=== PATIENT | female | born 1940 | race Caucasian/White ===

== ENCOUNTER 2016-12-27 10:38 | Inpatient (IN) | payer MEDICARE, OTHER ==
[2016-12-27] MEDS ORDERED: Aspirin Low Dose CHEW TAB* 81 MG PO ONE (10:58)
[2016-12-27] MEDS ORDERED: NS 0.9% 1000 ML* 1,000 ML IV ONE (10:58)
--- NOTE | 2016-12-27 11:24 | RAD ---
INDICATION: Chest pain. COMPARISON: Comparison is made with a prior study from April 30, 2016. TECHNIQUE: A portable view of the chest was obtained. FINDINGS: The heart is mildly enlarged and unchanged from the prior exam. The lungs are hyperinflated and clear. No pleural effusion is seen. IMPRESSION: FINDINGS CONSISTENT WITH COPD, NO EVIDENCE FOR ACUTE FINDING.
[2016-12-27 11:39] LABS: Hematocrit 33 % (35-47); Hemoglobin 10.5 g/dl (12.0-16.0); Mean Corpuscular HGB Conc 31 g/dl (31-36); Mean Corpuscular Hemoglobin 23 pg (27-31); Mean Corpuscular Volume 75 fL (80-97); Mean Platelet Volume 7 um3 (7.4-10.4); Red Blood Count 4.46 10^6/ul (4.0-5.4); Red Cell Distribution Width 19 % (10.5-15); White Blood Count 9.3 10^3/ul (3.5-10.8)
[2016-12-27 11:40] LABS: Add Diff/Slide Review? Slide Review Added; Comments Flag Yes
[2016-12-27 11:55] LABS: Albumin 3.2 g/dL (3.2-5.2); BUN/Creatinine Ratio 16.7 (8-20); Calcium 8.7 mg/dL (8.6-10.3); EGFR African American 67.4 (>60); EGFR Non-African American 52.4 (>60); Globulin 2.9 g/dL (2-4); Potassium 3.7 mmol/L (3.5-5.0); Total Bilirubin 0.5 mg/dL (0.2-1.0); Total Protein 6.1 g/dL (6.4-8.9)
[2016-12-27 11:57] LABS: Troponin I 0.01 ng/mL (<0.04)
[2016-12-27] MEDS ORDERED: Ondansetron INJ* 2 MG/ML VIAL IV ONE (12:02)
[2016-12-27] MEDS ORDERED: fentaNYL* 50 MCG/ML 2 ML VIAL (100 MCG VIAL) IV SLOW PU ONE ×2 (12:02→13:17)
[2016-12-27 12:22] LABS: C Reactive Protein 1.41 mg/L (< 5.00)
[2016-12-27] MEDS ORDERED: Diltiazem IV* 5 MG/ML 5 ML VIAL (for loading dose/IV Push) (25 MG) IV SLOW PU ONE (13:11)
[2016-12-27] MEDS ORDERED: Diltiazem DRIP* 100 MG/100 ML ADDV.BAG IVPB ONE (13:11)
--- NOTE | 2016-12-27 14:35 | ED ---
Romeo Toure Benjamin, scribed for Jake Otero MD on 12/27/16 at 1154 . HPI Chest Pain - HPI Summary HPI Summary: 76yo female c/o sudden onset chest discomfort and rt sided abd. pain around 6am today. Pt Denies pain radiating pain to jaw or neck, or SOB. Pt is on a blood thinner. Hx of afib, DM, ID, cardiac stents x2, and colon CA s/p resection last yr. - History of Current Complaint Chief Complaint: EDChestPainROMI Time Seen by Provider: 12/27/16 11:31 Hx Obtained From: Patient Onset/Duration: Started Hours Ago, Still Present Timing: Constant Initial Severity: Moderate Current Severity: Moderate Chest Pain Location: Diffuse Chest Pain Radiates: No Aggravating Factor(s): Nothing Alleviating Factor(s): Nothing Associated Signs and Symptoms: Positive: Abdominal Pain - right sided abd pain. Negative: Shortness of Breath, Fever, Calf Pain/Swelling - Additional Pertinent History Primary Care Physician: ABDOULAYE - Allergy/Home Medications Allergies/Adverse Reactions: Allergies Allergy/AdvReac Type Severity Reaction Status Date / Time Cyclosporine [From Restasis] Allergy Eyes Verified 12/27/16 14:10 Itchy/Swollen/Red/Watery Morphine Allergy Hives Verified 12/27/16 14:10 Penicillins Allergy Hives Verified 12/27/16 14:10 Home Medications: Home Medications Acetaminophen [Tylenol 8 Hour Arthritis] 650 mg PO Q6HR PRN 12/27/16 [History Confirmed 12/27/16] Cholecalciferol [Vitamin D3 Ultra Strength] 5,000 unit PO DAILY 12/27/16 [ History Confirmed 12/27/16] Cyanocobalamin [Vitamin B-12] 5,000 mcg PO DAILY 12/27/16 [History Confirmed ] Docusate CAP* [Colace Cap*] 100 mg PO BID PRN 12/27/16 [History Confirmed ] Insulin NPH (Human) (Isophane) [Novolin N Relion] 65 unit SUBCUT QAM 12/27/16 [ History Confirmed 12/27/16] Lidocaine PATCH 5%* [Lidoderm 5% Patch*] 2 patch TRANSDERM DAILY 12/27/16 [ History Confirmed 12/27/16] Metoprolol Tartrate TAB* [Lopressor TAB*] 50 mg PO BID 12/27/16 [History Confirmed 12/27/16] Nitroglycerin TAB 0.4 MG* 0.4 mg SL Q5M PRN MDD 1.2 mg 12/27/16 [History Confirmed 12/27/16] [place]-3 Fatty Acids (Nf) [Fish Oil (NF)] 1,000 mg PO DAILY 12/27/16 [History Confirmed 12/27/16] PMH/Surg Hx/FS Hx/Imm Hx Endocrine/Hematology History: Reports: Hx Diabetes, Hx Anemia Cardiovascular History: Reports: Hx Angina, Hx Angioplasty, Hx Coronary Artery Disease, Hx Hypercholesterolemia, Hx Hypertension, Hx Myocardial Infarction, Other Cardiovascular Problems/Disorders - hx cardiac stent, atherosclerosis Denies: Hx Congestive Heart Failure, Hx Pacemaker/ICD, Hx Valvular Heart Disease Respiratory History: Reports: Hx Chronic Obstructive Pulmonary Disease (COPD) - per ED H+P, Hx Sleep Apnea - 2 liters O2 at night, Other Respiratory Problems/ Disorders Comment Only: Hx Asthma - occassional per pt GI History: Denies: Hx Cirrhosis, Hx Crohn's Disease, Hx Diverticulosis, Hx Gall Bladder Disease, Hx Gastroesophageal Reflux Disease, Hx Gastrointestinal Bleed, Hx Hiatal Hernia, Hx Irritable Bowel, Hx Jaundice, Hx Obstructive Bowel, Hx Ileostomy, Hx Pyloric Stenosis, Hx Ulcer, Other GI Disorders History: Reports: Hx Kidney Stones Musculoskeletal History: Reports: Hx Arthritis, Hx Rheumatoid Arthritis, Hx Orthopedic Injury - right femur 2013, Other Musculoskeletal History - herniated L4-L5 Sensory History: Reports: Hx Contacts or Glasses Denies: Hx Cataracts, Hx Eye Injury, Hx Eye Prosthesis, Hx Glaucoma, Hx Legally Blind, Hx Macular Degeneration, Hx Vision Problem, Hx Deafness, Hx Hearing Aid, Hx Hearing Problem, Other Sensory Impairments Opthamlomology History: Reports: Hx Contacts or Glasses Denies: Hx Cataracts, Hx Eye Injury, Hx Eye Prosthesis, Hx Glaucoma, Hx Legally Blind, Hx Macular Degeneration, Hx Vision Problem, Other Sensory Impairments Neurological History: Reports: Other Neuro Impairments/Disorders - legft hand neuropathy Denies: Hx Dementia, Hx Developmental Delay, Hx Headaches, Hx Migraine, Hx Nerve Disease, Hx Seizures, Hx Spinal Cord Injury, Hx Transient Ischemic Attacks (TIA) Psychiatric History: Denies: Hx Panic Disorder - Cancer History Cancer Type, Location and Year: COLON CA - Surgical History Surgery Procedure, Year, and Place: RIGHT LEG AFTER FRACTURE 10/26/14. Colon resection 2013 Hx Anesthesia Reactions: No Infectious Disease History: No Infectious Disease History: Denies: Hx Clostridium Difficile, Hx Hepatitis, Hx Human Immunodeficiency Virus (HIV), Hx of Known/Suspected MRSA, Hx Shingles, Hx Tuberculosis, Hx Known/ Suspected VRE, Hx Known/Suspected VRSA, History Other Infectious Disease, Traveled Outside the [place] in Last 30 Days - Family History Known Family History: Positive: Hypertension - Social History Alcohol Use: Rare Substance Use Type: Reports: None Smoking Status (MU): Never Smoked Tobacco Type: Cigarettes Review of Systems Constitutional: Negative Eyes: Negative ENT: Negative Positive: Chest Pain Respiratory: Negative Negative: Shortness Of Breath Positive: Abdominal Pain - right sided Genitourinary: Negative Musculoskeletal: Negative Skin: Negative Neurological: Negative Psychological: Normal All Other Systems Reviewed And Are Negative: Yes Physical Exam - Summary Physical Exam Summary: The patient is well-nourished in mild distress and in no acute pain. The skin is warm and dry and skin color reflects adequate perfusion. HEENT: The head is normocephalic and atraumatic. The pupils are equal and reactive. The conjunctivae are clear and without drainage. Nares are patent and without drainage. Mouth reveals dry mucous membranes and the throat is without erythema and exudate. The external ears are intact. The ear canals are patent and without drainage. The tympanic membranes are intact. Neck is supple with full range of motion and non-tender. There are no carotid bruits. There is no neck vein distension. Respiratory: Chest is non-tender. Lungs are clear to auscultation and breath sounds are symmetrical and equal. Cardiovascular: Hear is IRR. Tachycardic. There is no murmur or rub auscultated. There is no peripheral edema and pulses are symmetrical and equal. Abdomen: The abdomen is soft. Right sided tenderness, no guarding or rebound. There are normal bowel sounds heard in all four quadrants and there is no organomegaly palpated. Musculoskeletal: There is no back pain noted. Extremities are non-tender with full range of motion. There is good capillary refill. There is no peripheral edema or calf tenderness elicited. Good femoral pulses. Neurological: Patient is alert and oriented to person, place and time. The patient has symmetrical motor strength in all four extremities. Cranial nerves are grossly intact. Deep tendon reflexes are symmetrical and equal in all four extremities. Psychiatric: The patient has an appropriate affect and does not exhibit any anxiety or depression. Triage Information Reviewed: Yes Vital Signs On Initial Exam: Initial Vitals BP 160/84 12/27/16 10:44 Vital Signs Reviewed: Yes - [place] Coma Scale Coma Scale Total: 15 Diagnostics - Vital Signs Vital Signs Temp Pulse Resp BP Pulse Ox 12/27/16 11:30 99 19 172/119 98 12/27/16 11:15 152 12/27/16 11:00 98 14 165/97 97 12/27/16 10:50 120 12/27/16 10:46 98.7 F 102 22 160/84 96 12/27/16 10:44 160/84 - Laboratory Lab Results: Lab Results 12/27/16 Range/Units 11:25 WBC 9.3 (3.5-10.8) 10^3/ul RBC 4.46 (4.0-5.4) 10^6/ul Hgb 10.5 L (12.0-16.0) g/dl Hct 33 L (35-47) % MCV 75 L (80-97) fL MCH 23 L (27-31) pg MCHC 31 (31-36) g/dl RDW 19 H (10.5-15) % Plt Count 468 H (150-450) 10^3/ul MPV 7 L (7.4-10.4) um3 Neut % (Auto) 76.8 (38-83) % Lymph % (Auto) 13.6 L (25-47) % Crisp % (Auto) 6.9 (1-9) % Eos % (Auto) 1.3 (0-6) % Baso % (Auto) 1.4 (0-2) % Absolute Neuts (auto) 7.1 (1.5-7.7) 10^3/ul Absolute Lymphs (auto) 1.3 (1.0-4.8) 10^3/ul Absolute Monos (auto) 0.6 (0-0.8) 10^3/ul Absolute Eos (auto) 0.1 (0-0.6) 10^3/ul Absolute Basos (auto) 0.1 (0-0.2) 10^3/ul Absolute Nucleated RBC 0 10^3/ul Nucleated RBC % 0 Result Diagrams: 12/27/16 11:25 12/27/16 11:25 Lab Statement: Any lab studies that have been ordered have been reviewed, and results considered in the medical decision making process. - Radiology CXR Xray Interpretation: No Acute Changes - COPD Radiology Interpretation Completed By: Radiologist - EKG 1045. Cardiac Rate: NL EKG Rhythm: Atrial Fibrillation EKG Interpretation: LBBB. Rapid ventricular response. normal axis. 1308. Cardiac Rate: NL EKG Rhythm: Atrial Fibrillation EKG Interpretation: LBBB EKG Comparison: No Significant Change - same with her EKG taken on 12/27/16 at 10 :45am Re-Evaluation - Re-Evaluation First Eval Re-Evaluation Time: 13:11 Change: Worse Comment: pt reports left sided CP. will order repeat EKG and start her on Cardizem. Chest Pain Course/Dx - Course Course Of Treatment: Pt will be admitted. CT results pending. - Chest Pain Differential Diagnosis/HQI/PQRI: Acute ID, ACS, CHF, GI Disease, Other: - messenteric ischemia, colitis, sbo, gall bladder disease, history of colon cancer - Diagnoses Provider Diagnoses: Chest pain, Abdominal pain, Atrial fibrillation with rapid ventricular response - Provider Notifications Discussed Care Of Patient With: Dr. Bustamante (hospitalist) for admission evaluation. @13:20. Discharge - Discharge Plan Condition: Stable Disposition: ADMITTED TO [facility] Referrals: John Munguia MD [Primary Care Provider] - The documentation as recorded by the Romeo valdes Benjamin accurately reflects the service I personally performed and the decisions made by , Jake Otero MD.
[2016-12-27] MEDS ORDERED: Iodixanol* (CONTRAST) 320 MG/ML 100 ML SDV IV ONE (14:39)
[2016-12-27] MEDS ORDERED: Ondansetron INJ* 2 MG/ML VIAL IV PRN (15:10)
[2016-12-27 15:22] LABS: Urine Bacteria Absent (Absent); Urine Bilirubin Negative (Negative); Urine Glucose Negative (Negative); Urine Nitrite Negative (Negative)
[2016-12-27] MEDS ORDERED: Docusate CAP* 100 MG PO PRN (15:33)
[2016-12-27] MEDS ORDERED: Dextrose 50% Syringe 50 ML* 25 GM/50 ML SYRINGE IV PUSH PRN (15:35)
[2016-12-27] MEDS ORDERED: Metoprolol Tartrate TAB* 50 mg PO ONE (15:37)
--- NOTE | 2016-12-27 15:47 | RAD ---
Indication: Right-sided abdominal pain. CT of the abdomen and pelvis was performed after oral and IV contrast administration. Coronal and sagittal reconstructed images were obtained. Administered 132.0 ml of Contrast -- mgi/ml2 was given according to hospital protocol. The lung bases demonstrate no pleural fluid, nodules or masses. Cardiomegaly without evidence of pericardial effusion. The liver is normal in size. Small low density lesions is noted in the dome of the liver measuring 6 mm and in the hepatorenal fossa measuring 6 mm. These likely represent small cysts. No intrahepatic duct dilatation is noted. The gallbladder demonstrates no calcified gallstones. No pericholecystic fluid or wall thickening is noted. The spleen is normal size. Pancreas demonstrates no mass or pancreatic ductal dilatation. No adrenal lesions are noted. The kidneys demonstrate no hydronephrosis. No retroperitoneal adenopathy is noted. No dilated loops of bowel are noted. There is no retroperitoneal adenopathy. Aorta and inferior vena cava are unremarkable. CT of the pelvis demonstrates no evidence of diverticulitis or mucosal thickening of the right colon. No evidence of bowel obstruction is noted. No definite evidence of appendicitis is noted although the appendix is not visualized. The cecum appears to be in the right upper quadrant. Diverticulosis is noted. The uterus and ovaries are unremarkable. IMPRESSION: NO EVIDENCE OF BOWEL OBSTRUCTION IS NOTED. DIVERTICULOSIS WITHOUT EVIDENCE OF DIVERTICULITIS. LOW DENSITY LESION IN THE LIVER ARE NONSPECIFIC.
--- NOTE | 2016-12-27 17:23 | HP ---
ADMISSION HISTORY AND PHYSICAL: DATE OF ADMISSION: 12/27/16 PRIMARY CARE PROVIDER: Dr. Munguia. ADMITTING PROVIDER: BHUPENDRA Melendrez. SUPERVISING PHYSICIAN: Dr. Neha Bustamante.* (DICTATED BY BHUPENDRA MELENDREZ) CHIEF COMPLAINT: Chest pain versus shoulder pain and kind of right flank/ abdominal pain. HISTORY OF PRESENT ILLNESS: This is a 76-year-old female with an extensive medical history including chronic atrial fibrillation, anticoagulated with Coumadin, as well as coronary artery disease, status post multiple acute MIs, hypertension, hyperlipidemia, colorectal cancer, status post colectomy, and chronic kidney disease stage 3, who presented to the emergency department with primary complaints of chest pain. The patient states that she awoke with symptoms. They did not necessarily wake her up, but when she awoke to go to the bathroom this morning, she noted some left shoulder/left upper chest pain as well as some right-sided abdominal pain. She had some generalized feeling of malaise as well. As the day went on, she felt that her symptoms were getting worse and her pain climbed to a 10/10. EMS was contacted. The patient took a nitro that she had at home and she said that that helped somewhat. She also received morphine and aspirin from the EMS crew and she felt that that helped as well. She states that yesterday she had some kind of increased in activity, but not necessarily strenuous. She was vacuuming a small area in her home, flushed the floor, and went grocery shopping. She was asymptomatic when she went to bed last night. Since arriving in the emergency department, she feels that her pain has improved , but when she got up to ambulate to the bathroom, she had significant chest pain and feels like any time she tries to move around in her stretcher, that also increases her pain including shoulder range of motion. When the patient reached the emergency department, she was mildly tachycardic. She did reach a maximum heart rate of about 130 beats per minute and received IV diltiazem. Her rate has slowed into the low 100s or so on most recent check. The patient denies associated shortness of breath or palpitations. No nausea, vomiting, or diarrhea. She said that she did have a normal-appearing bowel movement earlier this morning. She did have a recent URI, but feels that her symptoms have largely resolved and denies any associated fevers. The patient states that she was told that she was subtherapeutic recently on her INR check and was told to double up on her Coumadin dose. She is noted to be supratherapeutic when she reaches the emergency department today, but no obvious signs of bleeding. PAST MEDICAL HISTORY: 1. Coronary artery disease, status post multiple MIs. 2. Hypertension. 3. Hyperlipidemia. 4. Insulin-dependent diabetes. 5. Atrial fibrillation, chronically anticoagulated on Coumadin. 6. Colorectal cancer, status post partial colectomy with a recently normal colonoscopy per patient report. 7. Chronic kidney disease, stage 3. PAST SURGICAL HISTORY: Hemicolectomy. HOME MEDICATIONS: 1. Acetaminophen 650 mg p.o. q.6 hours p.r.n. pain. 2. Aspirin 81 mg p.o. daily. 3. Atorvastatin 80 mg p.o. daily. 4. Vitamin D3 supplementation 5000 units p.o. daily. 5. Vitamin B12 5000 mcg p.o. daily. 6. Docusate 100 mg p.o. b.i.d. 7. Furosemide 20 mg p.o. daily. 8. Lantus 40 units subcu daily. 9. NPH 65 mg each morning as well. 10. Lidocaine 5% 2 patches transdermally daily. 11. Lisinopril 20 mg p.o. b.i.d. 12. Metoprolol tartrate 50 mg p.o. b.i.d. 13. Nitroglycerin 0.4 mg sublingual q.5 minutes p.r.n. chest pain. 14. Fish oil 1000 mg p.o. daily. 15. Omeprazole 20 mg p.o. b.i.d. 16. Coumadin 4.5 mg p.o. daily. 17. Oxycodone 5 mg p.o. q.6 hours. FAMILY HISTORY: The patient's mother and father had a history of diabetes. Her mother had colorectal cancer and her grandmother had coronary artery disease. SOCIAL HISTORY: The patient is . She lives at home and her daughters are near by. No smoking history. Rare alcohol consumption. No illicit drug use. 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 REVIEW OF SYSTEMS: As noted above in the HPI. Otherwise negative. PHYSICAL EXAMINATION GENERAL: This is a 76-year-old female who appears mildly fatigued surrounded by family, but is in no acute distress. INITIAL VITAL SIGNS: Temperature 98.7 degrees Fahrenheit, pulse 113 beats per minute, respiratory rate 22 per minute, oxygen saturation 98% on room air, and blood pressure 160/84 mmHg. HEENT: Head is normocephalic, atraumatic. Mucous membranes are pink and moist. RESPIRATORY: The patient has normal breath sounds. There is a faint wheeze appreciated at lung bases. Otherwise, no crackles or rhonchi noted. CHEST WALL EXAM: The patient has some pinpoint tenderness to palpation in the left upper chest and her pain seems to be exacerbated with range of motion of her left shoulder. CARDIOVASCULAR: The patient has an irregularly irregular rhythm. Slightly tachycardic. No significant murmurs appreciated. ABDOMEN: Abdomen is soft. She does have some right upper quadrant/right flank tenderness to palpation, but no true CVA tenderness. EXTREMITIES: No lower extremity edema. SKIN: Limited exam shows no concerning rashes or lesions. PSYCH: The patient is alert and appropriately oriented. LABORATORY DATA: Labs reviewed. CBC shows white blood cell count of 9300, hemoglobin 10.5 g/dL, and a platelet count of 468,000. INR is supratherapeutic at 4.5. PTT is also high at 47.5. Comprehensive metabolic panel shows normal sodium of 142 mmol/L, potassium 3.7 mmol/L, BUN of 17, creatinine of 1.02 with an estimated GFR of 52, which is near her baseline. Lactic acid is normal at 1.5. Transaminases and total bilirubin are within normal limits. Troponin negative at 0.01. CRP is normal at 1.4. Lipase is normal at 11. BNP is also normal at 86. IMAGING: EKG shows atrial fibrillation with a left bundle-branch block and mild tachycardia, reviewed. Chest x-ray shows findings consistent with COPD, but no acute findings. Reviewed most recent echocardiogram from September 2015, which is essentially within normal limits. Ejection fraction at that time was 55% to 60%. She had some mild diastolic dysfunction, [id number] mitral regurgitation, mild-to- moderate tricuspid regurgitation, no evidence of pulmonary hypertension. Reviewed cardiac catheterization from July 2015, which showed some diffuse disease, left main had 25% to 30% stenosis, LAD showed some mild stenosis with prior stents in the mid vessel. Circumflex showed 45% to 50% stenosis and the RCA showed moderate disease in a really small caliber vessel. ASSESSMENT AND PLAN: This is a 76-year-old female with an extensive history including coronary artery disease, insulin-dependent diabetes, atrial fibrillation, hypertension, hyperlipidemia, colorectal cancer status post partial colectomy, and chronic kidney disease stage 3, who presents with chest pain and abdominal pain. She is being admitted to the hospital for observation. 1. Chest pain - the patient's symptoms sound atypical, although she does have significant risk factors and rather diffuse disease appreciated on her last catheterization from July 2015. For these reasons, the patient will be admitted to the hospital for continuous telemetry monitoring and serial troponins and a repeat stress test tomorrow morning. We will plan to continue all of her home cardiac medications. 2. Atrial fibrillation with rapid ventricular response - the patient is mildly tachycardic in the emergency department. Unclear if she took her morning medications, but we will order her her typical metoprolol and anticipate that this should improve. The patient is normotensive with this and it does seem likely that her mild tachycardia with chronic atrial fibrillation would be inducing all of her pain. 3. Abdominal pain - the patient has some right upper quadrant abdominal pain. Again, it is unclear whether this is musculoskeletal or something intra- abdominal. CT of the abdomen and pelvis has been ordered by the emergency department physician and is pending at this time. No transaminitis or really other lab abnormalities that would suggest it to be acute intra-abdominal process and CRP is also noted to be essentially negative. 4. Insulin-dependent diabetes - the patient's home insulin regimen is odd with her taking Lantus and NPH. We will continue her typical Lantus at this time, check hemoglobin A1c, and then cover with Humalog at mealtime on a sliding scale. 5. Coronary artery disease, status post multiple myocardial infarctions - the patient is a low suspicion for acute coronary syndrome. We will continue cardiac medications at this time and monitor serial troponins with continuous telemetry. 6. Supratherapeutic INR - Coumadin will be held, no indication for reversal at this time. We will monitor INR daily. 7. Hypertension - continue home antihypertensives. 8. Hyperlipidemia - continue statin. 9. Chronic kidney disease, stage 3 - creatinine and an associated estimated GFR appear to be near baseline at this time. 10. History of colorectal cancer, status post colectomy. 11. Code status: The patient is listed as DNR. 12. DVT prophylaxis: The patient is actually supratherapeutic on her INR and additional medical prophylaxis is not indicated. 13. Healthcare proxy is listed as Roxie Saldana, which is her daughter. DISPOSITION: The patient is being admitted to the hospital under observation status for chest pain and abdominal pain. CT scan of the abdomen and pelvis is pending at this time. We will anticipate stress test in the morning and assuming no abnormality, the patient will be discharged tomorrow. BHUPENDRA MELENDREZ CC: Dr. Munguia * [id number]/CPS #: [id number] MTDD
[2016-12-27] MEDS: Insulin LISPRO* 1 UNITS UNIT SUBCUT SCH (17:41)
[2016-12-27] MEDS: Atorvastatin* 80 MG TAB PO SCH (17:41)
[2016-12-27] MEDS: Lisinopril TAB* 10 MG PO SCH (20:32)
[2016-12-27] MEDS: Omeprazole CAP* 20 MG PO SCH (20:32)
[2016-12-27] MEDS: Metoprolol Tartrate TAB* 50 mg PO SCH (20:32)
[2016-12-27] MEDS: oxyCODONE TAB* 5 MG TAB PO PRN (23:44)
[2016-12-28 06:22] LABS: HDL Cholesterol 39.4 mg/dL
[2016-12-28] MEDS: Insulin LISPRO* 1 UNITS UNIT SUBCUT SCH ×3 (08:58→17:35)
[2016-12-28] MEDS: Lisinopril TAB* 10 MG PO SCH ×2 (08:58→20:50)
[2016-12-28] MEDS: Furosemide TAB* 20 MG PO SCH (08:58)
[2016-12-28] MEDS: Aspirin EC Low Dose* 81 MG TAB.EC PO SCH (08:58)
[2016-12-28] MEDS: Omeprazole CAP* 20 MG PO SCH ×2 (08:58→20:50)
[2016-12-28] MEDS: Insulin GLARGINE(*) 1 UNITS UNIT SUBCUT SCH (09:01)
[2016-12-28] MEDS: Metoprolol Tartrate TAB* 50 mg PO SCH ×3 (09:11→20:50)
[2016-12-28] MEDS: oxyCODONE TAB* 5 MG TAB PO PRN ×2 (11:49→20:56)
[2016-12-28] MEDS ORDERED: Regadenoson* 0.4 MG/5 ML SYRINGE ONE (12:49)
--- NOTE | 2016-12-28 13:07 | RAD ---
Edited for charges. Indication: Chest pain, coronary artery disease. Myocardial perfusion scan was performed utilizing 1 day protocol. Rest myocardial perfusion was performed after intravenous injection of 10.7 mCi of technetium 99m tetrofosmin. Pharmacological stress was applied and 25.9 mCi of technetium 99m tetrofosmin was injected for the stress portion of the study. The patient appears to have a left bundle branch block. There is homogeneous distribution of the radiotracer throughout the left ventricle. There is a focal area of photopenia in the anteroseptal wall. This may be artifact from left bundle branch block. No other areas of fixed or reversible perfusion defect is identified. Ejection fraction at stress is 66%. Evaluation of wall motion demonstrates no evidence of focal wall motion abnormality. IMPRESSION: Small area of perfusion defect in the anteroseptal wall. This may be artifact from left bundle branch block. No definite focal wall motion abnormality is identified. ASSESSMENT: Low risk Based on imaging criteria from ACC/AHA 2002 Guideline Update for the Management of Patients With Chronic Stable Angina Table 23. Noninvasive Risk Stratification. MTDD
[2016-12-28] MEDS: Atorvastatin* 80 MG TAB PO SCH (17:36)
--- NOTE | 2016-12-28 17:44 | PN ---
Subjective Date of Service: 12/28/16 Interval History: HOSPITALIST PROGRESS NOTE Patient seen and examined at bedside. She states her left shoulder pain is resolved, but RUQ pain is still present, 3/ 10 intensity, no radiation. She states she was on her usual state of healthy until 2 days ago, when she had a very busy day: had blood test done, went to Pharmacy, grocery shopping, and finally ended up having dinner at [employer] (burger, fries and soda). When she arrived home her "tummy felt heavy" and when she woke up next day had chest and RUQ pain. Mild nausea, more frequent BMs, but no diarrhea. Family History: Unchanged from Admission Social History: Unchanged from Admission Past Medical History: Unchanged from Admission Objective Active Medications: Aspirin (Aspirin Ec Low Dose*) 81 mg PO DAILY [facility] Last Admin: 12/28/16 08:58 Dose: 81 mg Atorvastatin Calcium (Lipitor*) 80 mg PO QPM [facility] Last Admin: 12/28/16 17:36 Dose: 80 mg Dextrose (D50w Syringe 50 Ml*) 12.5 gm IV PUSH .FOR FS < 60 - SS PRN PRN Reason: FS < 60 Docusate Sodium (Colace Cap*) 100 mg PO BID PRN PRN Reason: CONSTIPATION Furosemide (Lasix Tab*) 20 mg PO DAILY [facility] Last Admin: 12/28/16 08:58 Dose: 20 mg Insulin Glargine (Lantus(*)) 40 units SUBCUT QAM [facility] Last Admin: 12/28/16 09:01 Dose: 40 units Insulin Human Lispro (Humalog*) 0 units SUBCUT AC [facility] PRN Reason: Protocol Last Admin: 12/28/16 17:35 Dose: 3 units Lisinopril (Prinivil Tab*) 20 mg PO BID [facility] Last Admin: 12/28/16 08:58 Dose: 20 mg Metoprolol Tartrate (Lopressor Tab*) 50 mg PO BID [facility] Last Admin: 12/28/16 11:50 Dose: 50 mg Omeprazole (Prilosec Cap*) 20 mg PO BID [facility] Last Admin: 12/28/16 08:58 Dose: 20 mg Ondansetron HCl (Zofran Inj*) 4 mg IV Q4H PRN PRN Reason: NAUSEA/VOMITING Oxycodone HCl (Roxycodone Tab*) 5 mg PO Q6HR PRN PRN Reason: PAIN Last Admin: 12/28/16 11:49 Dose: 5 mg Selected Entries 12/28/16 15:18 Temperature 98.0 F Pulse Rate 57 Respiratory 16 Rate Blood Pressure 132/45 (mmHg) O2 Sat by Pulse 99 Oximetry Oxygen Devices in Use Now: None Appearance: Elderly morbid obese lady lying in bed in NAD. Eyes: No Scleral Icterus Ears/Nose/Mouth/Throat: Mucous Membranes Moist Neck: Trachea Midline Respiratory: Symmetrical Chest Expansion and Respiratory Effort, Clear to Auscultation Cardiovascular: - - Normal S1 and S2, irregularly irregular Abdominal: - - Obese, RUQ tenderness on palpation, NG, NR, BS+ and increased. Extremities: No Edema Neurological: Alert and Oriented x 3, NL Muscle Strength and Tone Lines/Tubes/Other Access: Clean, Dry and Intact Peripheral IV Nutrition: Taking PO's Result Diagrams: 12/27/16 11:25 12/27/16 11:25 Assess/Plan/Problems-Billing Assessment: Mrs. No is a 76yo F with PMH of CAD, HTN, HLD, type 2 DM, Afib on warfarin, colorectal CA s/p hemicolectomy, CKD stage 3, who presented to ED with c/o RUQ pain/ chest pain. - Patient Problems (1) Chest pain Comment: - ACS ruled out. Suspect GI in nature. - Stress test showed small area of perfusion defect in the anteroseptal wall, possible artifact from LBBB. Low risk stress test. (2) RUQ pain Comment: - Suspect biliary in nature, considering it [facility]. - Check RUQ US. - Symptomatic treatment. (3) Afib Comment: - Rate is controlled. - Continue Metoprolol. - Warfarin on hold due to supratherapeutic INR. (4) Type 2 diabetes mellitus Comment: - Continue Lantus and Lispro SS. (5) CAD (coronary artery disease) Comment: - Stable. - Continue ASA, statin, metoprolol, lisinopril. (6) DVT prophylaxis Comment: - INR supratherapeutic - will resume Warfarin when INR<3.0. Status and Disposition: Inpatient.
[2016-12-29 06:34] LABS: Albumin 3.5 g/dL (3.2-5.2); BUN/Creatinine Ratio 12.6 (8-20); EGFR African American 66.6 (>60); EGFR Non-African American 51.8 (>60); Globulin 2.9 g/dL (2-4); Potassium 3.9 mmol/L (3.5-5.0); Total Bilirubin 1.4 mg/dL (0.2-1.0); Total Protein 6.4 g/dL (6.4-8.9)
[2016-12-29] MEDS: Aspirin EC Low Dose* 81 MG TAB.EC PO SCH (08:55)
[2016-12-29] MEDS: oxyCODONE TAB* 5 MG TAB PO PRN (08:55)
[2016-12-29] MEDS: Furosemide TAB* 20 MG PO SCH (08:56)
[2016-12-29] MEDS: Metoprolol Tartrate TAB* 50 mg PO SCH (08:56)
[2016-12-29] MEDS: Lisinopril TAB* 10 MG PO SCH (08:57)
[2016-12-29] MEDS: Omeprazole CAP* 20 MG PO SCH (08:57)
--- NOTE | 2016-12-29 09:48 | RAD ---
Indication: Right upper quadrant pain evaluate for cholelithiasis. Real-time sonography of the right upper quadrant was performed. The liver measures 17 cm in length. There is suggestion of a cystic lesion in the dome of the liver although evaluation is limited due to body habitus. No definite intrahepatic ductal dilatation is noted. The common duct measures up to 5.4 mm. A single gallstone is noted in the fundus of the gallbladder. Gallbladder wall measures 2.1 mm. Right kidney measures 10.2 x 5.1 x 4.3 cm with no hydronephrosis. Pancreas where visualized is unremarkable. IMPRESSION: Cholelithiasis without biliary ductal dilatation. Evaluation of the liver and other organs are limited due to body habitus.
[2016-12-29] MEDS: Insulin GLARGINE(*) 1 UNITS UNIT SUBCUT SCH (10:03)
[2016-12-29] MEDS: Insulin LISPRO* 1 UNITS UNIT SUBCUT SCH ×2 (10:03→12:11)
[2016-12-29] MEDS ORDERED: Insulin LISPRO* 1 UNITS UNIT SUBCUT ONE (12:06)
[2016-12-29 12:42] VITALS: BP 164/77
[2016-12-29] MEDS ORDERED: Warfarin TAB(*) 1 MG PO SCH (17:00)
--- NOTE | 2016-12-30 02:50 | DS ---
DISCHARGE SUMMARY: DATE OF ADMISSION: 12/27/16 DATE OF DISCHARGE: 12/29/16 PRIMARY CARE PROVIDER: Dr. Munguia. DISCHARGE DIAGNOSES: 1. Atypical chest pain, acute coronary syndrome ruled out, most likely GI in nature. 2. Biliary colic. 3. Cholelithiasis. SECONDARY DIAGNOSES: 1. Coronary artery disease. 2. Hypertension. 3. Hyperlipidemia. 4. Type 2 diabetes. 5. Atrial fibrillation, on warfarin. 6. History of colorectal cancer, status post hemicolectomy. 7. Chronic kidney disease, stage 3. 8. Morbid obesity. 9. Left bundle-branch block. MEDICATION LIST: 1. Acetaminophen 650 mg p.o. q.6 hours p.r.n. pain or fever. 2. Aspirin 81 mg p.o. daily. 3. Atorvastatin 80 mg p.o. daily. 4. Cholecalciferol 5000 units p.o. daily. 5. Cyanocobalamin 5000 mcg p.o. daily. 6. Colace 100 mg p.o. b.i.d. as needed for constipation. 7. Furosemide 20 mg p.o. daily. 8. Lantus 40 units subcutaneously daily. 9. NPH 65 units subcutaneously daily. 10. Lidocaine patch 2 patches topical daily. 11. Lisinopril 20 mg p.o. b.i.d. 12. Metoprolol tartrate 50 mg p.o. b.i.d. 13. Nitroglycerin 0.4 mg sublingual q.5 minutes p.r.n. as needed for chest pain , maximum 3 doses. 14. Fish oil 1000 mg p.o. daily. 15. Omeprazole 20 mg p.o. b.i.d. 16. Oxycodone 5 mg p.o. q.6 hours as needed for pain. Medication change: Warfarin 1.5 mg p.o. daily. HOSPITAL COURSE: Mrs. No is a 76-year-old lady with a past medical history as stated above that presents to the emergency room with complaints of left- sided chest and shoulder pain and right upper quadrant pain. For more details about her presentation, I refer you to her history and physical, but in summary , on the day of admission, the patient had a very busy day going to have blood test, grocery shopping, going to pharmacy, and she had a meal of burger, fries, and soda at [employer]. When she arrived at home, she states her "tummy felt heavy" and when she woke up the next day, she had chest and right upper quadrant pain, associated with mild nausea. While on telemetry, the patient had one episode of 3-beats of V-tach, asymptomatic, but no other arrhythmias. Serial troponins were negative and a pharmacological nuclear medicine stress test showed small area of perfusion defect in the anteroseptal wall that may represent artifact from left bundle- branch block. No definite focal wall motion abnormality was identified and the assessment was that this was a low-risk stress test. After further review of the patient's history, the impression was that her symptoms were likely GI in nature and we suspected a biliary source. Her initial bilirubin was 0.5, but in followup it had increased to 1.4. CT of the abdomen and pelvis showed no evidence of bowel obstruction, diverticulosis without evidence of diverticulitis, and incidental finding of low density lesion in the liver that likely represents a small cysts. The gallbladder demonstrated no calcified gallstones. There was no pericholecystic fluid or wall thickening noted. A right upper quadrant ultrasound showed cholelithiasis without biliary ductal dilation, but the exam was limited due to the patient's body habitus. Her lipase was 11. The patient was started on a low-fat diet, received symptomatic treatment and had improvement of her symptoms. The impression is that she likely experienced an episode of biliary colic associated with her [employer] meal. She does not have any signs of infection at this time. I do not think she has acute cholecystitis, so antibiotics will not be prescribed. She was advised that she needs to stick to a low-fat diet, otherwise she may have other episodes and end up requiring cholecystectomy. The patient states that her INR level was elevated and she was told to decrease her warfarin from 3 mg to 2 mg, but her INR was still elevated while in the hospital, so her dose was reduced further to 1.5 mg. She will have an INR and a CMP performed on December 31, and the results will be sent to Dr. Munguia. The patient is medically stable for discharge at this time. PHYSICAL EXAMINATION: Vital Signs: Temperature is 97.8, heart rate is 58, respiratory rate 16, oxygen saturation 94% on room air, blood pressure is 160/ 77. General: The patient is a pleasant, morbidly obese, elderly lady, sitting up in bed, in no acute distress. CVS: Normal S1, S2. Regular rate and rhythm. Chest: Breath sounds present bilaterally, with no added sounds. Abdomen: Soft, with minimal right upper quadrant tenderness. No guarding, no rebound. Bowel sounds are present. Extremities: No edema. Neuro: She is alert, awake, and oriented x3. Able to move all 4 extremities. DIET: Low-fat, consistent carb diet. ACTIVITY: As tolerated. DISPOSITION: To home. STATUS WHILE IN THE HOSPITAL: Inpatient. Please keep in mind, this is a summarized version of this patient's hospital stay. If you need more information, please feel free to call me at [phone] or please obtain the full medical records. TIME SPENT: Approximately 45 minutes were spent to complete this discharge. CC: Dr. Munguia * [id number]/CPS #: [id number] MTDD
== END 2016-12-29 16:11 | disposition home or self-care (01) | DRG 445 ==
LOC: ED 10:38 → MEDTELE 13:40 → OBSVTOIN 12-28 16:13
PROVIDERS: ADMIT Hospitalist; ATTEND Internal Medicine
PROC: 4A12XM4 Monitoring of Cardiac Stress, External Approach (ICD-10-PCS; principal; 2016-12-28)
DX: K80.70 Calculus of gallbladder and bile duct without cholecystitis without obstruction (principal); I47.2 Ventricular tachycardia; E11.40 Type 2 diabetes mellitus with diabetic neuropathy, unspecified; K76.89 Other specified diseases of liver; Z68.41 Body mass index [BMI] 40.0-44.9, adult; E66.01 Morbid (severe) obesity due to excess calories; I25.10 Atherosclerotic heart disease of native coronary artery without angina pectoris; E78.5 Hyperlipidemia, unspecified; Z85.038 Personal history of other malignant neoplasm of large intestine; N18.3 Chronic kidney disease, stage 3 (moderate); I12.9 Hypertensive chronic kidney disease with stage 1 through stage 4 chronic kidney disease, or unspecified chronic kidney disease; I25.2 Old myocardial infarction; Z95.5 Presence of coronary angioplasty implant and graft; Z88.5 Allergy status to narcotic agent; Z88.1 Allergy status to other antibiotic agents; Z88.0 Allergy status to penicillin; J44.9 Chronic obstructive pulmonary disease, unspecified; Z87.442 Personal history of urinary calculi; M06.9 Rheumatoid arthritis, unspecified; Z82.49 Family history of ischemic heart disease and other diseases of the circulatory system; I48.2 Chronic atrial fibrillation; Z83.3 Family history of diabetes mellitus; Z80.0 Family history of malignant neoplasm of digestive organs; R79.1 Abnormal coagulation profile; T45.515A Adverse effect of anticoagulants, initial encounter; Z66 Do not resuscitate; I44.7 Left bundle-branch block, unspecified; Z79.82 Long term (current) use of aspirin; Z79.4 Long term (current) use of insulin; Z79.01 Long term (current) use of anticoagulants
CPT/HCPCS: 36415; 71010; 74177; 76705; 78452; 80053; 80061; 81003; 81015; 83605; 83690; 83880; 84484; 85025; 85610; 85730; 86140; 87086; 93005; 96374; 99285; A9270-GY; A9502; G0378; J2405; J2785; J3010; Q9967

== ENCOUNTER 2017-05-04 02:27 | Emergency (ER) | payer MEDICARE, OTHER ==
[2017-05-04] MEDS ORDERED: oxyCODONE/Acetamin 5/325 MG* TAB PO ONE (03:45)
--- NOTE | 2017-05-04 06:15 | ED ---
Keith Toure Aidan, scribed for Pk Armstronguel on 05/04/17 at 0456 . Lower Extremity - HPI Summary HPI Summary: 77 y/o female presents to the ED with a complaint of acute, constant, severe (9/ 10) right foot pain that radiates up her leg. The pain began today when she stood up from her chair. The pain is aggravated by palpating the right foot/ leg. Typically the patient is mobile with a walker. Hx of broken right ankle. She takes oxycodone regularly for chronic pain. - History of Current Complaint Chief Complaint: EDExtremityLower Stated Complaint: RT LEG PAIN Time Seen by Provider: 05/04/17 03:30 Hx Obtained From: Patient Mechanism Of Injury: Unknown - Pt started feeling pain when she stood up from her chair, however, she is normally ambulatory with a walker Onset of Pain: Immediate - after standing up Onset/Duration: Still Present - pain began today Severity Initially: Severe Severity Currently: Severe Pain Intensity: 9 Pain Scale Used: 0-10 Numeric Timing: Constant Location: Is Discrete @ - right foot, radiates up right leg Character Of Pain: Sharp Associated Signs And Symptoms: Positive: Negative Aggravating Factor(s): Other - palpating the right foot/leg aggravates pain Alleviating Factor(s): Other - unknown Able to Bear Weight: Yes - unknown, however, Pt is ambulatory at baseline - Risk Factors Gout Risk Factors: Age Over 40, Diabetes, Hypertension, Obesity - Allergies/Home Medications Allergies/Adverse Reactions: Allergies Allergy/AdvReac Type Severity Reaction Status Date / Time Cyclosporine [From Restasis] Allergy Eyes Verified 12/27/16 14:10 Itchy/Swollen/Red/Watery Morphine Allergy Hives Verified 12/27/16 14:10 Penicillins Allergy Hives Verified 12/27/16 14:10 PMH/Surg Hx/FS Hx/Imm Hx Endocrine/Hematology History: Reports: Hx Diabetes, Hx Anemia Cardiovascular History: Reports: Hx Angina, Hx Angioplasty, Hx Coronary Artery Disease, Hx Hypercholesterolemia, Hx Hypertension, Hx Myocardial Infarction, Other Cardiovascular Problems/Disorders - hx cardiac stent, atherosclerosis Denies: Hx Congestive Heart Failure, Hx Pacemaker/ICD, Hx Valvular Heart Disease Respiratory History: Reports: Hx Chronic Obstructive Pulmonary Disease (COPD) - per ED H+P, Hx Sleep Apnea - 2 liters O2 at night Denies: Other Respiratory Problems/Disorders Comment Only: Hx Asthma - occassional per pt GI History: Reports: Hx Gastroesophageal Reflux Disease, Other GI Disorders - gastritis Denies: Hx Cirrhosis, Hx Crohn's Disease, Hx Diverticulosis, Hx Gall Bladder Disease, Hx Gastrointestinal Bleed, Hx Hiatal Hernia, Hx Irritable Bowel, Hx Jaundice, Hx Obstructive Bowel, Hx Ileostomy, Hx Pyloric Stenosis, Hx Ulcer History: Reports: Hx Kidney Stones Musculoskeletal History: Reports: Hx Arthritis, Hx Rheumatoid Arthritis, Hx Orthopedic Injury - right femur 2013, Other Musculoskeletal History - herniated L4-L5 Sensory History: Reports: Hx Contacts or Glasses Denies: Hx Cataracts, Hx Eye Injury, Hx Eye Prosthesis, Hx Glaucoma, Hx Legally Blind, Hx Macular Degeneration, Hx Vision Problem, Hx Deafness, Hx Hearing Aid, Hx Hearing Problem, Other Sensory Impairments Opthamlomology History: Reports: Hx Contacts or Glasses Denies: Hx Cataracts, Hx Eye Injury, Hx Eye Prosthesis, Hx Glaucoma, Hx Legally Blind, Hx Macular Degeneration, Hx Vision Problem, Other Sensory Impairments Neurological History: Reports: Other Neuro Impairments/Disorders - left hand neuropathy Denies: Hx Dementia, Hx Developmental Delay, Hx Headaches, Hx Migraine, Hx Nerve Disease, Hx Seizures, Hx Spinal Cord Injury, Hx Transient Ischemic Attacks (TIA) Psychiatric History: Reports: Hx Depression Denies: Hx Panic Disorder - Cancer History Cancer Type, Location and Year: COLON CA - Surgical History Surgery Procedure, Year, and Place: RIGHT LEG AFTER FRACTURE 09/26/14. Colon resection 2013 Hx Anesthesia Reactions: No - Immunization History Date of Tetanus Vaccine: within the last ten years Date of Influenza Vaccine: October 2016 Infectious Disease History: Denies: Hx Clostridium Difficile, Hx Hepatitis, Hx Human Immunodeficiency Virus (HIV), Hx of Known/Suspected MRSA, Hx Shingles, Hx Tuberculosis, Hx Known/ Suspected VRE, Hx Known/Suspected VRSA, History Other Infectious Disease, Traveled Outside the [place] in Last 30 Days - Family History Known Family History: Positive: Hypertension - Social History Occupation: Retired Lives: With Family Alcohol Use: Rare Substance Use Type: Reports: None Smoking Status (MU): Never Smoked Tobacco Type: Cigarettes Review of Systems Constitutional: Negative Eyes: Negative ENT: Negative Cardiovascular: Negative Respiratory: Negative Gastrointestinal: Negative Genitourinary: Negative Positive: Myalgia - right foot pain that radiates up leg. Negative: Arthralgia , Decreased ROM, Edema Skin: Negative Neurological: Negative Psychological: Normal All Other Systems Reviewed And Are Negative: Yes Physical Exam Triage Information Reviewed: Yes Vital Signs On Initial Exam: Initial Vitals Temp Pulse Resp BP Pulse Ox 99.6 F 68 20 170/60 99 05/04/17 02:29 05/04/17 02:29 05/04/17 02:29 05/04/17 02:29 05/04/17 02:29 Vital Signs Reviewed: Yes Appearance: Positive: Well-Appearing, No Pain Distress Skin: Positive: Warm, Skin Color Reflects Adequate Perfusion, Dry Head/Face: Positive: Normal Head/Face Inspection Eyes: Positive: EOMI, YURY ENT: Positive: Normal ENT inspection Neck: Positive: Supple, Nontender Respiratory/Lung Sounds: Positive: Clear to Auscultation, Breath Sounds Present Cardiovascular: Positive: Normal, RRR, Pulses are Symmetrical in both Upper and Lower Extremities Abdomen Description: Positive: Nontender, Soft Bowel Sounds: Positive: Present Musculoskeletal: Positive: Normal, Strength/ROM Intact, Other - tenderness over right ankle and leg, no neurovascular deficit Neurological: Positive: Normal, Sensory/Motor Intact, Alert, Oriented to Person Place, Time Psychiatric: Positive: Normal, Affect/Mood Appropriate AVPU Assessment: Alert Diagnostics - Vital Signs Vital Signs Temp Pulse Resp BP Pulse Ox 05/04/17 04:04 18 05/04/17 02:29 99.6 F 68 20 170/60 99 - Laboratory Lab Statement: Any lab studies that have been ordered have been reviewed, and results considered in the medical decision making process. - Radiology FOOT X-RAY Xray Interpretation: No Acute Changes - IMPRESSION: NEGATIVE Radiology Interpretation Completed By: ED Physician - DR. ARMSTRONG LOWER EXTREMITY X-RAY Xray Interpretation: No Acute Changes - NEGATIVE Radiology Interpretation Completed By: ED Physician - DR. ARMSTRONG - Ultrasound No standard instances Ultrasound Interpretation: No Acute Changes - VENOUS DOPPLER STUDY IMPRESSION: negative examination Ultrasound Interpretation Completed By: ED Physician Jese Armstrong Lower Extremity Course/Dx - Course Course Of Treatment: 77 y/o female presents with right foot pain that radiates up her leg. Imaging results were negative. - Diagnoses Provider Diagnoses: Right leg pain, Sprain and strain Discharge - Discharge Plan Condition: Stable Disposition: HOME Discharge Disposition Comment: Please follow up with your primary care provider within 3 days. Patient Education Materials: Leg Pain (ED), Hip Pain (ED) Referrals: John Mugnuia MD [Primary Care Provider] - The documentation as recorded by the Keith valdes Aidan accurately reflects the service I personally performed and the decisions made by , Todd Armstrong.
[2017-05-04 07:10] VITALS: BP 168/83
--- NOTE | 2017-05-04 08:19 | RAD ---
Indication: Right foot pain. 3 views of the right foot demonstrates diffuse osteopenia. There is no definite fracture or dislocation noted. There may be some degenerative changes between the tarsometatarsal joint. IMPRESSION: Diffuse osteopenia. No definite fracture is identified.
--- NOTE | 2017-05-04 08:21 | RAD ---
\T\ Right lower leg pain 2 views of the right lower leg demonstrates prior fracture of the tibia with internal fixation. No recent fracture is identified. IMPRESSION: INTERNAL FIXATION PROXIMAL TIBIA. NO RECENT FRACTURE IS IDENTIFIED.
--- NOTE | 2017-05-04 08:30 | RAD ---
Indication: Right leg edema. Duplex Doppler sonography of the deep venous system of the right lower extremity deep venous system was performed. Bilaterally the common femoral veins appear patent and compressible. Right proximal greater saphenous vein, proximal deep femoral vein, femoral vein, popliteal vein, posterior tibial veins and peroneal veins appear patent and compressible. 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 Correlation with history is suggested. IMPRESSION: NO EVIDENCE OF DEEP VENOUS THROMBOSIS IS IDENTIFIED.
== END 2017-05-04 07:09 | disposition home or self-care (01) ==
LOC: ED 02:27
DX: S86.911A Strain of unspecified muscle(s) and tendon(s) at lower leg level, right leg, initial encounter (principal); S93.601A Unspecified sprain of right foot, initial encounter; X58.XXXA Exposure to other specified factors, initial encounter; Y93.9 Activity, unspecified; Y92.9 Unspecified place or not applicable; M85.871 Other specified disorders of bone density and structure, right ankle and foot; E11.9 Type 2 diabetes mellitus without complications; I25.2 Old myocardial infarction; I10 Essential (primary) hypertension; I25.10 Atherosclerotic heart disease of native coronary artery without angina pectoris; Z95.5 Presence of coronary angioplasty implant and graft; J44.9 Chronic obstructive pulmonary disease, unspecified; K21.9 Gastro-esophageal reflux disease without esophagitis; Z87.442 Personal history of urinary calculi; Z85.038 Personal history of other malignant neoplasm of large intestine; Z88.5 Allergy status to narcotic agent; Z88.0 Allergy status to penicillin; Z88.8 Allergy status to other drugs, medicaments and biological substances
CPT/HCPCS: 99281; A9270-GY

== ENCOUNTER 2017-12-02 12:41 | Emergency (ER) | payer MEDICARE, OTHER ==
[2017-12-02 14:03] VITALS: BP 154/67
--- NOTE | 2017-12-02 14:40 | UC ---
Neck Pain HPI - HPI Summary HPI Summary: 77 yo female with 10/10 neck pain down right arm to fingers has occurred intermittently since 2004 no injury/ fall - History of Current Complaint Chief Complaint: UCUpperExtremity Stated Complaint: SHOULDER, NECK PAIN Time Seen by Provider: 12/02/17 14:24 Hx Obtained From: Patient Onset/Duration Of Injury/Symptoms: Days - 5 Mechanism Of Injury: No Known Trauma Timing: Constant Onset/Duration: Gradual Onset Severity: Severe Pain Intensity: 10 Pain Scale Used: 0-10 Numeric Character: Dull, Aching Aggravating Factors: Position, Movement Alleviating Factors: Position Associated Signs & Symptoms: Positive: Negative - Allergies/Home Medications Allergies/Adverse Reactions: Allergies Allergy/AdvReac Type Severity Reaction Status Date / Time Cyclosporine [From Restasis] Allergy Eyes Verified 12/02/17 14:02 Itchy/Swollen/Red/Watery Morphine Allergy Hives Verified 12/02/17 14:02 Penicillins Allergy Hives Verified 12/02/17 14:02 Home Medications: Home Medications Warfarin Sodium [Jantoven] 12/02/17 [History] Warfarin TAB(*) [Coumadin TAB(*)] 4 tab PO DAILY@1700 12/02/17 [History Confirmed 12/02/17] PMH/Surg Hx/FS Hx/Imm Hx Previously Healthy: Yes Endocrine History: Diabetes, Dyslipidemia Cardiovascular History: Cardiac Disease, Hypertension, Atrial Fibrillation Neurological History: CVA Cancer History: Colorectal Cancer - Surgical History Surgical History: Yes Surgery Procedure, Year, and Place: RIGHT LEG AFTER FRACTURE 09/26/14. Colon resection 2013 - Family History Known Family History: Positive: Hypertension - Social History Alcohol Use: None Substance Use Type: None Smoking Status (MU): Never Smoked Tobacco Type: Cigarettes - Immunization History Most Recent Influenza Vaccination: 2014 Most Recent Tetanus Shot: up to date Most Recent Pneumonia Vaccination: 2013 Review Of Systems Constitutional: Positive: Negative Skin: Positive: Negative Eyes: Positive: Negative ENT: Positive: Negative Respiratory: Positive: Negative Cardiovascular: Positive: Negative Gastrointestinal: Positive: Negative Genitourinary: Positive: Negative Musculoskeletal: Positive: Arthralgia, Myalgia Neurological: Positive: Negative Psychological: Positive: Negative All Other Systems Reviewed And Are Negative: Yes Physical Exam Triage Information Reviewed: Yes Appearance: Well-Appearing, No Pain Distress, Well-Nourished Vital Signs: Initial Vital Signs Temp 97.9 F 12/02/17 13:55 Pulse 74 12/02/17 13:55 Resp 18 12/02/17 13:55 BP 154/67 12/02/17 13:55 Pulse Ox 98 12/02/17 13:55 Vital Signs Reviewed: Yes Eyes: Positive: Conjunctiva Clear ENT: Negative: Hearing grossly normal - decreased, Nasal drainage, TMs normal, Tonsillar swelling, Tonsillar exudate, Trismus, Muffled voice, Hoarse voice Neck: Negative: Supple - limited ROM Respiratory: Positive: Lungs clear, Normal breath sounds, No respiratory distress Cardiovascular: Positive: RRR, No Murmur Musculoskeletal: Positive: ROM Limited @ - right shoulder - unable to abd >35 degrees due to pain Neurological: Positive: Alert Psychological Exam: Normal Skin Exam: Normal Diagnostics - Radiology No standard instances Xray Interpretation: No Acute Changes - Degenerative spondylosis and posterior element osteoarthritis with mild progression Neck Pain Course/Dx - Differential Dx/Diagnosis Provider Diagnoses: right cervical radiculopathy. DDD Discharge - Discharge Plan Condition: Stable Disposition: HOME Prescriptions: Cyclobenzaprine TAB* [Flexeril TAB*] 5 mg PO BID #8 tab Patient Education Materials: Cervical Radiculopathy (ED), Degenerative Disc Disease (ED) Referrals: Elver Lau MD [Medical Doctor] - As Soon As Possible Carlos Enrique Torres DO [Primary Care Provider] - As Soon As Possible Additional Instructions: soft collar when sitting or standing try muscle relaxant- it may may you drowsy call the pain clinic Images Head: 1 - tender Front/Back of Body, Lg (Knott): 1 - tender 2 - pain radiates here
--- NOTE | 2017-12-02 15:15 | RAD ---
Indication: Neck pain and RIGHT side radiculopathy. Comparison: May 01, 2016 Technique: AP, open-mouth odontoid, lateral, and oblique views cervical spine. Report: Minimal 1 -- 2 mm degenerative C5-C6 anterolisthesis. Negative for facet subluxation at any level. Negative for fracture. Multilevel degenerative spondylosis and moderate disc space narrowing at C5-C6 and C6-C7. Diffuse advanced facet joint osteoarthritis. Uncinate process spurring and facet joint osteoarthritis results in mild osseous foraminal stenosis at C3-C4 and C4-C5 on the LEFT. The bilateral foraminal are obscured low the C4-C5 level due to superimposed soft tissue. Unremarkable prevertebral soft tissue contours. IMPRESSION: Degenerative spondylosis and posterior element osteoarthritis with mild progression.
== END 2017-12-02 15:35 | disposition home or self-care (01) ==
LOC: UCEAST 12:41
DX: M54.12 Radiculopathy, cervical region (principal); M50.322 Other cervical disc degeneration at C5-C6 level; E11.9 Type 2 diabetes mellitus without complications; E78.5 Hyperlipidemia, unspecified; I10 Essential (primary) hypertension; I48.91 Unspecified atrial fibrillation; Z79.01 Long term (current) use of anticoagulants; Z86.73 Personal history of transient ischemic attack (TIA), and cerebral infarction without residual deficits; Z85.038 Personal history of other malignant neoplasm of large intestine; Z88.5 Allergy status to narcotic agent; Z88.0 Allergy status to penicillin
CPT/HCPCS: 72050; 99213; G0463

== ENCOUNTER 2018-04-25 17:29 | Emergency (ER) | payer MEDICARE, OTHER ==
--- NOTE | 2018-04-25 18:06 | ED ---
HPI Chest Pain - HPI Summary HPI Summary: 78 yo WF h/o DM HTN p/w left sided CP rediating parasternally intermittently x 2 weeks associated with weakness, is on ASA and nitro at home, took ASA but not nitro today - History of Current Complaint Chief Complaint: UCChestPain Time Seen by Provider: 04/25/18 17:40 Hx Obtained From: Patient Onset/Duration: Started Weeks Ago, Still Present Timing: Lasting Weeks Initial Severity: Moderate Current Severity: Moderate Pain Intensity: 8 Chest Pain Radiates: Yes Chest Pain Radiates To:: Arm, Other - parasternal Character: Fast, Fluttering, Pressure/Squeezing Aggravating Factor(s): Nothing Alleviating Factor(s): Nothing Associated Signs and Symptoms: Positive: Chest Pain - Additional Pertinent History Primary Care Physician: ABDOULAYE - Allergy/Home Medications Allergies/Adverse Reactions: Allergies Allergy/AdvReac Type Severity Reaction Status Date / Time cyclosporine [From Restasis] Allergy EYES Verified 04/25/18 17:48 ITCHY, SWOLLEN morphine Allergy Hives Verified 04/25/18 17:48 Penicillins Allergy Hives Verified 04/25/18 17:48 Home Medications: Home Medications Lotrimin Ultra* 04/25/18 [History] Warfarin Sodium [Jantoven] 4.5 tab PO BEDTIME 04/25/18 [History Confirmed ] PMH/Surg Hx/FS Hx/Imm Hx Previously Healthy: Yes Endocrine/Hematology History: Reports: Hx Diabetes, Hx Anemia Cardiovascular History: Reports: Hx Angina, Hx Angioplasty, Hx Coronary Artery Disease, Hx Hypercholesterolemia, Hx Hypertension, Hx Myocardial Infarction, Other Cardiovascular Problems/Disorders - hx cardiac stent, atherosclerosis Denies: Hx Congestive Heart Failure, Hx Pacemaker/ICD, Hx Valvular Heart Disease Respiratory History: Reports: Hx Chronic Obstructive Pulmonary Disease (COPD) - per ED H+P, Hx Sleep Apnea - 2 liters O2 at night Denies: Other Respiratory Problems/Disorders Comment Only: Hx Asthma - occassional per pt GI History: Reports: Hx Gastroesophageal Reflux Disease, Other GI Disorders - gastritis Denies: Hx Cirrhosis, Hx Crohn's Disease, Hx Diverticulosis, Hx Gall Bladder Disease, Hx Gastrointestinal Bleed, Hx Hiatal Hernia, Hx Irritable Bowel, Hx Jaundice, Hx Obstructive Bowel, Hx Ileostomy, Hx Pyloric Stenosis, Hx Ulcer History: Reports: Hx Kidney Stones Musculoskeletal History: Reports: Hx Arthritis, Hx Rheumatoid Arthritis, Hx Orthopedic Injury - right femur 2013, Other Musculoskeletal History - herniated L4-L5 Denies: Hx Scoliosis Sensory History: Reports: Hx Contacts or Glasses Denies: Hx Cataracts, Hx Eye Injury, Hx Eye Prosthesis, Hx Glaucoma, Hx Legally Blind, Hx Macular Degeneration, Hx Vision Problem, Hx Deafness, Hx Hearing Aid, Hx Hearing Problem, Other Sensory Impairments Opthamlomology History: Reports: Hx Contacts or Glasses Denies: Hx Cataracts, Hx Eye Injury, Hx Eye Prosthesis, Hx Glaucoma, Hx Legally Blind, Hx Macular Degeneration, Hx Vision Problem, Other Sensory Impairments Neurological History: Reports: Hx Headaches, Other Neuro Impairments/Disorders - left hand neuropathy Denies: Hx Dementia, Hx Developmental Delay, Hx Migraine, Hx Nerve Disease, Hx Seizures, Hx Spinal Cord Injury, Hx Transient Ischemic Attacks (TIA) Psychiatric History: Reports: Hx Depression Denies: Hx Panic Disorder - Cancer History Cancer Type, Location and Year: COLON CA - Surgical History Surgery Procedure, Year, and Place: RIGHT LEG AFTER FRACTURE 09/26/14. Colon resection 2013 Hx Anesthesia Reactions: No - Immunization History Date of Tetanus Vaccine: within the last ten years Date of Influenza Vaccine: October 2016 Infectious Disease History: No Infectious Disease History: Denies: Hx Clostridium Difficile, Hx Hepatitis, Hx Human Immunodeficiency Virus (HIV), Hx of Known/Suspected MRSA, Hx Shingles, Hx Tuberculosis, Hx Known/ Suspected VRE, Hx Known/Suspected VRSA, History Other Infectious Disease, Traveled Outside the [place] in Last 30 Days - Family History Known Family History: Positive: Hypertension - Social History Alcohol Use: None Substance Use Type: Reports: None Smoking Status (MU): Never Smoked Tobacco Type: Cigarettes Review of Systems Constitutional: Negative Eyes: Negative ENT: Negative Positive: Chest Pain Respiratory: Negative Gastrointestinal: Negative Genitourinary: Negative Skin: Negative Neurological: Negative Psychological: Normal All Other Systems Reviewed And Are Negative: Yes Physical Exam Triage Information Reviewed: Yes Vital Signs On Initial Exam: Initial Vitals Temp Pulse Resp BP Pulse Ox 37.2 C 111 20 181/82 96 04/25/18 17:43 04/25/18 17:43 04/25/18 17:43 04/25/18 17:43 04/25/18 17:43 Vital Signs Reviewed: Yes Appearance: Positive: No Pain Distress, Obese Skin: Positive: Warm Head/Face: Positive: Normal Head/Face Inspection Eyes: Positive: Normal ENT: Positive: Normal ENT inspection Neck: Positive: Supple Respiratory/Lung Sounds: Positive: Clear to Auscultation Cardiovascular: Positive: IRR, Tachycardia - afib rate at 111 Abdomen Description: Positive: Nontender Musculoskeletal: Positive: Normal Neurological: Positive: Normal, CN Intact II-III - no focal neuro deficits AVPU Assessment: Alert Diagnostics - Vital Signs Vital Signs Temp Pulse Resp BP Pulse Ox 04/25/18 17:43 37.2 C 111 20 181/82 96 - Laboratory Lab Statement: Any lab studies that have been ordered have been reviewed, and results considered in the medical decision making process. Chest Pain Course/Dx - Course Course Of Treatment: EKG with afib rate 111, LBBB, SIMILAR TO OLD EKG FROM with afib rate 114 and LBBB. TRANSFER TO [facility] FOR R/O ACS and further management for unstable management - Chest Pain Differential Diagnosis/HQI/PQRI: Acute NH, ACS, Angina - Diagnoses Provider Diagnoses: Chest pain, Angina at rest Discharge - Sign-Out/Discharge Documenting (check all that apply): Discharge/Admit/Transfer - Discharge Plan Condition: Stable Disposition: TRANS HIGHER LVL OF CARE FAC Discharge Disposition Comment: called [facility] and informed Dr Rogel of pt transfer Patient Education Materials: Chest Pain (ED) Referrals: Carlos Enrique Torres DO [Primary Care Provider] - - Billing Disposition and Condition Condition: STABLE Disposition: EMTALA
[2018-04-25 18:23] VITALS: BP 153/81
== END 2018-04-25 18:20 | disposition short-term general hospital (02) ==
LOC: UCEAST 17:29
DX: I20.9 Angina pectoris, unspecified (principal); R07.9 Chest pain, unspecified; J44.9 Chronic obstructive pulmonary disease, unspecified; I25.2 Old myocardial infarction; I10 Essential (primary) hypertension; Z88.1 Allergy status to other antibiotic agents; Z88.5 Allergy status to narcotic agent; Z88.0 Allergy status to penicillin; Z79.01 Long term (current) use of anticoagulants; Z95.5 Presence of coronary angioplasty implant and graft
CPT/HCPCS: 99213; G0463

== ENCOUNTER 2018-04-25 18:43 | Inpatient (IN) | payer MEDICARE, OTHER ==
[2018-04-25 19:28] LABS: ABS Basophils 0 10^3/ul (0-0.2); ABS Eosinophils 0.1 10^3/ul (0-0.6); ABS Lymphocytes 2.4 10^3/ul (1.0-4.8); ABS Neutrophils 6.7 10^3/ul (1.5-7.7); ABS Nucleated RBC 0 10^3/ul; Eosinophil % 1.3 % (0-6); Hematocrit 31 % (35-47); Hemoglobin 9.9 g/dl (12.0-16.0); Mean Corpuscular HGB Conc 31 g/dl (31-36); Mean Corpuscular Hemoglobin 22 pg (27-31); Mean Corpuscular Volume 70 fL (80-97); Mean Platelet Volume 7.6 um3 (7.4-10.4); Nucleated Red Blood Cells % 0; Platelet Count 421 10^3/ul (150-450); Red Blood Count 4.46 10^6/ul (4.0-5.4); Red Cell Distribution Width 19 % (10.5-15); White Blood Count 10.3 10^3/ul (3.5-10.8)
--- NOTE | 2018-04-25 19:34 | RAD ---
Indication: Shortness of breath and chest pain for 2 weeks. Coronary artery disease. COPD. Comparison: December 27, 2016 CT abdomen. December 27, 2016 chest radiograph. Technique: Upright AP 1922 hours Report: Elevated lung volumes and both diffuse mild prominence of the interstitial markings and patchy rarefaction of the mid to upper lung zone interstitial markings. No focal pulmonary lesion, compelling alveolar consolidation, pleural effusion, pneumothorax. Cardiomegaly. Unremarkable central pulmonary vasculature. IMPRESSION: Stigmata of obstructive lung disease. No acute pulmonary or cardiac process evident.
[2018-04-25 19:35] LABS: INR 3.34 (0.77-1.02)
[2018-04-25 19:44] LABS: EGFR Non-African American 42.8 (>60)
[2018-04-25] MEDS ORDERED: NS 0.9% 1000 ML* 1,000 ML IV ONE (20:06)
[2018-04-25] MEDS ORDERED: Diltiazem IV* 5 MG/ML 5 ML VIAL (for loading dose/IV Push) (25 MG) IV SLOW PU ONE ×2 (20:06→21:31)
[2018-04-25] MEDS ORDERED: Acetaminophen TAB* 325 MG PO PRN (21:13)
[2018-04-25] MEDS ORDERED: Melatonin 3 MG TAB PO PRN (21:14)
[2018-04-25] MEDS ORDERED: Ondansetron ODT TAB* 4 MG PO PRN (21:15)
--- NOTE | 2018-04-25 21:15 | HP ---
H&P (Free Text) History and Physical: PCP: Franklin Torres MD Cardiology: Eladia Baez MD Date/Time: 04/25/20182044 CC: chest pain HPI: Mrs No is a n 78YO female HX CAD/stent x3, HTN, HLD, insulin requiring DM2, AFIB, colorectal CA, & CKD who reports tonight at the behest of her daughter who found out today she has been having intermittent exertional chest discomfort she cannot adequately characterize, but notes it is different from her prior MIs. It is associated with SOB, sweating, and palpitations, but no nausea or light-headedness. Pain varies from none to moderate. It is worse with activity and better with rest. PMedHx CAD/stent x3 insulin requiring DM2 HTN HLD colorectal CA CKD stg 3b GERD Ambulatory Orders Aspirin EC TAB* [Ecotrin EC Low Dose 81 MG*] 81 mg PO DAILY 07/19/15 Atorvastatin* [Lipitor 80 MG*] 80 mg PO QPM 07/19/15 Omeprazole CAP* [Prilosec CAP* 20 MG] 20 mg PO BID 07/19/15 oxyCODONE TAB* [Roxycodone TAB 5 mg*] 5 mg PO Q8HR 07/19/15 Furosemide TAB* [Lasix TAB*] 40 mg PO DAILY 01/27/16 Insulin GLARGINE(*) [Lantus(*)] 30 units SUBCUT DAILY 01/27/16 Lisinopril TAB* [Prinivil TAB 10 MG*] 20 mg PO BID 02/02/16 Cholecalciferol (Vitamin D3) [Vitamin D3] 5,000 unit PO DAILY 12/27/16 Cyanocobalamin (Vitamin B-12) [Vitamin B-12] 5,000 mcg PO DAILY 12/27/16 Insulin NPH Human Isophane [Novolin N] 65 unit SUBCUT QAM 12/27/16 Metoprolol Tartrate TAB* [Lopressor TAB*] 50 mg PO BID 12/27/16 Nitroglycerin TAB 0.4 MG* 0.4 mg SL Q5M PRN MDD 1.2 mg 12/27/16 [place]-3 Fatty Acids (Nf) [Fish Oil (NF)] 1,000 mg PO DAILY 12/27/16 Cyclobenzaprine TAB* [Flexeril TAB*] 5 mg PO BID #8 tab 12/02/17 Lotrimin Ultra* 1 each TOPICAL DAILY 04/25/18 Warfarin Sodium [Jantoven] 4.5 tab PO BEDTIME 04/25/18 Allergies cyclosporine [From Restasis] Allergy (Verified 04/25/18 17:48) EYES ITCHY, SWOLLEN morphine Allergy (Verified 04/25/18 17:48) Hives Penicillins Allergy (Verified 04/25/18 17:48) Hives PSurgHx R hemicolectomy B tubal ligation SocHx: no tobacco, rare alcohol, denies recreational drugs; , 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 ; 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; 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 FamHx: positive for DM, colorectal CA, HTN, HLD, CAD ROS: as above, otherwise reviewed and all were negative vitals: Vital Signs Temp 37.2 C 04/25/18 18:59 Pulse 106 04/25/18 18:59 Resp 22 04/25/18 18:59 BP 172/93 04/25/18 18:59 Pulse Ox 97 04/25/18 18:59 Intake & Output 04/24/18 04/25/18 04/25/18 23:59 11:59 23:59 Weight 108.862 kg Constitutional: NAD, normally developed, morbidly obese elderly white female HEENM: atraumatic; sclera/conjunctiva: anicteric/clear; hearing: clinically intact; oropharynx: clear, mucosa moist Neck: soft tissue: non-tender; thyroid: normal Pulmonary: clear to auscultation bilaterally, good aeration, no accessory muscle use CV: TIR/IR, normal S1S2, no carotid bruit, no jugular venous distention, 2+ B DP /PT, trace BLE edema Abdominal: soft, non-distended, non-tender, no rebound/guarding/rigidity, normoactive bowel sounds, no hepatosplenomegaly or masses, no costovertebral angle tenderness Musculoskeletal: general: grossly intact, tender B shins Integumental: normal appearance and texture of exposed skin Psychiatric orientation: AA&O to PPS affect: calm mood: cooperative eye contact: good content: reliable, although minimizes responses: timely insight: fair to poor Testing: Lab Results 04/25/18 04/25/18 04/25/18 Range/Units 19:12 19:12 19:12 WBC 10.3 (3.5-10.8) 10^3/ul RBC 4.46 (4.0-5.4) 10^6/ul Hgb 9.9 L (12.0-16.0) g/dl Hct 31 L (35-47) % MCV 70 L (80-97) fL MCH 22 L (27-31) pg MCHC 31 (31-36) g/dl RDW 19 H (10.5-15) % Plt Count 421 (150-450) 10^3/ul MPV 7.6 (7.4-10.4) um3 Neut % (Auto) 65.5 (38-83) % Lymph % (Auto) 23.0 L (25-47) % Benson % (Auto) 9.9 H (0-7) % Eos % (Auto) 1.3 (0-6) % Baso % (Auto) 0.3 (0-2) % Absolute Neuts (auto) 6.7 (1.5-7.7) 10^3/ul Absolute Lymphs (auto) 2.4 (1.0-4.8) 10^3/ul Absolute Monos (auto) 1.0 H (0-0.8) 10^3/ul Absolute Eos (auto) 0.1 (0-0.6) 10^3/ul Absolute Basos (auto) 0 (0-0.2) 10^3/ul Absolute Nucleated RBC 0 10^3/ul Nucleated RBC % 0 INR (Anticoag Therapy) 3.34 H (0.77-1.02) APTT 42.6 H (26.0-36.3) seconds Sodium 140 (139-145) mmol/L Potassium 3.7 (3.5-5.0) mmol/L Chloride 105 (101-111) mmol/L Carbon Dioxide 26 (22-32) mmol/L Anion Gap 9 (2-11) mmol/L BUN 19 (6-24) mg/dL Creatinine 1.21 H (0.51-0.95) mg/dL Est GFR ( Amer) 55.1 (>60) Est GFR (Non-Af Amer) 42.8 (>60) BUN/Creatinine Ratio 15.7 (8-20) Glucose 184 H (70-100) mg/dL Lactic Acid (0.5-2.0) mmol/L Calcium 9.1 (8.6-10.3) mg/dL Magnesium 1.8 L (1.9-2.7) mg/dL Total Bilirubin 0.60 (0.2-1.0) mg/dL AST 36 (13-39) U/L ALT 61 H (7-52) U/L Alkaline Phosphatase 60 (34-104) U/L Total Creatine Kinase 40 (10-223) U/L CK-MB (CK-2) 1.3 (0.6-6.3) ng/mL Troponin I 0.01 (<0.04) ng/mL B-Natriuretic Peptide ( - 100) pg/mL Total Protein 6.5 (6.4-8.9) g/dL Albumin 3.4 (3.2-5.2) g/dL Globulin 3.1 (2-4) g/dL Albumin/Globulin Ratio 1.1 (1-3) TSH 1.23 (0.34-5.60) mcIU/mL 04/25/18 04/25/18 Range/Units 19:15 19:15 WBC (3.5-10.8) 10^3/ul RBC (4.0-5.4) 10^6/ul Hgb (12.0-16.0) g/dl Hct (35-47) % MCV (80-97) fL MCH (27-31) pg MCHC (31-36) g/dl RDW (10.5-15) % Plt Count (150-450) 10^3/ul MPV (7.4-10.4) um3 Neut % (Auto) (38-83) % Lymph % (Auto) (25-47) % Benson % (Auto) (0-7) % Eos % (Auto) (0-6) % Baso % (Auto) (0-2) % Absolute Neuts (auto) (1.5-7.7) 10^3/ul Absolute Lymphs (auto) (1.0-4.8) 10^3/ul Absolute Monos (auto) (0-0.8) 10^3/ul Absolute Eos (auto) (0-0.6) 10^3/ul Absolute Basos (auto) (0-0.2) 10^3/ul Absolute Nucleated RBC 10^3/ul Nucleated RBC % INR (Anticoag Therapy) (0.77-1.02) APTT (26.0-36.3) seconds Sodium (139-145) mmol/L Potassium (3.5-5.0) mmol/L Chloride (101-111) mmol/L Carbon Dioxide (22-32) mmol/L Anion Gap (2-11) mmol/L BUN (6-24) mg/dL Creatinine (0.51-0.95) mg/dL Est GFR ( Amer) (>60) Est GFR (Non-Af Amer) (>60) BUN/Creatinine Ratio (8-20) Glucose (70-100) mg/dL Lactic Acid 1.1 (0.5-2.0) mmol/L Calcium (8.6-10.3) mg/dL Magnesium (1.9-2.7) mg/dL Total Bilirubin (0.2-1.0) mg/dL AST (13-39) U/L ALT (7-52) U/L Alkaline Phosphatase (34-104) U/L Total Creatine Kinase (10-223) U/L CK-MB (CK-2) (0.6-6.3) ng/mL Troponin I (<0.04) ng/mL B-Natriuretic Peptide 186 H ( - 100) pg/mL Total Protein (6.4-8.9) g/dL Albumin (3.2-5.2) g/dL Globulin (2-4) g/dL Albumin/Globulin Ratio (1-3) TSH (0.34-5.60) mcIU/mL ECG, personally reviewed: AFIB LBBB rate 111; unchanged from comparison 2016 CXR, personally reviewed: IMPRESSION: Stigmata of obstructive lung disease. No acute pulmonary or cardiac process evident. ECHO (): Conclusions: Poor windows for imaging due to body habitus and lung tissue interference. There is normal left ventricular systolic function. There is a left ventricular septal wall motion abnormality observed, possibly due to the presence of a left bundle branch block. The estimated ejection fraction is 55-60%. Visually estimated LVEF is 55%. Abnormal left ventricular diastolic filling is observed, consistent with impaired relaxation. The left atrium is mild to moderately dilated. There is mild to moderate mitral regurgitation. There is mild to moderate tricuspid regurgitation. There is evidence of moderate pulmonary hypertension. There is mild dilatation of the aortic arch. Compared to report of study from 03/07/2014 the mitral regurgitation has increased from trace (although prior study poor quality imaging), the tricupid regurgitation has increased from trace and the pul HTN is increased from mild. Impression: 78F HX CAD/stent x3, HTN, HLD who presents with 3 weeks of intermittent chest pain DIAGNOSIS & PLAN Primary chest pain r/o ACS : telemetry : trend troponin : if above negative, recommend D/C in AM w/ cardiology F/U : supplemental oxygen : supportive care AFIB/RVR : rate control : warfarin anticoagulation warfarin toxicity, mild : restart warfarin once therapeutic progressive microcytic anemia : check anemia labs & stool occult blood : consider outpatient GI referral upon discharge hypoMagnesemia : replace Secondary insulin requiring DM2 : update A1c : insulin carb ratio diet : basal/bolus/correctional insulin HTN : review meds once reconciled HLD : review meds once reconciled colorectal CA CKD stg 3b GERD Admission Rational: observation for r/o ACS DVTp: warfarin Code Status: full HCP: children
[2018-04-25] MEDS ORDERED: Magnesium Sulfate 2 GM IV* 2 GM/50 ML BAG IVPB ONE (21:25)
--- NOTE | 2018-04-25 21:31 | ED ---
Marcelo Toure Rebecca, scribed for Sy Red MD on 04/25/18 at 1909 . HPI Chest Pain - HPI Summary HPI Summary: Pt is an 78 y/o F who presents to ED referred from [facility] c/o CP. Pain began on 04/01 (about 3 weeks ago) and has been intermittent since onset. States that she would be pain free for multiple days, then the pain would return. When present, pain is in the midsternal region and the L shoulder. Sx characterized as pressure and is currently not present, ranked 0/10 on triage. Has been taking NTG intermittently for the pain. - History of Current Complaint Chief Complaint: EDChestPainROMI Time Seen by Provider: 04/25/18 18:56 Hx Obtained From: Patient Onset/Duration: Started Weeks Ago - 3 weeks Timing: Intermittent Current Severity: None Pain Intensity: 0 Pain Scale Used: 0-10 Numeric Chest Pain Location: Mid Sternal Chest Pain Radiates: Yes Chest Pain Radiates To:: Shoulder - Left Character: Pressure/Squeezing Aggravating Factor(s): Nothing Alleviating Factor(s): Nothing Associated Signs and Symptoms: Positive: Negative - Additional Pertinent History Primary Care Physician: [id number] - Allergy/Home Medications Allergies/Adverse Reactions: Allergies Allergy/AdvReac Type Severity Reaction Status Date / Time cyclosporine [From Restasis] Allergy EYES Verified 04/25/18 17:48 ITCHY, SWOLLEN morphine Allergy Hives Verified 04/25/18 17:48 Penicillins Allergy Hives Verified 04/25/18 17:48 PMH/Surg Hx/FS Hx/Imm Hx Endocrine/Hematology History: Reports: Hx Diabetes, Hx Anemia Cardiovascular History: Reports: Hx Angina, Hx Angioplasty, Hx Coronary Artery Disease, Hx Hypercholesterolemia, Hx Hypertension, Hx Myocardial Infarction, Other Cardiovascular Problems/Disorders - hx cardiac stent, atherosclerosis Denies: Hx Congestive Heart Failure, Hx Pacemaker/ICD, Hx Valvular Heart Disease Respiratory History: Reports: Hx Chronic Obstructive Pulmonary Disease (COPD) - per ED H+P, Hx Sleep Apnea - 2 liters O2 at night Denies: Other Respiratory Problems/Disorders Comment Only: Hx Asthma - occassional per pt GI History: Reports: Hx Gastroesophageal Reflux Disease, Other GI Disorders - gastritis Denies: Hx Cirrhosis, Hx Crohn's Disease, Hx Diverticulosis, Hx Gall Bladder Disease, Hx Gastrointestinal Bleed, Hx Hiatal Hernia, Hx Irritable Bowel, Hx Jaundice, Hx Obstructive Bowel, Hx Ileostomy, Hx Pyloric Stenosis, Hx Ulcer History: Reports: Hx Kidney Stones Musculoskeletal History: Reports: Hx Arthritis, Hx Rheumatoid Arthritis, Hx Orthopedic Injury - right femur 2013, Other Musculoskeletal History - herniated L4-L5 Denies: Hx Scoliosis Sensory History: Reports: Hx Contacts or Glasses Denies: Hx Cataracts, Hx Eye Injury, Hx Eye Prosthesis, Hx Glaucoma, Hx Legally Blind, Hx Macular Degeneration, Hx Vision Problem, Hx Deafness, Hx Hearing Aid, Hx Hearing Problem, Other Sensory Impairments Opthamlomology History: Reports: Hx Contacts or Glasses Denies: Hx Cataracts, Hx Eye Injury, Hx Eye Prosthesis, Hx Glaucoma, Hx Legally Blind, Hx Macular Degeneration, Hx Vision Problem, Other Sensory Impairments Neurological History: Reports: Hx Headaches, Other Neuro Impairments/Disorders - left hand neuropathy Denies: Hx Dementia, Hx Developmental Delay, Hx Migraine, Hx Nerve Disease, Hx Seizures, Hx Spinal Cord Injury, Hx Transient Ischemic Attacks (TIA) Psychiatric History: Reports: Hx Depression Denies: Hx Panic Disorder - Cancer History Cancer Type, Location and Year: COLON CA - Surgical History Surgery Procedure, Year, and Place: RIGHT LEG AFTER FRACTURE 09/26/14. Colon resection 2013 Hx Anesthesia Reactions: No - Immunization History Date of Tetanus Vaccine: within the last ten years Date of Influenza Vaccine: October 2016 Infectious Disease History: No Infectious Disease History: Denies: Hx Clostridium Difficile, Hx Hepatitis, Hx Human Immunodeficiency Virus (HIV), Hx of Known/Suspected MRSA, Hx Shingles, Hx Tuberculosis, Hx Known/ Suspected VRE, Hx Known/Suspected VRSA, History Other Infectious Disease, Traveled Outside the [place] in Last 30 Days - Family History Known Family History: Positive: Hypertension - Social History Alcohol Use: None Substance Use Type: Reports: None Smoking Status (MU): Never Smoked Tobacco Type: Cigarettes Review of Systems Negative: Fever Positive: Chest Pain All Other Systems Reviewed And Are Negative: Yes Physical Exam - Summary Physical Exam Summary: VITAL SIGNS: Reviewed. GENERAL: ~Patient is a well-developed and nourished female who is lying comfortable in the stretcher. ~Patient is not in any acute respiratory distress. HEAD AND FACE: No signs of trauma. ~No ecchymosis, hematomas or skull depressions. No sinus tenderness. EYES: PERRLA, EOMI x 2, No injected conjunctiva, no nystagmus. EARS: Hearing grossly intact. Ear canals and tympanic membranes are within normal limits. MOUTH: Oropharynx within normal limits. NECK: Supple, trachea is midline, no adenopathy, no JVD, no carotid bruit, no c- spine tenderness, neck with full ROM. CHEST: Symmetric, no tenderness at palpation LUNGS: Clear to auscultation bilaterally. No wheezing or crackles. CVS: IRR, S1 and S2 present, no murmurs or gallops appreciated. ABDOMEN: Soft, non-tender. No signs of distention. No rebound no guarding, and no masses palpated. Bowel sounds are normal. EXTREMITIES: FROM in all major joints, no edema, no cyanosis or clubbing. NEURO: Alert and oriented x 3. No acute neurological deficits. Speech is normal and follows commands. SKIN: Dry and warm Triage Information Reviewed: Yes Vital Signs On Initial Exam: Initial Vitals Temp Pulse Resp BP Pulse Ox 99.0 F 106 22 172/93 97 04/25/18 18:59 04/25/18 18:59 04/25/18 18:59 04/25/18 18:59 04/25/18 18:59 Vital Signs Reviewed: Yes Diagnostics - Vital Signs Vital Signs Temp Pulse Resp BP Pulse Ox 04/25/18 18:59 99.0 F 106 22 172/93 97 - Laboratory Lab Results: Lab Results 04/25/18 04/25/18 04/25/18 Range/Units 19:12 19:12 19:12 WBC 10.3 (3.5-10.8) 10^3/ul RBC 4.46 (4.0-5.4) 10^6/ul Hgb 9.9 L (12.0-16.0) g/dl Hct 31 L (35-47) % MCV 70 L (80-97) fL MCH 22 L (27-31) pg MCHC 31 (31-36) g/dl RDW 19 H (10.5-15) % Plt Count 421 (150-450) 10^3/ul MPV 7.6 (7.4-10.4) um3 Neut % (Auto) 65.5 (38-83) % Lymph % (Auto) 23.0 L (25-47) % [place] % (Auto) 9.9 H (0-7) % Eos % (Auto) 1.3 (0-6) % Baso % (Auto) 0.3 (0-2) % Absolute Neuts (auto) 6.7 (1.5-7.7) 10^3/ul Absolute Lymphs (auto) 2.4 (1.0-4.8) 10^3/ul Absolute Monos (auto) 1.0 H (0-0.8) 10^3/ul Absolute Eos (auto) 0.1 (0-0.6) 10^3/ul Absolute Basos (auto) 0 (0-0.2) 10^3/ul Absolute Nucleated RBC 0 10^3/ul Nucleated RBC % 0 INR (Anticoag Therapy) 3.34 H (0.77-1.02) APTT 42.6 H (26.0-36.3) seconds Sodium 140 (139-145) mmol/L Potassium 3.7 (3.5-5.0) mmol/L Chloride 105 (101-111) mmol/L Carbon Dioxide 26 (22-32) mmol/L Anion Gap 9 (2-11) mmol/L BUN 19 (6-24) mg/dL Creatinine 1.21 H (0.51-0.95) mg/dL Est GFR ( Amer) 55.1 (>60) Est GFR (Non-Af Amer) 42.8 (>60) BUN/Creatinine Ratio 15.7 (8-20) Glucose 184 H (70-100) mg/dL Lactic Acid (0.5-2.0) mmol/L Calcium 9.1 (8.6-10.3) mg/dL Magnesium 1.8 L (1.9-2.7) mg/dL Total Bilirubin 0.60 (0.2-1.0) mg/dL AST 36 (13-39) U/L ALT 61 H (7-52) U/L Alkaline Phosphatase 60 (34-104) U/L Total Creatine Kinase 40 (10-223) U/L CK-MB (CK-2) 1.3 (0.6-6.3) ng/mL Troponin I 0.01 (<0.04) ng/mL B-Natriuretic Peptide ( - 100) pg/mL Total Protein 6.5 (6.4-8.9) g/dL Albumin 3.4 (3.2-5.2) g/dL Globulin 3.1 (2-4) g/dL Albumin/Globulin Ratio 1.1 (1-3) TSH 1.23 (0.34-5.60) mcIU/mL 04/25/18 04/25/18 Range/Units 19:15 19:15 WBC (3.5-10.8) 10^3/ul RBC (4.0-5.4) 10^6/ul Hgb (12.0-16.0) g/dl Hct (35-47) % MCV (80-97) fL MCH (27-31) pg MCHC (31-36) g/dl RDW (10.5-15) % Plt Count (150-450) 10^3/ul MPV (7.4-10.4) um3 Neut % (Auto) (38-83) % Lymph % (Auto) (25-47) % [place] % (Auto) (0-7) % Eos % (Auto) (0-6) % Baso % (Auto) (0-2) % Absolute Neuts (auto) (1.5-7.7) 10^3/ul Absolute Lymphs (auto) (1.0-4.8) 10^3/ul Absolute Monos (auto) (0-0.8) 10^3/ul Absolute Eos (auto) (0-0.6) 10^3/ul Absolute Basos (auto) (0-0.2) 10^3/ul Absolute Nucleated RBC 10^3/ul Nucleated RBC % INR (Anticoag Therapy) (0.77-1.02) APTT (26.0-36.3) seconds Sodium (139-145) mmol/L Potassium (3.5-5.0) mmol/L Chloride (101-111) mmol/L Carbon Dioxide (22-32) mmol/L Anion Gap (2-11) mmol/L BUN (6-24) mg/dL Creatinine (0.51-0.95) mg/dL Est GFR ( Amer) (>60) Est GFR (Non-Af Amer) (>60) BUN/Creatinine Ratio (8-20) Glucose (70-100) mg/dL Lactic Acid 1.1 (0.5-2.0) mmol/L Calcium (8.6-10.3) mg/dL Magnesium (1.9-2.7) mg/dL Total Bilirubin (0.2-1.0) mg/dL AST (13-39) U/L ALT (7-52) U/L Alkaline Phosphatase (34-104) U/L Total Creatine Kinase (10-223) U/L CK-MB (CK-2) (0.6-6.3) ng/mL Troponin I (<0.04) ng/mL B-Natriuretic Peptide 186 H ( - 100) pg/mL Total Protein (6.4-8.9) g/dL Albumin (3.2-5.2) g/dL Globulin (2-4) g/dL Albumin/Globulin Ratio (1-3) TSH (0.34-5.60) mcIU/mL Result Diagrams: 04/25/18 19:12 04/25/18 19:12 Lab Statement: Any lab studies that have been ordered have been reviewed, and results considered in the medical decision making process. - Radiology CXR Xray Interpretation: No Acute Changes - Stigmata of obstructive lung disease. No acute pulmonary or cardiac process evident. ED physician reviewed this radiology report. Radiology Interpretation Completed By: Radiologist - EKG 1858 Cardiac Rate: Tachycardia - 121 bpm EKG Rhythm: Atrial Fibrillation EKG Interpretation: No ST elevations, LBBB EKG Comparison: No Significant Change - Simliar to EKG on 12/27/2016 Chest Pain Course/Dx - Course Assessment/Plan: This patient is an 78-year-old female who presents to the emergency room with a chief complaint of having chest pain. The patient reports that the pain is in the left side of the chest with radiation to the left shoulder. The patients pain is on exertion. She was also found that the patient is elective intubation with RVR. Physical shows microcytic hypochromic anemia, INR is 3.34, creatinine is 121. Glucose is 184. Troponin is 0.01 and BNP is 196. In the ED course the patient declined aspirin since she is taking already Coumadin. The patient also was given IV fluids and cardizem for the atrial fibrillation with RVR. Because of her multiple comorbidities I discuss my physical exam, findings and test results with Dr. Reyez from the hospitalist services and he agrees to admit patient to his services. Patient is hemodynamically stable alert and oriented x 3. - Chest Pain Differential Diagnosis/HQI/PQRI: Acute VT, ACS, Angina, CHF, Chest Wall, GI Disease - Diagnoses Provider Diagnoses: Atrial fibrillation with RVR, Chest pain - Provider Notifications Discussed Care Of Patient With: Sumit Reyez Time Discussed With Above Provider: 20:09 Instructed by Provider To: Other - Accepts pt for admission. Discharge - Sign-Out/Discharge Documenting (check all that apply): Discharge/Admit/Transfer - Admit - Discharge Plan Condition: Stable Disposition: ADMITTED TO [facility] Referrals: Carlos Enrique Torres DO [Primary Care Provider] - - Billing Disposition and Condition Condition: STABLE Disposition: [facility] [place] The documentation as recorded by the Marcelo valdes Rebecca accurately reflects the service I personally performed and the decisions made by Teofilo alfaro Walter, MD.
[2018-04-25 22:17] LABS: Corrected Retic Count 1.2 % (0.5-1.5); Hematocrit for Retic CNT 31 % (35-47); Immature Retic Fraction 0.54
[2018-04-25] MEDS: oxyCODONE TAB* 5 MG TAB PO SCH (23:35)
[2018-04-25] MEDS: NS 0.9% 1000 ML* 1,000 ML IV SCH (23:37)
[2018-04-26] MEDS: Lisinopril TAB* 10 MG PO SCH ×3 (00:25→20:26)
[2018-04-26] MEDS: Metoprolol Tartrate TAB* 50 mg PO SCH ×3 (00:25→20:25)
[2018-04-26 05:35] LABS: INR 3.15 (0.77-1.02)
[2018-04-26] MEDS: oxyCODONE TAB* 5 MG TAB PO SCH ×3 (06:46→20:26)
[2018-04-26] MEDS: Insulin GLARGINE(*) 1 UNITS UNIT SUBCUT SCH (08:57)
[2018-04-26] MEDS: Insulin LISPRO* 1 UNITS UNIT SUBCUT SCH ×7 (08:58→20:58)
[2018-04-26] MEDS: Aspirin EC TAB* 81 MG TAB.EC PO SCH (08:59)
[2018-04-26] MEDS: Cyclobenzaprine TAB* 10 MG PO SCH ×2 (08:59→20:20)
[2018-04-26] MEDS: Omeprazole CAP* 20 MG PO SCH ×2 (08:59→20:20)
[2018-04-26] MEDS: Docusate CAP* 100 MG PO SCH ×2 (09:00→20:24)
--- NOTE | 2018-04-26 14:09 | PN ---
Subjective Date of Service: 04/26/18 Interval History: Ms. No denies any chest pain today but she reports that her chest pain which radiates into her left arm only occurs with exertion. She also reports new unexplained fatigue and shortness of breath. Objective Active Medications: Acetaminophen (Tylenol Tab*) 650 mg PO Q6H PRN Aspirin (Aspirin Ec Tab*) 81 mg PO DAILY [facility] Atorvastatin Calcium (Lipitor*) 80 mg PO QPM BI Cyclobenzaprine HCl (Flexeril Tab*) 5 mg PO BID BI Docusate Sodium (Colace Cap*) 200 mg PO BID BI Sodium Chloride (Ns 0.9% 1000 Ml*) 1,000 mls @ 50 mls/hr IV PER RATE BI Insulin Glargine (Lantus(*)) 26 units 0.24 units/kg (26 units) SUBCUT DAILY BI Insulin Human Lispro (Humalog*) 0 units SUBCUT AC BI Insulin Human Lispro (Humalog*) 0 units SUBCUT ACHS BI Lisinopril (Prinivil Tab*) 20 mg PO BID BI Melatonin (Melatonin (Nf)) 3 mg PO BEDTIME PRN; Protocol Metoprolol Tartrate (Lopressor Tab*) 50 mg PO BID BI Omeprazole (Prilosec Cap*) 20 mg PO BID BI Ondansetron HCl (Zofran Odt Tab*) 4 mg PO Q6H PRN Oxycodone HCl (Roxycodone Tab*) 5 mg PO Q8HR BI Tramadol HCl (Ultram*) 50 mg PO Q6H PRN Vital Signs: Temp Pulse Resp BP Pulse Ox 97.8 F 67 20 122/53 100 04/26/18 11:20 04/26/18 11:20 04/26/18 13:35 04/26/18 11:20 04/26/18 11:20 Oxygen Devices in Use Now: Nasal Cannula Appearance: Female lying in bed in NAD Eyes: No Scleral Icterus Ears/Nose/Mouth/Throat: Mucous Membranes Moist Neck: Trachea Midline Respiratory: Symmetrical Chest Expansion and Respiratory Effort, Clear to Auscultation Cardiovascular: NL Sounds; No Murmurs; No JVD, No Edema Abdominal: NL Sounds; No Tenderness; No Distention Lymphatic: No Cervical Adenopathy Extremities: No Edema Skin: No Rash or Ulcers Neurological: Alert and Oriented x 3, NL Muscle Strength and Tone Nutrition: Taking PO's Result Diagrams: 04/25/18 19:12 04/25/18 19:12 Additional Lab and Data: . Assess/Plan/Problems-Billing Assessment: Ms. No is an 78 yo female with a PMH of CAD with stent to the LAD, DM, afib who was admitted on 04/25/18 with exertional chest pain associated with new SOB and fatigue. - Patient Problems (1) Chest pain Comment: - Trops negative, EKG with afib. - Patient's story very concerning given history, plan for echo tomorrow and candi will hold for stress test inpatient. - Last stress test 12/2016 was negative for ischemia. (2) CAD (coronary artery disease) Comment: - Hx of stent to LAD - Continue ASA, statin, metoprolol, lisinopril. (3) Type 2 diabetes mellitus Comment: - BGs 190s. - Continue Lantus and Lispro SS. (4) Afib Comment: - Rate is controlled. - Continue Metoprolol. - Warfarin on hold due to supratherapeutic INR. (5) HLD (hyperlipidemia) Comment: - Continue atorvastatin. (6) HTN (hypertension) Comment: - SBP 120 - Continue metoprolol and lisinopril (7) DVT prophylaxis Comment: - INR supratherapeutic - will resume Warfarin when INR<3.0. (8) Full code status Comment: Status and Disposition: Switch to inpatient with need for further testing. Anticipate discharge to home when medically stable.
[2018-04-26] MEDS: Atorvastatin* 80 MG TAB PO SCH (18:09)
[2018-04-26] MEDS ORDERED: Insulin LISPRO* 1 UNITS UNIT SUBCUT ONE (20:56)
[2018-04-26] MEDS ORDERED: Aspirin 81 mg CHEW TAB* 81 MG TAB.CHEW PO ONE (21:13)
[2018-04-26] MEDS: NS 0.9% 1000 ML* 1,000 ML IV SCH (22:26)
[2018-04-27] MEDS: traMADol TAB* 50 MG PO PRN ×2 (03:00→23:27)
[2018-04-27] MEDS: oxyCODONE TAB* 5 MG TAB PO SCH ×3 (05:34→21:45)
[2018-04-27 07:08] LABS: INR 1.78 (0.77-1.02)
[2018-04-27] MEDS: Cyclobenzaprine TAB* 10 MG PO SCH ×2 (08:36→21:44)
[2018-04-27] MEDS: Aspirin EC TAB* 81 MG TAB.EC PO SCH (08:36)
[2018-04-27] MEDS: Lisinopril TAB* 10 MG PO SCH ×2 (08:36→21:44)
[2018-04-27] MEDS: Omeprazole CAP* 20 MG PO SCH ×2 (08:36→21:45)
[2018-04-27] MEDS: Metoprolol Tartrate TAB* 50 mg PO SCH ×2 (08:36→21:46)
[2018-04-27] MEDS: Insulin LISPRO* 1 UNITS UNIT SUBCUT SCH ×7 (08:37→21:46)
[2018-04-27] MEDS: Insulin GLARGINE(*) 1 UNITS UNIT SUBCUT SCH (08:37)
[2018-04-27] MEDS: Docusate CAP* 100 MG PO SCH ×2 (08:42→21:46)
--- NOTE | 2018-04-27 13:54 | PN ---
Subjective Date of Service: 04/27/18 Interval History: Ms. No reports that she feels "bad all over" but she has difficulty describing what is wrong. She does report that she feels very short of breath with even minimal activity, such as rolling over in bed. She denies chest pain and states that she only feels the discomfort in her left arm and chest with activity. She reports chronic pain in her legs at night which keeps her up at night. Objective Active Medications: Acetaminophen (Tylenol Tab*) 650 mg PO Q6H PRN Aspirin (Aspirin Ec Tab*) 81 mg PO DAILY BI Atorvastatin Calcium (Lipitor*) 80 mg PO QPM BI Cyclobenzaprine HCl (Flexeril Tab*) 5 mg PO BID BI Docusate Sodium (Colace Cap*) 200 mg PO BID BI Insulin Glargine (Lantus(*)) 26 units 0.24 units/kg (26 units) SUBCUT DAILY IB Insulin Human Lispro (Humalog*) 0 units SUBCUT AC BI Insulin Human Lispro (Humalog*) 0 units SUBCUT ACHS BI Lisinopril (Prinivil Tab*) 20 mg PO BID BI Melatonin (Melatonin (Nf)) 3 mg PO BEDTIME PRN; Protocol Metoprolol Tartrate (Lopressor Tab*) 50 mg PO BID BI Omeprazole (Prilosec Cap*) 20 mg PO BID BI Ondansetron HCl (Zofran Odt Tab*) 4 mg PO Q6H PRN Oxycodone HCl (Roxycodone Tab*) 5 mg PO Q8HR BI Tramadol HCl (Ultram*) 50 mg PO Q6H PRN Vital Signs: Temp Pulse Resp BP Pulse Ox 97.9 F 88 15 142/73 100 04/27/18 10:54 04/27/18 10:54 04/27/18 10:54 04/27/18 10:54 04/27/18 10:54 Oxygen Devices in Use Now: Nasal Cannula Result Diagrams: 04/25/18 19:12 04/25/18 19:12 Additional Lab and Data: . Microbiology and Other Data: . Assess/Plan/Problems-Billing Assessment: Ms. No is an 78 yo female with a PMH of CAD with stent to the LAD, DM, afib who was admitted on 04/25/18 with exertional chest pain associated with new SOB and fatigue. - Patient Problems (1) Chest pain Comment: - Trops negative, EKG with afib. - Patient's story very concerning given history, plan for echo tomorrow and then stress test when available. - Last stress test 12/2016 was negative for ischemia. (2) SOB (shortness of breath) Comment: - Chest xray negative. No evidence of fluid overload or pneumonia. No wheezing on examination. CRP 22. - Only requires 1L NC to maintain SpO2 > 90%. - ? if related to cardiac disease, echo and stress test pending. - Fully anticoagulated on warfarin, so PE very unlikely. (3) Anemia Comment: - Slightly down from baseline. - Stool occult blood negative. % iron 4, plan to start supplementation. (4) CAD (coronary artery disease) Comment: - Hx of stent to LAD - Continue ASA, statin, metoprolol, lisinopril. (5) Type 2 diabetes mellitus Comment: - BGs 190s. HgbA1c 8.9. - Continue Lantus and Lispro SS. (6) Afib Comment: - Rate is controlled. - Continue Metoprolol. - Resume warfarin. (7) HLD (hyperlipidemia) Comment: - Continue atorvastatin. (8) HTN (hypertension) Comment: - SBP 120 - Continue metoprolol and lisinopril (9) DVT prophylaxis Comment: - Resume warfarin. (10) Full code status Comment: Status and Disposition: Switch to inpatient with need for further testing. Anticipate discharge to home when medically stable.
--- NOTE | 2018-04-27 14:41 | ECHO ---
Patient: JAE PATEL [facility] Rec#: [id number] : 1940 Date: 04/27/2018 Age: 78y Height: 157.48 cm / 62.0 in Weight: 106.59 kg / 234.9 lbs Sex: F BSA: 2.05 Room#: 442 Admit Date#: 04/26/2018 Type: Inpatient Referring: Shivani Valadez NP Reading: José Miguel Chowdhury MD Factory Laborer: Ifrah Daniel,LORINCS,RDMS CC: Melissa SHEPARD,Carlos Enrique Transthoracic Echocardiogram Indication: CP, SOB BP: 160/77 HR: 78 Rhythm: A-Fib Findings History: CAD, PCI, HTN, HLD, DM, AFIB, colon cancer Technical Comments: The study quality is good. Left Ventricle: The left ventricular chamber size is normal. Moderate concentric left ventricular hypertrophy is observed. Unable to estimate left ventricular ejection fraction. secondary to a fib and borderline tachycardia but probably lower limit of normal. The assessment of diastolic function is non-diagnostic. Left Atrium: The left atrium is mild to moderately dilated. Right Ventricle: The right ventricular chamber size and systolic function are within normal limits. Right Atrium: The right atrium is mildly dilated. Aortic Valve: There is no evidence of aortic valve thickening. There is no evidence of aortic regurgitation. There is no evidence of aortic stenosis. Mitral Valve: There is mitral annular calcification. The mitral valve leaflets are mildly thickened. There is mild mitral regurgitation. There is no evidence of mitral stenosis. Tricuspid Valve: The tricuspid valve leaflets are normal. There is mild to moderate tricuspid regurgitation. There is evidence of mild pulmonary hypertension. Pulmonic Valve: The pulmonic valve structure is not well visualized. There is a trace pulmonic regurgitation. Pericardium: There is no significant pericardial effusion. Aorta: The aortic root appears normal. There is no dilatation of the aortic arch. Pulmonary Artery: The main pulmonary artery is not well visualized. Venous: The inferior vena cava appears normal in size. There is less than 50% respiratory change in the inferior vena cava dimension. Summary: There are changes noted when compared to the previous study done on 09/30/2015, MR is less now, PHTN is less now from moderate then. Conclusions The left ventricular chamber size is normal. Moderate concentric left ventricular hypertrophy is observed. Unable to estimate left ventricular ejection fraction. secondary to a fib and borderline tachycardia but probably lower limit of normal. The assessment of diastolic function is non-diagnostic. The left atrium is mild to moderately dilated. The right atrium is mildly dilated. There is mild mitral regurgitation. There is mild to moderate tricuspid regurgitation. There is evidence of mild pulmonary hypertension. Measurements Name Value Normal Range RVIDd (AP) 2D 2.4 cm (0.9 - 2.6) RVDdMajor (2D) 2.8 cm (2.2 - 4.4) RAd ISD 4CH 5.3 cm (3.4 - 4.9) RA (A4C)W 4.6 cm (2.9 - 4.6) IVSd (2D) 1.5 cm (0.6 - 1) LVPWd (2D) 1.4 cm (0.6 - 1) LVIDd (2D) 3.9 cm (3.6 - 5.4) LVIDs (2D) 3.4 cm - LV FS (2D) 15 % (25 - 45) Aortic Annulus 1.9 cm (1.4 - 2.6) Ao root diameter (2D) 2.7 cm (2.1 - 3.5) Ascending Ao 3.1 cm (2.1 - 3.4) Aortic arch 2.8 cm (1.8 - 3.4) LA dimension (AP) 2D 4.2 cm (2.3 - 3.8) LAd ISD 4CH 6.1 cm (2.9 - 5.3) LA ISD 4CH W 4.5 cm (2.5 - 4.5) Name Value Normal Range LA ESV SP 4CH (A/L) 97.92 ml - LA ESV SP 2CH (A/L) 78.89 ml - LA ESV BP (A/L) 89.02 ml - LA ESV BP (A/L) index 43 ml/m2 - LA ESV SP 4CH (MOD) 90 ml - LA ESV SP 2CH (MOD) 76.32 ml - Name Value Normal Range MV E-wave Vmax 1 m/sec - MV deceleration time 135 msec - LV septal e' Vmax 0.05 m/sec - LV E:e' septal ratio 20 ratio - Name Value Normal Range AV Vmax 1.2 m/sec - AV peak gradient 6 mmHg - LVOT Vmax 0.8 m/sec - LVOT peak gradient 2.6 mmHg - NAJMA Vmax 0.5 m/sec - Name Value Normal Range TR Vmax 3 m/sec - TR peak gradient 36 mmHg - RAP 8 mmHg - RVSP 44 mmHg - IVC diameter 1.8 cm - Name Value Normal Range PV Vmax 0.9 m/sec - PV peak gradient 3.2 mmHg -
[2018-04-27] MEDS: Warfarin TAB(*) 2.5 MG PO SCH (17:23)
[2018-04-27] MEDS: Atorvastatin* 80 MG TAB PO SCH (17:23)
[2018-04-27] MEDS: Warfarin TAB(*) 2 MG PO SCH (17:24)
[2018-04-28] MEDS: oxyCODONE TAB* 5 MG TAB PO SCH ×3 (04:52→21:29)
[2018-04-28 06:16] LABS: INR 1.23 (0.77-1.02)
[2018-04-28] MEDS: Insulin LISPRO* 1 UNITS UNIT SUBCUT SCH ×7 (07:30→21:29)
[2018-04-28] MEDS: Ferrous Sulfate TAB* 325 MG PO SCH (08:34)
[2018-04-28] MEDS: Cyclobenzaprine TAB* 10 MG PO SCH ×2 (08:34→21:28)
[2018-04-28] MEDS: Lisinopril TAB* 10 MG PO SCH ×2 (08:34→21:29)
[2018-04-28] MEDS: Docusate CAP* 100 MG PO SCH ×2 (08:34→21:29)
[2018-04-28] MEDS: Aspirin EC TAB* 81 MG TAB.EC PO SCH (08:34)
[2018-04-28] MEDS: Metoprolol Tartrate TAB* 50 mg PO SCH ×2 (08:34→21:29)
[2018-04-28] MEDS: Omeprazole CAP* 20 MG PO SCH ×2 (08:35→21:28)
[2018-04-28] MEDS: Insulin GLARGINE(*) 1 UNITS UNIT SUBCUT SCH (08:35)
[2018-04-28] MEDS: Warfarin TAB(*) 2.5 MG PO SCH (17:25)
[2018-04-28] MEDS: Atorvastatin* 80 MG TAB PO SCH (17:25)
[2018-04-28] MEDS: Warfarin TAB(*) 2 MG PO SCH (17:25)
--- NOTE | 2018-04-28 17:52 | PN ---
Subjective Date of Service: 04/28/18 Interval History: Ms. No reports that she is feeling better overall today though she continues to be short of breath with ambulation. She denies chest pain, nausea , or abdominal pain and is tolerating oral intake. Objective Active Medications: Acetaminophen (Tylenol Tab*) 650 mg PO Q6H PRN Aspirin (Aspirin Ec Tab*) 81 mg PO DAILY [facility] Atorvastatin Calcium (Lipitor*) 80 mg PO QPM [facility] Cyclobenzaprine HCl (Flexeril Tab*) 5 mg PO BID BI Docusate Sodium (Colace Cap*) 200 mg PO BID BI Ferrous Sulfate (Ferrous Sulfate Tab*) 325 mg PO DAILY BI Insulin Glargine (Lantus(*)) 26 units 0.24 units/kg (26 units) SUBCUT DAILY BI Insulin Human Lispro (Humalog*) 0 units SUBCUT AC BI Insulin Human Lispro (Humalog*) 0 units SUBCUT ACHS [facility] Lisinopril (Prinivil Tab*) 20 mg PO BID [facility] Melatonin (Melatonin (Nf)) 3 mg PO BEDTIME PRN; Protocol Metoprolol Tartrate (Lopressor Tab*) 50 mg PO BID BI Omeprazole (Prilosec Cap*) 20 mg PO BID BI Ondansetron HCl (Zofran Odt Tab*) 4 mg PO Q6H PRN Oxycodone HCl (Roxycodone Tab*) 5 mg PO Q8HR BI Tramadol HCl (Ultram*) 50 mg PO Q6H PRN Warfarin Sodium (Coumadin Tab(*)) 2.5 mg PO 1700 BI Warfarin Sodium (Coumadin Tab(*)) 2 mg PO 1700 [facility] Vital Signs: Temp Pulse Resp BP Pulse Ox 98.3 F 72 16 123/64 94 04/28/18 15:24 04/28/18 15:24 04/28/18 15:24 04/28/18 15:24 04/28/18 15:24 Oxygen Devices in Use Now: None Appearance: Female sitting up in bed eating dinner in NAD Eyes: No Scleral Icterus Ears/Nose/Mouth/Throat: Mucous Membranes Moist Neck: Trachea Midline Respiratory: Symmetrical Chest Expansion and Respiratory Effort, Clear to Auscultation Cardiovascular: NL Sounds; No Murmurs; No JVD, No Edema Abdominal: NL Sounds; No Tenderness; No Distention Lymphatic: No Cervical Adenopathy Extremities: No Edema Skin: No Rash or Ulcers Neurological: Alert and Oriented x 3, NL Muscle Strength and Tone Nutrition: Taking PO's Result Diagrams: 04/25/18 19:12 04/25/18 19:12 Additional Lab and Data: . Microbiology and Other Data: . Assess/Plan/Problems-Billing Assessment: Ms. No is an 78 yo female with a PMH of CAD with stent to the LAD, DM, afib who was admitted on 04/25/18 with exertional chest pain associated with new SOB and fatigue. - Patient Problems (1) Chest pain Comment: - Trops negative, EKG with afib. - Patient's story very concerning given history. - Echo unable to estimate EF due to afib. Plan for stress test tomorrow. - Last stress test 12/2016 was negative for ischemia. (2) SOB (shortness of breath) Comment: - Chest xray negative. No evidence of fluid overload or pneumonia. No wheezing on examination. CRP 22. - Only requires 1L NC to maintain SpO2 > 90%. - ? if related to cardiac disease, stress test pending. - Fully anticoagulated on warfarin, so PE very unlikely. (3) Anemia Comment: - Slightly down from baseline. - Stool occult blood negative. % iron 4, plan to start supplementation. (4) CAD (coronary artery disease) Comment: - Hx of stent to LAD - Continue ASA, statin, metoprolol, lisinopril. (5) Type 2 diabetes mellitus Comment: - BGs 190s. HgbA1c 8.9. - Continue Lantus and Lispro SS. (6) Afib Comment: - Converted to NSR today but does not seem to have improved her dyspnea. - Continue Metoprolol. - Resume warfarin. (7) HLD (hyperlipidemia) Comment: - Continue atorvastatin. (8) HTN (hypertension) Comment: - SBP 120 - Continue metoprolol and lisinopril (9) DVT prophylaxis Comment: - Resume warfarin. (10) Full code status Comment: Status and Disposition: Inpatient. Anticipate discharge to home when medically stable.
[2018-04-28] MEDS: Heparin VIAL(*) 5000 UNITS/ML VIAL (FIVE THOUSAND) SUBCUT SCH (21:28)
[2018-04-29] MEDS: traMADol TAB* 50 MG PO PRN (03:33)
[2018-04-29] MEDS: Heparin VIAL(*) 5000 UNITS/ML VIAL (FIVE THOUSAND) SUBCUT SCH ×2 (05:15→14:42)
[2018-04-29] MEDS: oxyCODONE TAB* 5 MG TAB PO SCH ×2 (05:15→14:42)
[2018-04-29] MEDS: Insulin LISPRO* 1 UNITS UNIT SUBCUT SCH ×6 (07:59→17:34)
[2018-04-29] MEDS: Aspirin EC TAB* 81 MG TAB.EC PO SCH (08:28)
[2018-04-29] MEDS: Omeprazole CAP* 20 MG PO SCH (08:28)
[2018-04-29] MEDS: Docusate CAP* 100 MG PO SCH (08:28)
[2018-04-29] MEDS: Metoprolol Tartrate TAB* 50 mg PO SCH (08:28)
[2018-04-29] MEDS: Lisinopril TAB* 10 MG PO SCH (08:28)
[2018-04-29] MEDS: Cyclobenzaprine TAB* 10 MG PO SCH (08:28)
[2018-04-29] MEDS: Ferrous Sulfate TAB* 325 MG PO SCH (08:28)
[2018-04-29] MEDS: Insulin GLARGINE(*) 1 UNITS UNIT SUBCUT SCH (08:30)
[2018-04-29 12:57] VITALS: BP 132/60
--- NOTE | 2018-04-29 13:22 | RAD ---
Edited for charges. INDICATION: Chest pain, shortness of breath, previous myocardial infarction and stenting. Multiple cardiac risk factors. COMPARISON: December 28, 2016 TECHNIQUE: 10.99 mCi of Tc-99m Myoview were administered IV. SPECT images of the heart were obtained. Later on the same day. Under the direction of Dr. Mayfield, the patient was given an IV injection of a pharmacologic stress agent. Subsequently, the patient was given an IV injection of 25.08 mCi Tc-99m Myoview. SPECT images of the heart were obtained and a gated wall motion study was performed. FINDINGS: Gated wall motion images were obtained at stress and demonstrate hypokinesia at the apical to mid anterior septal region. The calculated left ventricular ejection fraction is 57 % at stress. Estimated LEFT ventricular end diastolic volume is 91 mL. TID 1.18. Small fixed myocardial perfusion defect involving the apical anterior septal region without significant change compared with the prior exam. No stress-induced reversible perfusion defects evident to indicate ischemia. IMPRESSION: 1. Small chronic infarct at the apical anteroseptal region. Corresponding hypokinesia. 2. No stress-induced ischemia evident. 3. Normal range estimated LEFT ventricular ejection fraction. ASSESSMENT: Low risk based on nuclear portion. Based on imaging criteria from ACC/AHA 2002 Guideline Update for the Management of Patients With Chronic Stable Angina Table 23. Noninvasive Risk Stratification. MTDD
[2018-04-29] MEDS ORDERED: Regadenoson* 0.4 MG/5 ML SYRINGE ONE (13:58)
--- NOTE | 2018-04-29 15:53 | PN ---
Subjective Date of Service: 04/29/18 Interval History: Patient seen and examined at bedside. Denies fever, chills, shortness of breath (at baseline and not increased), chest discomfort, N/V/D. Pt states that she intermittently continues to have mild leg and arm pain. She would like to go home today. Tele: Sinus rhythm, rate 60-70's Family History: Unchanged from Admission Social History: Unchanged from Admission Past Medical History: Unchanged from Admission Objective Active Medications: Acetaminophen (Tylenol Tab*) 650 mg PO Q6H PRN Reason: FEVER/PAIN Aspirin (Aspirin Ec Tab*) 81 mg PO DAILY [facility] Atorvastatin Calcium (Lipitor*) 80 mg PO QPM BI Cyclobenzaprine HCl (Flexeril Tab*) 5 mg PO BID [facility] Docusate Sodium (Colace Cap*) 200 mg PO BID BI Ferrous Sulfate (Ferrous Sulfate Tab*) 325 mg PO DAILY [facility] Heparin Sodium (Porcine) (Heparin Vial(*)) 5,000 units SUBCUT Q8HR [facility] Insulin Glargine (Lantus(*)) 26 units 0.24 units/kg (26 units) SUBCUT DAILY [facility] Insulin Human Lispro (Humalog*) 0 units SUBCUT AC BI Insulin Human Lispro (Humalog*) 0 units SUBCUT ACHS [facility] Lisinopril (Prinivil Tab*) 20 mg PO BID [facility] Melatonin (Melatonin (Nf)) 3 mg PO BEDTIME PRN; Protocol Reason: Sleep Metoprolol Tartrate (Lopressor Tab*) 50 mg PO BID [facility] Omeprazole (Prilosec Cap*) 20 mg PO BID [facility] Ondansetron HCl (Zofran Odt Tab*) 4 mg PO Q6H PRN Reason: n/v Oxycodone HCl (Roxycodone Tab*) 5 mg PO Q8HR BI Tramadol HCl (Ultram*) 50 mg PO Q6H PRN Reason: PAIN Warfarin Sodium (Coumadin Tab(*)) 2.5 mg PO 1700 BI Warfarin Sodium (Coumadin Tab(*)) 2 mg PO 1700 [facility] Vital Signs - 8 hr 04/29/18 04/29/18 04/29/18 08:00 08:28 08:44 Temperature 99.6 F Pulse Rate 79 Respiratory 18 18 20 Rate Blood Pressure 148/68 (mmHg) O2 Sat by Pulse 91 Oximetry 04/29/18 04/29/18 04/29/18 11:23 11:42 14:42 Temperature 98.4 F Pulse Rate 66 Respiratory 20 16 16 Rate Blood Pressure 132/60 (mmHg) O2 Sat by Pulse 97 Oximetry Oxygen Devices in Use Now: None Appearance: NAD, laying in bed Ears/Nose/Mouth/Throat: Mucous Membranes Moist Respiratory: Symmetrical Chest Expansion and Respiratory Effort, Clear to Auscultation - , diminished Cardiovascular: NL Sounds; No Murmurs; No JVD, RRR Abdominal: NL Sounds; No Tenderness; No Distention Extremities: No Edema Neurological: Alert and Oriented x 3, NL Muscle Strength and Tone Nutrition: Taking PO's Result Diagrams: 04/25/18 19:12 04/25/18 19:12 Additional Lab and Data: . Microbiology and Other Data: . Assess/Plan/Problems-Billing Assessment: Ms. No is an 78 yo female with a PMH of CAD with stent to the LAD, DM, afib who was admitted on 04/25/18 with exertional chest pain associated with new SOB and fatigue. - Patient Problems (1) Chest pain Code(s): R07.9 - CHEST PAIN, UNSPECIFIED SNOMED Code(s): 04155571 Comment: - Trops negative, EKG with afib - Echo unable to estimate EF due to afib - Nuclear stress test - low risk, Last stress test 12/2016 was negative for ischemia. (2) SOB (shortness of breath) Code(s): R06.02 - SHORTNESS OF BREATH SNOMED Code(s): 919213739 Comment: - Chest xray negative. No evidence of fluid overload or pneumonia. No wheezing on examination. CRP 22 - Only requires 1L NC to maintain SpO2 > 90% - ? if related to cardiac disease (low risk stress test) vs deconditioning - Fully anticoagulated on warfarin, so PE very unlikely (3) Anemia Code(s): D64.9 - ANEMIA, UNSPECIFIED SNOMED Code(s): 475713811 Comment: - Slightly down from baseline. - Stool occult blood negative. % iron 4 - Continue iron supplementation (4) CAD (coronary artery disease) Code(s): I25.10 - ATHSCL HEART DISEASE OF [place] CORONARY ARTERY W/O ANG PCTRS SNOMED Code(s): 59582644 Comment: - Hx of stent to LAD - Continue ASA, statin, metoprolol, lisinopril. (5) Type 2 diabetes mellitus Current Visit: No Status: Acute Comment: - Glucose 140-170's - HgbA1c 8.9 - Continue Lantus and Lispro SS (6) Afib Code(s): I48.91 - UNSPECIFIED ATRIAL FIBRILLATION SNOMED Code(s): 25696696 Comment: - Converted to NSR 03/29 - Continue Metoprolol and warfarin (7) HLD (hyperlipidemia) Code(s): E78.5 - HYPERLIPIDEMIA, UNSPECIFIED SNOMED Code(s): 20375448 Comment: - Continue atorvastatin. (8) HTN (hypertension) Code(s): I10 - ESSENTIAL (PRIMARY) HYPERTENSION SNOMED Code(s): 01082185 Comment: - SBP 120-170's, mostly normontensive - Continue metoprolol and lisinopril (9) History of CVA (cerebrovascular accident) Code(s): Z86.73 - PRSNL HX OF TIA (TIA), AND CEREB INFRC W/O RESID DEFICITS SNOMED Code(s): 687062354 Comment: - Continue ASA and statin (10) CKD stage 3 due to type 2 diabetes mellitus Code(s): E11.22 - TYPE 2 DIABETES MELLITUS W DIABETIC CHRONIC KIDNEY DISEASE; N18.3 - CHRONIC KIDNEY DISEASE, STAGE 3 (MODERATE) SNOMED Code(s): 378612275642 Comment: - At baseline (11) DVT prophylaxis Code(s): XRJ7150 - SNOMED Code(s): 969749976 Comment: - Continue warfarin (12) Full code status Code(s): Z78.9 - OTHER SPECIFIED HEALTH STATUS SNOMED Code(s): 010618568 Status and Disposition: Inpatient. Anticipate discharge to home when medically stable.
[2018-04-29 16:09] LABS: INR 1.21 (0.77-1.02)
[2018-04-29] MEDS: Atorvastatin* 80 MG TAB PO SCH (17:34)
[2018-04-29] MEDS: Warfarin TAB(*) 2.5 MG PO SCH (17:34)
[2018-04-29] MEDS: Warfarin TAB(*) 2 MG PO SCH (17:34)
--- NOTE | 2018-05-01 17:55 | DS ---
CC: Dr. Carlos Enrique Torres; Dr. Darrel Baez * DISCHARGE SUMMARY: DATE OF ADMISSION: 04/25/18 DATE OF DISCHARGE: 04/29/18 ATTENDING PHYSICIAN: Dr. Jeremias Posada *(dictated by Melvin Wallace NP). PRIMARY CARE PROVIDER: Dr. Carlos Enrique Torres. PRIMARY EXTENSION CLERK: Dr. Darrel Baez. PRIMARY DIAGNOSES: 1. Chest pain, status post low-risk nuclear stress test. 2. Shortness of breath, unresolving. 3. Suspected deconditioning. 4. Anemia. 5. Atrial fibrillation with rapid ventricular response, resolved. SECONDARY DIAGNOSES: 1. History of coronary artery disease. 2. Diabetes mellitus. 3. Atrial fibrillation. 4. Hyperlipidemia. 5. Hypertension. 6. History of cerebrovascular accident. 7. Chronic kidney disease stage 3. STUDIES WHILE IN THE HOSPITAL: 1. Chest x-ray on 04/25/18. Radiologist's impression: Stigmata of obstructive lung disease. No acute pulmonary or cardiac process evident. 2. Transthoracic echocardiogram 04/27/18. Home Care Assistant's conclusion: The left ventricle chamber size is normal. Moderate concentric left ventricular hypertrophy is observed. Unable to estimate left ventricular ejection fraction secondary to AFib and borderline tachycardia but probably lower limit of normal. The assessment of diastolic function is nondiagnostic. The left atrium is [id number] dilated. The right atrium is mildly dilated. There is mild mitral regurgitation, [id number] tricuspid regurgitation. There is evidence of mild pulmonary hypertension. 3. Nuclear cardiac stress test on 04/29/18. Home Care Assistant's impression: Small chronic infarct at the apical anterior septal region. Corresponding hypokinesis. No stress-induced ischemia evident. A mild range estimated left ventricular ejection fraction. Assessment low risk based on nuclear portion. Home Care Assistant's observation: Chest pain none, resting ECG abnormality left bundle-branch block, ST changes none. Conclusion: Nondiagnostic Lexiscan study by EKG due to resting EKG abnormalities. Nuclear portion will be reported separately by Radiology. DISCHARGE MEDICATIONS: New home medications: 1. Acetaminophen 650 mg oral every 6 hours as needed for fever or pain. 2. Ferrous sulfate 325 mg oral daily. Continued home medications: 1. Atorvastatin 80 mg oral every evening. 2. Aspirin 81 mg oral daily. 3. Oxycodone 5 mg oral every 8 hours as needed for pain. 4. Omeprazole 20 mg oral twice daily. 5. Ferrous sulfate 40 mg oral daily. 6. Lantus insulin 30 units subcutaneous daily. 7. Lisinopril 20 mg oral twice daily. 8. Vitamin B12 5000 mcg oral daily. 9. Fish oil 1000 mg oral daily. 10. Insulin NPH 65 units subcutaneous every morning. 11. Vitamin D 5000 units oral daily. 12. Nitroglycerin 0.4 mg sublingual every 5 minutes as needed for chest pain. 13. Metoprolol tartrate 50 mg oral twice daily. 14. Flexeril 5 mg oral daily as needed for muscle spasms. 15. Warfarin 4.5 mg oral daily. 16. Lotrimin apply topical daily as needed for itching. HISTORY OF PRESENT ILLNESS/HOSPITAL COURSE: Ms. No is an 78-year-old female with past medical history significant for coronary artery disease status post coronary artery stents x3, hypertension, hyperlipidemia, diabetes mellitus type 2, atrial fibrillation, colorectal cancer, and chronic kidney disease who was having intermittent exertional chest discomfort. The patient's daughter encouraged her mother to come to the emergency room for further evaluation. The patient felt that the intermittent exertional discomfort she was having was different from her prior NH. She had associated shortness of breath, sweating, palpitations. She denied any nausea or lightheadedness. She found that activity usually worsened her pain and was better with rest. While in the emergency room, she had a chest x-ray showing no acute findings. She had an EKG showing an atrial fibrillation with a left bundle-branch block and a rate of 111. The hospitalists were asked to evaluate the patient for admission. While in the hospital, the patient received IV diltiazem and converted to normal sinus rhythm. She had her troponins trended, they were flat at 0.01. She continued to have some shortness of breath during her stay. It was felt that this was secondary to possible deconditioning. She underwent a nuclear exercise stress test showing a little risk in a chronic apical area of ischemia. The patient did feel that the overall each day her shortness of breath was improving. She had a hemoglobin A1c checked, it was 8.9. The patient was fully anticoagulated, so it was felt that she unlikely had a PE. In fact, she came in supratherapeutic. The patient was also noted to be anemic , slightly down from her baseline. She had a stool occult blood that was negative. Her percent iron saturation was 4. She was started on ferrous sulfate. This could have also been contributing to her shortness of breath. The patient was feeling well and requesting to go home. She did complain of continuing to have intermittent leg and arm pain. Ms. No is stable for discharge to home. Vital signs are as follows; temperature 98.4, heart rate 66, respiratory rate 20, O2 sat 91% on room air, blood pressure 148/68. DISCHARGE PLAN: Ms. No will be discharged home. Activity as tolerated. She has been encouraged to slowly increase her activity going for short small walks frequently throughout the day to help increase her activity tolerance and to not do any exertional walking, just to slowly increase her walking. She should be on a heart healthy consistent carbohydrate diet. In regards to her chest pain, I suspect this could have been secondary to her atrial fibrillation with RVR. She was no longer having chest pain on her day of discharge. She had a little risk stress test. She has been instructed to follow up with her primary training development director, Dr. Baez. She has been asked to call and set up a followup appointment. In regards to her shortness of breath, I suspect this is secondary to deconditioning and possibly her anemia. She has been started on iron for her anemia. In regards to her AFib, she has been continued on metoprolol. Additionally, she has been continued on her warfarin. She was initially supratherapeutic on admission and then was trended down to be subtherapeutic. She will need to have her INR continued to be followed outpatient to ensure that her warfarin is with the correct dosing. Again for her anemia, she already had a negative stool occult and was started on iron and should be continued. For history of coronary artery disease, she will be continued on her aspirin, statin, metoprolol, lisinopril. Again, she has been asked to follow up with her training development director. In regards to her diabetes, she has been continued on her home meds. For her hyperlipidemia and hypertension, she has been continued on her other usual meds. She has a followup appointment with her primary care provider, Dr. Carlos Enrique Torres on 05/05/18 at 4:30 p.m. She has been asked to return to the emergency room for any increased shortness of breath or chest discomfort. This is a summarized report of a complex medical history and hospital stay. For further details, please see the entire medical record. TIME SPENT: Time for this discharge was approximately 50 minutes, greater than half of that was spent with the patient discussing discharge plans and instructions. CONDITION ON DISCHARGE: Stable. MELVIN NORIEGA, PILAR [id number]/CPS #: [id number]
== END 2018-04-29 18:15 | disposition home health service (06) | DRG 313 ==
LOC: ED 18:43 → MEDTELE 21:09 → OBSVTOIN 04-26 14:11
PROVIDERS: ADMIT Hospitalist; ATTEND Student in an Organized Health Care Education/Training Program
DX: R07.9 Chest pain, unspecified (principal); Z68.41 Body mass index [BMI] 40.0-44.9, adult; R06.02 Shortness of breath; D64.9 Anemia, unspecified; I25.10 Atherosclerotic heart disease of native coronary artery without angina pectoris; E83.42 Hypomagnesemia; I48.91 Unspecified atrial fibrillation; E78.5 Hyperlipidemia, unspecified; I13.10 Hypertensive heart and chronic kidney disease without heart failure, with stage 1 through stage 4 chronic kidney disease, or unspecified chronic kidney disease; I27.20 Pulmonary hypertension, unspecified; D50.9 Iron deficiency anemia, unspecified; I36.1 Nonrheumatic tricuspid (valve) insufficiency; E11.22 Type 2 diabetes mellitus with diabetic chronic kidney disease; E66.01 Morbid (severe) obesity due to excess calories; N18.3 Chronic kidney disease, stage 3 (moderate); Z95.5 Presence of coronary angioplasty implant and graft; Z85.038 Personal history of other malignant neoplasm of large intestine; Z79.01 Long term (current) use of anticoagulants; Z79.82 Long term (current) use of aspirin; Z79.4 Long term (current) use of insulin; Z79.891 Long term (current) use of opiate analgesic; Z79.899 Other long term (current) drug therapy; Z88.5 Allergy status to narcotic agent; Z88.0 Allergy status to penicillin; Z88.8 Allergy status to other drugs, medicaments and biological substances; Z83.3 Family history of diabetes mellitus; Z82.49 Family history of ischemic heart disease and other diseases of the circulatory system; Z80.0 Family history of malignant neoplasm of digestive organs
CPT/HCPCS: 36415; 71045; 78452; 80053; 82270; 82550; 82553; 82607; 82728; 82746; 83036; 83540; 83550; 83605; 83615; 83735; 83880; 84443; 84484; 85025; 85045; 85610; 85652; 85730; 86140; 93005; 93017; 93306; 99213; 99285; A9270-GY; A9502; G0463; J1644; J2785; J3475

== ENCOUNTER 2018-12-18 04:33 | Inpatient (IN) | payer MEDICARE, OTHER ==
[2018-12-18] MEDS ORDERED: NS 0.9% 1000 ML** 1,000 ML IV ONE (05:10)
--- NOTE | 2018-12-18 05:10 | ED ---
GI/ HPI - HPI Summary HPI Summary: An 78 y/o female presents to [facility] with a chief complaint of constant rectal bleeding since 01:00. She describes the She reports that she has had this problem before "a long time ago". She denies any LOC but claims that she feels "woozy". Per granddaughter, the patient takes Warfarin. She rates her pain as 8/ 10 in severity. She describes her bleeding as "gurgling". - History of Current Complaint Chief Complaint: EDGIBleed Time Seen by Provider: 12/18/18 05:02 Stated Complaint: RECTAL BLEEDING Hx Obtained From: Patient, Family/Manager [employer] - granddaughter Onset/Duration: Started Hours Ago, Still Present Timing: Constant, Lasting Hours Severity: Severe Current Severity: Severe Pain Intensity: 8 - out of 10 - Additional Pertinent History Primary Care Physician: DEMI - Allergy/Home Medications Allergies/Adverse Reactions: Allergies Allergy/AdvReac Type Severity Reaction Status Date / Time cyclosporine [From Restasis] Allergy EYES Verified 04/25/18 17:48 ITCHY, SWOLLEN morphine Allergy Hives Verified 04/25/18 17:48 Penicillins Allergy Hives Verified 04/25/18 17:48 Home Medications: Home Medications Alendronate Sodium [Fosamax-] 70 mg PO WEEKLY 12/18/18 [History Confirmed ] Aspirin/Caffeine [Ken Back & Body Pain Ex] 1 tab PO Q6HR PRN 12/18/18 [ History Confirmed 12/18/18] Gabapentin CAP(*) [Neurontin 100 mg CAP(*)] 100 mg PO TID 12/18/18 [History Confirmed 12/18/18] Insulin Glargine,Hum.rec.anlog [Basaglar Kwikpen U-100] 40 units SUBCUT DAILY [History Confirmed 12/18/18] Iron Polysaccharide Complex [Ferrex 150] 150 mg PO DAILY 12/18/18 [History Confirmed 12/18/18] Iron Polysaccharide Complex [Ferrex 150] 150 mg PO DAILY 12/18/18 [History Confirmed 12/18/18] Multivitamin [Multivitamins] 1 cap PO DAILY 12/18/18 [History Confirmed 12/18/18 ] oxyCODONE TAB* [Roxycodone TAB 5 mg*] 5 - 10 mg PO Q8HR PRN 12/18/18 [History Confirmed 12/18/18] PMH/Surg Hx/FS Hx/Imm Hx Endocrine/Hematology History: Reports: Hx Diabetes, Hx Anemia - microcytic Cardiovascular History: Reports: Hx Angina, Hx Angioplasty, Hx Coronary Artery Disease, Hx Hypercholesterolemia, Hx Hypertension, Hx Myocardial Infarction, Other Cardiovascular Problems/Disorders - hx cardiac stent, atherosclerosis Denies: Hx Congestive Heart Failure, Hx Pacemaker/ICD, Hx Valvular Heart Disease Respiratory History: Reports: Hx Chronic Obstructive Pulmonary Disease (COPD) - per ED H+P, Hx Sleep Apnea - 2 liters O2 at night, Other Respiratory Problems/ Disorders - 2 L at night Comment Only: Hx Asthma - occassional per pt GI History: Reports: Hx Gastroesophageal Reflux Disease, Other GI Disorders - gastritis Denies: Hx Cirrhosis, Hx Crohn's Disease, Hx Diverticulosis, Hx Gall Bladder Disease, Hx Gastrointestinal Bleed, Hx Hiatal Hernia, Hx Irritable Bowel, Hx Jaundice, Hx Obstructive Bowel, Hx Ileostomy, Hx Pyloric Stenosis, Hx Ulcer History: Reports: Hx Chronic Renal Failure - stage 3, Hx Kidney Stones Musculoskeletal History: Reports: Hx Arthritis, Hx Rheumatoid Arthritis, Hx Orthopedic Injury - right femur 2013, Other Musculoskeletal History - herniated L4-L5 Denies: Hx Scoliosis Sensory History: Reports: Hx Cataracts - removed, Hx Contacts or Glasses Denies: Hx Eye Injury, Hx Eye Prosthesis, Hx Glaucoma, Hx Legally Blind, Hx Macular Degeneration, Hx Vision Problem, Hx Deafness, Hx Hearing Aid, Hx Hearing Problem, Other Sensory Impairments Opthamlomology History: Reports: Hx Cataracts - removed, Hx Contacts or Glasses Denies: Hx Eye Injury, Hx Eye Prosthesis, Hx Glaucoma, Hx Legally Blind, Hx Macular Degeneration, Hx Vision Problem, Other Sensory Impairments Neurological History: Reports: Hx Headaches, Other Neuro Impairments/Disorders - left hand neuropathy Denies: Hx Dementia, Hx Developmental Delay, Hx Migraine, Hx Nerve Disease, Hx Seizures, Hx Spinal Cord Injury, Hx Transient Ischemic Attacks (TIA) Psychiatric History: Reports: Hx Depression Denies: Hx Panic Disorder - Cancer History Cancer Type, Location and Year: COLON CA - Surgical History Surgery Procedure, Year, and Place: RIGHT LEG AFTER FRACTURE 09/26/14. Colon resection 2013 Hx Anesthesia Reactions: No - Immunization History Date of Tetanus Vaccine: within the last ten years Date of Influenza Vaccine: October 2016 Infectious Disease History: No Infectious Disease History: Denies: Hx Clostridium Difficile, Hx Hepatitis, Hx Human Immunodeficiency Virus (HIV), Hx of Known/Suspected MRSA, Hx Shingles, Hx Tuberculosis, Hx Known/ Suspected VRE, Hx Known/Suspected VRSA, History Other Infectious Disease, Traveled Outside the [place] in Last 30 Days - Family History Known Family History: Positive: Hypertension - Social History Alcohol Use: None Substance Use Type: Reports: None Smoking Status (MU): Never Smoked Tobacco Type: Cigarettes Have You Smoked in the Last Year: No Review of Systems Negative: Fever Positive: Other - Positive: rectal bleeding Neurological: Other - Positive: "woozy" Negative: Syncope All Other Systems Reviewed And Are Negative: Yes Physical Exam - Summary Physical Exam Summary: VITAL SIGNS: Reviewed. GENERAL: Patient is a morbidly obese FEMALE who is lying comfortable in the stretcher. Patient is not in any acute respiratory distress. HEAD AND FACE: No signs of trauma. No ecchymosis, hematomas or skull depressions. No sinus tenderness. EYES: PERRLA, EOMI x 2, No injected conjunctiva, no nystagmus. EARS: Hearing grossly intact. Ear canals and tympanic membranes are within normal limits. MOUTH: Oropharynx within normal limits. NECK: Supple, trachea is midline, no adenopathy, no JVD, no carotid bruit, no c- spine tenderness, neck with full ROM. CHEST: Symmetric, no tenderness at palpation LUNGS: Clear to auscultation bilaterally. No wheezing or crackles. CVS: Regular rate and rhythm, S1 and S2 present, no murmurs or gallops appreciated. ABDOMEN: Soft, non-tender. Distended. No rebound no guarding, and no masses palpated. Bowel sounds are normal. EXTREMITIES: FROM in all major joints, no edema, no cyanosis or clubbing. NEURO: Alert and oriented x 3. No acute neurological deficits. Speech is normal and follows commands. SKIN: Dry and warm Rectal: Maroon blood Triage Information Reviewed: Yes Vital Signs On Initial Exam: Initial Vitals Temp Pulse Resp BP Pulse Ox 97.5 F 69 20 165/86 95 12/18/18 04:51 12/18/18 04:51 12/18/18 04:51 12/18/18 04:51 12/18/18 04:51 Vital Signs Reviewed: Yes Diagnostics - Vital Signs Vital Signs Temp Pulse Resp BP Pulse Ox 12/18/18 04:51 97.5 F 69 20 165/86 95 - Laboratory Result Diagrams: 12/18/18 16:20 12/18/18 05:24 Lab Statement: Any lab studies that have been ordered have been reviewed, and results considered in the medical decision making process. - EKG 06:08 Cardiac Rate: Other Rate - Atrial fibrillation at 65 bpm EKG Rhythm: Atrial Fibrillation Summary of EKG Findings: Atrial fibrillation at 65 bpm with LBBB GIGU Course/Dx - Course Course Of Treatment: An 78 y/o female presents to [facility] with a chief complaint of constant rectal bleeding since 01:00. The physical exam revealed that the patient is morbidly obese with a distended abdomen and maroon rectal bleeding. Lab results obtained. Creatinine 1.27 at 05:24. EKG revealed Atrial fibrillation at 65 bpm with LBBB. Case discussed with Dr. Bustamante, Hospitalist, who accepted the patient for admission. The patient is agreeable with this plan. - Diagnoses Provider Diagnoses: Lower GI bleed - Physician Notifications Discussed Care Of Patient With: Neha Bustamante Time Discussed With Above Provider: 06:10 Instructed by Provider To: Admit As Inpatient Discharge - Sign-Out/Discharge Documenting (check all that apply): Patient Departure - Admit - Discharge Plan Condition: Fair Disposition: ADMITTED TO [facility] - Billing Disposition and Condition Condition: FAIR Disposition: Admitted to [facility] - Attestation Statements Document Initiated by Chavez: Yes Documenting Scribe: Darrel Locke Provider For Whom Chavez is Documenting (Include Credential): Halie Randle MD Scribe Attestation: Darrel Toure scribed for Halie Randle MD on 12/19/18 at 0531. Scribe Documentation Reviewed: Yes Provider Attestation: The documentation as recorded by the Darrel valdes accurately reflects the service I personally performed and the decisions made by me, Halie Randle MD Status of Scribe Document: Viewed
[2018-12-18 05:31] LABS: ABS Basophils 0.1 10^3/ul (0-0.2); ABS Eosinophils 0.1 10^3/ul (0-0.6); ABS Lymphocytes 1.8 10^3/ul (1.0-4.8); ABS Monocytes 0.7 10^3/ul (0-0.8); ABS Neutrophils 5.9 10^3/ul (1.5-7.7); ABS Nucleated RBC 0 10^3/ul; Eosinophil % 1.6 %; Hematocrit 35 % (35-47); Hemoglobin 11.3 g/dl (12.0-16.0); Lymphocyte % 21.1 %; Mean Corpuscular HGB Conc 32 g/dl (31-36); Mean Corpuscular Hemoglobin 27 pg (27-31); Mean Corpuscular Volume 83 fL (80-97); Mean Platelet Volume 7.4 fL (7.4-10.4); Nucleated Red Blood Cells % 0; Platelet Count 365 10^3/ul (150-450); Red Blood Count 4.21 10^6/ul (4.00-5.40); Red Cell Distribution Width 18 % (10.5-15); White Blood Count 8.7 10^3/ul (3.5-10.8)
[2018-12-18 05:44] LABS: Activated Partial Thrombo Time 43.4 seconds (26.0-36.3); INR 2.38 (0.77-1.02)
[2018-12-18 05:52] LABS: Albumin 3.3 g/dL (3.2-5.2); BUN/Creatinine Ratio 19.7 (8-20); Calcium 9.7 mg/dL (8.6-10.3); EGFR Non-African American 40.5 (>60); Globulin 3.3 g/dL (2-4); Potassium 4.2 mmol/L (3.5-5.0); Total Bilirubin 0.4 mg/dL (0.2-1.0); Total Protein 6.6 g/dL (6.4-8.9)
[2018-12-18] MEDS ORDERED: Acetaminophen TAB* 325 MG PO PRN (06:32)
[2018-12-18] MEDS ORDERED: Ondansetron INJ* 2 MG/ML VIAL IV PRN (06:32)
[2018-12-18] MEDS ORDERED: oxyCODONE TAB* 5 MG TAB PO PRN (06:38)
[2018-12-18] MEDS ORDERED: Dextrose 50% Syringe 50 ML* 25 GM/50 ML SYRINGE IV PUSH PRN (06:42)
[2018-12-18] MEDS ORDERED: NS 0.9% 1000 ML** 1,000 ML IV SCH (06:45)
[2018-12-18] MEDS ORDERED: Insulin GLARGINE(*) 1 UNITS UNIT SUBCUT SCH (07:00)
[2018-12-18] MEDS ORDERED: Labetalol IV* 5 MG/ML 20 ML VIAL IV PUSH ONE (07:14)
[2018-12-18] MEDS ORDERED: Multivitamins/Minerals TAB PO SCH (09:00)
[2018-12-18] MEDS ORDERED: Lisinopril TAB* 10 MG PO SCH (09:00)
--- NOTE | 2018-12-18 10:13 | HP ---
CC: Dr. Torres * HISTORY AND PHYSICAL: DATE OF ADMISSION: 12/18/18. PRIMARY CARE PROVIDER: Dr. Torres. CHIEF COMPLAINT: Rectal bleeding. HISTORY OF PRESENT ILLNESS: Ms. No is an 78-year-old female, who is on Coumadin for a history of atrial fibrillation and takes 2 Ken Back and Body aspirin daily, who presents to the emergency room with complaints of rectal bleeding. She states that she had what she thought was a fairly normal bowel movement at approximately 2100 on 12/17/18. She then was sitting on the edge of her bed reading and at approximately 1:30 a.m. she felt as if she needs to pass gas, but then realized that it was more likely a bowel movement. She went to the bathroom, and all that came out was blood. The patient states that she continued to have rectal bleeding and at approximately 3 a.m., she decided she should present to the emergency room for evaluation. The patient had another bloody bowel movement in the ER and has been oozing blood out while lying in the stretcher. She does complain of crampy abdominal discomfort. She feels this in her lower abdomen. She denies any fevers or chills. She states that she did have an EGD before and she does not know when her last colonoscopy was. PAST MEDICAL HISTORY: 1. Coronary artery disease. 2. Hypertension. 3. Hyperlipidemia. 4. Type 2 diabetes. 5. Past CVA. 6. Atrial fibrillation. 7. History of colon cancer. 8. Stage 3 chronic kidney disease. PAST SURGICAL HISTORY: 1. Right leg surgery for fracture repair. 2. Right hemicolectomy. 3. Tubal ligation. MEDICATIONS: 1. Fosamax 70 mg p.o. weekly. 2. Aspirin 81 mg p.o. daily. 3. Ken Back and Body Pain 500, 1 to 2 tablets p.o. daily. 4. Lipitor 80 mg p.o. q.h.s. 5. Lasix 40 mg p.o. daily. 6. Gabapentin 100 mg p.o. t.i.d. 7. Basaglar insulin 40 units subcutaneous daily. 8. Insulin NPH 50 units subcutaneous q.a.m. 9. Iron polysaccharide complex 150 mg p.o. daily. 10. Lisinopril 20 mg p.o. daily. 11. Metoprolol tartrate 50 mg p.o. b.i.d. 12. Multivitamin 1 cap p.o. daily. 13. Nitroglycerin 0.4 mg SL q.5 minutes p.r.n. chest pain. 14. [place]-3 fatty acids 1000 mg p.o. daily. 15. Omeprazole 40 mg p.o. b.i.d. 16. Oxycodone 5 to 10 mg p.o. q.8 hours p.r.n. pain. 17. Coumadin 4.5 mg p.o. q.h.s. ALLERGIES: PENICILLIN, MORPHINE, RESTASIS, and BACLOFEN. FAMILY HISTORY: Mom at the age of 77 of stomach cancer. Dad is , he had diabetes. She does not know any other medical history on him. SOCIAL HISTORY: The patient does not smoke, she does not drink alcohol. 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 She is . She has 6 children. Her daughter Sabina is her healthcare proxy. REVIEW OF SYSTEMS: A complete 11-system review of systems is obtained. Pertinent positives and negatives are as per HPI and in addition, the patient does admit to chronic lower extremity edema. She states that she has had some mild dysuria. Otherwise, the review of systems is negative. PHYSICAL EXAMINATION GENERAL: The patient is a well-developed elderly obese female, seen sitting up in the stretcher, in no acute distress. VITAL SIGNS: Blood pressure 195/83, pulse 108, respirations 24, temp 97.5, O2 sat 97% on room air. HEENT: Pupils are equal and round. Extraocular muscles are intact. Oropharynx is clear. Oral mucosa is moist. NECK: There is no submandibular, cervical or supraclavicular adenopathy. Thyroid is not enlarged. No thyroid nodules are noted. PULMONARY: Breath sounds are diminished throughout, but clear. CARDIAC: Normal S1, S2. Heart rate is mildly tachycardic. There are no murmurs. She has trace to 1+ bilateral lower extremity pitting edema. ABDOMEN: Bowel sounds are present. Abdomen is obese, soft. Diffusely tender, but worse in the bilateral lower quadrants and pelvis. MUSCULOSKELETAL: There is no cyanosis or clubbing of the digits. There is full active range of motion of all 4 extremities. NEURO: Cranial nerves II through XII are grossly intact. Sensation is intact to light touch throughout. Strength is 5/5 and symmetric in both the upper and lower extremities bilaterally. PSYCH: The patient is alert. She is oriented x3. Affect appears appropriate. SKIN: Warm and dry. There are no rashes. DIAGNOSTIC STUDIES/LAB DATA: WBC 8.7, hemoglobin 11.3, hematocrit 35, platelets 365,000. INR 2.38. Sodium 140, potassium 4.2, chloride 105, CO2 of 28, BUN 25, creatinine 1.27, glucose 306, calcium 9.7. Bilirubin 0.4, AST 19, ALT 16, alk phos 48, albumin 3.3. EKG reveals normal sinus rhythm with a left bundle-branch block. ASSESSMENT AND PLAN: Ms. No is an 78-year-old female with a history of atrial fibrillation on Coumadin, coronary artery disease, hypertension, type 2 diabetes, and stage 3 chronic kidney disease as well as past history of colon cancer, status post resection, who presents to the emergency room with complaints of rectal bleeding. 1. Gastrointestinal bleed. The patient at this point continues to pass bright red to maroon-colored blood. She is hemodynamically stable. Her hemoglobin is slightly low at 11.3, which is in fact her baseline as of October 2018. Serial hemoglobins and hematocrits will be ordered. Gastroenterology consult has been requested. I spoke with Dr. Mendosa, who recommended starting the patient on b.i.d. IV PPI. It is questionable if this could be an upper gastrointestinal bleed related to the patient's significant aspirin use versus possible lower bleed related to ischemic colitis or diverticulosis. We will await further recommendations from Gastroenterology. 2. Atrial fibrillation. The patient's heart rate is fairly well controlled at this time. I have continued her metoprolol tartrate with hold parameters. Her Coumadin obviously will be held. She is receiving FFP to reverse her Coumadin. 3. Coronary artery disease. There is no complaint of chest pain. Her aspirin is being held. She will continue on her Lipitor and metoprolol. 4. Type 2 diabetes. At this point, I am cutting the patient's insulin glargine in half to 20 units subcutaneous daily, as she is n.p.o. at this point for possible gastrointestinal procedure. I have also added a lispro sliding scale. Her insulin dosing may need to be increased if her sugars are markedly elevated with reduced dose of glargine. 5. Stage 3 chronic kidney disease. At this point, the patient's creatinine is at baseline. We will continue to monitor this. 6. DVT prophylaxis. According to the Adult Thrombosis Prophylaxis Risk Factor Assessment Guide, the patient has a total risk factor score of 7 making her the highest risk. SCDs alone for now will be utilized as DVT prophylaxis as chemical prophylaxis is contraindicated due to the gastrointestinal bleed. 7. Code status is DNR. TIME SPENT: Sixty-five minutes were spent admitting this patient. [id number]/[facility] #: [id number] VIRAJ
[2018-12-18] MEDS: Insulin LISPRO* 1 UNITS UNIT SUBCUT SCH ×3 (10:44→18:48)
[2018-12-18] MEDS: Pantoprazole IV* 40 MG IV SCH ×2 (10:45→20:55)
[2018-12-18] MEDS: Gabapentin CAP(*) 100 MG PO SCH ×3 (10:50→20:55)
[2018-12-18] MEDS: Metoprolol Tartrate TAB* 50 mg PO SCH ×2 (10:50→20:57)
[2018-12-18 11:18] LABS: Hematocrit 26 % (35-47); Hemoglobin 8.3 g/dl (12.0-16.0)
[2018-12-18 11:22] LABS: INR 1.74 (0.77-1.02)
--- NOTE | 2018-12-18 14:52 | CONSULT ---
Consult Consult: PCCM Consult CC: rectal bleeding HPI: 78F with htn, hld, dm, cad, afib on coumadin, ckd, h/o colon ca s/p resection presents with rectal bleeding. The patient states that the bleeding is bright red blood. It started at 130am. She had several subsequent episodes after that. Her initial hemoglobin was 11 but dropped to 8. She was transferred to the ICU for closer monitoring. The patient reports some abdominal discomfort. She denies any hematemesis. She cannot remember when she had her last endoscopy. ROS - as per HPI PMHx -htn, hld, dm, cad, afib on coumadin, ckd, h/o colon ca PSHx - hemicolectomy, right left fracture repair, tubal ligation All - cyclosporine, morphine, penicillin SocHx - no drugs, etoh, or tobacco FamHx -dm, stomach cancer PE Vital Signs: Temp Pulse Resp BP Pulse Ox 98.0 F 94 23 160/62 97 12/18/18 14:29 12/18/18 14:29 12/18/18 14:32 12/18/18 14:29 12/18/18 14:29 Gen - nad heent - ncat, eomi, perrl neck - no jvd, no thyromegaly cv - s1/s2, no murmur lungs - cta, no wheeze abd - soft, nt ext - no cce neuro - non-focal Labs Laboratory Results - last 24 hr 12/18/18 12/18/18 12/18/18 05:24 05:24 05:24 WBC 8.7 RBC 4.21 Hgb 11.3 L Hct 35 MCV 83 MCH 27 MCHC 32 RDW 18 H Plt Count 365 MPV 7.4 Neut % (Auto) 67.4 Lymph % (Auto) 21.1 [place] % (Auto) 8.6 Eos % (Auto) 1.6 Baso % (Auto) 1.3 Absolute Neuts (auto) 5.9 Absolute Lymphs (auto) 1.8 Absolute Monos (auto) 0.7 Absolute Eos (auto) 0.1 Absolute Basos (auto) 0.1 Absolute Nucleated RBC 0 Nucleated RBC % 0 INR (Anticoag Therapy) 2.38 H APTT 43.4 H Sodium 140 Potassium 4.2 Chloride 105 Carbon Dioxide 28 Anion Gap 7 BUN 25 H Creatinine 1.27 H Est GFR ( Amer) 49.0 Est GFR (Non-Af Amer) 40.5 BUN/Creatinine Ratio 19.7 Glucose 306 H POC Glucose (mg/dL) Calcium 9.7 Total Bilirubin 0.40 AST 19 ALT 16 Alkaline Phosphatase 48 Total Protein 6.6 Albumin 3.3 Globulin 3.3 Albumin/Globulin Ratio 1.0 Blood Type Antibody Screen 12/18/18 12/18/18 12/18/18 05:24 10:01 11:00 WBC RBC Hgb Hct MCV MCH MCHC RDW Plt Count MPV Neut % (Auto) Lymph % (Auto) [place] % (Auto) Eos % (Auto) Baso % (Auto) Absolute Neuts (auto) Absolute Lymphs (auto) Absolute Monos (auto) Absolute Eos (auto) Absolute Basos (auto) Absolute Nucleated RBC Nucleated RBC % INR (Anticoag Therapy) 1.74 H APTT Sodium Potassium Chloride Carbon Dioxide Anion Gap BUN Creatinine Est GFR ( Amer) Est GFR (Non-Af Amer) BUN/Creatinine Ratio Glucose POC Glucose (mg/dL) 323 H Calcium Total Bilirubin AST ALT Alkaline Phosphatase Total Protein Albumin Globulin Albumin/Globulin Ratio Blood Type O Positive Antibody Screen Negative 12/18/18 11:00 WBC RBC Hgb 8.3 L Hct 26 L MCV MCH MCHC RDW Plt Count MPV Neut % (Auto) Lymph % (Auto) [place] % (Auto) Eos % (Auto) Baso % (Auto) Absolute Neuts (auto) Absolute Lymphs (auto) Absolute Monos (auto) Absolute Eos (auto) Absolute Basos (auto) Absolute Nucleated RBC Nucleated RBC % INR (Anticoag Therapy) APTT Sodium Potassium Chloride Carbon Dioxide Anion Gap BUN Creatinine Est GFR ( Amer) Est GFR (Non-Af Amer) BUN/Creatinine Ratio Glucose POC Glucose (mg/dL) Calcium Total Bilirubin AST ALT Alkaline Phosphatase Total Protein Albumin Globulin Albumin/Globulin Ratio Blood Type Antibody Screen Imaging CXR pending Impression 78F with htn, hld, dm, cad, afib on coumadin, ckd, h/o colon ca s/p resection presents with rectal bleeding Plan Neuro - pain control CV - htn, hld, cad, afib - restart home anti-hypertensives if bp tolerates - hold asa - c/w statin pulm - oxygenating well on room air id - no evidence of infection gi - rectal bleeding - npo - ppi iv bid - serial cbc - gi to evaluate for endoscopy renal - monitor i/o - monitor lytes heme - anemia - 2/2 gib - s/p 2u ffp - keep hgb > 7 - monitor inr endo - dm - check fs, niss, lantus lines - piv ppx - scds/ppi dnr/dni Critical Care Time: 60 mins
[2018-12-18] MEDS ORDERED: fentaNYL* 50 MCG/ML 2 ML VIAL (100 MCG VIAL) ONE (15:13)
[2018-12-18] MEDS ORDERED: Midazolam* 1 MG/ML 10 ML VIAL (10 MG) ONE (15:13)
[2018-12-18 16:27] LABS: Hematocrit 21 % (35-47); Hemoglobin 6.9 g/dl (12.0-16.0); Mean Corpuscular HGB Conc 32 g/dl (31-36); Mean Corpuscular Hemoglobin 27 pg (27-31); Mean Corpuscular Volume 82 fL (80-97); Mean Platelet Volume 7.1 fL (7.4-10.4); Platelet Count 297 10^3/ul (150-450); Red Cell Distribution Width 18 % (10.5-15); White Blood Count 6.7 10^3/ul (3.5-10.8)
--- NOTE | 2018-12-18 18:32 | DS ---
Discharge Summary Patient Name: Arline No Admission Date: 12/18/18 Discharge Date: 12/18/18 Attending Physician: Ervin Mayfield Dictated by: Ervin Mayfield Primary Care Physician: Melissa Consulting Physician(s): Jazz (GI) Condition on Discharge: Guarded Final Diagnosis: Lower gi bleed, symptomatic anemia Procedures: EGD, Colonoscopy HPI: Ms. No is an 78-year-old female, who is on Coumadin for a history of atrial fibrillation and takes 2 Ken Back and Body aspirin daily, who presents to the emergency room with complaints of rectal bleeding. She states that she had what she thought was a fairly normal bowel movement at approximately 2100 on 12/17/18. She then was sitting on the edge of her bed reading and at approximately 1:30 a.m. she felt as if she needs to pass gas, but then realized that it was more likely a bowel movement. She went to the bathroom, and all that came out was blood. The patient states that she continued to have rectal bleeding and at approximately 3 a.m., she decided she should present to the emergency room for evaluation. The patient had another bloody bowel movement in the ER and has been oozing blood out while lying in the stretcher. She does complain of crampy abdominal discomfort. She feels this in her lower abdomen. She denies any fevers or chills. She states that she did have an EGD before and she does not know when her last colonoscopy was. Hospital Course: The patient was admitted to the floor. She had several more bloody bowel movements. Her hemoglobin dropped from 11 to 6.8. She was given 2 units of FFP to reverse her INR. She was transferred to the ICU and transfused 2units of prbcs. GI performed an EGD and colonoscopy at the bedside. EGD was negative. Colonoscopy showed some diverticular disease and old blood in the colon with clots. At the anastamosis of her prior hemicolectomy there was a visible vessel that was not bleeding. This vessel was clipped. Given the fact that there is no interventional radiology at [facility] the decision was made to transfer the patient to a higher level of care. Discharge Medications: Acetaminophen (Tylenol Tab*) 650 mg PO Q4H PRN PRN Reason: PAIN Atorvastatin Calcium (Lipitor*) 80 mg PO QPM BI Dextrose (D50w Syringe 50 Ml*) 12.5 gm IV PUSH .FOR FS < 60 - SS PRN PRN Reason: FS < 60 Gabapentin (Neurontin Cap(*)) 100 mg PO TID [facility] Last Admin: 12/18/18 14:35 Dose: 100 mg Sodium Chloride (Ns 0.9% 1000 Ml*) 1,000 mls @ 100 mls/hr IV PER RATE [facility] Last Admin: 12/18/18 11:52 Dose: 100 mls/hr Insulin Glargine (Lantus(*)) 20 units SUBCUT Q24H [facility] Last Admin: 12/18/18 10:43 Dose: 20 units Insulin Human Lispro (Humalog*) 0 units SUBCUT Q6HR [facility]; Protocol Last Admin: 12/18/18 10:51 Dose: Not Given Metoprolol Tartrate (Lopressor Tab*) 50 mg PO BID [facility] Last Admin: 12/18/18 10:50 Dose: Not Given Multivitamins/Minerals (Theragran/Minerals Tab*) 1 tab PO DAILY [facility] Last Admin: 12/18/18 10:50 Dose: Not Given Ondansetron HCl (Zofran Inj*) 4 mg IV Q6H PRN PRN Reason: NAUSEA Oxycodone HCl (Roxycodone Tab*) 5 mg PO Q8HR PRN PRN Reason: PAIN Last Admin: 12/18/18 10:42 Dose: 5 mg Pantoprazole Sodium (Protonix Iv*) 40 mg IV Q12H [facility] Last Admin: 12/18/18 10:45 Dose: 40 mg Discharge Instructions: NPO. Bedrest.
--- NOTE | 2018-12-18 18:49 | HP ---
H&P (Free Text) History and Physical: GI Brief note see consult and procedure note for full details. history of adeno CA s/p R matthew in 2014. EGD: Normal, no fresh or old blood. 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 Oozing but not brisk. Endoclip placed, no further bleeding. Tattooed with spot adjacent to it. Colon then irrigated to rectum, no fresh blood, extensive clots and old blood. I then returned to mani-terminal ileum, still no active bleeding. Extensive díaz diverticulosis coli. Rec: continue H/H q6, transfuse prn per fisher pound net or trap service. If rebleeds would recommend IR embolization. Likely source Dielofoy (tattooed) vs diverticulum. Lawrence Lewis DO 12/18/2018 [id number]
[2018-12-18] MEDS ORDERED: Iodixanol* (CONTRAST) 320 MG/ML 100 ML SDV IV ONE (18:55)
--- NOTE | 2018-12-18 20:18 | CONS ---
CC: Carlos Enrique Torres DO * CONSULTATION REPORT: DATE OF CONSULT: 12/18/18 REASON FOR CONSULT: Acute blood loss anemia. PRIMARY CARE PHYSICIAN: Carlos Enrique Torres DO HISTORY OF PRESENT ILLNESS: This is a very pleasant 78-year-old female with history of adenocarcinoma of the colon, status post resection in 2013 who presented to [facility] with bright red blood per rectum since 1 o' clock this morning. She denies any abdominal pain outside of an occasional gurgling. She states that her stools have been black for some time, but she was started on iron supplements for anemia by Dr. Avalos. In the past, she has refused colonoscopy according to our records, but was willing to have an upper endoscopy with Dr. Dillon in September 2018 which did not reveal any etiology of her anemia. Currently, she states she still has bright red blood per rectum. She denies any lightheadedness, dizziness. Denies any diarrhea or constipation. She does admit to NSAID usage including aspirin. She does take omeprazole 40 mg daily. Denies any weight loss, weight gain. Last colonoscopy was in [address] Robby Saldivar which did not reveal any reoccurrence of adenocarcinoma and a small diminutive polyp on the left side of the colon. She denies any dysphagia, odynophagia. Remainder of the 14-point review of systems is grossly negative. PAST MEDICAL HISTORY: 1. Coronary artery disease. 2. Hypertension. 3. Hyperlipidemia. 4. Diabetes. 5. CVA. 6. Atrial fibrillation. 7. Aforementioned colon cancer. 8. CKD. PAST SURGICAL HISTORY: 1. Right leg surgery. 2. Right hemicolectomy. 3. Tubal ligation. HOME MEDICATIONS: Include: 1. Fosamax. 2. Aspirin. 3. Additional Ken aspirin as needed for pain. 4. Lipitor. 5. Lasix. 6. Gabapentin. 7. Insulin. 8. Iron. 9. Lisinopril. 10. Metoprolol. 11. Multivitamin. 12. Nitroglycerin. 13. Mahomet-3. 14. Omeprazole 40 mg p.o. b.i.d. 15. Oxycodone. 16. Coumadin. ALLERGIES: Include PENICILLIN, MORPHINE, RESTASIS, and BACLOFEN. FAMILY HISTORY: Maternal stomach cancer at age 77. There is other distant family member that has had colon cancer. SOCIAL HISTORY: Does not smoke, does not drink alcohol. 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 REVIEW OF SYSTEMS: Remainder of the 14-point review of systems is negative except for as described in the HPI. PHYSICAL EXAM: Vital Signs: Blood pressure is 153/108, pulse is 94, respiratory rate is 18. She is 98% on room air. In general, alert and oriented x3. HEENT: Atraumatic, normocephalic. Pupils equal, round, reactive to light. Conjunctivae slightly pale. Sclerae anicteric. Cardiovascular: Irregular rate and rhythm. Respiratory: Trace rales at the base bilaterally. Abdomen: Soft. Mild tenderness to the lower quadrants bilaterally. No guarding or rebound. Bowel sounds positive. Extremities: 1+ edema bilaterally. Skin: With diffuse scattered ecchymoses. DIAGNOSTIC STUDIES/LAB DATA: Hemoglobin on admission 11.3, baseline appears to be recently around 12.5 to 11.9. Current hemoglobin is 8.3. INR on admission was 2.38, currently 1.74 with another bag of FFP hanging. BUN 25, creatinine 1.27. ASSESSMENT AND PLAN: 1. Acute blood loss anemia. The patient has evidence of ongoing bright red blood. We will plan on upper endoscopy and flexible sigmoidoscopy today to evaluate etiology. The patient is currently hemodynamically stable. She has not had anything to eat today. We will plan on conscious sedation at bedside in the ICU. Discussed the risks, benefits, and alternatives of the procedure and the patient agrees to proceed. Agree with IV Protonix at least b.i.d. Continue holding warfarin at this time. Should have H and H's every 6 hours. Keep 2 units of PRBCs on hold. Keep the head of the bed elevated. 2. History of adenocarcinoma of the colon in 2014, status post right hemicolectomy, colonoscopy in 2016 for followup was negative for reoccurrence. 3. Atrial fibrillation and history of cerebrovascular accident. Coumadin currently being held secondary to gastrointestinal bleeding. [id number]/[facility] #: [id number] VIRAJ
[2018-12-18] MEDS: Atorvastatin* 80 MG TAB PO SCH ×2 (20:55→21:39)
--- NOTE | 2018-12-18 22:05 | PN ---
Hospitalist Progress Note Date of Service: 12/18/[address] result d/w Dr. Mcdaniel at [facility] who accepts the patient in transfer.
[2018-12-18 22:32] VITALS: BP 132/52
--- NOTE | 2018-12-19 03:58 | PRO ---
CC: Dr. Carlos Enrique Torres; Dr. Lewis; Dr. Kris Dillon * EGD AND COLONOSCOPY REPORT: DATE OF PROCEDURE: 12/18/18 - ROOM #ICU-08 PRIMARY CARE PROVIDER: Dr. Carlos Enrique Torres. INDICATIONS FOR PROCEDURE: Acute blood loss anemia, hematochezia. PROCEDURE PERFORMED: 1. Esophagogastroduodenoscopy with biopsies. 2. Complete colonoscopy to the terminal ileum with Endoclip placement. MEDICATIONS GIVEN: 1. 37.5 mcg IV fentanyl. 2. 6 mg IV midazolam. ESTIMATED BLOOD LOSS: 200 mL from active bleeding source. DESCRIPTION OF PROCEDURE: After the EGD and colonoscopy procedure including the risks, benefits, and alternatives with the risks not limited to perforation , surgery, missed lesions, and/or were explained to the patient, written informed consent was obtained. IV medication was given and a bite-block was placed between the teeth. The adult Olympus gastroscope was then inserted into the oropharynx, into the tubular esophagus. The GE junction was at 39 cm and normal in appearance. The scope was advanced to the stomach, which was grossly normal in appearance. There was no fresh or old blood. On retroflexion, the views were grossly normal. The scope was then advanced into a widely patent pylorus into the duodenal bulb, C-loop, and distal duodenum; these were all normal in appearance, there was no fresh or old blood. The scope was then removed from the patient. She tolerated the procedure well. She was given additional IV sedation medication. A rectal exam was then performed. Rectal exam was unremarkable. Initially, the adult gastroscope was inserted into the rectum and advanced very carefully to probably mid transverse. Due to looping, I was unable to go any further. There was old blood scattered throughout. I then switched to the adult Olympus colonoscope and I was able to advance very carefully to the entirety of the colon into the neoterminal ileum. There was stool at the neoterminal ileum within the pouch area; however, maroon-colored stool began to be evident near the anastomotic site. At the anastomosis, a visible vessel was seen and oozing. The visible vessel was clipped with good effect. No further oozing was appreciated. A spot tattoo was placed immediately adjacent to what appeared to be the anastomotic site. I then thoroughly washed the remainder of the colon. There were extensive clots throughout the colon. With persistence, I was able to clear the majority of the rest of the colon. I then returned to the rectum and advanced all the way through to the neoterminal ileum again and I did not see any fresh bleeding at this time. She has extensive díaz diverticulosis coli. The exam was unsuitable for any polyp detection. The preparation was fair given just tap water enemas. However, with extensive irrigation, I was able to get good mucosal look throughout. I returned to the rectum. The views were grossly normal. The scope was then removed from the patient. She tolerated the procedure well. She stayed in the ICU in stable condition. IMPRESSION: 1. Complete esophagogastroduodenoscopy. 2. Normal EGD. 3. Complete colonoscopy to neoterminal ileum. 4. Visible vessel with active oozing at the anastomotic site, an Endoclip was placed over with good effect. No further bleeding evident. This area was tattooed with spotty ink adjacent to it. 5. Extensive díaz diverticulosis coli. 6. Extensive old clot, but no active bleeding at the conclusion of the procedure. RECOMMENDATIONS: Possible source of this oozing visible vessel at the anastomotic site; however, cannot rule out that this was a diverticular bleed. At the conclusion of the procedure, I see no active bleeding. Her INR is improved; however, she did drop significantly throughout the day in terms of her hemoglobin. Given the remoteness to our current location, the next step would be IR embolization if she does have evidence of ongoing bleeding. Given the possibility and inability to perform this procedure here, would recommend that she be observed at least in a tertiary care institution that has IR embolization. I discussed this with the tie carrier and he is in agreement with that plan. At this point, it is likely a resolved bleed but given the acuity and her drop in hemoglobin, I think observation at a tertiary care with IR embolization is prudent. [id number]/[facility] #: [id number] VIRAJ
[2018-12-19] MEDS ORDERED: Lisinopril TAB* 10 MG PO SCH (09:00)
== END 2018-12-18 23:33 | disposition short-term general hospital (02) | DRG 330 ==
LOC: ED 04:33 → MED 06:32 → ICU 13:45
PROVIDERS: ADMIT Hospitalist; ATTEND Internal Medicine
PROC: 0DJ08ZZ Inspection of Upper Intestinal Tract, Via Natural or Artificial Opening Endoscopic (ICD-10-PCS; principal; 2018-12-18)
PROC: 0DQB8ZZ Repair Ileum, Via Natural or Artificial Opening Endoscopic (ICD-10-PCS; 2018-12-18)
PROC: 30233L1 Transfusion of Nonautologous Fresh Plasma into Peripheral Vein, Percutaneous Approach (ICD-10-PCS; 2018-12-18)
PROC: 30233N1 Transfusion of Nonautologous Red Blood Cells into Peripheral Vein, Percutaneous Approach (ICD-10-PCS; 2018-12-18)
DX: K57.31 Diverticulosis of large intestine without perforation or abscess with bleeding (principal); Z68.42 Body mass index [BMI] 45.0-49.9, adult; D62 Acute posthemorrhagic anemia; E78.00 Pure hypercholesterolemia, unspecified; I25.10 Atherosclerotic heart disease of native coronary artery without angina pectoris; F32.9 Major depressive disorder, single episode, unspecified; J44.9 Chronic obstructive pulmonary disease, unspecified; K21.9 Gastro-esophageal reflux disease without esophagitis; N18.3 Chronic kidney disease, stage 3 (moderate); E66.01 Morbid (severe) obesity due to excess calories; I12.9 Hypertensive chronic kidney disease with stage 1 through stage 4 chronic kidney disease, or unspecified chronic kidney disease; E11.22 Type 2 diabetes mellitus with diabetic chronic kidney disease; E11.40 Type 2 diabetes mellitus with diabetic neuropathy, unspecified; I44.7 Left bundle-branch block, unspecified; M19.90 Unspecified osteoarthritis, unspecified site; I48.91 Unspecified atrial fibrillation; Z66 Do not resuscitate; M06.9 Rheumatoid arthritis, unspecified; Z98.42 Cataract extraction status, left eye; Z98.41 Cataract extraction status, right eye; Z88.1 Allergy status to other antibiotic agents; Z88.5 Allergy status to narcotic agent; Z88.0 Allergy status to penicillin; I25.2 Old myocardial infarction; Z95.5 Presence of coronary angioplasty implant and graft; Z87.442 Personal history of urinary calculi; Z90.49 Acquired absence of other specified parts of digestive tract; Z85.038 Personal history of other malignant neoplasm of large intestine; Z82.49 Family history of ischemic heart disease and other diseases of the circulatory system; Z98.51 Tubal ligation status; Z86.73 Personal history of transient ischemic attack (TIA), and cerebral infarction without residual deficits
CPT/HCPCS: 36415; 71045; 74177; 80053; 85014; 85018; 85025; 85027; 85610; 85730; 86850; 86900; 86901; 86922; 86927; 87641; 93005; 99156; 99157; 99285; A9270-GY; J2250; J3010; P9017; P9040; Q9967

== ENCOUNTER 2020-02-25 04:49 | Observation (INO) | payer MEDICARE ==
[2020-02-25] MEDS ORDERED: NS 0.9% 1000 ML** 1,000 ML IV ONE (05:01)
--- NOTE | 2020-02-25 05:04 | ED ---
HPI Chest Pain - HPI Summary HPI Summary: Patient is an 80 year-old female arriving via ambulance to [facility] with a chief complaint of mid-sternal chest pressure onset around 0330. She reports that the pain woke up her as it radiated between the shoulder blades. She took two NTG at home prior to EMS arrival without relief of pain. Patient was given 324 Aspirin en route. EMS also reports hypotension 76/36 mmHg en route. Two 12-lead EKGs shows ST elevations as taken by EMS. In the ED, patient still experiencing 9/10 chest pain. Patient last admitted to [facility] in 12/2018 for GI bleed. Past medical history significant for diabetes, microcytic anemia, angina, angioplasty , atrial fibrillation, CAD, hypercholesterolemia, hypertension, NV, cardiac stent, COPD, sleep apnea, GERD, chronic renal failure, rheumatoid arthritis, colon cancer. Nonsmoker, no EtOH, no substance use. Medications reviewed. Allergies noted. STEMI called at 0444, 6 minutes ETA. - History of Current Complaint Chief Complaint: EDChestPainROMI Hx Obtained From: Patient Onset/Duration: Started Hours Ago, Still Present Time of Onset: 03:30 Timing: Constant Initial Severity: Moderate Current Severity: Severe Pain Intensity: 9 Pain Scale Used: 0-10 Numeric Chest Pain Location: Mid Sternal Chest Pain Radiates: Yes Chest Pain Radiates To:: Back - interscapular Character: Pressure/Squeezing Aggravating Factor(s): Nothing Alleviating Factor(s): Nothing Associated Signs and Symptoms: Positive: Chest Pain, Shortness of Breath - Additional Pertinent History Primary Care Physician: [id number] - Allergy/Home Medications Allergies/Adverse Reactions: Allergies Allergy/AdvReac Type Severity Reaction Status Date / Time cyclosporine [From Restasis] Allergy EYES Verified 04/25/18 17:48 ITCHY, SWOLLEN morphine Allergy Hives Verified 04/25/18 17:48 Penicillins Allergy Hives Verified 04/25/18 17:48 Home Medications: Home Medications Atorvastatin* [Lipitor 80 MG*] 80 mg PO DAILY 07/19/15 [History Confirmed ] Omeprazole CAP (NF) [Prilosec CAP* 20 MG] 40 mg PO DAILY 07/19/15 [History Confirmed 02/25/20] Furosemide TAB* [Lasix TAB*] 40 mg PO DAILY 01/27/16 [History Confirmed 02/25/20 ] Lisinopril TAB* [Prinivil TAB 10 MG*] 20 mg PO BID 02/02/16 [History Confirmed 02/25/20] Metoprolol Tartrate TAB* [Lopressor TAB*] 50 mg PO BID 12/27/16 [History Confirmed 02/25/20] Nitroglycerin TAB 0.4 MG* 0.4 mg SL Q5M PRN MDD 1.2 mg 12/27/16 [History Confirmed 02/25/20] Warfarin Sodium [Jantoven] 4.5 mg PO BEDTIME 04/25/18 [History Confirmed ] Alendronate Sodium [Fosamax-] 70 mg PO PADRON 12/18/18 [History Confirmed 02/25/20] Gabapentin CAP(*) [Neurontin 100 mg CAP(*)] 300 mg PO TID 12/18/18 [History Confirmed 02/25/20] Insulin Glargine,Hum.rec.anlog [Basaglar Kwikpen 100 inuts/ml 3 ml x 5 Pens] 40 units SUBCUT QAM MDD 60u 12/18/18 [History Confirmed 02/25/20] Multivitamin [Multivitamins] 1 cap PO DAILY 12/18/18 [History Confirmed 02/25/20 ] oxyCODONE TAB* [Roxycodone TAB 5 mg*] 5 - 10 mg PO Q8H PRN MDD 6 tabs 12/18/18 [ History Confirmed 02/25/20] Allopurinol TAB* [Zyloprim 100 MG TAB*] 200 mg PO DAILY 02/25/20 [History Confirmed 02/25/20] Cyanocobalamin TAB* [Vitamin B12 TAB*] 500 mcg PO DAILY 02/25/20 [History Confirmed 02/25/20] Escitalopram * [Lexapro 5 mg (NF)] 5 mg PO DAILY 02/25/20 [History Confirmed ] Insulin Aspart Prot/Insuln Asp [Novolog Mix 70-30 10 ml Vial] 15 units SUBCUT .WITH BREAKFAST MDD 65 units 02/25/20 [History Confirmed 02/25/20] Spironolactone TAB* [Aldactone TAB*] 25 mg PO DAILY 02/25/20 [History Confirmed 02/25/20] PMH/Surg Hx/FS Hx/Imm Hx Endocrine/Hematology History: Reports: Hx Diabetes, Hx Anemia - microcytic Cardiovascular History: Reports: Hx Angina, Hx Angioplasty, Hx Atrial Fibrillation, Hx Coronary Artery Disease, Hx Hypercholesterolemia, Hx Hypertension, Hx Myocardial Infarction, Other Cardiovascular Problems/Disorders - hx cardiac stent, atherosclerosis Denies: Hx Congestive Heart Failure, Hx Pacemaker/ICD, Hx Valvular Heart Disease Respiratory History: Reports: Hx Chronic Obstructive Pulmonary Disease (COPD) - per ED H+P, Hx Sleep Apnea - 2 liters O2 at night, Other Respiratory Problems/ Disorders - 2 L at night Comment Only: Hx Asthma - occassional per pt GI History: Reports: Hx Gastroesophageal Reflux Disease, Hx Gastrointestinal Bleed, Other GI Disorders - gastritis Denies: Hx Cirrhosis, Hx Crohn's Disease, Hx Diverticulosis, Hx Gall Bladder Disease, Hx Hiatal Hernia, Hx Irritable Bowel, Hx Jaundice, Hx Obstructive Bowel , Hx Ileostomy, Hx Pyloric Stenosis, Hx Ulcer History: Reports: Hx Chronic Renal Failure - stage 3, Hx Kidney Stones Musculoskeletal History: Reports: Hx Arthritis, Hx Rheumatoid Arthritis, Hx Orthopedic Injury - right femur 2013, Other Musculoskeletal History - herniated L4-L5 Denies: Hx Scoliosis Sensory History: Reports: Hx Cataracts - removed, Hx Contacts or Glasses Denies: Hx Eye Injury, Hx Eye Prosthesis, Hx Glaucoma, Hx Legally Blind, Hx Macular Degeneration, Hx Vision Problem, Hx Deafness, Hx Hearing Aid, Hx Hearing Problem, Other Sensory Impairments Opthamlomology History: Reports: Hx Cataracts - removed, Hx Contacts or Glasses Denies: Hx Eye Injury, Hx Eye Prosthesis, Hx Glaucoma, Hx Legally Blind, Hx Macular Degeneration, Hx Vision Problem, Other Sensory Impairments Neurological History: Reports: Hx Headaches, Other Neuro Impairments/Disorders - left hand neuropathy Denies: Hx Dementia, Hx Developmental Delay, Hx Migraine, Hx Nerve Disease, Hx Seizures, Hx Spinal Cord Injury, Hx Transient Ischemic Attacks (TIA) Psychiatric History: Reports: Hx Depression Denies: Hx Panic Disorder - Cancer History Cancer Type, Location and Year: COLON CA - Surgical History Surgical History: Yes Surgery Procedure, Year, and Place: RIGHT LEG AFTER FRACTURE 09/26/14. Colon resection 2013 Hx Anesthesia Reactions: No - Immunization History Date of Tetanus Vaccine: within the last ten years Date of Influenza Vaccine: October 2016 Infectious Disease History: No Infectious Disease History: Denies: Hx Clostridium Difficile, Hx Hepatitis, Hx Human Immunodeficiency Virus (HIV), Hx of Known/Suspected MRSA, Hx Shingles, Hx Tuberculosis, Hx Known/ Suspected VRE, Hx Known/Suspected VRSA, History Other Infectious Disease, Traveled Outside the [place] in Last 30 Days - Family History Known Family History: Positive: Hypertension - Social History Alcohol Use: None Hx Substance Use: No Substance Use Type: Reports: None Hx Tobacco Use: No Smoking Status (MU): Never Smoked Tobacco Have You Smoked in the Last Year: No - Additional Comments History Additional Comments: atrial fibrillation, diabetes, microcytic anemia, angina, angioplasty, CAD, hypercholesterolemia, hypertension, NV, cardiac stent, COPD, sleep apnea, GERD, chronic renal failure, rheumatoid arthritis, colon cancer Review of Systems - ROS Summary Review of Systems Summary: Home Medications Medication Instructions Recorded Confirmed Type Aspirin EC TAB* [Ecotrin EC Low 81 mg PO DAILY 07/19/15 12/18/18 History Dose 81 MG*] Atorvastatin* [Lipitor 80 MG*] 80 mg PO QPM 07/19/15 12/18/18 History Omeprazole CAP (NF) [Prilosec CAP* 40 mg PO BID 07/19/15 12/18/18 History 20 MG] Furosemide TAB* [Lasix TAB*] 40 mg PO DAILY 01/27/16 12/18/18 History Lisinopril TAB* [Prinivil TAB 10 20 mg PO BID 02/02/16 12/18/18 History MG*] Insulin NPH Human Isophane 50 unit SUBCUT QAM 12/27/16 12/18/18 History [Novolin N 100 units/ml 10 ml VIAL] Metoprolol Tartrate TAB* 50 mg PO BID 12/27/16 12/18/18 History [Lopressor TAB*] Nitroglycerin TAB 0.4 MG* 0.4 mg SL Q5M PRN MDD 1.2 mg 12/27/16 12/18/18 History Beaumont-3 Fatty Acids (Nf) [Fish Oil 1,000 mg PO DAILY 12/27/16 12/18/18 History (NF)] Warfarin Sodium [Jantoven] 4.5 tab PO BEDTIME 04/25/18 12/18/18 History Alendronate Sodium [Fosamax-] 70 mg PO WEEKLY 12/18/18 12/18/18 History Aspirin/Caffeine [Ken Back & 1 tab PO Q6HR PRN 12/18/18 12/18/18 History Body Pain Ex] Gabapentin CAP(*) [Neurontin 100 100 mg PO TID 12/18/18 12/18/18 History mg CAP(*)] Insulin Glargine,Hum.rec.anlog 40 units SUBCUT DAILY 12/18/18 12/18/18 History [Basaglar Kwikpen 100 inuts/ml 3 ml x 5 Pens] Iron Polysaccharide Complex 150 mg PO DAILY 12/18/18 12/18/18 History [Ferrex 150] Iron Polysaccharide Complex 150 mg PO DAILY 12/18/18 12/18/18 History [Ferrex 150] Multivitamin [Multivitamins] 1 cap PO DAILY 12/18/18 12/18/18 History oxyCODONE TAB* [Roxycodone TAB 5 5 - 10 mg PO Q8HR PRN 12/18/18 12/18/18 History mg*] Positive: Chest Pain - midsternal pressure across chest Positive: Shortness Of Breath Positive: Myalgia - between shoulder blades All Other Systems Reviewed And Are Negative: Yes Physical Exam - Summary Physical Exam Summary: General: Well-developed, Well-nourished female. Appears in mild discomfort. HEENT: Normocephalic, Atraumatic. Eyes: Conjuctiva normal, PERRL. Oropharynx: Clear, mucous membranes moist, (-) exudates. Neck: Soft, FROM, (-) lymphadenopathy, (-) thyromegaly, (-) JVD. Cardiovascular: Irregularly irregular, (-) murmur. Lungs: Clear to auscultation bilaterally (-) wheezes, (-) rales, (-) rhonchi. Abdomen: Soft, non-tender, non-distended, (-) organomegaly, normal bowel sounds. Back: (-) CVA tenderness Extremities: No edema. Skin: Pale, Warm, dry, (-) rash. Neuro: Alert and oriented x3, moves all extremities equally. No ataxia. No gait disturbance. No sensory deficit. Normal strength, normal sensation. Psychiatric: Mood normal, affect normal. Triage Information Reviewed: Yes Vital Signs On Initial Exam: Initial Vitals Temp Pulse Resp BP Pulse Ox 97.1 F 87 24 182/119 95 02/25/20 04:55 02/25/20 04:55 02/25/20 04:55 02/25/20 04:55 02/25/20 04:55 Vital Signs Reviewed: Yes Procedures - Sedation Patient Received Moderate/Deep Sedation with Procedure: No Diagnostics - Vital Signs Vital Signs Temp Pulse Resp BP Pulse Ox 02/25/20 04:55 97.1 F 87 24 182/119 95 - Laboratory Result Diagrams: 02/25/20 05:35 02/26/20 16:43 Lab Statement: Any lab studies that have been ordered have been reviewed, and results considered in the medical decision making process. - Radiology CXR Radiology Interpretation Completed By: ED Physician Summary of Radiographic Findings: Poor inspiration. Increased interstitial markings. This imaging scan was reviewed and interpreted by Dr. Walsh. - EKG 0454 Cardiac Rate: Other Rate - 87 BPM EKG Rhythm: Atrial Fibrillation Summary of EKG Findings: EKG at 0454 reveals atrial fibrillation with rate of 87 BPM, LBBB, ST elevations in V1, V2, V3. This EKG was reviewed and interpreted by Dr. Walsh. Re-Evaluation - Re-Evaluation First Eval Re-Evaluation Time: 06:49 Comment: BP 136/94 mmHg Chest Pain Course/Dx - Course Course Of Treatment: 80 year-old female presents from home with chest pain since 03:30. Chest pain awoke her from sleep. Describes as serves pressure 10/ 10. Two nitro at home no relief. Patient is a poor historian but notes a cardiac history with NV many years ago. She states the chest pain goes through her back between her shoulder blades. Patient is on Coumadin for atrial fibrillation. On route, EKG transmitted showed ST elevations in V2, V3, and V4. Blood pressure was reported as dropping dangerously low with no IV access. STEMI alert was called. Upon arrival, patient is pale and diaphoretic, appears in severe pain, blood pressure is elevated. EKGs upon arrival demonstrate LBBB with no obvious acute ischemia. Patient seen by cardiology. Will hold off on cardiac catheterization at this time awaiting labs. Patient was given Brilinta and Heparin per STEMI protocol. Received Aspirin on route. STEMI canceled. Patients initial troponin is 0. Chest pain starting to improve at this time. Referred to hospitalist admission with cardiology consult. - Diagnoses Provider Diagnoses: Chest pain During the Visit The Following Alert/Code Occurred: STEMI - called at 0444, 6 minutes ETA - Provider Notifications Discussed Care Of Patient With: Darrel Baez - interventionalist Time Discussed With Above Provider: 05:08 Instructed by Provider To: Other - I discussed the patients case with Dr. Baez, and he will come into the ED to evaluate the patient. He recommends Heparin, Brilinta, Protonix, and Verapamil. Dr. Baez states that he does not see any Sgarbossas criteria for NV. Patient has discomfort in chest worst with swallowing and palpation. He recommends hospitalist admission. I discussed the patient's case with Dr. Valdez, who accepts the patient for admission, passed onto shift change providers. - Critical Care Time Critical Care Time: 75-104 min - 88 minutes Discharge ED - Sign-Out/Discharge Documenting (check all that apply): Patient Departure - Patient accepted for admission by Dr. Valdez. - Discharge Plan Condition: Stable Disposition: ADMITTED TO [facility] - Billing Disposition and Condition Condition: STABLE Disposition: Admitted to [facility] - Attestation Statements Document Initiated by Lillyibe: Yes Documenting Scribe: Yumiko Flood Provider For Whom Chavez is Documenting (Include Credential): Reema Walsh MD Scribe Attestation: Yumiko Toure, scribed for Reema Walsh MD on 02/26/20 at 2017. Scribe Documentation Reviewed: Yes Provider Attestation: The documentation as recorded by the Yumiko valdes accurately reflects the service I personally performed and the decisions made by me, Reema Walsh MD Status of Scribe Document: Viewed
[2020-02-25] MEDS ORDERED: Ticagrelor* 90 MG TAB PO ONE (05:08)
[2020-02-25] MEDS ORDERED: Heparin for STEMI(*) 5,000 UNITS/ML 1 ML VIAL IV ONE (05:08)
[2020-02-25] MEDS ORDERED: Pantoprazole IV* 40 MG IV ONE (05:12)
--- OUTSIDE RECORDS SUMMARY | 2020-02-25 05:18 | XMS REPORT | Continuity of Care Document ---
:1940 External Reference #:[id number] Author Name Carlos Enrique Torres D.O. (transmitted by agent of provider Ingris Beckett) Address [address] [place] [address] Care Team Providers Name Role Phone Darrel Baez MD - Cardiovascular Care Team Information Seed Technician [phone] Disease Alfredo Wilhelm MD - Gastroenterology Care Team Information Seed Technician [phone] HCP/LW on file Care Team Information Seed Technician Unavailable Meli Powers MD - Surgery Care Team Information Seed Technician [phone] Corbin Spencer MD - Surgery Care Team Information Seed Technician Gregorio Merida MD - Surgery Care Team Information Seed Technician [phone] Don Morton MD - Orthopaedic Care Team Information Seed Technician Surgery of the Spine Problems Active Problems Provider Date Coronary arteriosclerosis John Munguia M.D. Onset: 08/10/2011 Chronic atrial fibrillation John Munguia M.D. Onset: 10/06/2015 Type 2 diabetes mellitus with multiple John Munguia M.D. Onset: 2004 complications Malignant tumor of colon John Munguia M.D. Onset: 03/01/2014 Gastroesophageal reflux disease John Munguia M.D. Onset: 12/21/2004 Gastritis John Munguia M.D. Onset: 12/21/2004 Pure hypercholesterolemia John Munguia M.D. Onset: 04/17/2005 Benign essential hypertension John Munguia M.D. Onset: 04/26/2005 Diaphragmatic hernia John Munguia M.D. Onset: 04/26/2005 Degenerative joint disease involving John Munguia M.D. Onset: 2006 multiple joints Gastroparesis syndrome John Munguia M.D. Onset: 10/02/2007 Heartburn John Munguia M.D. Onset: 01/25/2011 Osteochondropathy John Munguia M.D. Onset: 01/07/2012 Atrophic vaginitis John Munguia M.D. Onset: 10/06/2012 Wrist joint pain Carlos Enrique Torres D.O. Onset: 08/31/2013 Type II diabetes mellitus uncontrolled John Munguia M.D. Onset: 2014 Essential hypertension John Munguia M.D. Onset: 10/06/2015 Long-term current use of anticoagulant John Munguia M.D. Onset: 2014 Gallstone John Munguia M.D. Onset: 01/01/2017 Low back pain Carlos Enrique Torres D.O. Onset: 09/17/2017 Lumbar radiculopathy Carlos Enrique Torres D.O. Onset: 09/17/2017 Abscess of vulva Carlos Enrique Torres D.O. Onset: 09/14/2019 Social History Type Date Description Comments Sex Unknown Tobacco Use Start: Unknown Denies Cigarette Use Tobacco Use Start: Unknown Tobacco Of Any Kind Denies Use Smoking Status Reviewed: 01/28/20 Tobacco Of Any Kind Denies Use ETOH Use Denies alcohol use Tobacco Use Start: Unknown Non Smoker / No Tobacco Allergies, Adverse Reactions, Alerts Active Allergies Reaction Severity Comments Date PCN 11/23/2004 Morphine itching and skin rash wo facial 11/05/2013 involvement Restasis swelling 03/04/2014 Baclofen sleepiness 08/15/2015 Medications Active Medications SIG Qnty Indications Ordering Date Provider Spironolactone 1 tablet by mouth 90tabs Rian Rodriguez MD 01/01/2020 25mg daily Tablets Escitalopram Oxalate 1 by mouth every 90tabs Carlos Enrique Torres, 11/19/2019 day D.O. 5mg Tablets Allopurinol 2 by mouth every 90tabs Carlos Enrique Torres 11/19/2019 100mg day D.O. Tablets Gabapentin take 1 capsule by 270caps M48.062 Carlos Enrique Torres, 06/06/2019 300mg mouth 3 times per D.O. Capsules day for neuropathic pain Pentips Pen Needle Use Up To 2 Per 100units Carlos Enrique Torres, 03/31/2019 5mm Day as Directed D.O. Vitamin B 12 one po daily Carlos Enrique Torres, 03/04/2019 D.O. Sure Comfort Use 1 To 5 Times 200units Carlos Enrique Torres, 01/09/2019 1ml Daily D.O. Multivitamin Gummies daily Unknown 10/29/2018 Adult Chewtabs Omeprazole 1 by mouth every 90caps R12 Carlos Enrique Torres, 10/09/2018 40mg day D.O. Capsules DR Rosario.9 Novolog Mix 70/30 [facility] Breakfast. Max Of 65 Braxton Monaco (70-30)100Unit/ML Units Daily as Suspension Directed Alendronate Sodium Take With A Full 12tabs M81.0 Melissa, 01/30/2018 70mg Glass Of Water (6 To Braxton Monaco Tablets 8 Ounces; 180 To 240 ML) And Avoid Lying Down For AT Least 30 Minutes. Take Once Weekly On Saturday. BD Pen or appropriate [facility] 01/[facility]2018 Needle/Mini/Ultrafine/31 needles for Basaglar Braxton Monaco G X 3/16" pen. use up to 2/day, 31G X 5 mm Misc as directed, for insulin administration Basaglar Kwikpen inject 34units in the 45ml E11.65 Melissa, 12/26/2017 100Unit/ML morning Braxton Monaco Solution Pen-Inject Chair To Lift From Use as directed. M54.16 Melissa, 09/17/2017 Sitting Braxton Monaco M54.5 Insulin Syringe/0.5ML/30G use with novolog 200units Carlos Enrique Torres, 09/17 X 1/2" 70/30 as directed D.O. 30G X 1/2" 0.5 ML Misc daily Onetouch Ultra Blue Use To Test 1 To 4 200units Trini Torreson, 2015 Strips Times Daily as D.O. Directed Furosemide take one tablet by 90tabs Carlos Enrique Torres, 03/20/2016 40mg Tablets mouth every day D.O. Freestyle Lite Test or appropriate 200units E11.65 Melissa Carlos Enrique, 2015 Strips testing strips for D.O. patients device, test 1-4 times daily as directed Oxycodone HCL take 1-2 tablets 180tabs M25.551 Carlos Enrique Torres, 10/04/2015 5mg Tablets by mouth every 8 D.O. hours as needed for pain (maximum daily dose = 6) Lisinopril Take One Tablet By 180tabs Carlos Enrique Torres, 08/11/2015 20mg Tablets Mouth Twice A Day D.O. Jantoven Take 4 And 1/2 360tabs Z79.01 Carlos Enrique Torres, 12/29/2014 1mg Tablets Tablets By Mouth D.O. AT Bedtime Or as Directed I48.2 Atorvastatin Calcium Take One Tablet By 90tabs E78.0 Carlos Enrique Torres, 08/18 80mg Mouth Every Day D.O. Tablets I25.10 BD Uf II Short .5cc use as directed 100units E11.65 Carlos Enrique Torres, 2013 31G D.O. Metoprolol Tartrate take one-half tablet 90tabs I10 Carlos Enrique Torres, 2012 by mouth twice a day D.O. 100mg Tablets for blood pressure Nitrostat 1 every 5min as 100tabs I25.10 John A. 08/07/2011 0.4mg needed heart pain up Lincoln Munguia Tablets Sub to 3 max then call 911 if unreleaved History Medications Colcrys take 2 immediately 60tabs M10.072 Carlos Enrique Torres, 11/19/2019 - 0.6mg then 1 1 hour later. D.O. 12/22/2019 Tablets then next day take 1 twice a day. Stop atorvastatin while taking colcrys. Colcrys take 2 immediately 60tabs M10.072 Carlos Enrique Torres, 10/15/2019 - 0.6mg then 1 1 hour later. D.O. 11/18/2019 Tablets then next day take 1 twice a day. Stop atorvastatin while taking colcrys. Sulfamethoxazole 1 by mouth twice a 20tabs N77.1 Melissa Carlos Enrique, 2018 - /Trimethoprim DS day for labial D.O. 09/24/2019 infection. 800-160mg Tablets N76.4 Medications Administered in Office Medication SIG Qnty Indications Ordering Provider Date injection, kenalog, 10 mg Carlos Enrique Torres DRenettaORenetta 12/30/2018 Injection injection, kenalog, 10 mg John Munguia M.D. 05/04/2016 Injection Injection Of Morphine John Munguia M.D. 08/13/2015 Injection SC/Im Injections John Munguia M.D. 08/13/2015 Injection injection, kenalog, 10 mg John Munguia M.D. 10/26/2014 Injection TB Intradermal Test John Munguia M.D. 12/08/2012 Injection injection, kenalog, 10 mg John Munguia M.D. 03/01/2011 Injection H1N1 Swine Flu Vaccine John Munguia M.D. 12/13/2009 Injection injection, kenalog, 10 mg Mehrdad Moore M.D. 05/30/2007 Injection B12 Injection John Munguia M.D. 01/23/2005 Injection B12 Injection Nurse's Schedule 01/23/2005 Injection B12 Injection John Munguia M.D. 12/21/2004 Injection B12 Injection John Munguia M.D. 12/11/2004 Injection B12 Injection Nurse's Schedule 12/11/2004 Injection B12 Injection John Munguia M.D. 12/04/2004 Injection B12 Injection Nurse's Schedule 12/04/2004 Injection Immunizations CPT Code Status Date Vaccine Lot # [id number] Given 09/14/2019 Influenza Vaccine, Inactivated, Subunit, [id number] Adjuvanted, For [facility] [address] Given 10/30/2018 Influenza Vaccine, Inactivated, Subunit, [id number] Adjuvanted, For [facility] [address] Given 09/17/2017 Influenza Vaccine Split Virus Preservative Free [id number] Im Use (hi-dose) 61057 Given 07/27/2016 Influenza Virus Vaccine, Quadrivalent, Split, [id number] Preservative Free 77971 Given 07/28/2015 Influenza Virus Vaccine, Quadrivalent, Split, [id number] Preservative Free 47668 Given 04/08/2015 Adacel or Boostrix, TDaP [id number] 37850 Given 04/08/2015 Prevnar 13 [id number] 95798 Given 10/15/2013 Zostavax 50639 Given 09/04/2013 Flu, Split Virus 3Yrs 13775 Given 08/09/2012 Flu, Split Virus 3Yrs 31251 Given 08/10/2011 Flu, Split Virus 3Yrs [id number] 24732 Given 08/24/2010 Flu, Split Virus 3Yrs [id number] 00163 Given 12/13/2009 Flu, Split Virus 3Yrs [id number] 05743 Given 09/18/2008 Flu, Split Virus 3Yrs [id number] 18906 Given 10/02/2007 Pneumococcal Immunization [id number] 83527 Given 10/02/2007 Td Immunization [id number] 51523 Given 10/02/2007 Flu, Split Virus 3Yrs [id number] 75241 Given 09/20/2006 Flu, Split Virus 3Yrs 50618 Given 09/25/2005 Flu, Split Virus 3Yrs 98524 Given 12/18/2004 Flu, Split Virus 3Yrs Vital Signs Date Vital Result Comment 01/28/2020 3:26pm BP Systolic 132 mmHg BP Diastolic 82 mmHg 01/22/2020 3:59pm BP Systolic 136 mmHg BP Diastolic 80 mmHg Height 61 inches 5'1" Weight 243.00 lb BMI (Body Mass Index) 45.9 kg/m2 Results Test Acquired Date Facility Test Result H/L Range Note Urinalysis With 01/26/2020 [facility]. Urine Color Light-Yello Yellow 1 [facility] w [phone] Urine Clarity Clear Clear Urine Glucose - Dipstick >1000 mg/dL Negative Urine Bilirubin - Dipstick NEGATIVE Negative Urine Ketone NEGATIVE mg/dL Negative Urine Specific [place] 1.011 Normal 1.010-1.030 Urine Blood TRACE Negative Urine PH 7.0 Normal 6.5-7.5 Urine Protein - Dipstick 70 mg/dL Abnormal Negative Urine Urobilinogen - Dipstick < 2.0 mg/dL < 2.0 Urine Nitrite - Dipstick NEGATIVE Negative Urine Leuk Esterase NEGATIVE Negative Urine RBC 11-20 rbc/hpf 0-2 Urine WBC 0-2 wbc/hpf 0-5 Urine Epithelial Cells MANY /lpf None Seen Urine Bacteria FEW None Seen Urine Mucus SMALL None Seen Source: URINE, CLEAN CAT <SEE NOTE> 2 Protime W/ Inr(Add V58.61) 01/24/2020 [facility] #Prothrombin Time <pending > #International Normalized 3.0 Protime W/ 01/17/2020 [facility] #International 3.5 Inr(Add V58.61) Normalized Protime W/ 01/10/2020 [facility] #International 2.8 Inr(Add V58.61) Normalized Basic Metabolic 01/08/2020 [facility] Sodium 142 Normal 135-14 Panel [phone] mmol/L 5 Potassium 4.4 mmol/L Normal 3.5-5.0 Chloride 105 mmol/L Normal 101-111 Co2 Carbon Dioxide 27 mmol/L Normal 22-32 Anion Gap 10 mmol/L Normal 2-11 Calcium 10.0 mg/dL Normal 8.6-10.3 Glucose 124 mg/dL High 70-100 Blood Urea Nitrogen 21 mg/dL Normal 6-24 Creatinine 1.26 mg/dL High 0.51-0.95 BUN/Creatinine Ratio 16.7 Normal 8-20 Egfr Non- 40.8 >60 Egfr 49.3 >60 3 Protime W/ 01/03/2020 [facility] #International 3.6 Inr(Add V58.61) Normalized Protime W/ 12/27/2019 [facility] #International 4.5 Inr(Add V58.61) Normalized Laboratory test 12/25/2019 [facility] Uric Acid 9.2 mg/dL High 2.3- 6. finding [phone] Erythrocyte Sed Rate 11 mm/Hr Normal 0-29 C Reactive Protein < 1.00 mg/L Normal <8.01 CBC Auto Diff 12/25/2019 [facility] White Blood 6.1 10^3/uL Normal 3.5-10.8 [phone] Count Red Blood Count 4.92 10^6/uL High 3.70-4.87 Hemoglobin 15.2 g/dL Normal 12.0-16.0 Hematocrit 45 % Normal 35-47 Mean Corpuscular Volume 91 fL Normal 80-97 Mean Corpuscular Hemoglobin 31 pg Normal 27-31 Mean Corpuscular HGB Conc 34 g/dL Normal 31-36 Red Cell Distribution Width 15 % Normal 10-15 Platelet Count 265 10^3/uL Normal 150-450 Mean Platelet Volume 8.6 fL Normal 7.4-10.4 Abs Neutrophils 4.1 10^3/uL Normal 1.5-7.7 Abs Lymphocytes 1.3 10^3/uL Normal 1.0-4.8 Abs Monocytes 0.4 10^3/uL Normal 0-0.8 Abs Eosinophils 0.1 10^3/uL Normal 0-0.6 Abs Basophils 0.1 10^3/uL Normal 0-0.2 Abs Nucleated RBC 0.0 10^3/uL Granulocyte % 67.9 % Lymphocyte % 22.2 % Monocyte % 7.0 % Eosinophil % 1.7 % Basophil % 1.2 % Nucleated Red Blood Cells % 0.0 Comp Metabolic Panel 12/25/2019 [facility] Sodium 141 mmol/L Normal 135-145 [phone] Potassium 3.8 mmol/L Normal 3.5-5.0 Chloride 102 mmol/L Normal 101-111 Co2 Carbon Dioxide 29 mmol/L Normal 22-32 Anion Gap 10 mmol/L Normal 2-11 Glucose 134 mg/dL High 70-100 Blood Urea Nitrogen 19 mg/dL Normal 6-24 Creatinine 1.20 mg/dL High 0.51-0.95 BUN/Creatinine Ratio 15.8 Normal 8-20 Calcium 9.8 mg/dL Normal 8.6-10.3 Total Protein 6.3 g/dL Low 6.4-8.9 Albumin 3.9 g/dL Normal 3.2-5.2 Globulin 2.4 g/dL Normal 2-4 Albumin/Globulin Ratio 1.6 Normal 1-3 Total Bilirubin 1.30 mg/dL High 0.2-1.0 Alkaline Phosphatase 63 U/L Normal 34-104 Alt 29 U/L Normal 7-52 Ast 36 U/L Normal 13-39 Egfr Non- 43.1 >60 Egfr 52.2 >60 4 Laboratory test 12/22/2019 In House Hemoglobin A1c 6.5 finding Protime W/ Inr(Add 12/20/2019 [facility] #International 2.8 V58.61) Normalized Protime W/ Inr(Add 12/06/2019 [facility] #International 1.8 V58.61) Normalized Protime W/ Inr(Add 11/30/2019 [facility] #International 2.0 V58.61) Normalized Protime W/ Inr(Add 11/22/2019 [facility] #International 1.9 V58.61) Normalized Laboratory test 11/20/2019 [facility] Uric Acid 10.8 mg/dL High 2.3- 6.6 finding [phone] Erythrocyte Sed Rate 14 mm/Hr Normal 0-29 C Reactive Protein 6.11 mg/L Normal <8.01 CBC Auto Diff 11/20/2019 [facility] White Blood 6.1 10^3/uL Normal 3.5-10.8 [phone] Count Red Blood Count 4.70 10^6/uL Normal 3.70-4.87 Hemoglobin 14.4 g/dL Normal 12.0-16.0 Hematocrit 43 % Normal 35-47 Mean Corpuscular Volume 91 fL Normal 80-97 Mean Corpuscular Hemoglobin 31 pg Normal 27-31 Mean Corpuscular HGB Conc 34 g/dL Normal 31-36 Red Cell Distribution Width 16 % High 10-15 Platelet Count 300 10^3/uL Normal 150-450 Mean Platelet Volume 8.5 fL Normal 7.4-10.4 Abs Neutrophils 3.8 10^3/uL Normal 1.5-7.7 Abs Lymphocytes 1.5 10^3/uL Normal 1.0-4.8 Abs Monocytes 0.5 10^3/uL Normal 0-0.8 Abs Eosinophils 0.2 10^3/uL Normal 0-0.6 Abs Basophils 0.1 10^3/uL Normal 0-0.2 Abs Nucleated RBC 0.0 10^3/uL Granulocyte % 61.4 % Lymphocyte % 24.9 % Monocyte % 8.9 % Eosinophil % 3.8 % Basophil % 1.0 % Nucleated Red Blood Cells % 0.0 Comp Metabolic Panel 11/20/2019 [facility] Sodium 142 mmol/L Normal 135-145 [phone] Potassium 4.0 mmol/L Normal 3.5-5.0 Chloride 104 mmol/L Normal 101-111 Co2 Carbon Dioxide 31 mmol/L Normal 22-32 Anion Gap 7 mmol/L Normal 2-11 Glucose 103 mg/dL High 70-100 Blood Urea Nitrogen 21 mg/dL Normal 6-24 Creatinine 1.13 mg/dL High 0.51-0.95 BUN/Creatinine Ratio 18.6 Normal 8-20 Calcium 9.7 mg/dL Normal 8.6-10.3 Total Protein 6.3 g/dL Low 6.4-8.9 Albumin 3.7 g/dL Normal 3.2-5.2 Globulin 2.6 g/dL Normal 2-4 Albumin/Globulin Ratio 1.4 Normal 1-3 Total Bilirubin 1.20 mg/dL High 0.2-1.0 Alkaline Phosphatase 86 U/L Normal 34-104 Alt 41 U/L Normal 7-52 Ast 36 U/L Normal 13-39 Egfr Non- 46.2 >60 Egfr 55.9 >60 5 Protime W/ Inr(Add 11/15/2019 [facility] #International Normalized 1.8 V58.61) Protime W/ Inr(Add 11/08/2019 In House #International Normalized 2.8 V58.61) Protime W/ Inr(Add 11/01/2019 [facility] #Prothrombin Time <pending> V58.61) #International Normalized 2.0 Protime W/ Inr(Add 10/25/2019 [facility] #International Normalized 1.7 V58.61) Protime W/ Inr(Add 10/16/2019 [facility] #International Normalized 2.1 V58.61) Protime W/ Inr(Add 10/11/2019 [facility] #International Normalized 2.6 V58.61) Protime W/ Inr(Add 09/27/2019 [facility] #International Normalized 3.0 V58.61) Protime W/ Inr(Add 09/21/2019 [facility] #International Normalized 3.4 V58.61) Laboratory test 09/14/2019 In House Hemoglobin A1c 9.0 finding Protime W/ Inr(Add 09/13/2019 [facility] #International Normalized 3.2 V58.61) Protime W/ Inr(Add 09/06/2019 [facility] #International Normalized 1.9 V58.61) Protime W/ Inr(Add 08/31/2019 [facility] #International Normalized 1.9 V58.61) [phone] Inr 2.23 High 0.82-1.09 6 Protime W/ Inr(Add V58.61) 08/23/2019 [facility] #International Normalized 2.3 Protime W/ Inr(Add V58.61) 08/17/2019 [facility] #International Normalized 2.2 Protime W/ Inr(Add V58.61) 08/10/2019 [facility] #International Normalized 2.1 Protime W/ Inr(Add V58.61) 08/04/2019 [facility] #International Normalized 2.5 1 CANNOT STAND 2 URINE, CLEAN CATCH 3 Because ethnic data is not always readily available, this report includes an eGFR for both -Americans and non- Americans. The National Kidney Disease Education Program (NKDEP) does not endorse the use of the MDRD equation for patients that are not between the ages of 18 and 70, are , have extremes of body size, muscle mass, or nutritional status, or are non- or non-. According to the National Kidney Foundation, irrespective of diagnosis, the stage of the disease is based on the level of kidney function: Stage Description GFR(mL/min/1.73 m(2)) 1 Kidney damage with normal or decreased GFR 90 2 Kidney damage with mild decrease in GFR 60-89 3 Moderate decrease in GFR 30-59 4 Severe decrease in GFR 15-29 5 Kidney failure <15 (or dialysis) 4 Because ethnic data is not always readily available, this report includes an eGFR for both -Americans and non- Americans. The National Kidney Disease Education Program (NKDEP) does not endorse the use of the MDRD equation for patients that are not between the ages of 18 and 70, are , have extremes of body size, muscle mass, or nutritional status, or are non- or non-. According to the National Kidney Foundation, irrespective of diagnosis, the stage of the disease is based on the level of kidney function: Stage Description GFR(mL/min/1.73 m(2)) 1 Kidney damage with normal or decreased GFR 90 2 Kidney damage with mild decrease in GFR 60-89 3 Moderate decrease in GFR 30-59 4 Severe decrease in GFR 15-29 5 Kidney failure <15 (or dialysis) 5 Because ethnic data is not always readily available, this report includes an eGFR for both -Americans and non- Americans. The National Kidney Disease Education Program (NKDEP) does not endorse the use of the MDRD equation for patients that are not between the ages of 18 and 70, are , have extremes of body size, muscle mass, or nutritional status, or are non- or non-. According to the National Kidney Foundation, irrespective of diagnosis, the stage of the disease is based on the level of kidney function: Stage Description GFR(mL/min/1.73 m(2)) 1 Kidney damage with normal or decreased GFR 90 2 Kidney damage with mild decrease in GFR 60-89 3 Moderate decrease in GFR 30-59 4 Severe decrease in GFR 15-29 5 Kidney failure <15 (or dialysis) 6 Standard intensity warfarin therapeutic range: 2.0-3.0 High intensity warfarin therapeutic range: 2.5-3.5 Procedures Date Code Description Status 01/25/2020 94224 Anticoagulant MGMT For Patient Taking Warfarin, Inc Completed Review & Intr 01/19/2020 55899 Anticoagulant MGMT For Patient Taking Warfarin, Inc Completed Review & Intr 01/12/2020 48274 Anticoagulant MGMT For Patient Taking Warfarin, Inc Completed Review & Intr 01/04/2020 10459 Anticoagulant MGMT For Patient Taking Warfarin, Inc Completed Review & Intr 01/01/2020 88329 Anticoagulant MGMT For Patient Taking Warfarin, Inc Completed Review & Intr 12/21/2019 73753 Anticoagulant MGMT For Patient Taking Warfarin, Inc Completed Review & Intr 12/10/2019 [id number] Diabetic Retinal Eye Exam Completed 12/08/2019 51708 Anticoagulant MGMT For Patient Taking Warfarin, Inc Completed Review & Intr 11/30/2019 73510 Anticoagulant MGMT For Patient Taking Warfarin, Inc Completed Review & Intr 11/23/2019 27607 Anticoagulant MGMT For Patient Taking Warfarin, Inc Completed Review & Intr 11/16/2019 66136 Anticoagulant MGMT For Patient Taking Warfarin, Inc Completed Review & Intr 11/02/2019 78862 Anticoagulant MGMT For Patient Taking Warfarin, Inc Completed Review & Intr 10/27/2019 35087 Anticoagulant MGMT For Patient Taking Warfarin, Inc Completed Review & Intr 10/27/2019 87748 Anticoagulant MGMT For Patient Taking Warfarin, Inc Completed Review & Intr 09/29/2019 21097 Anticoagulant MGMT For Patient Taking Warfarin, Inc Completed Review & Intr 09/21/2019 14858 Anticoagulant MGMT For Patient Taking Warfarin, Inc Completed Review & Intr 09/14/2019 54198 Anticoagulant MGMT For Patient Taking Warfarin, Inc Completed Review & Intr 09/07/2019 08361 Anticoagulant MGMT For Patient Taking Warfarin, Inc Completed Review & Intr 08/31/2019 70095 Anticoagulant MGMT For Patient Taking Warfarin, Inc Completed Review & Intr 08/30/2019 18141 Anticoagulant MGMT For Patient Taking Warfarin, Inc Completed Review & Intr 08/17/2019 06267 Anticoagulant MGMT For Patient Taking Warfarin, Inc Completed Review & Intr 08/10/2019 10232 Anticoagulant MGMT For Patient Taking Warfarin, Inc Completed Review & Intr 08/04/2019 21988 Anticoagulant MGMT For Patient Taking Warfarin, Inc Completed Review & Intr 03/16/2019 [id number] Diabetic Foot Exam Completed Medical Devices Description No Information Available Encounters Type Date Location Provider Dx Diagnosis Office Visit 01/28/2020 Main Office Carlos Enrique Torres, M25.562 Pain in left knee 3:00p D.O. R29.6 Repeated falls Z91.81 History of falling E11.65 Type 2 diabetes mellitus with hyperglycemia Z79.01 roasterman (current) use of anticoagulants I10 Essential (primary) hypertension M48.062 Spinal stenosis, lumbar region with neurogenic claudication Office Visit 01/22/2020 4:00p Main Office Carlos Enrique Torres, E11.65 Type 2 diabetes D.O. mellitus with hyperglycemia Z79.01 skilled nursing (current) use of anticoagulants I48.20 Chronic atrial fibrillation, unspecified M10.9 Gout, unspecified I10 Essential (primary) hypertension M48.062 Spinal stenosis, lumbar region with neurogenic claudication Z68.42 Body mass index (BMI) 45.0-49.9, adult Office Visit 12/22/2019 4:00p Main Office Carlos Enrique Torres, E11.65 Type 2 diabetes D.O. mellitus with hyperglycemia M10.9 Gout, unspecified Z79.01 roasterman (current) use of anticoagulants I10 Essential (primary) hypertension M48.062 Spinal stenosis, lumbar region with neurogenic claudication Z79.4 roasterman (current) use of insulin R19.7 Diarrhea, unspecified Z68.42 Body mass index (BMI) 45.0-49.9, adult Office Visit 11/19/2019 3:30p Main Office Carlos Enrique Torres, M10.9 Gout, unspecified D.O. Z79.01 roasterman (current) use of anticoagulants I48.20 Chronic atrial fibrillation, unspecified M10.072 Idiopathic gout, left ankle and foot E11.65 Type 2 diabetes mellitus with hyperglycemia I10 Essential (primary) hypertension M48.062 Spinal stenosis, lumbar region with neurogenic claudication G89.4 Chronic pain syndrome Z68.42 Body mass index (BMI) 45.0-49.9, adult Office Visit 10/15/2019 3:30p Main Office Carlos Enrique Torres M10.072 Idiopathic gout, D.O. left ankle and foot I48.20 Chronic atrial fibrillation, unspecified Z79.01 skilled nursing (current) use of anticoagulants E11.65 Type 2 diabetes mellitus with hyperglycemia I10 Essential (primary) hypertension M48.062 Spinal stenosis, lumbar region with neurogenic claudication Office Visit 09/14/2019 11:00a Main Office Carlos Enrique Torres, E11.65 Type 2 diabetes D.O. mellitus with hyperglycemia N76.4 Abscess of vulva Z79.01 roasterman (current) use of anticoagulants Z23 Encounter for immunization Assessments Date Code Description Provider 01/28/2020 M25.562 Pain in left knee Carlos Enrique Torres D.ORenetta 01/28/2020 R29.6 Repeated falls Carlos Enrique Torres D.ORenetta 01/28/2020 Z91.81 History of falling Carlos Enrique Torres D.O. 01/28/2020 E11.65 Type 2 diabetes mellitus with hyperglycemia Cralos Enrique Torres D.ORenetta 01/28/2020 Z79.01 roasterman (current) use of anticoagulants Carlos Enrique Torres D.O. 01/28/2020 I10 Essential (primary) hypertension Carlos Enrique Torres D.O. 01/28/2020 M48.062 Spinal stenosis, lumbar region with Carlos Enrique Torres D.O. neurogenic claudication 01/25/2020 Z79.01 roasterman (current) use of anticoagulants Sopchak, Carlos Enrique, D.O. 01/25/2020 I48.20 Chronic atrial fibrillation, unspecified Sopchak, Carlos Enrique, D.O. 01/22/2020 E11.65 Type 2 diabetes mellitus with hyperglycemia Sopchak, Carlos Enrique , D.O. 01/22/2020 Z79.01 skilled nursing (current) use of anticoagulants Sopchak, Carlos Enrique, D.O. 01/22/2020 I48.20 Chronic atrial fibrillation, unspecified Sopchak, Carlos Enrique, D.O. 01/22/2020 M10.9 Gout, unspecified Sopchak, Carlos Enrique, D.O. 01/22/2020 I10 Essential (primary) hypertension Sopchak Carlos Enrique, D.O. 01/22/2020 M48.062 Spinal stenosis, lumbar region with Sopchak, Carlos Enrique, D.O. neurogenic claudication 01/22/2020 Z68.42 Body mass index (BMI) 45.0-49.9, adult Sopchak, Carlos Enrique, D.O. 01/19/2020 Z79.01 skilled nursing (current) use of anticoagulants Sopchak, Carlos Enrique, D.O. 01/19/2020 I48.20 Chronic atrial fibrillation, unspecified Sopchak, Carlos Enrique, D.O. 01/12/2020 Z79.01 roasterman (current) use of anticoagulants Sopchak, Carlos Enrique, D.O. 01/12/2020 I48.20 Chronic atrial fibrillation, unspecified Sopchak, Carlos Enrique, D.O. 01/04/2020 Z79.01 roasterman (current) use of anticoagulants Sopchak, Carlos Enrique, D.O. 01/04/2020 I48.20 Chronic atrial fibrillation, unspecified Sopchak, Carlos Enrique, D.O. 01/01/2020 Z79.01 roasterman (current) use of anticoagulants Sopchak, Carlos Enrique, D.O. 01/01/2020 I48.20 Chronic atrial fibrillation, unspecified Sopchak, Carlos Enrique, D.O. 12/22/2019 E11.65 Type 2 diabetes mellitus with hyperglycemia Sopchak, Carlos Enrique , D.O. 12/22/2019 M10.9 Gout, unspecified Sopchak, Carlos Enrique, D.O. 12/22/2019 Z79.01 skilled nursing (current) use of anticoagulants SopchakTrinion, D.O. 12/22/2019 I10 Essential (primary) hypertension SopTrini sotoon, D.O. 12/22/2019 M48.062 Spinal stenosis, lumbar region with SophansakTrinion, D.O. neurogenic claudication 12/22/2019 Z79.4 skilled nursing (current) use of insulin DanielakTrinion, D.O. 12/22/2019 R19.7 Diarrhea, unspecified Sopchak, Carlos Enrique, D.O. 12/22/2019 Z68.42 Body mass index (BMI) 45.0-49.9, adult SopchakTrinion, D.O. 12/21/2019 Z79.01 roasterman (current) use of anticoagulants DiannachakTrinion, D.O. 12/21/2019 I48.20 Chronic atrial fibrillation, unspecified Sopchak, Carlos Enrique, D.O. 12/21/2019 I10 Essential (primary) hypertension DanielakTrinion, D.O. 12/08/2019 Z79.01 skilled nursing (current) use of anticoagulants Sopchak, Carlos Enrique, D.O. 12/08/2019 I48.20 Chronic atrial fibrillation, unspecified Sopchak, Carlos Enrique, D.O. 11/30/2019 Z79.01 skilled nursing (current) use of anticoagulants Sopchak, Carlos Enrique, D.O. 11/30/2019 I48.20 Chronic atrial fibrillation, unspecified Sopchak, Carlos Enrique, D.O. 11/23/2019 Z79.01 skilled nursing (current) use of anticoagulants Sopchak, Carlos Enrique, D.O. 11/23/2019 I48.20 Chronic atrial fibrillation, unspecified Sopchak, Carlos Enrique, D.O. 11/19/2019 M10.9 Gout, unspecified Sopchak, Carlos Enrique, D.O. 11/19/2019 Z79.01 skilled nursing (current) use of anticoagulants Sopchak, Carlos Enrique, D.O. 11/19/2019 I48.20 Chronic atrial fibrillation, unspecified Sopchak, Carlos Enrique, D.O. 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 11/19/2019 E11.65 Type 2 diabetes mellitus with hyperglycemia Carlos Enrique Torres D.O. 11/19/2019 I10 Essential (primary) hypertension Carlos Enrique Torres D.O. 11/19/2019 M48.062 Spinal stenosis, lumbar region with Carlos Enrique Torres D.O. neurogenic claudication 11/19/2019 G89.4 Chronic pain syndrome Carlos Enrique Torres D.O. 11/19/2019 Z68.42 Body mass index (BMI) 45.0-49.9, adult Carlos Enrique Torres D.O. 11/16/2019 Z79.01 roasterman (current) use of anticoagulants Carlos Enrique Torres D.O. 11/16/2019 I48.20 Chronic atrial fibrillation, unspecified SophansakCarlos Enrique D.O. 11/08/2019 Z79.01 skilled nursing (current) use of anticoagulants Carlos Enrique Torres D.O. 11/08/2019 I48.20 Chronic atrial fibrillation, unspecified SopchakTrinion, D.O. 11/02/2019 Z79.01 skilled nursing (current) use of anticoagulants Carlos Enrique Torres D.O. 11/02/2019 I48.20 Chronic atrial fibrillation, unspecified SopchakTrinion, D.O. 10/27/2019 I48.20 Chronic atrial fibrillation, unspecified SopchakTrinion, D.O. 10/27/2019 Z79.01 skilled nursing (current) use of anticoagulants Carlos Enrique Torres D.O. 10/27/2019 I48.20 Chronic atrial fibrillation, unspecified Sopchak, Carlos Enrique, D.O. 10/27/2019 Z79.01 roasterman (current) use of anticoagulants DanielakTrinion D.O. 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 10/15/2019 I48.20 Chronic atrial fibrillation, unspecified SopchakTrinion, D.O. 10/15/2019 Z79.01 roasterman (current) use of anticoagulants Carlos Enrique Torres D.O. 10/15/2019 E11.65 Type 2 diabetes mellitus with hyperglycemia Carlos Enrique Torres D.O. 10/15/2019 I10 Essential (primary) hypertension Carlos Enrique Torres D.O. 10/15/2019 M48.062 Spinal stenosis, lumbar region with SopCarlos Enrique soto D.O. neurogenic claudication 09/29/2019 I48.20 Chronic atrial fibrillation, unspecified SopTrini sotoon D.O. 09/29/2019 Z79.01 skilled nursing (current) use of anticoagulants Carlos Enrique Torres D.O. 09/21/2019 I48.20 Chronic atrial fibrillation, unspecified SopchakTrinion D.O. 09/21/2019 Z79.01 skilled nursing (current) use of anticoagulants Carlos Enrique Torres D.O. 09/14/2019 I48.20 Chronic atrial fibrillation, unspecified SophansakCarlos Enrique D.O. 09/14/2019 E11.65 Type 2 diabetes mellitus with hyperglycemia Carlos Enrique Torres D.O. 09/14/2019 N76.4 Abscess of vulva Carlos Enrique Torres D.O. 09/14/2019 Z79.01 skilled nursing (current) use of anticoagulants Carlos Enrique Torres D.O. 09/14/2019 Z79.01 skilled nursing (current) use of anticoagulants Carlos Enrique Torres D.O. 09/14/2019 Z23 Encounter for immunization Carlos Enrique Torres D.O. 09/07/2019 I48.20 Chronic atrial fibrillation, unspecified Carlos Enrique Torres D.O. 09/07/2019 Z79.01 skilled nursing (current) use of anticoagulants Carlos Enrique Torres D.O. 08/31/2019 I48.2 Chronic atrial fibrillation Carlos Enrique Torres D.O. 08/31/2019 Z79.01 skilled nursing (current) use of anticoagulants Carlos Enrique Torres D.O. 08/30/2019 I48.2 Chronic atrial fibrillation Carlos Enrique Torres D.O. 08/30/2019 Z79.01 skilled nursing (current) use of anticoagulants Carlos Enrique Torres D.O. 08/17/2019 Z79.01 roasterman (current) use of anticoagulants Carlos Enrique Torres D.O. 08/17/2019 I48.2 Chronic atrial fibrillation Carlos Enrique Torres D.O. 08/10/2019 Z79.01 roasterman (current) use of anticoagulants Carlos Enrique Torres D.O. 08/10/2019 I48.2 Chronic atrial fibrillation Carlos Enrique Torres D.O. 08/04/2019 I48.2 Chronic atrial fibrillation Carlos Enrique Torres D.O. Plan of Treatment Future Appointment(s):03/24/2020 3:45 pm - Carlos Enrique Torres D.O. [facility]/28/2020 - Carlos Enrique Torres D.O.M25.562 Pain in left kneeR29.6 Repeated fallsFollow up:as sjizjyiaaF56.81 History of mbhlaztS16.65 Type 2 diabetes mellitus with fgedcbygzdfzsZ40.01 roasterman (current) use of ujsixrzecjvqfiP35 Essential (primary) bozngyilqvqhZ57.062 Spinal stenosis, lumbar region with neurogenic claudication Functional Status Description No Information Available Mental Status Description No Information Available Referrals Description No Information Available
--- OUTSIDE RECORDS SUMMARY | 2020-02-25 05:18 | XMS REPORT | Continuity of Care Document ---
:1940 External Reference #:[id number] Author Name Carlos Enrique Torres D.O. (transmitted by agent of provider Ingris Beckett) Address [address] [place] [address] Care Team Providers Name Role Phone Darrel Baez MD - Cardiovascular Care Team Information Periodicals Library Assistant Disease Alfredo Wilhelm MD - Gastroenterology Care Team Information Periodicals Library Assistant [phone] HCP/LW on file Care Team Information Periodicals Library Assistant Unavailable Meli Powers MD - Surgery Care Team Information Periodicals Library Assistant Corbin Spencer MD - Surgery Care Team Information Periodicals Library Assistant [phone] Gregorio Merida MD - Surgery Care Team Information Periodicals Library Assistant [phone] Don Morton MD - Orthopaedic Care Team Information Periodicals Library Assistant [facility] Care Team Information Periodicals Library Assistant [phone] Problems Active Problems Provider Date Coronary arteriosclerosis [...] Tablets Allopurinol 2 by mouth every 90tabs Danieladell Carlos Enrique, 11/19/2019 100mg day D.O. Tablets Gabapentin take 1 capsule by 270caps M48.062 DanieladellCarlos Enrique, 06/06/2019 300mg mouth 3 times per D.O. Capsules day for neuropathic pain Pentips Pen Needle Use Up To 2 Per 100units Carlos Enrique Torres, 03/31/2019 5mm Day as Directed D.O. Vitamin B 12 one po daily DiannaTrini sotoon, 03/04/2019 D.O. Sure Comfort Use 1 To 5 Times 200units DiannaCarlos Enrique soto, 01/09/2019 1ml Daily D.O. Multivitamin Gummies daily Unknown 10/29/2018 Adult [facility] Omeprazole 1 by mouth every 90caps R12 Trini Torreson, 10/09/2018 [address] day D.O. Capsules DR Rosario.9 Novolog Mix 70/30 Inject 15 Units With 60units Melissa, 05/05/2018 Breakfast. Max Of 65 Carlos Enrique D.O. (70-30)100Unit/ML Units Daily as Suspension Directed Alendronate Sodium Take With A Full 12tabs M81.0 [facility], 01/30/2018 70mg Glass Of Water (6 To Carlos Enrique D.O. Tablets 8 Ounces; 180 To 240 ML) And Avoid Lying Down For AT Least 30 Minutes. Take Once Weekly On Saturday. BD Pen or appropriate 60units [facility], 01/14/2018 Needle/Mini/Ultrafine/31 needles for Basaglar Sha Monaco.O. G X 3/16" pen. use up to 2/day, 31G X 5 mm Misc as directed, for insulin administration Basaglar Kwikpen inject 34units in the 45ml E11.65 [facility], 12/26/2017 100Unit/ML morning Sha Monaco.O. Solution Pen-Inject Chair To Lift From Use as directed. M54.16 [facility] 09[facility]2017 Sitting Sha Monaco.O. Insulin use with novolog 200units [facility], 09/17/2017 Syringe/0.5ML/30G X 1/2" 70/30 as directed Braxton Monaco 30G daily X 1/2" 0.5 ML Misc Onetouch Ultra Blue Use To Test 1 To 4 200units [facility], 03/21/2016 Strips Times Daily as Braxton Monaco Directed Furosemide take one tablet by 90tabs [facility], 03/20/2016 40mg Tablets mouth every day Braxton Monaco Freestyle Lite Test or appropriate 200units E11.65 [facility], 03/15/2016 Strips testing strips for Braxton Monaco patients device, test 1-4 times daily as directed Oxycodone HCL take 1-2 tablets by 180tabs M25.55 [facility], 10/04/2015 5mg Tablets mouth every 8 hours 1 Carlos Enrique D.O. as needed for pain (maximum daily dose = 6) Lisinopril Take One Tablet By 180tabs [facility], 08/11/2015 20mg Tablets Mouth Twice A Day Shellie Monaco. Jantoven Take 4 And 1/2 360tabs Z79.01 [facility], 12/29/2014 1mg Tablets Tablets By Mouth AT Sha Monaco.Cristina Bedtime Or as Directed I48.2 Atorvastatin Calcium [...] 1 every 5min as 100tabs I25.10 John Herr 08/07/2011 0.4mg needed heart pain up [place] Tablets Sub to 3 max then call 911 if unreleaved History Medications Colcrys take 2 immediately 60tabs M10.072 Carlos Enrique Torres, 11/19/2019 - 0.6mg then 1 1 hour later. D.O. 12/22/2019 Tablets then next day take 1 twice a day. Stop atorvastatin while taking colcrys. Colcrys take 2 immediately 60tabs M10.072 DanieladellCarlos Enrique, 10/15/2019 - 0.6mg then 1 1 hour later. D.O. 11/18/2019 Tablets then next day take 1 twice a day. Stop atorvastatin while taking colcrys. Sulfamethoxazole 1 by mouth twice a 20tabs N77.1 Carlos Enrique Torres, 2018 - /Trimethoprim DS day for labial D.O. 09/24/2019 infection. 800-160mg Tablets N76.4 Medications Administered in Office Medication SIG Qnty Indications Ordering Provider Date injection, kenalog, 10 mg Carlos Enrique Torres, D.ORenetta 12/30/2018 Injection injection, kenalog, 10 mg John [...] CPT Code Status Date Vaccine Lot # 11683 Given 09/14/2019 Influenza Vaccine, Inactivated, Subunit, [id number] Adjuvanted, For [facility] [address] Given 10/30/2018 Influenza Vaccine, Inactivated, Subunit, [id number] Adjuvanted, For Intrmusc 26368 Given 09/17/2017 Influenza Vaccine Split Virus Preservative Free [id number] Im Use (hi-dose) 17531 Given 07/27/2016 Influenza Virus Vaccine, Quadrivalent, Split, [id number] Preservative Free 34399 Given 07/28/2015 Influenza Virus Vaccine, Quadrivalent, Split, [id number] Preservative Free 81263 Given 04/08/2015 Adacel or Boostrix, TDaP [id number] 29601 Given 04/08/2015 Prevnar 13 [id number] 61442 Given 10/15/2013 Zostavax 53413 Given 09/04/2013 Flu, Split Virus 3Yrs 28574 Given 08/09/2012 Flu, Split Virus 3Yrs 20711 Given 08/10/2011 Flu, Split Virus 3Yrs [id number] 94016 Given 08/24/2010 Flu, Split Virus 3Yrs [id number] 92736 Given 12/13/2009 Flu, Split Virus 3Yrs [id number] 52094 Given 09/18/2008 Flu, Split Virus 3Yrs [id number] 40983 Given 10/02/2007 Pneumococcal Immunization [id number] 85005 Given 10/02/2007 Td Immunization [id number] 41574 Given 10/02/2007 Flu, Split Virus 3Yrs [id number] 82996 Given 09/20/2006 Flu, Split Virus 3Yrs 50814 Given 09/25/2005 Flu, Split Virus 3Yrs 41594 Given 12/18/2004 Flu, Split Virus 3Yrs Vital Signs Date Vital Result Comment 01/28/2020 3:26pm BP Systolic 132 mmHg BP Diastolic 82 mmHg 01/22/2020 3:59pm BP Systolic 136 mmHg BP Diastolic 80 mmHg Height 61 inches 5'1" Weight 243.00 lb BMI (Body Mass Index) 45.9 kg/m2 Results Test Acquired Date Facility Test Result H/L Range Note Protime W/ 02/02/2020 [facility]International 3.1 Inr(Add V58.61) Normalized Urinalysis With 01/26/2020 [facility] Urine Color [place] Yellow 1 Microscopic LABORATORY ow [phone] Urine Clarity Clear Clear Urine Glucose - Dipstick >1000 mg/dL Negative Urine Bilirubin - Dipstick NEGATIVE Negative Urine Ketone NEGATIVE mg/dL Negative Urine Specific [place] 1.011 Normal 1.010-1.030 Urine Blood TRACE Negative [...] 2.8 Inr(Add V58.61) Normalized Basic Metabolic 01/08/2020 [facility] Sodium 142 Normal 135-14 Panel [phone] mmol/L 5 Potassium 4.4 mmol/L Normal 3.5-5.0 [...] 4.5 Inr(Add V58.61) Normalized Laboratory test 12/25/2019 [facility] Uric Acid 9.2 mg/dL High 2.3- 6. finding [phone] Erythrocyte Sed Rate 11 mm/Hr Normal 0-29 C Reactive Protein < 1.00 mg/L Normal <8.01 CBC Auto Diff 12/25/2019 [facility] White Blood 6.1 10^3/uL Normal 3.5-10.8 [phone] Count Red Blood Count 4.92 10^6/uL High [...] Cells % 0.0 Comp Metabolic Panel 12/25/2019 [facility] Sodium 141 mmol/L Normal 135-145 [phone] Potassium 3.8 mmol/L Normal 3.5-5.0 Chloride 102 [...] #International 1.9 V58.61) Normalized Laboratory test 11/20/2019 [facility] Uric Acid 10.8 mg/dL High 2.3- 6.6 finding [phone] Erythrocyte Sed Rate 14 mm/Hr Normal 0-29 C Reactive Protein 6.11 mg/L Normal <8.01 CBC Auto Diff 11/20/2019 [facility] White Blood 6.1 10^3/uL Normal 3.5-10.8 [phone] Count Red Blood Count 4.70 10^6/uL Normal [...] Cells % 0.0 Comp Metabolic Panel 11/20/2019 [facility] Sodium 142 mmol/L Normal 135-145 [phone] Potassium 4.0 mmol/L Normal 3.5-5.0 Chloride 104 [...] Normalized 1.9 V58.61) Protime W/ Inr(Add 08/31/2019 [facility] #International Normalized 1.9 V58.61) [phone] Inr 2.23 High 0.82-1.09 6 Protime W/ Inr(Add V58.61) 08/23/2019 [facility] #International Normalized 2.3 Protime W/ Inr(Add V58.61) 08/17/2019 [facility] #International Normalized 2.2 Protime W/ Inr(Add V58.61) 08/10/2019 [facility] #International Normalized 2.1 1 CANNOT STAND 2 URINE, CLEAN CATCH [...] range: 2.5-3.5 Procedures Date Code Description Status 02/02/2020 02334 Anticoagulant MGMT For Patient Taking Warfarin, Inc Completed Review & Intr 01/25/2020 89432 Anticoagulant MGMT For Patient Taking Warfarin, Inc Completed Review & Intr 01/19/2020 74034 Anticoagulant MGMT For Patient Taking Warfarin, Inc Completed Review & Intr 01/12/2020 23674 Anticoagulant MGMT For Patient Taking Warfarin, Inc Completed Review & Intr 01/04/2020 86344 Anticoagulant MGMT For Patient Taking Warfarin, Inc Completed Review & Intr 01/01/2020 23147 Anticoagulant MGMT For Patient Taking Warfarin, Inc Completed Review & Intr 12/21/2019 03668 Anticoagulant MGMT For Patient Taking Warfarin, Inc Completed Review & Intr 12/10/2019 [id number] Diabetic Retinal Eye Exam Completed 12/08/2019 18466 Anticoagulant MGMT For Patient Taking Warfarin, Inc Completed Review & Intr 11/30/2019 39890 Anticoagulant MGMT For Patient Taking Warfarin, Inc Completed Review & Intr 11/23/2019 59497 Anticoagulant MGMT For Patient Taking Warfarin, Inc Completed Review & Intr 11/16/2019 88728 Anticoagulant MGMT For Patient Taking Warfarin, Inc Completed Review & Intr 11/02/2019 82648 Anticoagulant MGMT For Patient Taking Warfarin, Inc Completed Review & Intr 10/27/2019 89549 Anticoagulant MGMT For Patient Taking Warfarin, Inc Completed Review & Intr 10/27/2019 99443 Anticoagulant MGMT For Patient Taking Warfarin, Inc Completed Review & Intr 09/29/2019 45924 Anticoagulant MGMT For Patient Taking Warfarin, Inc Completed Review & Intr 09/21/2019 83930 Anticoagulant MGMT For Patient Taking Warfarin, Inc Completed Review & Intr 09/14/2019 23262 Anticoagulant MGMT For Patient Taking Warfarin, Inc Completed Review & Intr 09/07/2019 12955 Anticoagulant MGMT For Patient Taking Warfarin, Inc Completed Review & Intr 08/31/2019 82770 Anticoagulant MGMT For Patient Taking Warfarin, Inc Completed Review & Intr 08/30/2019 34119 Anticoagulant MGMT For Patient Taking Warfarin, Inc Completed Review & Intr 08/17/2019 19270 Anticoagulant MGMT For Patient Taking Warfarin, Inc Completed Review & Intr 08/10/2019 74986 Anticoagulant MGMT For Patient Taking Warfarin, Inc Completed Review & Intr 03/16/2019 [id number] Diabetic Foot Exam Completed Medical Devices Description No Information Available Encounters Type Date Location Provider Dx Diagnosis Office Visit 01/28/2020 Main Office Carlos Enrique Torres, M25.562 Pain in left knee 3:00p D.O. R29.6 Repeated falls Z91.81 History of falling E11.65 Type 2 diabetes mellitus with hyperglycemia Z79.01 termination clerk (current) use of anticoagulants I10 Essential (primary) hypertension M48.062 Spinal stenosis, lumbar region with neurogenic claudication Office Visit 01/22/2020 4:00p Main Office Carlos Enrique Torres, E11.65 Type 2 diabetes D.O. mellitus with hyperglycemia Z79.01 termination clerk (current) use of anticoagulants I48.20 Chronic atrial fibrillation, unspecified M10.9 Gout, unspecified I10 Essential (primary) hypertension M48.062 Spinal stenosis, lumbar region with neurogenic claudication Z68.42 Body mass index (BMI) 45.0-49.9, adult Office Visit 12/22/2019 4:00p Main Office Carlos Enrique Torres, E11.65 Type 2 diabetes D.O. mellitus with hyperglycemia M10.9 Gout, unspecified Z79.01 termination clerk (current) use of anticoagulants I10 Essential (primary) hypertension M48.062 Spinal stenosis, lumbar region with neurogenic claudication Z79.4 termination clerk (current) use of insulin R19.7 Diarrhea, unspecified Z68.42 Body mass index (BMI) 45.0-49.9, adult Office Visit 11/19/2019 3:30p Main Office Carlos Enrique Torres, M10.9 Gout, unspecified D.O. 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 left ankle and foot I48.20 Chronic atrial fibrillation, unspecified Z79.01 termination clerk (current) use of anticoagulants E11.65 Type 2 diabetes mellitus with hyperglycemia I10 Essential (primary) hypertension M48.062 Spinal stenosis, lumbar region with neurogenic claudication Office Visit 09/14/2019 11:00a Main Office Carlos Enrique Torres, E11.65 Type 2 diabetes D.O. mellitus with hyperglycemia N76.4 Abscess of vulva Z79.01 [facility] (current) use of anticoagulants Z23 Encounter for immunization Assessments Date Code Description Provider 02/02/2020 Z79.01 [facility] (current) use of anticoagulants Carlos Enrique Torres D.O. 02/02/2020 I48.20 Chronic atrial fibrillation, unspecified Carlos Enrique Torres D.O. 01/28/2020 M25.562 Pain in left knee Carlos Enrique Torres D.ORenetta 01/28/2020 R29.6 Repeated falls Carlos Enrique Torres D.ORenetta 01/28/2020 Z91.81 History of falling Carlos Enrique Torres D.ORenetta 01/28/2020 E11.65 Type 2 diabetes mellitus with hyperglycemia Carlos Enrique Torres D.ORenetta 01/28/2020 Z79.01 termination clerk (current) use of anticoagulants Carlos Enrique Torres D.O. 01/28/2020 I10 Essential (primary) hypertension Sopchak, Carlos Enrique, D.O. 01/28/2020 M48.062 Spinal stenosis, lumbar region with Sopchak, Carlos Enrique, D.O. neurogenic claudication 01/25/2020 Z79.01 termination clerk (current) use of anticoagulants Sopchak, Carlos Enrique, D.O. 01/25/2020 I48.20 Chronic atrial fibrillation, unspecified Sopchak, Carlos Enrique, D.O. 01/22/2020 E11.65 Type 2 diabetes mellitus with hyperglycemia Sopchak, Carlos Enrique , D.O. 01/22/2020 Z79.01 [facility] (current) use of anticoagulants Sopchak, Carlos Enrique, D.O. 01/22/2020 I48.20 Chronic atrial fibrillation, unspecified Sopchak, Carlos Enrique, D.O. 01/22/2020 M10.9 Gout, unspecified Sopchak, Carlos Enrique, D.O. 01/22/2020 I10 Essential (primary) hypertension Sopchak, Carlos Enrique, D.O. 01/22/2020 M48.062 Spinal stenosis, lumbar region with Sopchak, Carlos Enrique, D.O. neurogenic claudication 01/22/2020 Z68.42 Body mass index (BMI) 45.0-49.9, adult Sopchak, Carlos Enrique, D.O. 01/19/2020 Z79.01 [facility] (current) use of anticoagulants Sopchak, Carlos Enrique, D.O. 01/19/2020 I48.20 Chronic atrial fibrillation, unspecified Sopchak, Carlos Enrique, D.O. 01/12/2020 Z79.01 [facility] (current) use of anticoagulants Sopchak, Carlos Enrique, D.O. 01/12/2020 I48.20 Chronic atrial fibrillation, unspecified Sopchak, Carlos Enrique, D.O. 01/04/2020 Z79.01 [facility] (current) use of anticoagulants Sopchak, Carlos Enrique, D.O. 01/04/2020 I48.20 Chronic atrial fibrillation, unspecified Sopchak, Carlos Enrique, D.O. 01/01/2020 Z79.01 termination clerk (current) use of anticoagulants Sopchak, Carlos Enrique, D.O. 01/01/2020 I48.20 Chronic atrial fibrillation, unspecified Sopchak, Carlos Enrique, D.O. 12/22/2019 E11.65 Type 2 diabetes mellitus with hyperglycemia Sopchak Carlos Enrique , D.O. 12/22/2019 M10.9 Gout, unspecified Sopchak, Carlos Enrique, D.O. 12/22/2019 Z79.01 termination clerk (current) use of anticoagulants Sopchak, Carlos Enrique, D.O. 12/22/2019 I10 Essential (primary) hypertension Sopchak, Carlos Enrique, D.O. 12/22/2019 M48.062 Spinal stenosis, lumbar region with Sopchak, Carlos Enrique, D.O. neurogenic claudication 12/22/2019 Z79.4 termination clerk (current) use of insulin DanielakTrinion, D.O. 12/22/2019 R19.7 Diarrhea, unspecified Sopchak, Carlos Enrique, D.O. 12/22/2019 Z68.42 Body mass index (BMI) 45.0-49.9, adult [place] Carlos Enrique, D.O. 12/21/2019 Z79.01 [facility] (current) use of anticoagulants Sopchak, Carlos Enrique, D.O. 12/21/2019 I48.20 Chronic atrial fibrillation, unspecified Sopchak, Carlos Enrique, D.O. 12/21/2019 I10 Essential (primary) hypertension Sophansak, Carlos Enrique, D.O. 12/08/2019 Z79.01 termination clerk (current) use of anticoagulants Sopchak, Carlos Enrique, D.O. 12/08/2019 I48.20 Chronic atrial fibrillation, unspecified Sopchak, Carlos Enrique, D.O. 11/30/2019 Z79.01 termination clerk (current) use of anticoagulants Sopchak, Carlos Enrique, D.O. 11/30/2019 I48.20 Chronic atrial fibrillation, unspecified Sopchak, Carlos Enrique, D.O. 11/23/2019 Z79.01 termination clerk (current) use of anticoagulants Sopchak, Carlos Enrique, D.O. 11/23/2019 I48.20 Chronic atrial fibrillation, unspecified Sopchak, Carlos Enrique, D.O. 11/19/2019 M10.9 Gout, unspecified Sopchak, Carlos Enrique, D.O. 11/19/2019 Z79.01 termination clerk (current) use of anticoagulants SopchakTrinion, D.O. 11/19/2019 I48.20 Chronic atrial fibrillation, unspecified SophansakTrinion, D.O. 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 11/19/2019 E11.65 Type 2 diabetes mellitus with hyperglycemia Carlos Enrique Torres , D.O. 11/19/2019 I10 Essential (primary) hypertension DanielakTrinion, D.O. 11/19/2019 M48.062 Spinal stenosis, lumbar region with SophansakCarlos Enrique D.O. neurogenic claudication 11/19/2019 G89.4 Chronic pain syndrome Carlos Enrique Torres, D.O. 11/19/2019 Z68.42 Body mass index (BMI) 45.0-49.9, adult Carlos Enrique Torres, D.O. 11/16/2019 Z79.01 [facility] (current) use of anticoagulants DanielakTrinion, D.O. 11/16/2019 I48.20 Chronic atrial fibrillation, unspecified Sopchak, Carlos Enrique, D.O. 11/08/2019 Z79.01 [facility] (current) use of anticoagulants DanielakTrinion, D.O. 11/08/2019 I48.20 Chronic atrial fibrillation, unspecified Sopchak, Carlos Enrique, D.O. 11/02/2019 Z79.01 termination clerk (current) use of anticoagulants DanielakTrinion, D.O. 11/02/2019 I48.20 Chronic atrial fibrillation, unspecified Sopchak, Carlos Enrique, D.O. 10/27/2019 I48.20 Chronic atrial fibrillation, unspecified Sopchak, Carlos Enrique, D.O. 10/27/2019 Z79.01 termination clerk (current) use of anticoagulants DiannachakTrinion, D.O. 10/27/2019 I48.20 Chronic atrial fibrillation, unspecified Sopchak, Carlos Enrique, D.O. 10/27/2019 Z79.01 [facility] (current) use of anticoagulants DiannachakTrinion, D.O. 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 10/15/2019 I48.20 Chronic atrial fibrillation, unspecified SophansakTrinion, D.O. 10/15/2019 Z79.01 [facility] (current) use of anticoagulants Carlos Enrique Torres D.O. 10/15/2019 E11.65 Type 2 diabetes mellitus with hyperglycemia Carlos Enrique Torres D.O. 10/15/2019 I10 Essential (primary) hypertension Carlos Enrique Torres D.O. 10/15/2019 M48.062 Spinal stenosis, lumbar region with Carlos Enrique Torres D.O. neurogenic claudication 09/29/2019 I48.20 Chronic atrial fibrillation, unspecified SopCarlos Enrique soto D.O. 09/29/2019 Z79.01 [facility] (current) use of anticoagulants Carlos Enrique Torres D.O. 09/21/2019 I48.20 Chronic atrial fibrillation, unspecified Carlos Enrique Torres D.O. 09/21/2019 Z79.01 [facility] (current) use of anticoagulants DanielakCarlos Enrique D.O. 09/14/2019 I48.20 Chronic atrial fibrillation, unspecified SophansakTrinion D.O. 09/14/2019 E11.65 Type 2 diabetes mellitus with hyperglycemia Carlos Enrique Torres D.O. 09/14/2019 N76.4 Abscess of vulva Carlos Enrique Torres D.O. 09/14/2019 Z79.01 termination clerk (current) use of anticoagulants Carlos Enrique Torres D.O. 09/14/2019 Z79.01 [facility] (current) use of anticoagulants DanielakTrinion D.O. 09/14/2019 Z23 Encounter for immunization Carlos Enrique Torres D.O. 09/07/2019 I48.20 Chronic atrial fibrillation, unspecified SophansakCarlos Enrique D.O. 09/07/2019 Z79.01 termination clerk (current) use of anticoagulants Carlos Enrique Torres D.O. 08/31/2019 I48.2 Chronic atrial fibrillation Carlos Enrique Torres D.O. 08/31/2019 Z79.01 [facility] (current) use of anticoagulants Carlos Enrique Torres D.O. 08/30/2019 I48.2 Chronic atrial fibrillation Carlos Enrique Torres D.O. 08/30/2019 Z79.01 [facility] (current) use of anticoagulants Carlos Enrique Torres D.O. 08/17/2019 Z79.01 [facility] (current) use of anticoagulants Carlos Enrique Torres D.O. 08/17/2019 I48.2 Chronic atrial fibrillation Carlos Enrique Torres D.O. 08/10/2019 Z79.01 termination clerk (current) use of anticoagulants Carlos Enrique Torres D.O. 08/10/2019 I48.2 Chronic atrial fibrillation Carlos Enrique Torres D.O. Plan of Treatment Future Appointment(s):03/24/2020 3:45 pm - Carlos Enrique Torres D.O. at [facility]01/28/2020 - Carlos Enrique Torres D.O.M25.562 Pain in left kneeR29.6 Repeated fallsFollow up:as efpwyxgviO46.81 History of nqpwtaaQ48.65 Type 2 diabetes mellitus with bekcgdeujoeexX91.01 [facility] (current) use of dfersuodgfwebuJ29 Essential (primary) vpgunwmtaxelP50.062 Spinal stenosis, lumbar region with neurogenic claudication Functional Status Description No Information Available Mental Status Description No Information Available Referrals Description No Information Available
--- OUTSIDE RECORDS SUMMARY | 2020-02-25 05:18 | XMS REPORT | Continuity of Care Document ---
:1940 External Reference #:[id number] Author Name Carlos Enrique Torres D.O. Address [address] [place] [address] Care Team Providers Name Role Phone Darrel Baez MD - Cardiovascular Care Team Information Valve Setter Disease Alfredo Wilhelm MD - Gastroenterology Care Team Information Valve Setter [phone] HCP/LW on file Care Team Information Valve Setter Unavailable Meli Powers MD - Surgery Care Team Information Valve Setter [phone] Corbin Spencer MD - Surgery Care Team Information Valve Setter [phone] Gregorio Merida MD - Surgery Care Team Information Valve Setter [phone] Don Morton MD - Orthopaedic Care Team Information Valve Setter Surgery of the Spine Problems Active Problems [...] Any Kind Denies Use Smoking Status Reviewed: 12/22/19 Tobacco Of Any Kind Denies Use ETOH [...] 2 by mouth every 90tabs Carlos Enrique Torres, 11/19/2019 100mg day D.O. Tablets Gabapentin take 1 capsule by 270caps M48.062 DiannaTrini sotoon, 06/06/2019 300mg mouth 3 times per D.O. Capsules day for neuropathic pain Pentips Pen Needle Use Up To 2 Per 100units DiannaCarlos Enrique soto, 03/31/2019 5mm Day as Directed D.O. Vitamin [...] Mix 70/30 Inject 15 [facility]2018 Breakfast. Max Of 65 Braxton Monaco (70-30)100Unit/ML Units Daily as Suspension Directed Alendronate Sodium Take With A Full 12tabs M81.0 Melissa, 01/30/2018 70mg Glass Of Water (6 To Ramses MonacoORenetta Tablets 8 Ounces; 180 To 240 ML) And Avoid Lying Down For AT Least 30 Minutes. Take Once Weekly On Saturday. BD Pen or appropriate 60units [facility], 01/14/2018 Needle/Mini/Ultrafine/31 needles for Basaglar Braxton Monaco G X 3/16" pen. use up to 2/day, 31G X 5 mm Misc as directed, for insulin administration Basaglhenrry Garcia inject 34units in the 45ml E11.65 Melissa, 12/26/2017 100Unit/ML morning Braxton Monaco Solution Pen-Inject Chair To Lift From Use as directed. M54.16 Melissa, 09/17/2017 Sitting Braxton Monaco M54.5 Insulin Syringe/0.5ML/30G use with novolog 200units Carlos Enrique Torres, 09/17 X 1/2" 70/30 as directed D.O. 30G X 1/2" 0.5 ML Misc daily Onetouch Ultra Blue Use To Test 1 To 4 200units Carlos Enrique Torres, 2015 Strips Times Daily as D.O. Directed Furosemide take one tablet by 90tabs Melissa Carlos Enrique, 03/20/2016 40mg Tablets mouth every day D.O. Freestyle Lite Test or appropriate 200units E11.65 Carlos Enrique Torres, 2015 Strips testing strips for D.O. patients device, test 1-4 times daily as directed Oxycodone HCL take 1-2 tablets 180tabs M25.551 Melissa Carlos Enrique, 10/04/2015 5mg Tablets by mouth every 8 D.O. hours as needed for pain (maximum daily dose = 6) Lisinopril Take One Tablet By 180tabs Melissa Carlos Enrique, 08/11/2015 20mg Tablets Mouth Twice A Day D.O. Jantoven Take 4 And 1/2 360tabs Z79.01 Melissa Carlos Enrique, 12/29/2014 1mg Tablets Tablets By Mouth D.O. AT Bedtime Or as Directed I48.2 Atorvastatin Calcium Take One Tablet By 90tabs E78.0 Trini Torreson, 08/18 80mg Mouth Every Day D.O. Tablets I25.10 BD Uf II Short .5cc use as directed 100units E11.65 Trini Torreson, 2013 31G D.O. Metoprolol Tartrate take one-half tablet 90tabs I10 Carlos Enrique Torres, 2012 by mouth twice a day D.O. 100mg Tablets for blood pressure Nitrostat 1 every 5min as 100tabs I25.10 John ARenetta 08/07/2011 0.4mg needed heart pain up [place] [...] injection, kenalog, 10 mg Carlos Enrique Torres D.O. 12/30/2018 Injection injection, kenalog, 10 mg John [...] CPT Code Status Date Vaccine Lot # 17477 Given 09/14/2019 Influenza Vaccine, Inactivated, Subunit, [id number] Adjuvanted, For Intrmus 52997 Given 10/30/2018 Influenza Vaccine, Inactivated, Subunit, [id number] Adjuvanted, For Intrmus 16118 Given 09/17/2017 Influenza Vaccine Split Virus Preservative Free [id number] Im Use (hi-dose) 52713 Given 07/27/2016 Influenza Virus Vaccine, Quadrivalent, Split, [id number] Preservative Free 94613 Given 07/28/2015 Influenza Virus Vaccine, Quadrivalent, Split, [id number] Preservative Free 81641 Given 04/08/2015 Adacel or Boostrix, TDaP [id number] 43179 Given 04/08/2015 Prevnar 13 [id number] 54426 Given 10/15/2013 Zostavax 15617 Given 09/04/2013 Flu, Split Virus 3Yrs 45620 Given 08/09/2012 Flu, Split Virus 3Yrs 00121 Given 08/10/2011 Flu, Split Virus 3Yrs [id number] 20438 Given 08/24/2010 Flu, Split Virus 3Yrs [id number] 94964 Given 12/13/2009 Flu, Split Virus 3Yrs [id number] 36951 Given 09/18/2008 Flu, Split Virus 3Yrs [id number] 02751 Given 10/02/2007 Pneumococcal Immunization [id number] 76072 Given 10/02/2007 Td Immunization [id number] 29367 Given 10/02/2007 Flu, Split Virus 3Yrs [id number] 36640 Given 09/20/2006 Flu, Split Virus 3Yrs 84598 Given 09/25/2005 Flu, Split Virus 3Yrs 97889 Given 12/18/2004 Flu, Split Virus 3Yrs Vital Signs Date Vital Result Comment 01/22/2020 3:59pm BP Systolic 136 mmHg BP Diastolic 80 mmHg Height 61 inches 5'1" Weight 243.00 lb BMI (Body Mass Index) 45.9 kg/m2 12/22/2019 4:14pm BP Systolic 132 mmHg BP Diastolic 84 mmHg Weight 241.50 lb Results Test Acquired Date Facility Test Result H/L Range Note Protime W/ 01/17/2020 [facility] 3[facility]5 Inr(Add Normalized V58.61) Protime W/ 01/10/2020 [facility] 2[facility]8 Inr(Add Normalized V58.61) Basic 01/08/2020 [facility] Sodium 142 mmol/L Normal 135-145 Metabolic [phone] Panel Potassium 4.4 mmol/L Normal 3.5-5.0 Chloride 105 mmol/L Normal 101-111 Co2 Carbon Dioxide 27 mmol/L Normal 22-32 Anion Gap 10 mmol/L Normal 2-11 Calcium 10.0 mg/dL Normal 8.6-10.3 Glucose 124 mg/dL High 70-100 Blood Urea Nitrogen 21 mg/dL Normal 6-24 Creatinine 1.26 mg/dL High 0.51-0.95 BUN/Creatinine Ratio 16.7 Normal 8-20 Egfr Non- 40.8 >60 Egfr 49.3 >60 1 Protime W/ 01/03/2020 [facility] 3.6 Inr(Add V58.61) Normalized Protime W/ 12/27/2019 [facility] 4.5 Inr(Add V58.61) Normalized Laboratory test 12/25/2019 [facility] Uric Acid 9.2 mg/dL High 2.3- 6. finding [phone] Erythrocyte Sed Rate 11 mm/Hr Normal 0-29 C Reactive Protein < 1.00 mg/L Normal <8.01 CBC Auto Diff 12/25/2019 [facility] White Blood 6.1 10^3/uL Normal 3.5-10.8 [phone] Count Red Blood Count 4.92 10^6/uL High [...] Cells % 0.0 Comp Metabolic Panel 12/25/2019 [facility] Sodium 141 mmol/L Normal 135-145 [phone] Potassium 3.8 mmol/L Normal 3.5-5.0 Chloride 102 [...] Egfr Non- 43.1 >60 Egfr 52.2 >60 2 Laboratory test 12/22/2019 In House Hemoglobin A1c 6.5 finding Protime W/ 12/20/2019 [facility] 2.8 Inr(Add V58.61) Normalized Protime W12/06/2019 [facility] 1.8 Inr(Add V58.61) Normalized Protime W/ 11/30/2019 [facility] 2.0 Inr(Add V58.61) Normalized Protime W/ 11/22/2019 [facility] 1.9 Inr(Add V58.61) Normalized Comp Metabolic 11/20/2019 [facility] Sodium 142 mmol/L Normal 135- 145 Panel [phone] Potassium 4.0 mmol/L Normal 3.5-5.0 Chloride 104 [...] Egfr Non- 46.2 >60 Egfr 55.9 >60 3 CBC Auto Diff 11/20/2019 [facility] White Blood 6.1 10^3/uL Normal 3.5-10.8 [phone] Count Red Blood Count 4.70 10^6/uL Normal [...] % Nucleated Red Blood Cells % 0.0 Laboratory test finding 11/20/2019 [facility] Uric Acid 10.8 mg/dL High 2.3-6.6 [phone] Erythrocyte Sed Rate 14 mm/Hr Normal 0-29 C Reactive Protein 6.11 mg/L Normal <8.01 Protime W/ Inr(Add 11/15/2019 [facility] [...] Normalized 1.9 V58.61) Protime W/ Inr(Add 08/31/2019 [facility] Normalized 1.9 V58.61) [phone] Inr 2.23 High 0.82-1.09 4 Protime W/ Inr(Add V58.61) 08/23/2019 [facility] Normalized 2.3 Protime W/ Inr(Add V58.61) 08/17/2019 [facility] Normalized 2.2 Protime W/ Inr(Add V58.61) 08/10/2019 [facility] Normalized 2.1 Protime W/ Inr(Add V58.61) 08/04/2019 [facility] Normalized 2.5 Protime W/ Inr(Add V58.61) 07/26/2019 [facility] Normalized 2.1 1 Because ethnic data is not always readily [...] 15-29 5 Kidney failure <15 (or dialysis) 2 Because ethnic data is not always readily [...] 15-29 5 Kidney failure <15 (or dialysis) 3 Because ethnic data is not always [...] 5 Kidney failure <15 (or dialysis) 4 Standard intensity warfarin therapeutic range: 2.0-3.0 High intensity warfarin therapeutic range: 2.5-3.5 Procedures Date Code Description Status 01/19/2020 42180 Anticoagulant MGMT For Patient Taking Warfarin, Inc Completed Review & Intr 01/12/2020 03894 Anticoagulant MGMT For Patient Taking Warfarin, Inc Completed Review & Intr 01/04/2020 99714 Anticoagulant MGMT For Patient Taking Warfarin, Inc Completed Review & Intr 01/01/2020 73109 Anticoagulant MGMT For Patient Taking Warfarin, Inc Completed Review & Intr 12/21/2019 98868 Anticoagulant MGMT For Patient Taking Warfarin, Inc Completed Review & Intr 12/10/2019 [id number] Diabetic Retinal Eye Exam Completed 12/08/2019 16919 Anticoagulant MGMT For Patient Taking Warfarin, Inc Completed Review & Intr 11/30/2019 79137 Anticoagulant MGMT For Patient Taking Warfarin, Inc Completed Review & Intr 11/23/2019 65279 Anticoagulant MGMT For Patient Taking Warfarin, Inc Completed Review & Intr 11/16/2019 92137 Anticoagulant MGMT For Patient Taking Warfarin, Inc Completed Review & Intr 11/02/2019 03270 Anticoagulant MGMT For Patient Taking Warfarin, Inc Completed Review & Intr 10/27/2019 30624 Anticoagulant MGMT For Patient Taking Warfarin, Inc Completed Review & Intr 10/27/2019 24641 Anticoagulant MGMT For Patient Taking Warfarin, Inc Completed Review & Intr 09/29/2019 43737 Anticoagulant MGMT For Patient Taking Warfarin, Inc Completed Review & Intr 09/21/2019 07819 Anticoagulant MGMT For Patient Taking Warfarin, Inc Completed Review & Intr 09/14/2019 56217 Anticoagulant MGMT For Patient Taking Warfarin, Inc Completed Review & Intr 09/07/2019 12238 Anticoagulant MGMT For Patient Taking Warfarin, Inc Completed Review & Intr 08/31/2019 61888 Anticoagulant MGMT For Patient Taking Warfarin, Inc Completed Review & Intr 08/30/2019 11750 Anticoagulant MGMT For Patient Taking Warfarin, Inc Completed Review & Intr 08/17/2019 79172 Anticoagulant MGMT For Patient Taking Warfarin, Inc Completed Review & Intr 08/10/2019 56274 Anticoagulant MGMT For Patient Taking Warfarin, Inc Completed Review & Intr 08/04/2019 25103 Anticoagulant MGMT For Patient Taking Warfarin, Inc Completed Review & Intr 07/27/2019 92917 Anticoagulant MGMT For Patient Taking Warfarin, Inc Completed Review & Intr 07/26/2019 75038 Anticoagulant MGMT For Patient Taking Warfarin, Inc Completed Review & Intr 03/16/2019 [id number] Diabetic Foot Exam Completed Medical Devices Description No Information Available Encounters Type Date Location Provider Dx Diagnosis Office Visit 01/22/2020 Main Office Carlos Enrique Torres, E11.65 Type 2 diabetes 4:00p D.O. 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 mellitus with hyperglycemia N76.4 Abscess of vulva Z79.01 shelter (current) use of anticoagulants Z23 Encounter for immunization Assessments Date Code Description Provider 01/22/2020 E11.65 Type 2 diabetes mellitus with hyperglycemia Sopchak, Carlos Enrique , D.O. 01/22/2020 Z79.01 shelter (current) use of anticoagulants Sopchak, Carlos Enrique, D.O. 01/22/2020 I48.20 Chronic atrial fibrillation, unspecified Sopchak, Carlos Enrique, D.O. 01/22/2020 M10.9 Gout, unspecified Sopchak, Carlos Enrique, D.O. 01/22/2020 I10 Essential (primary) hypertension Sopchak, Carlos Enrique, D.O. 01/22/2020 M48.062 Spinal stenosis, lumbar region with Sopchak, Carlos Enrique, D.O. neurogenic claudication 01/22/2020 Z68.42 Body mass index (BMI) 45.0-49.9, adult Sopchak, Carlos Enrique, D.O. 01/19/2020 Z79.01 shelter (current) use of anticoagulants Sopchak, Carlos Enrique, D.O. 01/19/2020 I48.20 Chronic atrial fibrillation, unspecified Sopchak, Carlos Enrique, D.O. 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 01/12/2020 I48.20 Chronic atrial fibrillation, unspecified Sopchak, Carlos Enrique, D.O. 01/04/2020 Z79.01 shelter (current) use of anticoagulants Sopchak, Carlos Enrique, D.O. 01/04/2020 I48.20 Chronic atrial fibrillation, unspecified Sopchak, Carlos Enrique, D.O. 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 01/01/2020 I48.20 Chronic atrial fibrillation, unspecified Sopchak, Carlos Enrique, D.O. 12/22/2019 E11.65 Type 2 diabetes mellitus with hyperglycemia Sopchak, Carlos Enrique , D.O. 12/22/2019 M10.9 Gout, unspecified Sopchak, Carlos Enrique, D.O. 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 12/22/2019 I10 Essential (primary) hypertension Carlos Enrique Torres D.O. 12/22/2019 M48.062 Spinal stenosis, lumbar region with Carlos Enrique Torres D.O. neurogenic claudication 12/22/2019 Z79.4 shelter (current) use of insulin Carlos Enrique Torres D.O. 12/22/2019 R19.7 Diarrhea, unspecified DanielakTrinion, D.O. 12/22/2019 Z68.42 Body mass index (BMI) 45.0-49.9, adult Carlos Enrique Torres D.O. 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 12/21/2019 I48.20 Chronic atrial fibrillation, unspecified SopTrini sotoon, D.O. 12/21/2019 I10 Essential (primary) hypertension Carlos Enrique Torres D.O. 12/08/2019 Z79.01 shelter (current) use of anticoagulants Carlos Enrique Torres D.O. 12/08/2019 I48.20 Chronic atrial fibrillation, unspecified Sopchak, Carlos Enrique, D.O. 11/30/2019 Z79.01 shelter (current) use of anticoagulants Carlos Enrique Torres D.O. 11/30/2019 I48.20 Chronic atrial fibrillation, unspecified SopchakTrinion, D.O. 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 11/23/2019 I48.20 Chronic atrial fibrillation, unspecified Sopchak, Carlos Enrique, D.O. 11/19/2019 M10.9 Gout, unspecified Sopchak Carlos Enrique, D.O. 11/19/2019 Z79.01 shelter (current) use of anticoagulants Trini Torreson D.O. 11/19/2019 I48.20 Chronic atrial fibrillation, unspecified Sopchak, Carlos Enrique, D.O. 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 11/19/2019 E11.65 Type 2 diabetes mellitus with hyperglycemia Carlos Enrique Torres D.O. 11/19/2019 I10 Essential (primary) hypertension Carlos Enrique Torres D.O. 11/19/2019 M48.062 Spinal stenosis, lumbar region with Carlos Enrique Torres D.O. neurogenic claudication 11/19/2019 G89.4 Chronic pain syndrome Carlos Enrique Torres D.O. 11/19/2019 Z68.42 Body mass index (BMI) 45.0-49.9, adult Carlos Enrique Torres D.O. 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 11/16/2019 I48.20 Chronic atrial fibrillation, unspecified DanielakTrinion D.O. 11/08/2019 Z79.01 shelter (current) use of anticoagulants Trini Torreson D.O. 11/08/2019 I48.20 Chronic atrial fibrillation, unspecified SophansakTrinion, D.O. 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 11/02/2019 I48.20 Chronic atrial fibrillation, unspecified SopchakTrinion, D.O. 10/27/2019 I48.20 Chronic atrial fibrillation, unspecified SopchakTrinion, D.O. 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 10/27/2019 I48.20 Chronic atrial fibrillation, unspecified SopchakTrinion, D.O. 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 10/15/2019 I48.20 Chronic atrial fibrillation, unspecified SopchakTrinion, D.O. 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 10/15/2019 E11.65 Type 2 diabetes mellitus with hyperglycemia Carlos Enrique Torres D.O. 10/15/2019 I10 Essential (primary) hypertension Carlos Enrique Torres D.O. 10/15/2019 M48.062 Spinal stenosis, lumbar region with Carlos Enrique Torres D.O. neurogenic claudication 09/29/2019 I48.20 Chronic atrial fibrillation, unspecified Carlos Enrique Torres D.O. 09/29/2019 Z79.01 shelter (current) use of anticoagulants Carlos Enrique Torres D.O. 09/21/2019 I48.20 Chronic atrial fibrillation, unspecified SophansakTrinion D.O. 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 09/14/2019 I48.20 Chronic atrial fibrillation, unspecified Carlos Enrique Torres D.O. 09/14/2019 E11.65 Type 2 diabetes mellitus with hyperglycemia Carlos Enrique Torres D.O. 09/14/2019 N76.4 Abscess of vulva Carlos Enrique Torres D.O. 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 09/14/2019 Z79.01 shelter (current) use of anticoagulants Carlos Enrique Torres D.O. 09/14/2019 Z23 Encounter for immunization Carlos Enrique Torres D.O. 09/07/2019 I48.20 Chronic atrial fibrillation, unspecified Carlos Enrique Torres D.O. 09/07/2019 Z79.01 shelter (current) use of anticoagulants Carlos Enrique Torres D.O. 08/31/2019 I48.2 Chronic atrial fibrillation Carlos Enrique Torres D.O. 08/31/2019 Z79.01 shelter (current) use of anticoagulants Carlos Enrique Torres D.O. 08/30/2019 I48.2 Chronic atrial fibrillation Carlos Enrique Torres D.O. 08/30/2019 Z79.01 shelter (current) use of anticoagulants Carlos Enrique Torres D.O. 08/17/2019 Z79.01 shelter (current) use of anticoagulants Carlos Enrique Torres D.O. 08/17/2019 I48.2 Chronic atrial fibrillation Carlos Enrique Torres D.O. 08/10/2019 Z79.01 shelter (current) use of anticoagulants Carlos Enrique Torres D.O. 08/10/2019 I48.2 Chronic atrial fibrillation Carlos Enrique Torres D.O. 08/04/2019 I48.2 Chronic atrial fibrillation Carlos Enrique Torres D.O. 07/27/2019 I48.2 Chronic atrial fibrillation Carlos Enrique Torres D.O. 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 07/26/2019 I48.2 Chronic atrial fibrillation Carlos Enrique Torres D.O. Plan of Treatment Future Appointment(s):03/24/2020 3:45 pm - Carlos Enrique Torres D.O. at Main [facility]01/22/2020 - Carlos Enrique Torres D.O.E11.65 Type 2 diabetes mellitus with hyperglycemiaFollow up:2 months recheck depression/insulin/goutZ79.01 shelter (current) use of xidioroyezmhveV21.20 Chronic atrial fibrillation, dblxdewmkwbT66.9 Gout, jeuxpwwsyjuI52 Essential (primary) rpykboupjaxbA07.062 Spinal stenosis, lumbar region with neurogenic ozappaimtxnvO90.42 Body mass index (BMI) 45.0-49.9, adult Functional Status Description No Information Available Mental Status Description No Information Available Referrals Description No Information Available
--- OUTSIDE RECORDS SUMMARY | 2020-02-25 05:18 | XMS REPORT ---
:1940 Author Organization [facility] Care Team Providers Name Role Phone Unavailable Unavailable Unavailable Problems Condition Condition Condition Status Onset Resolution Last Treating Comments Name Details Category Date Date Treatment Clinician Date Spinal Spinal Diagnosis Active Vicky stenosis, stenosis, 3-10 Wendela lumbar lumbar [id number] region with region with neurogenic neurogenic claudicatio claudicatio n n Allergies, Adverse Reactions, Alerts Allergy Allergy Status Severity Reaction(s) Onset Inactive Treating Comments Name Type Date Date Clinician flexeril Unknown Active Unknown Reaction 2018-05 Juliette Unknown -04 (Vidal) [place] [id number] morphine Unknown Active Unknown Reaction 2018-05 Juliette Unknown -04 (Vidal) [place] [id number] PCN Unknown Active Unknown Reaction 2018-05 Juliette Unknown -04 (Vidal) [place] [id number] Medications Ordered Filled Start Stop Current Ordering Indication Dosage Frequency Signature Comments Components Medication Medication Date Date Medication? Clinician (SIG) Name Name No Known No Known No None None None Medications Medications For This For This Patient Patient Procedures This patient has no known procedures. Results This patient has no known results.
--- OUTSIDE RECORDS SUMMARY | 2020-02-25 05:18 | XMS REPORT | Continuity of Care Document ---
:1940 External Reference #:[id number] Author Name Carlos Enrique Torres D.O. (transmitted by agent of provider Ingris Beckett) Address [address] [place] [address] Care Team Providers Name Role Phone Darrel Baez MD - Cardiovascular Care Team Information Sourcing Coordinator [phone] Disease Alfredo Wilhelm MD - Gastroenterology Care Team Information Sourcing Coordinator [phone] HCP/LW on file Care Team Information Sourcing Coordinator Unavailable Meli Powers MD - Surgery Care Team Information Sourcing Coordinator Corbin Spencer MD - Surgery Care Team Information Sourcing Coordinator [phone] Gregorio Merida MD - Surgery Care Team Information Sourcing Coordinator [phone] Don Morton MD - Orthopaedic Care Team Information Sourcing Coordinator [phone] [facility] Care Team Information Sourcing Coordinator Problems Active Problems Provider Date Coronary arteriosclerosis [...] Sodium Take With A Full 12tabs [facility].0 [facility] 70mg Glass Of Water (6 To Carlos Enrique D.O. Tablets 8 Ounces; 180 To 240 ML) And Avoid Lying Down For AT Least 30 Minutes. Take Once Weekly On Saturday. BD Pen or appropriate 60units [facility], 01/14/2018 Needle/Mini/Ultrafine/31 needles for Basaglar Sha Monaco.O. G X 3/16" pen. use up to 2/day, 31G X 5 mm Misc as directed, for insulin administration Basaglar Kwikpen inject 34units in the 45ml E11.65 [facility], 12/26/2017 100Unit/ML morning Sha Monaco.O. Solution Pen-Inject Chair To Lift From Use as directed. M54.16 [facility], 09/17/2017 Sitting Sha Monaco.O. Insulin use with novolog [facility]units [facility], 09/17/2017 Syringe/0.5ML/30G X 1/2" 70/30 as directed Braxton Monaco 30G daily X 1/2" 0.5 ML Misc Onetouch Ultra Blue Use To Test 1 To 4 200units [facility], 03/21/2016 Strips Times Daily as Braxton Monaco Directed Furosemide take one tablet by 90tabs [facility], 03/20/2016 40mg Tablets mouth every day Braxton Monaco Freestyle Lite Test or appropriate 200units E11.65 [facility], 03/15/2016 Strips testing strips for Braxton Monaco patients device, test 1-4 times daily as directed Oxycodone HCL take 1-2 tablets by 180tabs M25.55 [facility], 10/04/2015 5mg Tablets mouth every 8 hours 1 Carlos Enrique D.O. as needed for pain (maximum daily dose = 6) Lisinopril Take One Tablet By 180tabs [facility], 08/11/2015 20mg Tablets Mouth Twice A Day Shellie Monaco. Jantoven Take 4 And 1/2 360tabs Z79.01 [facility], 12/29/2014 1mg Tablets Tablets By Mouth AT [...] CPT Code Status Date Vaccine Lot # [id number] Given 09/14/2019 Influenza Vaccine, Inactivated, Subunit, [id number] Adjuvanted, For [facility] [address]24 Given 10/30/2018 Influenza Vaccine, Inactivated, Subunit, [id number] Adjuvanted, For [facility] 81659 Given 09/17/2017 Influenza Vaccine Split Virus Preservative Free [id number] Im Use (hi-dose) 16169 Given 07/27/2016 Influenza Virus Vaccine, Quadrivalent, Split, [id number] Preservative Free 33255 Given 07/28/2015 Influenza Virus Vaccine, Quadrivalent, Split, [id number] Preservative Free 84348 Given 04/08/2015 Adacel or Boostrix, TDaP [id number] 80648 Given 04/08/2015 Prevnar 13 [id number] 82796 Given 10/15/2013 Zostavax 16768 Given 09/04/2013 Flu, Split Virus 3Yrs 03934 Given 08/09/2012 Flu, Split Virus 3Yrs 69701 Given 08/10/2011 Flu, Split Virus 3Yrs [id number] 79354 Given 08/24/2010 Flu, Split Virus 3Yrs [id number] 35895 Given 12/13/2009 Flu, Split Virus 3Yrs [id number] 91500 Given 09/18/2008 Flu, Split Virus 3Yrs [id number] 50278 Given 10/02/2007 Pneumococcal Immunization [id number] 09083 Given 10/02/2007 Td Immunization [id number] 56564 Given 10/02/2007 Flu, Split Virus 3Yrs [id number] 00869 Given 09/20/2006 Flu, Split Virus 3Yrs 93904 Given 09/25/2005 Flu, Split Virus 3Yrs 10932 Given 12/18/2004 Flu, Split Virus 3Yrs Vital Signs Date Vital Result Comment 01/28/2020 3:26pm BP Systolic 132 mmHg BP Diastolic 82 mmHg 01/22/2020 3:59pm BP Systolic 136 mmHg BP Diastolic 80 mmHg Height 61 inches 5'1" Weight 243.00 lb BMI (Body Mass Index) 45.9 kg/m2 Results Test Acquired Date Facility Test Result H/L Range Note Protime W/ 02/07/2020 [facility] 3.9 Inr(Add V58.61) Normalized Protime W/ 02/02/2020 [facility] 3.1 Inr(Add V58.61) Normalized Urinalysis With 01/26/2020 [facility] Urine Color [place] Yellow 1 [facility] ow [phone] Urine Clarity Clear Clear Urine Glucose - Dipstick >1000 mg/dL Negative Urine Bilirubin - Dipstick NEGATIVE Negative Urine Ketone NEGATIVE mg/dL Negative Urine Specific [place] 1.011 Normal 1.010-1.030 Urine Blood TRACE Negative [...] 2.8 Inr(Add V58.61) Normalized Basic Metabolic 01/08/2020 [facility] Sodium 142 Normal 135-14 Panel [phone] mmol/L 5 Potassium 4.4 mmol/L Normal 3.5-5.0 [...] [facility] 4.5 Inr(Add V58.61) Normalized Comp Metabolic 12/25/2019 [facility] Sodium 141 Normal 135-14 Panel [phone] mmol/L 5 Potassium 3.8 mmol/L Normal 3.5-5.0 Chloride 102 [...] Non- 43.1 >60 Egfr 52.2 >60 4 CBC Auto Diff 12/25/2019 [facility] White Blood 6.1 10^3/uL Normal 3.5-10.8 [phone] Count Red Blood Count 4.92 10^6/uL High [...] Blood Cells % 0.0 Laboratory test finding 12/25/2019 [facility] Uric Acid 9.2 mg/dL High 2.3-6.6 [phone] Erythrocyte Sed Rate 11 mm/Hr Normal 0-29 C Reactive Protein < 1.00 mg/L Normal <8.01 Laboratory test 12/22/2019 In House Hemoglobin A1c 6.5 finding Protime W/ Inr(Add 12/20/2019 [facility] 2.8 V58.61) Normalized Protime W/ Inr(Add 12/06/2019 [facility] 1.8 V58.61) Normalized Protime W/ Inr(Add 11/30/2019 [facility] 2.0 V58.61) Normalized Protime W/ Inr(Add 11/22/2019 [facility] 1.9 V58.61) Normalized Laboratory test 11/20/2019 [facility] Uric Acid 10.8 mg/dL High 2.3- 6.6 finding [phone] Erythrocyte Sed Rate 14 mm/Hr Normal 0-29 C Reactive Protein 6.11 mg/L Normal <8.01 CBC Auto Diff 11/20/2019 [facility] White Blood 6.1 10^3/uL Normal 3.5-10.8 [phone] Count Red Blood Count 4.70 10^6/uL Normal [...] Cells % 0.0 Comp Metabolic Panel 11/20/2019 [facility] Sodium 142 mmol/L Normal 135-145 [phone] Potassium 4.0 mmol/L Normal 3.5-5.0 Chloride 104 [...] Normalized 1.9 V58.61) Protime W/ Inr(Add 08/31/2019 [facility] Normalized 1.9 V58.61) [phone] Inr 2.23 High 0.82-1.09 6 Protime W/ Inr(Add V58.61) 08/23/2019 [facility] Normalized 2.3 Protime W/ Inr(Add V58.61) 08/17/2019 [facility] Normalized 2.2 1 CANNOT STAND 2 URINE, CLEAN CATCH [...] range: 2.5-3.5 Procedures Date Code Description Status 02/08/2020 66925 Anticoagulant MGMT For Patient Taking Warfarin, Inc Completed Review & Intr 02/02/2020 08412 Anticoagulant MGMT For Patient Taking Warfarin, Inc Completed Review & Intr 01/25/2020 78889 Anticoagulant MGMT For Patient Taking Warfarin, Inc Completed Review & Intr 01/19/2020 72410 Anticoagulant MGMT For Patient Taking Warfarin, Inc Completed Review & Intr 01/12/2020 04620 Anticoagulant MGMT For Patient Taking Warfarin, Inc Completed Review & Intr 01/04/2020 23472 Anticoagulant MGMT For Patient Taking Warfarin, Inc Completed Review & Intr 01/01/2020 72975 Anticoagulant MGMT For Patient Taking Warfarin, Inc Completed Review & Intr 12/21/2019 87325 Anticoagulant MGMT For Patient Taking Warfarin, Inc Completed Review & Intr 12/10/2019 [id number] Diabetic Retinal Eye Exam Completed 12/08/2019 55734 Anticoagulant MGMT For Patient Taking Warfarin, Inc Completed Review & Intr 11/30/2019 35265 Anticoagulant MGMT For Patient Taking Warfarin, Inc Completed Review & Intr 11/23/2019 65401 Anticoagulant MGMT For Patient Taking Warfarin, Inc Completed Review & Intr 11/16/2019 86563 Anticoagulant MGMT For Patient Taking Warfarin, Inc Completed Review & Intr 11/02/2019 08063 Anticoagulant MGMT For Patient Taking Warfarin, Inc Completed Review & Intr 10/27/2019 70235 Anticoagulant MGMT For Patient Taking Warfarin, Inc Completed Review & Intr 10/27/2019 36551 Anticoagulant MGMT For Patient Taking Warfarin, Inc Completed Review & Intr 09/29/2019 63464 Anticoagulant MGMT For Patient Taking Warfarin, Inc Completed Review & Intr 09/21/2019 78789 Anticoagulant MGMT For Patient Taking Warfarin, Inc Completed Review & Intr 09/14/2019 25326 Anticoagulant MGMT For Patient Taking Warfarin, Inc Completed Review & Intr 09/07/2019 79469 Anticoagulant MGMT For Patient Taking Warfarin, Inc Completed Review & Intr 08/31/2019 74939 Anticoagulant MGMT For Patient Taking Warfarin, Inc Completed Review & Intr 08/30/2019 84089 Anticoagulant MGMT For Patient Taking Warfarin, Inc Completed Review & Intr 08/17/2019 18615 Anticoagulant MGMT For Patient Taking Warfarin, Inc Completed Review & Intr 03/16/2019 [id number] Diabetic Foot Exam Completed Medical Devices Description No Information Available Encounters Type Date Location Provider Dx Diagnosis Office Visit 01/28/2020 Main Office Carlos Enrique Torres, M25.562 Pain in left knee 3:00p D.O. 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 mellitus with hyperglycemia Z79.01 terminologist (current) use of anticoagulants I48.20 Chronic atrial fibrillation, unspecified M10.9 Gout, unspecified I10 Essential (primary) hypertension M48.062 Spinal stenosis, lumbar region with neurogenic claudication Z68.42 Body mass index (BMI) 45.0-49.9, adult Office Visit 12/22/2019 4:00p Main Office Carlos Enrique Torres, E11.65 Type 2 diabetes D.O. mellitus with hyperglycemia M10.9 Gout, unspecified Z79.01 terminologist (current) use of anticoagulants I10 Essential (primary) hypertension M48.062 Spinal stenosis, lumbar region with neurogenic claudication Z79.4 terminologist (current) use of insulin R19.7 Diarrhea, unspecified Z68.42 Body mass index (BMI) 45.0-49.9, adult Office Visit 11/19/2019 3:30p Main Office Carlos Enrique Torres, M10.9 Gout, unspecified D.O. 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 mellitus with hyperglycemia N76.4 Abscess of vulva Z79.01 care home (current) use of anticoagulants Z23 Encounter for immunization Assessments Date Code Description Provider 02/08/2020 Z79.01 care home (current) use of anticoagulants Carlos Enrique Torres D.O. 02/08/2020 I48.20 Chronic atrial fibrillation, unspecified Carlos Enrique Torres D.ORenetta 02/02/2020 Z79.01 care home (current) use of anticoagulants Carlos Enrique Torres D.O. 02/02/2020 I48.20 Chronic atrial fibrillation, unspecified Carlos Enrique Torres D.ORenetta 01/28/2020 M25.562 Pain in left knee Carlos Enrique Torres D.O. 01/28/2020 R29.6 Repeated falls Carlos Enrique Torres D.O. 01/28/2020 Z91.81 History of falling Carlos Enrique Torres D.ORenetta 01/28/2020 E11.65 Type 2 diabetes mellitus with hyperglycemia Sopchak, Carlos Enrique , D.O. 01/28/2020 Z79.01 terminologist (current) use of anticoagulants Sopchak, Carlos Enrique, D.O. 01/28/2020 I10 Essential (primary) hypertension Sopchak, Carlos Enrique, D.O. 01/28/2020 M48.062 Spinal stenosis, lumbar region with Sopchak, Carlos Enrique, D.O. neurogenic claudication 01/25/2020 Z79.01 care home (current) use of anticoagulants Sopchak, Carlos Enrique, D.O. 01/25/2020 I48.20 Chronic atrial fibrillation, unspecified Sopchak, Carlos Enrique, D.O. 01/22/2020 E11.65 Type 2 diabetes mellitus with hyperglycemia Sopchak, Carlos Enrique , D.O. 01/22/2020 Z79.01 care home (current) use of anticoagulants Sopchak, Carlos Enrique, D.O. 01/22/2020 I48.20 Chronic atrial fibrillation, unspecified Sopchak, Carlos Enrique, D.O. 01/22/2020 M10.9 Gout, unspecified Sopchak, Carlos Enrique, D.O. 01/22/2020 I10 Essential (primary) hypertension Sopchak, Carlos Enrique, D.O. 01/22/2020 M48.062 Spinal stenosis, lumbar region with Sopchak, Carlos Enrique, D.O. neurogenic claudication 01/22/2020 Z68.42 Body mass index (BMI) 45.0-49.9, adult Sopchak, Carlos Enrique, D.O. 01/19/2020 Z79.01 care home (current) use of anticoagulants Sopchak, Carlos Enrique, D.O. 01/19/2020 I48.20 Chronic atrial fibrillation, unspecified Sopchak, Carlos Enrique, D.O. 01/12/2020 Z79.01 care home (current) use of anticoagulants Sopchak, Carlos Enrique, D.O. 01/12/2020 I48.20 Chronic atrial fibrillation, unspecified Sopchak, Carlos Enrique, D.O. 01/04/2020 Z79.01 terminologist (current) use of anticoagulants Sopchak, Carlos Enrique, D.O. 01/04/2020 I48.20 Chronic atrial fibrillation, unspecified Sopchak Carlos Enrique, D.O. 01/01/2020 Z79.01 terminologist (current) use of anticoagulants Sopchak, Carlos Enrique, D.O. 01/01/2020 I48.20 Chronic atrial fibrillation, unspecified Sopchak, Carlos Enrique, D.O. 12/22/2019 E11.65 Type 2 diabetes mellitus with hyperglycemia Sopchak Carlos Enrique , D.O. 12/22/2019 M10.9 Gout, unspecified Sopchak, Carlos Enrique, D.O. 12/22/2019 Z79.01 care home (current) use of anticoagulants Sopchak, Carlos Enrique, D.O. 12/22/2019 I10 Essential (primary) hypertension DanielakTrinion, D.O. 12/22/2019 M48.062 Spinal stenosis, lumbar region with SopchakTrinion, D.O. neurogenic claudication 12/22/2019 Z79.4 care home (current) use of insulin Carlos Enrique Torres, D.O. 12/22/2019 R19.7 Diarrhea, unspecified Sopchak, Carlos Enrique, D.O. 12/22/2019 Z68.42 Body mass index (BMI) 45.0-49.9, adult DanielakTrinion, D.O. 12/21/2019 Z79.01 care home (current) use of anticoagulants Diannachak, Carlos Enrique, D.O. 12/21/2019 I48.20 Chronic atrial fibrillation, unspecified Sopchak, Carlos Enrique, D.O. 12/21/2019 I10 Essential (primary) hypertension DanielakTrinion, D.O. 12/08/2019 Z79.01 terminologist (current) use of anticoagulants Sopchak, Carlos Enrique, D.O. 12/08/2019 I48.20 Chronic atrial fibrillation, unspecified Sopchak, Carlos Enrique, D.O. 11/30/2019 Z79.01 terminologist (current) use of anticoagulants Sopchak, Carlos Enrique, D.O. 11/30/2019 I48.20 Chronic atrial fibrillation, unspecified Sopchak, Carlos Enrique, D.O. 11/23/2019 Z79.01 care home (current) use of anticoagulants Sopchak, Carlos Enrique, D.O. 11/23/2019 I48.20 Chronic atrial fibrillation, unspecified SopchakTrinion D.O. 11/19/2019 M10.9 Gout, unspecified SophansakTrinion, D.O. 11/19/2019 Z79.01 terminologist (current) use of anticoagulants Carlos Enrique Torres D.O. 11/19/2019 I48.20 Chronic atrial fibrillation, unspecified SophansakTrinion, D.O. 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 11/19/2019 E11.65 Type 2 diabetes mellitus with hyperglycemia Carlos Enrique Torres D.O. 11/19/2019 I10 Essential (primary) hypertension Carlos Enrique Torres D.O. 11/19/2019 M48.062 Spinal stenosis, lumbar region with Carlos Enrique Torres D.O. neurogenic claudication 11/19/2019 G89.4 Chronic pain syndrome Carlos Enrique Torres D.O. 11/19/2019 Z68.42 Body mass index (BMI) 45.0-49.9, adult Trini Torreson, D.O. 11/16/2019 Z79.01 care home (current) use of anticoagulants Carlos Enrique Torres D.O. 11/16/2019 I48.20 Chronic atrial fibrillation, unspecified SopchakTrinion D.O. 11/08/2019 Z79.01 terminologist (current) use of anticoagulants Carlos Enrique Torres D.O. 11/08/2019 I48.20 Chronic atrial fibrillation, unspecified Sopchak, Carlos Enrique, D.O. 11/02/2019 Z79.01 terminologist (current) use of anticoagulants DanielakTrinion D.O. 11/02/2019 I48.20 Chronic atrial fibrillation, unspecified SopchakTrinion, D.O. 10/27/2019 I48.20 Chronic atrial fibrillation, unspecified SopchakTrinion, D.O. 10/27/2019 Z79.01 care home (current) use of anticoagulants DanielakTrinion D.O. 10/27/2019 I48.20 Chronic atrial fibrillation, unspecified SopchakCarlos Enrique D.O. 10/27/2019 Z79.01 terminologist (current) use of anticoagulants Carlos Enrique Torres D.O. 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 10/15/2019 I48.20 Chronic atrial fibrillation, unspecified SophansakCarlos Enrique D.O. 10/15/2019 Z79.01 terminologist (current) use of anticoagulants Carlos Enrique Torres D.O. 10/15/2019 E11.65 Type 2 diabetes mellitus with hyperglycemia Carlos Enrique Torres D.O. 10/15/2019 I10 Essential (primary) hypertension Carlos Enrique Torres D.O. 10/15/2019 M48.062 Spinal stenosis, lumbar region with Carlos Enrique Torres D.O. neurogenic claudication 09/29/2019 I48.20 Chronic atrial fibrillation, unspecified Carlos Enrique Torres D.O. 09/29/2019 Z79.01 care home (current) use of anticoagulants Carlos Enrique Torres D.O. 09/21/2019 I48.20 Chronic atrial fibrillation, unspecified Trini Torreson D.O. 09/21/2019 Z79.01 terminologist (current) use of anticoagulants Carlos Enrique Torres D.O. 09/14/2019 I48.20 Chronic atrial fibrillation, unspecified SophansakCarlos Enrique D.O. 09/14/2019 E11.65 Type 2 diabetes mellitus with hyperglycemia Carlos Enrique Torres D.O. 09/14/2019 N76.4 Abscess of vulva Carlos Enrique Torres D.O. 09/14/2019 Z79.01 care home (current) use of anticoagulants Carlos Enrique Torres D.O. 09/14/2019 Z79.01 care home (current) use of anticoagulants Carlos Enrique Torres D.O. 09/14/2019 Z23 Encounter for immunization Carlos Enrique Torres D.O. 09/07/2019 I48.20 Chronic atrial fibrillation, unspecified Carlos Enrique Torres D.O. 09/07/2019 Z79.01 care home (current) use of anticoagulants Carlos Enrique Torres D.O. 08/31/2019 I48.2 Chronic atrial fibrillation Carlos Enrique Torres D.O. 08/31/2019 Z79.01 terminologist (current) use of anticoagulants Carlos Enrique Torres D.O. 08/30/2019 I48.2 Chronic atrial fibrillation Carlos Enrique Torres D.O. 08/30/2019 Z79.01 terminologist (current) use of anticoagulants Carlos Enrique Torres D.O. 08/17/2019 Z79.01 care home (current) use of anticoagulants Carlos Enrique Torres D.O. 08/17/2019 I48.2 Chronic atrial fibrillation Carlos Enrique Torres D.O. Plan of Treatment Future Appointment(s):03/24/2020 3:45 pm - Carlos Enrique Torres D.O. at Main [facility]/28/2020 - Carlos Enrique Torres D.O.M25.562 Pain in left kneeR29.6 Repeated fallsFollow up:as rqcrnwgifK62.81 History of pudrqvuM70.65 Type 2 diabetes mellitus with zxvhpcfunbbeqO65.01 care home (current) use of mtxsedmjdddpnoU03 Essential (primary) ajlhbciachldD77.062 Spinal stenosis, lumbar region with neurogenic claudication Functional Status Description No Information Available Mental Status Description No Information Available Referrals Description No Information Available
--- OUTSIDE RECORDS SUMMARY | 2020-02-25 05:18 | XMS REPORT ---
:1940 Author Organization [facility] Care Team Providers Name Role Phone Unavailable Unavailable Unavailable Problems Condition Condition Condition Status Onset Resolution Last Treating Comments Name Details Category Date Date Treatment Clinician Date Spinal Spinal Diagnosis Active Vicky stenosis, stenosis, 3-10 Wendela lumbar lumbar [id number] region with region with neurogenic neurogenic claudicatio claudicatio n n Allergies, Adverse Reactions, Alerts Allergy Allergy Status Severity Reaction(s) Onset Inactive Treating Comments Name Type Date Date Clinician flexeril Unknown Active Unknown Reaction 2018-05 Juliette Unknown -04 (Vidal) [place] [id number] morphine Unknown Active Unknown Reaction 2018-05 Juliette Unknown -04 (Vidal) [place] [id number] PCN Unknown Active Unknown Reaction 2018-05 Juliette Unknown -04 (Vidal) [place] [id number] Medications Ordered Filled Start Stop Current Ordering Indication Dosage Frequency Signature Comments Components Medication Medication Date Date Medication? Clinician (SIG) Name Name No Known No Known No None None None Medications Medications For This For This Patient Patient Procedures This patient has no known procedures. Results This patient has no known results.
--- OUTSIDE RECORDS SUMMARY | 2020-02-25 05:18 | XMS REPORT ---
:1940 Author Organization [facility] Care Team Providers Name Role Phone Unavailable Unavailable Unavailable Problems Condition Condition Condition Status Onset Resolution Last Treating Comments Name Details Category Date Date Treatment Clinician Date Spinal Spinal Diagnosis Active Vicky stenosis, stenosis, 3-10 Wendela lumbar lumbar [id number] region with region with neurogenic neurogenic claudicatio claudicatio n n Allergies, Adverse Reactions, Alerts Allergy Allergy Status Severity Reaction(s) Onset Inactive Treating Comments Name Type Date Date Clinician flexeril Unknown Active Unknown Reaction 2018-05 Juliette Unknown -04 (Vidal) [place] [id number] morphine Unknown Active Unknown Reaction 2018-05 Juliette Unknown -04 (Vidal) [place] [id number] PCN Unknown Active Unknown Reaction 2018-05 Juliette Unknown -04 (Vidal) [place] [id number] Medications Ordered Filled Start Stop Current Ordering Indication Dosage Frequency Signature Comments Components Medication Medication Date Date Medication? Clinician (SIG) Name Name No Known No Known No None None None Medications Medications For This For This Patient Patient Procedures This patient has no known procedures. Results This patient has no known results.
--- OUTSIDE RECORDS SUMMARY | 2020-02-25 05:18 | XMS REPORT | Continuity of Care Document ---
:1940 External Reference #:[id number] Author Name Carlos Enrique Torres D.O. Address [address] [place] [id number] Care Team Providers Name Role Phone Darrel Baez MD - Cardiovascular Care Team Information Die Engraver [phone] Disease Alfredo Wilhelm MD - Gastroenterology Care Team Information Die Engraver [phone] HCP/LW on file Care Team Information Die Engraver Unavailable Meli Powers MD - Surgery Care Team Information Die Engraver [phone] Corbin Spencer MD - Surgery Care Team Information Die Engraver Gregorio Merida MD - Surgery Care Team Information Die Engraver [phone] Don Morton MD - Orthopaedic Care Team Information Die Engraver Surgery of the Spine Problems Active Problems [...] Medications SIG Qnty Indications Ordering Date Provider Escitalopram Oxalate 1 by mouth every 30tabs Carlos Enrique Torres, 11/19/2019 day D.O. 5mg [...] 60units Melissa, 05/05/2018 Breakfast. Max Of 65 Braxton Monaco (70-30)100Unit/ML Units Daily as Suspension Directed Alendronate Sodium Take With A Full 12tabs M81.0 Melissa, 01/30/2018 70mg Glass Of Water (6 To Ramses MonacoORenetta Tablets 8 Ounces; 180 To 240 ML) And Avoid Lying Down For AT Least 30 Minutes. Take Once Weekly On Saturday. BD [facility] or appropriate [facility] Needle/Mini/Ultrafine/31 needles for Basaglar Braxton Monaco G X 3/16" pen. use up to 2/day, 31G X 5 mm Misc as directed, for insulin administration Basaglhenrry Garcia inject 34units in the 45ml E11.65 [facility], 12/26/2017 100Unit/ML morning Braxton Monaco Solution Pen-Inject Insulin use with novolog 200units [facility] 09/17/2017 Syringe/0.5ML/30G X 1/2" 70/30 as directed Braxton Monaco 30G daily X 1/2" 0.5 ML Misc Chair To Lift From Use as directed. M54.16 [facility], 09/17/2017 Sitting Braxton Monaco M54.5 Onetouch Ultra Blue Use To Test 1 To 4 200units Carlos Enrique Torres, 2015 Times Daily as D.O. Strips Directed Furosemide take one tablet by 90tabs Melissa Carlos Enrique, 03/20/2016 40mg mouth every day D.O. Tablets Freestyle Lite Test or appropriate 200units E11.65 Diannacharles Carlos Enrique, 2015 testing strips for D.O. Strips patients device, test 1-4 times daily as directed Oxycodone HCL take 1-2 tablets by 180tabs M25.551 Melissa Carlos Enrique, 2014 5mg mouth every 8 hours D.O. Tablets as needed for pain (maximum daily dose = 6) Lisinopril Take One Tablet By 180tabs Trini Torreson, 08/11/2015 20mg Mouth Twice A Day D.O. Tablets Jantoven Take 4 And 1/2 360tabs Z79.01 Melissa Carlos Enrique, 12/29/2014 1mg Tablets Tablets By Mouth AT D.O. Bedtime Or as Directed I48.2 Atorvastatin Calcium [...] labial D.O. 09/24/2019 infection. 800-160mg Tablets N76.4 Mephyton 1 tab once then 5tabs Carlos Enrique Torres, 07/20/2019 - 5mg Tablets as directed. D.O. 07/20/2019 Phytonadione 1 daily or as 3tabs Z79.01 Carlos Enrique Torres, 07/20/2019 - 5mg directed D.O. 07/27/2019 Tablets Fluconazole 2 tabs day one, 8tabs N76.0 Mehrdad Moore, 07/07/2019 - 100mg then 1 tab days M.D. 11/18/2019 Tablets 2-6 Medications Administered in Office Medication SIG Qnty [...] CPT Code Status Date Vaccine Lot # 43619 Given 09/14/2019 Influenza Vaccine, Inactivated, Subunit, [id number] Adjuvanted, For Intrmusc 09305 Given 10/30/2018 Influenza Vaccine, Inactivated, Subunit, [id number] Adjuvanted, For Intrmusc 64588 Given 09/17/2017 Influenza Vaccine Split Virus Preservative Free [id number] Im Use (hi-dose) 79586 Given 07/27/2016 Influenza Virus Vaccine, Quadrivalent, Split, [id number] Preservative Free 06725 Given 07/28/2015 Influenza Virus Vaccine, Quadrivalent, Split, [id number] Preservative Free 03089 Given 04/08/2015 Adacel or Boostrix, TDaP [id number] 32505 Given 04/08/2015 Prevnar 13 [id number] 73098 Given 10/15/2013 Zostavax 55907 Given 09/04/2013 Flu, Split Virus 3Yrs 57103 Given 08/09/2012 Flu, Split Virus 3Yrs 23341 Given 08/10/2011 Flu, Split Virus 3Yrs [id number] 76492 Given 08/24/2010 Flu, Split Virus 3Yrs [id number] 13349 Given 12/13/2009 Flu, Split Virus 3Yrs [id number] 39420 Given 09/18/2008 Flu, Split Virus 3Yrs [id number] 00581 Given 10/02/2007 Pneumococcal Immunization [id number] 90277 Given 10/02/2007 Td Immunization [id number] 93882 Given 10/02/2007 Flu, Split Virus 3Yrs [id number] 89453 Given 09/20/2006 Flu, Split Virus 3Yrs 55094 Given 09/25/2005 Flu, Split Virus 3Yrs 73541 Given 12/18/2004 Flu, Split Virus 3Yrs Vital Signs Date Vital Result Comment 12/22/2019 4:14pm BP Systolic 132 mmHg BP Diastolic 84 mmHg Weight 241.50 lb 11/19/2019 3:27pm BP Systolic 134 mmHg BP Diastolic 80 mmHg Height 60.50 inches 5'0.50" Weight 249.00 lb BMI (Body Mass Index) 47.8 kg/m2 Results Test Acquired Date Facility Test Result H/L Range Note Laboratory test 12/25/2019 [facility] Uric Acid 9.2 mg/dL High 2.3- 6.6 finding [phone] Erythrocyte Sed Rate 11 mm/Hr Normal 0-29 C Reactive Protein < 1.00 mg/L Normal <8.01 CBC Auto Diff 12/25/2019 [facility] White Blood 6.1 10^3/uL Normal 3.5-10.8 [phone] Count Red Blood Count 4.92 10^6/uL High [...] Cells % 0.0 Comp Metabolic Panel 12/25/2019 [facility] Sodium 141 mmol/L Normal 135-145 [phone] Potassium 3.8 mmol/L Normal 3.5-5.0 Chloride 102 [...] Egfr Non- 43.1 >60 Egfr 52.2 >60 1 Laboratory test 12/22/2019 In House Hemoglobin A1c 6.5 finding Protime W/ 12/20/2019 [facility]International 2.8 Inr(Add V58.61) Normalized Protime W/ 12/06/2019 [facility] #International 1.8 Inr(Add V58.61) Normalized Protime W/ 11/30/2019 [facility] #International 2.0 Inr(Add V58.61) Normalized Protime W/ 11/22/2019 [facility] #International 1.9 Inr(Add V58.61) Normalized CBC Auto Diff 11/20/2019 [facility] White Blood Count 6.1 Normal 3.5- 10. [phone] 10^3/uL 8 Red Blood Count 4.70 10^6/uL Normal 3.70-4.87 [...] Cells % 0.0 Comp Metabolic Panel 11/20/2019 [facility] Sodium 142 mmol/L Normal 135-145 [phone] Potassium 4.0 mmol/L Normal 3.5-5.0 Chloride 104 [...] Egfr Non- 46.2 >60 Egfr 55.9 >60 2 Laboratory test finding 11/20/2019 [facility] Uric Acid 10.8 mg/dL High 2.3-6.6 [phone] Erythrocyte Sed Rate 14 mm/Hr Normal 0-29 [...] Normalized 1.9 V58.61) Protime W/ Inr(Add 08/31/2019 [facility] #International Normalized 1.9 V58.61) [phone] Inr 2.23 High 0.82-1.09 3 Protime W/ Inr(Add 08/23/2019 [facility] #International Normalized 2.3 V58.61) Protime W/ Inr(Add 08/17/2019 [facility] #International Normalized 2.2 V58.61) Protime W/ Inr(Add 08/10/2019 [facility] #International Normalized 2.1 V58.61) Protime W/ Inr(Add 08/04/2019 [facility] #International Normalized 2.5 V58.61) Protime W/ Inr(Add 07/26/2019 [facility] #International Normalized 2.1 V58.61) Protime W/ Inr(Add 07/22/2019 [facility] #Prothrombin Time <pending> V58.61) #International Normalized 3.0 Inr/Protime 07/21/2019 [facility] Inr 7.11 Critical high 0.82-1.09 4 [phone] Protime W/ 07/20/2019 [facility] #Prothrom <pending> Inr(Add V58.61) bin Time #International Normalized >10 Inr/Protime 07/20/2019 [facility] Inr >10.00 Critical high 0.82-1.09 5 [phone] Ua Inhouse 07/07/2019 In House Ua Glucose - 6 Ua Bilirubin - Ua Ketones - Ua Specific [place] 1.010 Ua Blood - Ua PH 6.0 Ua Protein 2+ Ua Urobilinogen - Ua Nitrite - Ua Leukocytes - Laboratory test 07/07/2019 [facility] Culture Genital & SEE RESULT 7 finding [phone] Sensitivity BELOW Protime W/ Inr(Add 07/05/2019 In House #International 1.7 V58.61) Normalized 1 Because ethnic data is not always [...] 5 Kidney failure <15 (or dialysis) 3 Standard intensity warfarin therapeutic range: 2.0-3.0 High intensity warfarin therapeutic range: 2.5-3.5 4 Verbal to WALTER Serrano LPN by [id number] at 1450 on 07/21/19. Results read back accurately. Standard intensity warfarin therapeutic range: 2.0-3.0 High intensity warfarin therapeutic range: 2.5-3.5 5 Verbal to Ivy at Dr Torres's office by [id number] at 1341 on 07/20/19. Results read back accurately. Standard intensity warfarin therapeutic range: 2.0-3.0 High intensity warfarin therapeutic range: 2.5-3.5 6 void, hazy, yellow 7 SEE RESULT BELOW Name: ARLINE PATEL : [address]: Desi HUIZAR Acct: [id number] Unit: [id number] AGE: 79 Location: [facility] Re07/07/19 SEX: F Status: REG REF SPEC: [id number] GRISELDA: 07/07/19-[address]: Desi HUIZAR REQ: [id number] RECD: 07/07/19952 STATUS: COMP _ SOURCE: VAGINAL SPDESC: ORDERED: Genital Culture, Fungal - Other COMMENTS: [id number] GENITAL CULTURE ADDED 07/07/19 PER [facility]/OFFICE TO [id number] Procedure Result Reported Site Genital Culture Final 07/09/19- 1244 ML Organism 1 STREP GROUP B Quantity 1+ Organism 2 NORMAL TRISH Quantity 3+ Routine genital cultures do not include selective agar for Neisseria gonorrhoeae. Molecular testing offers better test sensitivity and therefore is the preferred test methodology for identifying this organism. Susceptibility testing of penicillins and other B-lactamS approved by FDA for treatment of Streptococcus pyogenes (Group A Strep) and Streptococcus agalactiae (Group B Strep) is not necessary for clinical purposes and need not be done routinely, since as with vancomycin, resistant strains have not been recognized. (CLSI U314-W88;p.66) Positive isolates will be saved for one week. Please call the Microbiology Laboratory if further susceptibility testing is needed. Fungal Cult - Other Sources Final 08/04/19- 1335 ML Fungal Culture No Growth of Mycotic Organisms 4 weeks * ML - Main Lab . END OF REPORT DEPARTMENT OF PATHOLOGY, [address] [place] [address] Iglesia Tidwell M.D. Director [facility] # [id number] Procedures Date Code Description Status 12/21/2019 30303 Anticoagulant MGMT For Patient Taking Warfarin, Inc Completed Review & Intr 12/10/2019 036825170 Diabetic Retinal Eye Exam Completed 12/08/2019 14450 Anticoagulant MGMT For Patient Taking Warfarin, Inc Completed Review & Intr 11/30/2019 24085 Anticoagulant MGMT For Patient Taking Warfarin, Inc Completed Review & Intr 11/23/2019 35183 Anticoagulant MGMT For Patient Taking Warfarin, Inc Completed Review & Intr 11/16/2019 38807 Anticoagulant MGMT For Patient Taking Warfarin, Inc Completed Review & Intr 11/02/2019 69882 Anticoagulant MGMT For Patient Taking Warfarin, Inc Completed Review & Intr 10/27/2019 48137 Anticoagulant MGMT For Patient Taking Warfarin, Inc Completed Review & Intr 10/27/2019 76995 Anticoagulant MGMT For Patient Taking Warfarin, Inc Completed Review & Intr 09/29/2019 34284 Anticoagulant MGMT For Patient Taking Warfarin, Inc Completed Review & Intr 09/21/2019 91878 Anticoagulant MGMT For Patient Taking Warfarin, Inc Completed Review & Intr 09/14/2019 94621 Anticoagulant MGMT For Patient Taking Warfarin, Inc Completed Review & Intr 09/07/2019 51754 Anticoagulant MGMT For Patient Taking Warfarin, Inc Completed Review & Intr 08/31/2019 64778 Anticoagulant MGMT For Patient Taking Warfarin, Inc Completed Review & Intr 08/30/2019 69129 Anticoagulant MGMT For Patient Taking Warfarin, Inc Completed Review & Intr 08/17/2019 14545 Anticoagulant MGMT For Patient Taking Warfarin, Inc Completed Review & Intr 08/10/2019 42225 Anticoagulant MGMT For Patient Taking Warfarin, Inc Completed Review & Intr 08/04/2019 66377 Anticoagulant MGMT For Patient Taking Warfarin, Inc Completed Review & Intr 07/27/2019 51303 Anticoagulant MGMT For Patient Taking Warfarin, Inc Completed Review & Intr 07/26/2019 89567 Anticoagulant MGMT For Patient Taking Warfarin, Inc Completed Review & Intr 07/22/2019 44818 Anticoagulant MGMT For Patient Taking Warfarin, Inc Completed Review & Intr 07/20/2019 88467 Anticoagulant MGMT For Patient Taking Warfarin, Inc Completed Review & Intr 07/06/2019 12500 Anticoagulant MGMT For Patient Taking Warfarin, Inc Completed Review & Intr 03/16/2019 [id number] Diabetic Foot Exam Completed Medical Devices Description No Information Available Encounters Type Date Location Provider Dx Diagnosis Office Visit 12/22/2019 Main Office Carlos Enrique Torres, E11.65 Type 2 diabetes 4:00p D.O. 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 mellitus with hyperglycemia N76.4 Abscess of vulva Z79.01 moth exterminator (current) use of anticoagulants Z23 Encounter for immunization Office Visit 07/07/2019 8:40a Main Office Risa Escalona N76.0 Acute vaginitis I10 Essential (primary) hypertension I48.2 Chronic atrial fibrillation E11.65 Type 2 diabetes mellitus with hyperglycemia M79.604 Pain in right leg R80.9 Proteinuria, unspecified Assessments Date Code Description Provider 12/22/2019 E11.65 Type 2 diabetes mellitus with hyperglycemia Carlos Enrique Torres D.O. 12/22/2019 M10.9 Gout, unspecified Carlos Enrique Torres D.O. 12/22/2019 Z79.01 penitentiary (current) use of anticoagulants Carlos Enrique Torres D.O. 12/22/2019 I10 Essential (primary) hypertension Carlos Enrique Torres D.O. 12/22/2019 M48.062 Spinal stenosis, lumbar region with Carlos Enrique Torres D.O. neurogenic claudication 12/22/2019 Z79.4 moth exterminator (current) use of insulin Carlos Enrique Torres D.O. 12/22/2019 R19.7 Diarrhea, unspecified Sopchak, Carlos Enrique, D.O. 12/22/2019 Z68.42 Body mass index (BMI) 45.0-49.9, adult SophansakTrinion, D.O. 12/21/2019 Z79.01 moth exterminator (current) use of anticoagulants Sopchak, Carlos Enrique, D.O. 12/21/2019 I48.20 Chronic atrial fibrillation, unspecified Sopchak, Carlos Enrique, D.O. 12/21/2019 I10 Essential (primary) hypertension Sophansak Carlos Enrique, D.O. 12/08/2019 Z79.01 penitentiary (current) use of anticoagulants DiannachakTrinion, D.O. 12/08/2019 I48.20 Chronic atrial fibrillation, unspecified Sopchak, Carlos Enrique, D.O. 11/30/2019 Z79.01 penitentiary (current) use of anticoagulants DanielakTrinion, D.O. 11/30/2019 I48.20 Chronic atrial fibrillation, unspecified Sopchak, Carlos Enrique, D.O. 11/23/2019 Z79.01 penitentiary (current) use of anticoagulants DiannachakTrinion, D.O. 11/23/2019 I48.20 Chronic atrial fibrillation, unspecified Sopchak, Carlos Enrique, D.O. 11/19/2019 M10.9 Gout, unspecified Sopchak, Carlos Enrique, D.O. 11/19/2019 Z79.01 penitentiary (current) use of anticoagulants Diannachak, Carlos Enrique, D.O. 11/19/2019 I48.20 Chronic atrial fibrillation, unspecified Sopchak, Carlos Enrique, D.O. 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 11/19/2019 E11.65 Type 2 diabetes mellitus with hyperglycemia Trini Torreson , D.O. 11/19/2019 I10 Essential (primary) hypertension DanielakTrinion, D.O. 11/19/2019 M48.062 Spinal stenosis, lumbar region with SophansakTrinion, D.O. neurogenic claudication 11/19/2019 G89.4 Chronic pain syndrome Carlos Enrique Torres D.O. 11/19/2019 Z68.42 Body mass index (BMI) 45.0-49.9, adult Carlos Enrique Torres D.O. 11/16/2019 Z79.01 moth exterminator (current) use of anticoagulants Carlos Enrique Torres D.O. 11/16/2019 I48.20 Chronic atrial fibrillation, unspecified Carlos Enrique Torres D.O. 11/08/2019 Z79.01 penitentiary (current) use of anticoagulants Carlos Enrique Torres D.O. 11/08/2019 I48.20 Chronic atrial fibrillation, unspecified SopchakTrinion D.O. 11/02/2019 Z79.01 moth exterminator (current) use of anticoagulants Carlos Enrique Torres D.O. 11/02/2019 I48.20 Chronic atrial fibrillation, unspecified DanielakCarlos Enrique D.O. 10/27/2019 I48.20 Chronic atrial fibrillation, unspecified Carlos Enrique Torres D.O. 10/27/2019 Z79.01 moth exterminator (current) use of anticoagulants Carlos Enrique Torres D.O. 10/27/2019 I48.20 Chronic atrial fibrillation, unspecified SophansakTrinion D.O. 10/27/2019 Z79.01 moth exterminator (current) use of anticoagulants Carlos Enrique Torres D.O. 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 10/15/2019 I48.20 Chronic atrial fibrillation, unspecified Carlos Enrique Torres D.O. 10/15/2019 Z79.01 penitentiary (current) use of anticoagulants Carlos Enrique Torres D.O. 10/15/2019 E11.65 Type 2 diabetes mellitus with hyperglycemia Carlos Enrique Torres D.O. 10/15/2019 I10 Essential (primary) hypertension Carlos Enrique Torres D.O. 10/15/2019 M48.062 Spinal stenosis, lumbar region with Carlos Enrique Torres D.O. neurogenic claudication 09/29/2019 I48.20 Chronic atrial fibrillation, unspecified Carlos Enrique Torres D.O. 09/29/2019 Z79.01 moth exterminator (current) use of anticoagulants SopchakTrinion D.O. 09/21/2019 I48.20 Chronic atrial fibrillation, unspecified SophansakTrinion D.O. 09/21/2019 Z79.01 penitentiary (current) use of anticoagulants Trini Torreson D.O. 09/14/2019 I48.20 Chronic atrial fibrillation, unspecified SopTrini sotoon D.O. 09/14/2019 E11.65 Type 2 diabetes mellitus with hyperglycemia Carlos Enrique Torres D.O. 09/14/2019 N76.4 Abscess of vulva Carlos Enrique Torres D.O. 09/14/2019 Z79.01 moth exterminator (current) use of anticoagulants Carlos Enrique Torres D.O. 09/14/2019 Z79.01 penitentiary (current) use of anticoagulants Carlos Enrique Torres D.O. 09/14/2019 Z23 Encounter for immunization Carlos Enrique Torres D.O. 09/07/2019 I48.20 Chronic atrial fibrillation, unspecified SophansakTrinion D.O. 09/07/2019 Z79.01 penitentiary (current) use of anticoagulants Carlos Enrique Torres D.O. 08/31/2019 I48.2 Chronic atrial fibrillation Trini Torreson D.O. 08/31/2019 Z79.01 penitentiary (current) use of anticoagulants Carlos Enrique Torres D.O. 08/30/2019 I48.2 Chronic atrial fibrillation SophansakTrinion D.O. 08/30/2019 Z79.01 moth exterminator (current) use of anticoagulants DanielakTrinion D.O. 08/17/2019 Z79.01 moth exterminator (current) use of anticoagulants DanielakTrinion D.O. 08/17/2019 I48.2 Chronic atrial fibrillation SophansakTrinion D.O. 08/10/2019 Z79.01 moth exterminator (current) use of anticoagulants Trini Torreson D.O. 08/10/2019 I48.2 Chronic atrial fibrillation SophansakTrinion D.O. 08/04/2019 I48.2 Chronic atrial fibrillation Sopchak, Carlos Enrique, D.O. 07/27/2019 I48.2 Chronic atrial fibrillation Carlos Enrique Torres D.O. 07/27/2019 Z79.01 penitentiary (current) use of anticoagulants Carlos Enrique Torres D.O. 07/26/2019 I48.2 Chronic atrial fibrillation Carlos Enrique Torres D.ORenetta 07/22/2019 Z79.01 penitentiary (current) use of anticoagulants Carlos Enrique Torres D.O. 07/22/2019 I48.2 Chronic atrial fibrillation Carlos Enrique Torres D.O. 07/20/2019 Z79.01 moth exterminator (current) use of anticoagulants Carlos Enrique Torres D.O. 07/20/2019 I48.2 Chronic atrial fibrillation Carlos Enrique Torres D.ORenetta 07/07/2019 N76.0 Acute vaginitis Desilandon Guerrale, P.A. 07/07/2019 I10 Essential (primary) hypertension Desi Guerrale, P.A. 07/07/2019 I48.2 Chronic atrial fibrillation Desi Athens, P.A. 07/07/2019 E11.65 Type 2 diabetes mellitus with hyperglycemia Desi Guerrale , P.A. 07/07/2019 M79.604 Pain in right leg Desi Guerrale, P.A. 07/07/2019 R80.9 Proteinuria, unspecified Desi Athens, P.A. 07/06/2019 I48.2 Chronic atrial fibrillation Carlos Enrique Torres D.ORenetta 07/06/2019 Z79.01 penitentiary (current) use of anticoagulants Carlos Enrique Torres D.O. 07/05/2019 I48.2 Chronic atrial fibrillation Carlos Enrique Torres D.ORenetta 07/05/2019 Z79.01 penitentiary (current) use of anticoagulants Carlos Enrique Torres D.O. Plan of Treatment Future Appointment(s):01/22/2020 4:00 pm - Carlos Enrique Torres D.O. at Main [id number]/22/2019 - Carlos Enrique Torres D.O.E11.65 Type 2 diabetes mellitus with hyperglycemiaFollow up:1 month recheck depression/insulin/goutM10.9 Gout, fopzekqkgyhN35.01 moth exterminator (current) use of wqgkirkhhjkjmdM29 Essential ( primary) ezkbhziprmmsR61.062 Spinal stenosis, lumbar region with neurogenic fyetkanwyudgZ96.4 penitentiary (current) use of nsqplfuC65.7 Diarrhea, guzcuhzhwauR89.42 Body mass index (BMI) 45.0-49.9, adult Goals 12/22/2019 - Carlos Enrique Torres D.O.E11.65 Type 2 diabetes mellitus with hyperglycemiaToday's A1c: 6.5 Hemoglobin A1C (average glucose) < 7.0 - this is checked every 3 months. Avoid/limit carbohydrates: foods like Potatoes , wheat (bread,pasta,cookies,crackers,pretzles,dough), Rice, corn, and sugar limit sweetened beverages. Check eyes yearly with a dialated exam with an mesmerist Check for diabetic kidney disease yearly with urine microalbumin test Check your feet by looking at all sides daily; once a year at least have them checked by a doctor. Functional Status Description No Information Available Mental Status Description No Information Available Referrals Description No Information Available
--- OUTSIDE RECORDS SUMMARY | 2020-02-25 05:18 | XMS REPORT | Continuity of Care Document ---
:1940 External Reference #:[id number] Author Name Carlos Enrique Torres D.O. (transmitted by agent of provider Ingris Beckett) Address [address] [place] [address] Care Team Providers Name Role Phone Darrel Baez MD - Cardiovascular Care Team Information Casting Associate Disease Alfredo Wilhelm MD - Gastroenterology Care Team Information Casting Associate [phone] HCP/LW on file Care Team Information Casting Associate Unavailable Meli Powers MD - Surgery Care Team Information Casting Associate Corbin Spencer MD - Surgery Care Team Information Casting Associate [phone] Gregorio Merida MD - Surgery Care Team Information Casting Associate [phone] Don Morton MD - Orthopaedic Care Team Information Casting Associate [facility] Information Casting Associate Problems Active Problems Provider Date Coronary arteriosclerosis [...] Tablets Allopurinol 2 by mouth every 90tabs DanielaCarlos Enrique sharpe, 11/19/2019 100mg day D.O. Tablets Gabapentin take 1 capsule by 270caps M48.062 DiannaCarlos Enrique soto, 06/06/2019 300mg mouth 3 times per D.O. [...] Gummies daily Unknown 10/29/2018 Adult Chewtabs Omeprazole Take One Capsule 90caps R12 Silcoff, 10/09/2018 40mg By Mouth Every Day Lincoln Cronin Capsules K21.9 Novolog Mix 70/30 Inject 15 Units With 60units Melissa, 05/05/2018 Breakfast. Max Of 65 Sha Monaco.Cristina (70-30)100Unit/ML Units Daily as Suspension Directed Alendronate Sodium Take With A Full 12tabs M81.0 Melissa, 01/30/2018 70mg Glass Of Water (6 To Carlos Enrique D.O. Tablets 8 Ounces; 180 To 240 ML) And Avoid Lying Down For AT Least 30 Minutes. Take Once Weekly On Saturday. BD Pen or appropriate [facility], 01/14/2018 Needle/Mini/Ultrafine/31 needles for Basaglar Shellie Monaco. G X 3/16" pen. use up to 2/day, 31G X 5 mm Misc as directed, for insulin administration Basaglar Kwikpen Inject 40 Units In 45units E11.65 Melissa, 12/26/2017 100Unit/ML The Morning . Braxton Monaco Solution Pen-Inject Increase By 2 Units If Morning Fasting Is Over 110 For 3 Days Max. 60 Units A Day Chair To Lift From Use as directed. M54.16 Melissa, 09/17/2017 Sitting Sha Monaco.O. Insulin use with novolog 200units Melissa, 09/17/2017 Syringe/0.5ML/30G X 1/2" 70/30 as directed Braxton Monaco 30G daily X 1/2" 0.5 ML Misc Onetouch Ultra Blue Use To Test 1 To 4 200units [facility], 03/21/2016 Strips Times Daily as Braxton Monaco Directed [facility]uro[facility]ide [facility] one tablet [facility] 40mg Tablets mouth every day Braxton Monaco Freestyle Lite Test or appropriate 200units E11.65 [facility], 03/15/2016 Strips testing strips for Braxton Monaco patients device, test 1-4 times daily as directed Oxycodone HCL take 1-2 tablets by 180tabs M25.55 [facility] 10/04[facility]2015 5mg Tablets mouth every 8 hours 1 Carlos Enrique D.O. as needed for pain (maximum daily dose = 6) Lisinopril Take One Tablet By [facility]tabs [facility] 08/11/2015 20mg Tablets Mouth Twice A Day Braxton Monaco Jantoven Take 4 And 1/2 360tabs Z79.01 [facility], 12/29/2014 1mg Tablets Tablets By Mouth AT Braxton Monaco Bedtime Or as Directed I48.2 Atorvastatin Calcium [...] injection, kenalog, 10 mg Carlos Enrique Torres D.ORenetta 12/30/2018 Injection injection, kenalog, 10 mg John Munguia M.D. 05/04/2016 Injection Injection Of Morphine John Munguia M.D. 08/13/2015 Injection SC/Im Injections John Munguia M.D. 08/13/2015 Injection injection, kenalog, 10 mg John Munguia M.D. 10/26/2014 Injection TB Intradermal Test John Munguia M.D. 12/08/2012 Injection injection, kenalog, 10 mg John Munguia M.D. 03/01/2011 Injection H1N1 Swine Flu Vaccine John Munguia M.D. 12/13/2009 Injection injection, celioalog, 10 mg Mehrdad Moore M.D. 05/30/2007 Injection B12 Injection John Munguia M.D. 01/23/2005 Injection B12 Injection Nurse's Schedule 01/23/2005 Injection B12 Injection John Munguia M.D. 12/21/2004 Injection B12 Injection John Munguia M.D. 12/11/2004 Injection B12 Injection Nurse's Schedule 12/11/2004 Injection B12 Injection John Munguia M.D. 12/04/2004 Injection B12 Injection Nurse's Schedule 12/04/2004 Injection Immunizations CPT Code Status Date Vaccine Lot # [id number] Given 09/14/2019 Influenza Vaccine, Inactivated, Subunit, [id number] Adjuvanted, For Intrmusc 21463 Given 10/30/2018 Influenza Vaccine, Inactivated, Subunit, [id number] Adjuvanted, For Intrmusc 26672 Given 09/17/2017 Influenza Vaccine Split Virus Preservative Free [id number] Im Use (hi-dose) 62262 Given 07/27/2016 Influenza Virus Vaccine, Quadrivalent, Split, [id number] Preservative Free 03420 Given 07/28/2015 Influenza Virus Vaccine, Quadrivalent, Split, [id number] Preservative Free 73554 Given 04/08/2015 Adacel or Boostrix, TDaP [id number] 40732 Given 04/08/2015 Prevnar 13 [id number] 02127 Given 10/15/2013 Zostavax 66708 Given 09/04/2013 Flu, Split Virus 3Yrs 08985 Given 08/09/2012 Flu, Split Virus 3Yrs 41727 Given 08/10/2011 Flu, Split Virus 3Yrs [id number] 99445 Given 08/24/2010 Flu, Split Virus 3Yrs [id number] 24606 Given 12/13/2009 Flu, Split Virus 3Yrs [id number] 82536 Given 09/18/2008 Flu, Split Virus 3Yrs [id number] 79462 Given 10/02/2007 Pneumococcal Immunization [id number] 25991 Given 10/02/2007 Td Immunization [id number] 97419 Given 10/02/2007 Flu, Split Virus 3Yrs [id number] 24283 Given 09/20/2006 Flu, Split Virus 3Yrs 61851 Given 09/25/2005 Flu, Split Virus 3Yrs 07829 Given 12/18/2004 Flu, Split Virus 3Yrs Vital Signs Date Vital Result Comment 01/28/2020 3:26pm BP Systolic 132 mmHg BP Diastolic 82 mmHg 01/22/2020 3:59pm BP Systolic 136 mmHg BP Diastolic 80 mmHg Height 61 inches 5'1" Weight 243.00 lb BMI (Body Mass Index) 45.9 kg/m2 Results Test Acquired Date Facility Test Result H/L Range Note Protime W/ 02/15/2020 [facility] 2.0 Inr(Add V58.61) Normalized Protime W/ 02/07/2020 [facility] 3.9 Inr(Add V58.61) Normalized Protime W/ 02/02/2020 [facility] 3.1 Inr(Add V58.61) Normalized Urinalysis With 01/26/2020 [facility]. Urine Color Light-Charles Yellow 1 [facility] ow [phone] Urine Clarity Clear Clear Urine Glucose - Dipstick >1000 mg/dL Negative Urine Bilirubin - Dipstick NEGATIVE Negative Urine Ketone NEGATIVE mg/dL Negative Urine Specific [facility] 1.011 Normal 1.010-1.030 Urine Blood TRACE Negative [...] 2.8 Inr(Add V58.61) Normalized Basic Metabolic 01/08/2020 [facility] Sodium 142 Normal 135-14 Panel [phone] mmol/L 5 Potassium 4.4 mmol/L Normal 3.5-5.0 [...] 4.5 Inr(Add V58.61) Normalized Comp Metabolic 12/25/2019 [facility] Sodium 141 Normal 135-14 Panel [phone] mmol/L 5 Potassium 3.8 mmol/L Normal 3.5-5.0 [...] 52.2 >60 4 CBC Auto Diff 12/25/2019 [facility] White Blood 6.1 10^3/uL Normal 3.5-10.8 [phone] Count Red Blood Count 4.92 10^6/uL High [...] Cells % 0.0 Laboratory test finding 12/25/2019 [facility] Uric Acid 9.2 mg/dL High 2.3-6.6 [phone] Erythrocyte Sed Rate 11 mm/Hr Normal 0-29 [...] #International 1.9 V58.61) Normalized Laboratory test 11/20/2019 [facility] Uric Acid 10.8 mg/dL High 2.3- 6.6 finding [phone] Erythrocyte Sed Rate 14 mm/Hr Normal 0-29 C Reactive Protein 6.11 mg/L Normal <8.01 CBC Auto Diff 11/20/2019 [facility] White Blood 6.1 10^3/uL Normal 3.5-10.8 [phone] Count Red Blood Count 4.70 10^6/uL Normal [...] Cells % 0.0 Comp Metabolic Panel 11/20/2019 [facility] Sodium 142 mmol/L Normal 135-145 [phone] Potassium 4.0 mmol/L Normal 3.5-5.0 Chloride 104 [...] Normalized 1.9 V58.61) Protime W/ Inr(Add 08/31/2019 [facility] #International Normalized 1.9 V58.61) [phone] Inr 2.23 High 0.82-1.09 6 Protime W/ Inr(Add V58.61) 08/23/2019 [facility] Normalized 2.3 1 CANNOT STAND 2 URINE, CLEAN CATCH [...] range: 2.5-3.5 Procedures Date Code Description Status 02/15/2020 47863 Anticoagulant MGMT For Patient Taking Warfarin, Inc Completed Review & Intr 02/08/2020 43278 Anticoagulant MGMT For Patient Taking Warfarin, Inc Completed Review & Intr 02/02/2020 67559 Anticoagulant MGMT For Patient Taking Warfarin, Inc Completed Review & Intr 01/25/2020 75562 Anticoagulant MGMT For Patient Taking Warfarin, Inc Completed Review & Intr 01/19/2020 00483 Anticoagulant MGMT For Patient Taking Warfarin, Inc Completed Review & Intr 01/12/2020 46805 Anticoagulant MGMT For Patient Taking Warfarin, Inc Completed Review & Intr 01/04/2020 54808 Anticoagulant MGMT For Patient Taking Warfarin, Inc Completed Review & Intr 01/01/2020 42716 Anticoagulant MGMT For Patient Taking Warfarin, Inc Completed Review & Intr 12/21/2019 46090 Anticoagulant MGMT For Patient Taking Warfarin, Inc Completed Review & Intr 12/10/2019 [id number] Diabetic Retinal Eye Exam Completed 12/08/2019 65746 Anticoagulant MGMT For Patient Taking Warfarin, Inc Completed Review & Intr 11/30/2019 31800 Anticoagulant MGMT For Patient Taking Warfarin, Inc Completed Review & Intr 11/23/2019 04366 Anticoagulant MGMT For Patient Taking Warfarin, Inc Completed Review & Intr 11/16/2019 54336 Anticoagulant MGMT For Patient Taking Warfarin, Inc Completed Review & Intr 11/02/2019 27823 Anticoagulant MGMT For Patient Taking Warfarin, Inc Completed Review & Intr 10/27/2019 42276 Anticoagulant MGMT For Patient Taking Warfarin, Inc Completed Review & Intr 10/27/2019 80838 Anticoagulant MGMT For Patient Taking Warfarin, Inc Completed Review & Intr 09/29/2019 51192 Anticoagulant MGMT For Patient Taking Warfarin, Inc Completed Review & Intr 09/21/2019 31319 Anticoagulant MGMT For Patient Taking Warfarin, Inc Completed Review & Intr 09/14/2019 52584 Anticoagulant MGMT For Patient Taking Warfarin, Inc Completed Review & Intr 09/07/2019 75049 Anticoagulant MGMT For Patient Taking Warfarin, Inc Completed Review & Intr 08/31/2019 24838 Anticoagulant MGMT For Patient Taking Warfarin, Inc Completed Review & Intr 08/30/2019 35024 Anticoagulant MGMT For Patient Taking Warfarin, Inc Completed Review & Intr 03/16/2019 [id number] Diabetic Foot Exam Completed Medical Devices Description No Information Available Encounters Type Date Location Provider Dx Diagnosis Office Visit 01/28/2020 Main Office Carlos Enrique Torres, M25.562 Pain in left knee 3:00p D.O. R29.6 Repeated falls Z91.81 History of falling E11.65 Type 2 diabetes mellitus with hyperglycemia Z79.01 meterman (current) use of anticoagulants I10 Essential (primary) hypertension M48.062 Spinal stenosis, lumbar region with neurogenic claudication Office Visit 01/22/2020 4:00p Main Office Carlos Enrique Torres, E11.65 Type 2 diabetes D.O. mellitus with hyperglycemia Z79.01 meterman (current) use of anticoagulants I48.20 Chronic atrial fibrillation, unspecified M10.9 Gout, unspecified I10 Essential (primary) hypertension M48.062 Spinal stenosis, lumbar region with neurogenic claudication Z68.42 Body mass index (BMI) 45.0-49.9, adult Office Visit 12/22/2019 4:00p Main Office Carlos Enrique Torres, E11.65 Type 2 diabetes D.O. mellitus with hyperglycemia M10.9 Gout, unspecified Z79.01 meterman (current) use of anticoagulants I10 Essential (primary) hypertension M48.062 Spinal stenosis, lumbar region with neurogenic claudication Z79.4 alf (current) use of insulin R19.7 Diarrhea, unspecified Z68.42 Body mass index (BMI) 45.0-49.9, adult Office Visit 11/19/2019 3:30p Main Office Carlos Enrique Torres, M10.9 Gout, unspecified D.O. Z79.01 alf (current) use of anticoagulants I48.20 Chronic atrial [...] foot I48.20 Chronic atrial fibrillation, unspecified Z79.01 meterman (current) use of anticoagulants E11.65 Type 2 diabetes mellitus with hyperglycemia I10 Essential (primary) hypertension M48.062 Spinal stenosis, lumbar region with neurogenic claudication Office Visit 09/14/2019 11:00a Main Office Carlos Enrique Torres, E11.65 Type 2 diabetes D.O. mellitus with hyperglycemia N76.4 Abscess of vulva Z79.01 alf (current) use of anticoagulants Z23 Encounter for immunization Assessments Date Code Description Provider 02/15/2020 Z79.01 alf (current) use of anticoagulants Carlos Enrique Torres D.O. 02/15/2020 I48.20 Chronic atrial fibrillation, unspecified SophansakTrinion D.O. 02/08/2020 Z79.01 meterman (current) use of anticoagulants Carlos Enrique Torres D.O. 02/08/2020 I48.20 Chronic atrial fibrillation, unspecified SophansakCarlos Enrique D.O. 02/02/2020 Z79.01 alf (current) use of anticoagulants Carlos Enrique Torres D.O. 02/02/2020 I48.20 Chronic atrial fibrillation, unspecified Sophansak, Carlos Enrique, D.O. 01/28/2020 M25.562 Pain in left knee SopTrini sotoon, D.O. 01/28/2020 R29.6 Repeated falls SopTrini sotoon, D.O. 01/28/2020 Z91.81 History of falling Trini Torreson, D.O. 01/28/2020 E11.65 Type 2 diabetes mellitus with hyperglycemia Trini Torreson , D.O. 01/28/2020 Z79.01 meterman (current) use of anticoagulants Diannachak, Carlos Enrique, D.O. 01/28/2020 I10 Essential (primary) hypertension Sophansak Carlos Enrique, D.O. 01/28/2020 M48.062 Spinal stenosis, lumbar region with SopchakTrinion, D.O. neurogenic claudication 01/25/2020 Z79.01 alf (current) use of anticoagulants DiannachakTrinion, D.O. 01/25/2020 I48.20 Chronic atrial fibrillation, unspecified Sopchak Carlos Enrique, D.O. 01/22/2020 E11.65 Type 2 diabetes mellitus with hyperglycemia Trini Torreson , D.O. 01/22/2020 Z79.01 alf (current) use of anticoagulants DiannachakTrinion, D.O. 01/22/2020 I48.20 Chronic atrial fibrillation, unspecified Sopchak, Carlos Enrique, D.O. 01/22/2020 M10.9 Gout, unspecified Sopchak, Carlos Enrique, D.O. 01/22/2020 I10 Essential (primary) hypertension DanielakTrinion, D.O. 01/22/2020 M48.062 Spinal stenosis, lumbar region with Sopchak, Carlos Enrique, D.O. neurogenic claudication 01/22/2020 Z68.42 Body mass index (BMI) 45.0-49.9, adult Trini Torreson, D.O. 01/19/2020 Z79.01 alf (current) use of anticoagulants Diannachak Carlos Enrique, D.O. 01/19/2020 I48.20 Chronic atrial fibrillation, unspecified Sopchak, Carlos Enrique, D.O. 01/12/2020 Z79.01 meterman (current) use of anticoagulants DanielakTrinion, D.O. 01/12/2020 I48.20 Chronic atrial fibrillation, unspecified [place] Carlos Enrique, D.O. 01/04/2020 Z79.01 meterman (current) use of anticoagulants DiannachakTrinion, D.O. 01/04/2020 I48.20 Chronic atrial fibrillation, unspecified Sopchak, Carlos Enrique, D.O. 01/01/2020 Z79.01 meterman (current) use of anticoagulants DiannachakTrinion D.O. 01/01/2020 I48.20 Chronic atrial fibrillation, unspecified Sopchak, Carlos Enrique, D.O. 12/22/2019 E11.65 Type 2 diabetes mellitus with hyperglycemia Trini Torreson , D.O. 12/22/2019 M10.9 Gout, unspecified SopchakTrinion, D.O. 12/22/2019 Z79.01 meterman (current) use of anticoagulants DanielakTrinion D.O. 12/22/2019 I10 Essential (primary) hypertension Trini Torreson D.O. 12/22/2019 M48.062 Spinal stenosis, lumbar region with SopCarlos Enrique soto, D.O. neurogenic claudication 12/22/2019 Z79.4 alf (current) use of insulin Carlos Enrique Torres D.O. 12/22/2019 R19.7 Diarrhea, unspecified DanielakTrinion, D.O. 12/22/2019 Z68.42 Body mass index (BMI) 45.0-49.9, adult Carlos Enrique Torres D.O. 12/21/2019 Z79.01 alf (current) use of anticoagulants DanielakTrinion, D.O. 12/21/2019 I48.20 Chronic atrial fibrillation, unspecified Sopchak, Carlos Enrique, D.O. 12/21/2019 I10 Essential (primary) hypertension Trini Torreson D.O. 12/08/2019 Z79.01 meterman (current) use of anticoagulants DiannachakTrinion D.O. 12/08/2019 I48.20 Chronic atrial fibrillation, unspecified SopchakTrinion, D.O. 11/30/2019 Z79.01 meterman (current) use of anticoagulants DiannachakTrinion D.O. 11/30/2019 I48.20 Chronic atrial fibrillation, unspecified SopchakTrinion, D.O. 11/23/2019 Z79.01 meterman (current) use of anticoagulants DiannachakTrinion, D.O. 11/23/2019 I48.20 Chronic atrial fibrillation, unspecified SopchakTrinion, D.O. 11/19/2019 M10.9 Gout, unspecified [place] Carlos Enrique, D.O. 11/19/2019 Z79.01 meterman (current) use of anticoagulants DiannachakTrinion, D.O. 11/19/2019 I48.20 Chronic atrial fibrillation, unspecified SopchakTrinion, D.O. 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 11/19/2019 E11.65 Type 2 diabetes mellitus with hyperglycemia Carlos Enrique Torres , D.O. 11/19/2019 I10 Essential (primary) hypertension DanielakTrinion, D.O. 11/19/2019 M48.062 Spinal stenosis, lumbar region with SophansakCarlos Enrique, D.O. neurogenic claudication 11/19/2019 G89.4 Chronic pain syndrome Carlos Enrique Torres, D.O. 11/19/2019 Z68.42 Body mass index (BMI) 45.0-49.9, adult Trini Torreson, D.O. 11/16/2019 Z79.01 meterman (current) use of anticoagulants DanielakTrinion D.O. 11/16/2019 I48.20 Chronic atrial fibrillation, unspecified Sopchak, Carlos Enrique, D.O. 11/08/2019 Z79.01 meterman (current) use of anticoagulants DiannachakTrinion, D.O. 11/08/2019 I48.20 Chronic atrial fibrillation, unspecified Sopchak, Carlos Enrique, D.O. 11/02/2019 Z79.01 alf (current) use of anticoagulants DiannachakTrinion, D.O. 11/02/2019 I48.20 Chronic atrial fibrillation, unspecified Sopchak, Carlos Enrique, D.O. 10/27/2019 I48.20 Chronic atrial fibrillation, unspecified SophansakCarlos Enrique D.O. 10/27/2019 Z79.01 alf (current) use of anticoagulants Carlos Enrique Torres D.O. 10/27/2019 I48.20 Chronic atrial fibrillation, unspecified SopCarlos Enrique soto D.O. 10/27/2019 Z79.01 alf (current) use of anticoagulants Carlos Enrique Torres D.O. 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 10/15/2019 I48.20 Chronic atrial fibrillation, unspecified Carlos Enrique Torres D.O. 10/15/2019 Z79.01 meterman (current) use of anticoagulants Carlos Enrique Torres D.O. 10/15/2019 E11.65 Type 2 diabetes mellitus with hyperglycemia Carlos Enrique Torres D.O. 10/15/2019 I10 Essential (primary) hypertension Carlos Enrique Torres D.O. 10/15/2019 M48.062 Spinal stenosis, lumbar region with Carlos Enrique Torres D.O. neurogenic claudication 09/29/2019 I48.20 Chronic atrial fibrillation, unspecified Carlos Enrique Torres D.O. 09/29/2019 Z79.01 meterman (current) use of anticoagulants Carlos Enrique Torres D.O. 09/21/2019 I48.20 Chronic atrial fibrillation, unspecified Carlos Enrique Torres D.O. 09/21/2019 Z79.01 alf (current) use of anticoagulants Carlos Enrique Torres D.O. 09/14/2019 I48.20 Chronic atrial fibrillation, unspecified Carlos Enrique Torres D.O. 09/14/2019 E11.65 Type 2 diabetes mellitus with hyperglycemia Carlos Enrique Torres D.O. 09/14/2019 N76.4 Abscess of vulva Carlos Enrique Torres D.O. 09/14/2019 Z79.01 alf (current) use of anticoagulants Carlos Enrique Torres D.O. 09/14/2019 Z79.01 meterman (current) use of anticoagulants Carlos Enrique Torres D.O. 09/14/2019 Z23 Encounter for immunization Carlos Enrique Torres D.O. 09/07/2019 I48.20 Chronic atrial fibrillation, unspecified Carlos Enrique Torres D.O. 09/07/2019 Z79.01 alf (current) use of anticoagulants Carlos Enrique Torres D.O. 08/31/2019 I48.2 Chronic atrial fibrillation Carlos Enrique Torres D.O. 08/31/2019 Z79.01 alf (current) use of anticoagulants Carlos Enrique Torres D.O. 08/30/2019 I48.2 Chronic atrial fibrillation Carlos Enrique Torres D.O. 08/30/2019 Z79.01 alf (current) use of anticoagulants Carlos Enrique Torres D.O. Plan of Treatment Future Appointment(s):03/24/2020 3:45 pm - Carlos Enrique Torres D.O. at [facility]/28/2020 - Carlos Enrique Torres D.O.M25.562 Pain in left kneeR29.6 Repeated fallsFollow up:as ipvrdvffmD22.81 History of ruecxhcM25.65 Type 2 diabetes mellitus with mpqrpdedazkdtW64.01 meterman (current) use of ikzlohtarkihghQ12 Essential (primary) cjhukirhdvdlW96.062 Spinal stenosis, lumbar region with neurogenic claudication Functional Status Description No Information Available Mental Status Description No Information Available Referrals Description No Information Available
[2020-02-25] MEDS ORDERED: VERAPAMIL 2.5 MG/ML 2 ML VIAL ** 5 mg/2 ml ONE (05:20)
[2020-02-25] MEDS ORDERED: Heparin(*) 1000 UNIT/ML 10 ML VIAL CATH LAB IV ONE (05:20)
[2020-02-25] MEDS ORDERED: nitroGLYCERIN DRIP* 0 MCG/0 ML BTL ONE (05:21)
[2020-02-25] MEDS ORDERED: Heparin 2 UNITS/ML IVPREMIX* 0 ML IV ONE (05:21)
[2020-02-25] MEDS ORDERED: Iodixanol 320 (CONTRAST) 100 ML SDV ONE (05:21)
[2020-02-25] MEDS ORDERED: Lidocaine 1% INJ* 10 MG/ML 30 ML SDV ONE (05:21)
[2020-02-25 05:44] LABS: ABS Basophils 0.1 10^3/ul (0-0.2); ABS Eosinophils 0.1 10^3/ul (0-0.6); ABS Monocytes 0.7 10^3/ul (0-0.8); ABS Neutrophils 8.9 10^3/ul (1.5-7.7); Hematocrit 39 % (35-47); Hemoglobin 13.3 g/dL (12.0-16.0); Mean Corpuscular HGB Conc 34 g/dL (31-36); Mean Corpuscular Hemoglobin 31 pg (27-31); Mean Corpuscular Volume 91 fL (80-97); Mean Platelet Volume 7.9 fL (7.4-10.4); Nucleated Red Blood Cells % 0.1; Platelet Count 270 10^3/uL (150-450); Red Blood Count 4.28 10^6 /uL (3.70-4.87); Red Cell Distribution Width 16 % (10-15); White Blood Count 10.8 10^3/uL (3.5-10.8)
[2020-02-25 06:01] LABS: Albumin 3.6 g/dL (3.2-5.2); Albumin/Globulin Ratio 1.2 (1-3); Calcium 9.4 mg/dL (8.6-10.3); EGFR African American 39.6 (>60); EGFR Non-African American 32.7 (>60); Globulin 3.1 g/dL (2-4); Potassium 3.8 mmol/L (3.5-5.0); Total Bilirubin 0.4 mg/dL (0.2-1.0); Total Protein 6.7 g/dL (6.4-8.9)
[2020-02-25 06:06] LABS: CKMB ng/mL 7.9 ng/mL (0.6-6.3)
[2020-02-25 07:32] LABS: Activated Partial Thrombo Time >240.0 seconds (26.0-38.0)
[2020-02-25] MEDS ORDERED: Metoprolol Tartrate TAB* 50 mg PO ONE (07:48)
[2020-02-25] MEDS ORDERED: Perflutren Lipid Microsphere* 3 ML VIAL ONE (08:07)
[2020-02-25 08:10] LABS: C Reactive Protein 76.99 mg/L (<8.01)
[2020-02-25] MEDS ORDERED: Acetaminophen TAB* 325 MG PO PRN (08:56)
[2020-02-25] MEDS ORDERED: Furosemide TAB* 20 MG PO SCH (09:00)
[2020-02-25] MEDS ORDERED: Dextrose 50% Syringe 50 ML* 25 GM/50 ML SYRINGE IV PUSH PRN (09:57)
[2020-02-25] MEDS ORDERED: Insulin GLARGINE(*) 1 UNITS UNIT SUBCUT SCH (10:00)
[2020-02-25] MEDS: Lisinopril TAB* 10 MG PO SCH ×2 (11:21→20:40)
[2020-02-25] MEDS: Pantoprazole TAB * 40 MG TAB PO SCH (11:21)
[2020-02-25] MEDS: Cyanocobalamin TAB* 500 MCG PO SCH (11:21)
[2020-02-25] MEDS: Atorvastatin* 80 MG TAB PO SCH (11:21)
[2020-02-25] MEDS: Gabapentin CAP(*) 100 MG PO SCH ×3 (11:22→20:41)
[2020-02-25] MEDS: Allopurinol TAB* 100 MG PO SCH (11:22)
[2020-02-25] MEDS: Insulin LISPRO* 1 UNITS UNIT SUBCUT SCH ×3 (11:22→20:47)
[2020-02-25] MEDS: Escitalopram * 5 MG TAB PO SCH (11:30)
--- NOTE | 2020-02-25 11:40 | HP ---
CC: Dr. Baez; Dr. Rodriguez; Dr. Torres * HISTORY AND PHYSICAL: DATE OF ADMISSION: 02/25/20 PRIMARY CARE PROVIDER: Dr. Torres. SPECIAL EVENTS ASSISTANT: Dr. Rodriguez. CHIEF COMPLAINT: Shortness of breath and chest pain. HISTORY OF PRESENT ILLNESS: Arline No is an 80-year-old female with a history of dementia and heart disease, who called 911 in the middle of the night complaining of chest pain and shortness of breath. Please note that the patient has significant problems with her memory, which is based on as per discussion with her daughter Marie. The patient is unable to give me any specifics of her chest pain. She stated that the chest pain still is present. She indicates the left upper chest. She is unsure if she continues to have problems with shortness of breath, and she cannot give me any specifics about what occurred in the middle of the night. From discussion with her daughter Marie whom I called, the patient lives independently. The family checks on her daily. She walks with a roller walker. She is able to take care of her feeding and dressing up. The patient is going to be placed on overnight observation with the diagnosis of chest pain and likely CHF. Of note, Dr. Baez evaluated the patient for this. The patient initially was noted to have left bundle-branch block and chest pain, to rule out ST elevation NM. Dr. Baez's evaluation in the ED yielded that this is not ST elevation NM and the patient was referred back to the ED provider at that point. PAST MEDICAL HISTORY: 1. Coronary artery disease, status post stenting in 2010 into LAD. Repeat cath in 2014 showed no significant occlusive coronary artery disease with moderate stenosis of left PDA. There was no intervention at that point and her stent into LAD was open. 2. The patient had a recent cardiac stress test on 01/01/20, which showed negative for cardiac ischemia and unchanged from 2018. The patient's EF was noted to be 55%. 3. History of hypertension. 4. Hyperlipidemia. 5. Diabetes type 2. 6. CVA, small, noted with transient left-sided hand numbness in 2013 with normal MRI. 7. Chronic atrial fibrillation. 8. Colon cancer, status post hemicolectomy. 9. Chronic kidney disease stage 3 due to diabetes. 10. History of right leg surgery with ankle repair. 11. Status post tubal ligation in the past. 12. Chronic left bundle-branch block. MEDICATIONS: At home include: 1. Insulin glargine 40 units daily. 2. Nitroglycerin on a p.r.n. basis. 3. Metoprolol tartrate 50 mg b.i.d. 4. Coumadin 4.5 mg at bedtime. 5. Lipitor 80 mg b.i.d. 6. Oxycodone 5 to 10 mg on a p.r.n. basis. 7. Lisinopril 20 mg b.i.d. 8. Furosemide 40 mg daily. 9. NovoLog insulin 15 units with breakfast. 10. Fosamax 70 mg every Saturday. 11. Omeprazole 40 mg daily. 12. Multivitamin 1 tablet daily. 13. Vitamin B12 500 mcg daily. 14. Gabapentin 300 mg 3 times a day. 15. Allopurinol 200 mg daily. 16. Aldactone 25 mg daily, which was just recently started in December by Dr. Rodriguez. 17. Lexapro 5 mg daily. ALLERGIES: CYCLOSPORINE, MORPHINE, and PENICILLIN. The patient has been taking oxycodone at home without any problems. FAMILY HISTORY: Father with unknown heart disease. Mother at the age of 77 due to stomach cancer. The patient states she has 5 daughters. She is not aware of their medical problems. SOCIAL HISTORY: The patient denies any tobacco, alcohol, or drug use. 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 She is a . She mentions her daughters Sabina and Marie as her surrogates. She is a full code. REVIEW OF SYSTEMS: Please see history of present illness. In addition to the above mentioned, from the review that was obtained from patient's daughter Marie, the patient has significant memory problems but she is able to take care of her own activities of daily living. Her bills are being paid by her daughter Sabina. She ambulates with a rolling walker. She has chest pain almost on a monthly basis and her last stress test in December 2019 showed no cardiac ischemia. The patient stated that her ankles hurt "all the time," and they are always swollen. She complains of shortness of breath but she cannot specify it further and she is unable to tell me how long it has been going on. She denies any recent fevers or cough. All the remaining 12 systems was reviewed with the patient but please note that this patient is a very poor historian and was otherwise negative. PHYSICAL EXAMINATION GENERAL: The patient is very pleasant 80-year-old female who is obese with a BMI of 41, the patient is not in acute distress. The patient is alert and oriented to self. She is able to tell me that the year is 2019. She knows that she is in the hospital. She is a very poor historian with poor recall. VITAL SIGNS: Blood pressure of 110/77, heart rate of 76 and irregular, respiratory rate 22, oxygen saturation 91% on room air, temperature of 97.1. HEENT: Head: Atraumatic, normocephalic. Eyes: Pupils are equal, reactive to light and accommodation. Oropharynx clear. Mucosa moist. NECK: Supple. No JVD. No bruits bilaterally. RESPIRATORY: Crackers at bilateral lower to mid lung [place]. CARDIOVASCULAR: Irregularly irregular rhythm. No murmur. ABDOMEN: Obese, protuberant, soft, nontender. Bowel sounds present in all 4 quadrants. EXTREMITIES: The patient has +1 pitting pedal edema bilaterally. Pulses are + 2 bilaterally. There is no clubbing or cyanosis. NEUROLOGIC: Speech is clear. Cranial nerves II through XII grossly intact. Motor strength is 5/5 bilaterally. SKIN: On evaluation of the skin, no ecchymotic areas or rashes noted. DIAGNOSTIC STUDIES/LAB DATA: Please note that the patient's INR is 7.8, PTT above 240 was likely drawn from the patient's line after she received a dose of intravenous heparin at 4000 units for possibility of STEMI. The re-drawn INR and PTT is pending at the time of dictation. The remaining lab work shows white blood cell count 10.8, hemoglobin 13.3, hematocrit 39, and platelets 270. Sodium 139, potassium 3.8, chloride 109, carbon dioxide 22, BUN 35, creatinine 1.52 which is slightly higher than the patient's baseline. The patient's glucose was 269, lactic acid of 0.4, total CPK of 234, troponin of 0 and subsequent troponin was 0.01. C-reactive protein of 76. Brain natriuretic peptide was 174. LDL 62. Portable chest x-ray, impression: "Low lung volumes, pulmonary vascular congestion which may be artifactually accentuated by the phase of respiration." The patient's EKG shows known left bundle-branch block and atrial fibrillation with a heart rate of 99 beats per minute. The patient has a known left bundle and atrial fibrillation from previous EKGs, which is her baseline. ASSESSMENT AND PLAN: 1. Chest pain and shortness of breath that occurred suddenly at night. As per Dr. Rodriguez's note from December 2019, the patient has a history of monthly chest pain with a recent negative cardiac stress test documented in December 2019. The patient's troponin so far had been negative and her EKG showed her baseline left bundle-branch block. The patient is going to be placed on overnight observation. I suspect her chest pain is maybe cardiac related but I think it is related more due to congestive heart failure than cardiac ischemia. We will treat her acute diastolic congestive heart failure with Lasix intravenously. I will hold her p.o. Lasix and Aldactone. Obtain transthoracic echocardiogram. 2. For her diabetes, the patient is going to be placed on diabetic diet and insulin sliding scale. I will place her on a smaller dose at home of insulin Lantus at 30 units daily. 3. For her atrial fibrillation, this is chronic. We will check her INR. For the time being, we will hold her Coumadin. Once again her INR that was rechecked earlier this morning was likely artifactually elevated, but we are going to confirm it. 4. The patient's code status is full. Her surrogate is her daughters. 5. For DVT prophylaxis, the patient is going to be continued on her Coumadin, once we get her INR back. TIME SPENT: Overall approximately 62 minutes was spent on admission of this patient, more than half that time was spent [id number] with the patient during the interview and physical exam. [id number]/[facility] #: [id number] [facility] HOSPITALSha
--- NOTE | 2020-02-25 12:56 | ECHO ---
*[facility]* [place] [address] Fax #: [phone] Transthoracic Echocardiogram Patient: Arline No : 1940 Study Date: 02/25/2020 Age: 80 Gender: F HR: 94 bpm Height: 65 in /165.1 cm BSA: 2.18 m^2 Weight: 251.5 lb /114.3 kg BMI: 41.9 kg/m^2 *Presser Machine: * Bee Hubbard RDCS RN *Referring Physician: * Reema Walsh *Reading Physician: * Grabiel Cervantes MD Indications: Chest Pain, unspecified. History: Atrial fibrillation. Coronary artery disease. PCI. BETTY. COPD. CKD. Risk factors: Hypertension. Diabetes mellitus. Morbidly obese. Dyslipidemia. Conclusions Summary: - Impressions: The study is unchanged since the study of April 2018. - Left ventricle: The cavity size is normal. Wall thickness is mildly increased. Systolic function is normal. The estimated ejection fraction is 55-60%. - Right ventricle: The cavity size is normal. Wall thickness is mildly increased. - Ventricular septum: The interventricular septum appears dyssynchronous related to LBBB. - Left atrium: The atrium is mildly dilated. - Mitral valve: There is mild regurgitation. - Tricuspid valve: There is mild-moderate regurgitation. - Pulmonary arteries: Systolic pressure is mildly increased, estimated to be 44 mm Hg. Study data: Transthoracic echocardiogram. Procedure: Transthoracic echocardiography was performed. Image quality was fair. The study was technically limited due to body habitus and COPD. Intravenous Definity 3 ml was administered to enhance imaging. Complete 2D, spectral Doppler, and color flow Doppler. Location: Emergency department. Patient status: Inpatient. Patient room number: ED 14. The previous study was not available, so comparison is made to the report of April 2018. Rhythm: Atrial fibrillation. LBBB. Findings Left ventricle: The cavity size is normal. Wall thickness is mildly increased. Systolic function is normal. The estimated ejection fraction is 55-60%. Wall motion is normal; there are no regional wall motion abnormalities. Left ventricular diastolic function parameters are indeterminate. Right ventricle: The cavity size is normal. Wall thickness is mildly increased. Systolic function is normal. Ventricular septum: The interventricular septum appears dyssynchronous related to LBBB. Left atrium: The atrium is mildly dilated. Right atrium: The atrium is mildly dilated. Mitral valve: The leaflets are mildly thickened. There is no evidence of stenosis. There is mild regurgitation. Aortic valve: Not well visualized. The leaflets are mildly thickened. There is no evidence of stenosis. There is no significant regurgitation. Tricuspid valve: The leaflets are normal thickness. There is no evidence of stenosis. There is mild-moderate regurgitation. Pulmonic valve: Not well visualized. Aorta: Aortic root: The aortic root is not dilated. Ascending aorta: The ascending aorta is not dilated. Aortic arch: The aortic arch is not visualized. Pericardium: There is no significant pericardial effusion. Pulmonary arteries: Not well visualized. Systolic pressure is mildly increased, estimated to be 44 mm Hg. Systemic veins: Inferior vena cava: The vessel is normal in size. There is (< 50%) respiratory change in the IVC dimension. Measurements Left ventricle Value Ref Aortic valve Value Ref HOLA, LAX 4.4 cm 3.8 - 5.2 Yao diam, ED 1.7 cm ---- ESD, LAX 3.0 cm 2.2 - 3.5 Peak v, S 1.17 m/sec ---- FS, LAX 32 % 27 - 45 VTI, S 23.6 cm ---- PW, ED (H) 1.2 cm 0.6 - 0.9 Mean grad, S 4.0 mm Hg ---- IVS/PW, ED 0.98 Peak grad, S 5.0 mm Hg ---- E', lat yao, TDI (L) 7.2 cm/sec >=10.0 LVOT/AV, VTI ratio 0.58 --- - E/e', lat yao, 16 TDI Mitral valve Value Ref E', med yao, TDI (L) 6.5 cm/sec >=7.0 Peak E 1.17 m/sec --- - E/e', med yoa, 18 Decel time 184 ms ---- TDI Peak grad, D 5.5 mm Hg ---- E', avg, TDI 6.9 cm/sec E/e', avg, TDI (H) 17 <=14 Pulmonic valve Value Ref Peak v, S 0.79 m/sec ---- LVOT Value Ref Peak grad, S 3.0 mm Hg ---- Peak laura, S 0.84 m/sec VTI, S 13.6 cm Tricuspid valve Value Ref Mean grad, S 2 mm Hg Peak RV-RA grad, S 36 mm Hg ---- Max TR laura 3 m/sec ---- Ventricular septum Value Ref IVS, ED (H) 1.2 cm 0.6 - 0.9 Aortic root Value Ref Root diam 2.7 cm <4.3 Right ventricle Value Ref AW thickness, ED (H) 0.7 cm 0.1 - 0.5 Ascending aorta Value Ref HOLA, LAX 2.6 cm AAo AP diam, S 3.1 cm ---- Pressure, S 44 mm Hg Pulmonary artery Value Ref Left atrium Value Ref Pressure, S 44.0 mm Hg ---- AP dim, ES (H) 4.30 cm 2.70 - 3.80 Inferior vena cava Value Ref ML dim, A4C 4.5 cm Diam 1.9 cm ---- SI dim, A4C 5.7 cm Vol/bsa, ES, 1-p 35 ml/m^2 11 - 40 A4C Vol/bsa, ES, A/L (H) 41 ml/m^2 16 - 34 Right atrium Value Ref ML dim, ES, A4C 3.6 cm 2.6 - 4.4 SI dim, ES, A4C (H) 5.9 cm 3.4 - 5.3 Estimated RAP 8 mm Hg Legend: (L) and (H) ryn values outside specified reference range. Prepared and electronically signed by Grabiel Cervantes MD 02/25/2020 12:54
[2020-02-25 14:09] LABS: Urine Appearance Clear; Urine Bilirubin Negative (Negative); Urine Blood 2+ (Negative); Urine Color Yellow; Urine Glucose 2+(150 mg/dL) (Negative); Urine Ketones Negative (Negative); Urine Nitrite Negative (Negative); Urine Protein 2+(100 mg/dL) (Negative); Urine Specific Gravity 1.014 (1.010-1.030); Urine Urobilinogen Negative (Negative)
[2020-02-25 14:11] LABS: Activated Partial Thrombo Time 69.6 seconds (26.0-38.0); INR 7.09 (0.82-1.09)
[2020-02-25 14:12] LABS: Urine Bacteria Absent (Absent); Urine Red Blood Cell 1+(3-5/hpf) (Absent); Urine White Blood Cell Trace(0-5/hpf) (Absent)
[2020-02-25] MEDS ORDERED: Furosemide IV* 10 MG/ML 10 ML VIAL (100 MG) IV SCH (17:00)
--- NOTE | 2020-02-25 18:10 | PN ---
Objective Active Medications: Acetaminophen (Tylenol Tab*) 650 mg PO Q4H PRN PRN Reason: PAIN-MILD/TEMP >/= 100.4 Allopurinol (Zyloprim Tab*) 200 mg PO DAILY [facility] Last Admin: 02/25/20 11:22 Dose: 200 mg Atorvastatin Calcium (Lipitor*) 80 mg PO DAILY [facility] Last Admin: 02/25/20 11:21 Dose: 80 mg Cyanocobalamin (Vitamin B12 Tab*) 500 mcg PO DAILY [facility] Last Admin: 02/25/20 11:21 Dose: 500 mcg Dextrose (D50w Syringe 50 Ml*) 12.5 gm IV PUSH .FOR FS < 60 - SS PRN PRN Reason: FS < 60 Escitalopram Oxalate (Lexapro *) 5 mg PO DAILY [facility] Last Admin: 02/25/20 11:30 Dose: 5 mg Gabapentin (Neurontin Cap(*)) 300 mg PO TID [facility] Last Admin: 02/25/20 13:43 Dose: 300 mg Heparin Sodium (Porcine) (Heparin Vial(*)) 5,000 units SUBCUT Q8HR [facility] Insulin Human Lispro (Humalog*) 0 units SUBCUT ACHS [facility]; Protocol Last Admin: 02/25/20 17:28 Dose: 4 units Lisinopril (Prinivil Tab*) 20 mg PO BID [facility] Last Admin: 02/25/20 11:21 Dose: 20 mg Metoprolol Tartrate (Lopressor Tab*) 50 mg PO BID [facility] Oxycodone HCl (Roxycodone Tab*) 5 mg PO Q8H PRN PRN Reason: PAIN - SEVERE Pantoprazole Sodium (Protonix Tab*) 40 mg PO DAILY [facility] Last Admin: 02/25/20 11:21 Dose: 40 mg Vital Signs - 8 hr 02/25/20 02/25/20 02/25/20 10:11 10:40 13:43 Temperature 97.9 F 97.6 F Pulse Rate 97 95 Respiratory 24 20 18 Rate Blood Pressure 138/79 129/70 (mmHg) O2 Sat by Pulse 95 100 Oximetry 02/25/20 02/25/20 15:15 17:29 Temperature 98.8 F Pulse Rate 105 Respiratory 24 20 Rate Blood Pressure 124/56 (mmHg) O2 Sat by Pulse 100 Oximetry Oxygen Devices in Use Now: Nasal Cannula Result Diagrams: 02/25/20 05:35 02/25/20 05:35 Assess/Plan/Problems-Billing Assessment:
--- NOTE | 2020-02-25 18:17 | PN ---
Progress Note - Progress Note Date of Service: 02/25/20 Note: Spoke with pt's RN. Pt requested to go to bathroom, although during the day she became more confused and c/o not sleeping all night and feeling tired.when staff helped pt to bathroom on the way pt became "limp " for a few seconds and they helped her back to bed. Upon my eval pt appears extremely tired, is awake but oriented to self only. SBP 140. CN2-12 grossly intact, motor 5/5 b/l, sensation intact. Spoke with pt's daughter Sabina who thought that pt may have had left arm weakness 02/23 since she kept on dropping a cup she was holding in left hand. Although currently pt has no focal neurologic findings and has likely mild delirium from sleep deprivation, will check CT brain and place her on neurochecks Q2H The near syncope described above was likely orthostasis related-will d/c IV Lasix .
[2020-02-25] MEDS: Metoprolol Tartrate TAB* 100 MG TAB PO SCH (20:41)
[2020-02-25] MEDS: oxyCODONE TAB* 5 MG TAB PO PRN (20:41)
[2020-02-25] MEDS ORDERED: Heparin VIAL(*) 5000 UNITS/ML VIAL (FIVE THOUSAND) SUBCUT SCH (22:00)
--- NOTE | 2020-02-26 08:08 | PN ---
Subjective Date of Service: 02/26/20 Interval History: Pt is less confused today. Asking if her daughters checked on her apartment. Feels well, denies CP/SOB Objective Active Medications: Acetaminophen (Tylenol Tab*) 650 mg PO Q4H PRN PRN Reason: PAIN-MILD/TEMP >/= 100.4 Allopurinol (Zyloprim Tab*) 200 mg PO DAILY [facility] Last Admin: 02/25/20 11:22 Dose: 200 mg Atorvastatin Calcium (Lipitor*) 80 mg PO DAILY [facility] Last Admin: 02/25/20 11:21 Dose: 80 mg Cyanocobalamin (Vitamin B12 Tab*) 500 mcg PO DAILY [facility] Last Admin: 02/25/20 11:21 Dose: 500 mcg Dextrose (D50w Syringe 50 Ml*) 12.5 gm IV PUSH .FOR FS < 60 - SS PRN PRN Reason: FS < 60 Escitalopram Oxalate (Lexapro *) 5 mg PO DAILY [facility] Last Admin: 02/25/20 11:30 Dose: 5 mg Furosemide (Lasix Tab*) 40 mg PO DAILY [facility] Gabapentin (Neurontin Cap(*)) 300 mg PO TID [facility] Last Admin: 02/25/20 20:41 Dose: 300 mg Insulin Human Lispro (Humalog*) 0 units SUBCUT ACHS [facility]; Protocol Last Admin: 02/25/20 20:47 Dose: 4 units Lisinopril (Prinivil Tab*) 20 mg PO BID [facility] Last Admin: 02/25/20 20:40 Dose: 20 mg Metoprolol Tartrate (Lopressor Tab*) 50 mg PO BID [facility] Last Admin: 02/25/20 20:41 Dose: 50 mg Oxycodone HCl (Roxycodone Tab*) 5 mg PO Q8H PRN PRN Reason: PAIN - SEVERE Last Admin: 02/25/20 20:41 Dose: 5 mg Pantoprazole Sodium (Protonix Tab*) 40 mg PO DAILY [facility] Last Admin: 02/25/20 11:21 Dose: 40 mg Vital Signs - 8 hr 02/26/20 02/26/20 03:13 07:35 Temperature 97.3 F 98.4 F Pulse Rate 93 84 Respiratory 18 20 Rate Blood Pressure 138/60 145/74 (mmHg) O2 Sat by Pulse 100 100 Oximetry Oxygen Devices in Use Now: Nasal Cannula Appearance: 80 yo f in nAD, AAOx2, poor historian Eyes: No Scleral Icterus, PERRLA Ears/Nose/Mouth/Throat: NL Teeth, Lips, Gums, Mucous Membranes Moist Neck: NL Appearance and Movements; NL JVP, Trachea Midline Respiratory: Symmetrical Chest Expansion and Respiratory Effort, - - crackles at b/l bases Cardiovascular: - - irregular, no murmur Abdominal: NL Sounds; No Tenderness; No Distention, No Hepatosplenomegaly Lymphatic: No Cervical Adenopathy Extremities: No Clubbing, Cyanosis, - - +1 pedal edema b/l Skin: No Rash or Ulcers, No Nodules or Sclerosis Neurological: NL Muscle Strength and Tone Result Diagrams: 02/25/20 05:35 02/25/20 05:35 Assess/Plan/Problems-Billing Assessment: 80 yo F with h/o chronic A. fib (on Coumadin), mild dementia(still living alone at home), monthly episodes of CP(neg stress test 12/30/19), diastolic CHF , colon ca (hemicolectomy), CKD3, DM2 (on insulin) presents with CP - Patient Problems (1) Chest pain Comment: - Trops negative, EKG with afib, [id number] d/c telem - Echo EF55% - Last stress test 01/01/20 was negative for ischemia. (2) Altered mental status Comment: Acute encephalopathy due to hospitalization and lack of sleep-resolving (3) Type 2 diabetes mellitus Comment: - Continue Lantus and Lispro SS (4) Afib Comment: - chronic, rate controlled - Continue Metoprolol and warfarin (5) CKD stage 3 due to type 2 diabetes mellitus Comment: - At baseline (6) HTN (hypertension) Comment: - SBP 120-170's, mostly normontensive - Continue metoprolol and lisinopril (7) History of CVA (cerebrovascular accident) Comment: - Continue coumadin and statin -CT brain 02/24 shows old CVA's -? left arm weakness as per daughter on 02/24-priro to admission, but no focal neuro findings at admission and in the past 24H, will d/c neurochecks (8) Chronic diastolic (congestive) heart failure Comment: EF 55% on Echo 02/25/20 In acute exacerbation at admission pt had an episode of orthostatic syncope last night, but SBP after she was placed back to bed were 140's Stop IV Lasix , restart home Lasix PO PT/OT (9) DVT prophylaxis Comment: - awaiting INR to to see if we can cont warfarin
[2020-02-26] MEDS: Insulin LISPRO* 1 UNITS UNIT SUBCUT SCH ×4 (09:48→21:32)
[2020-02-26] MEDS: Metoprolol Tartrate TAB* 100 MG TAB PO SCH ×2 (10:41→20:59)
[2020-02-26] MEDS: Atorvastatin* 80 MG TAB PO SCH (10:42)
[2020-02-26] MEDS: Allopurinol TAB* 100 MG PO SCH (10:43)
[2020-02-26] MEDS: Gabapentin CAP(*) 100 MG PO SCH ×3 (10:44→20:53)
[2020-02-26] MEDS: Furosemide TAB* 40 MG PO SCH (10:45)
[2020-02-26] MEDS: Lisinopril TAB* 10 MG PO SCH ×2 (10:45→20:52)
[2020-02-26] MEDS: Cyanocobalamin TAB* 500 MCG PO SCH (10:46)
[2020-02-26] MEDS: Pantoprazole TAB * 40 MG TAB PO SCH (10:46)
[2020-02-26] MEDS: Escitalopram * 5 MG TAB PO SCH (11:16)
[2020-02-26] MEDS: oxyCODONE TAB* 5 MG TAB PO PRN (12:02)
[2020-02-26 17:01] LABS: Calcium 9.7 mg/dL (8.6-10.3); Potassium 3.9 mmol/L (3.5-5.0)
[2020-02-26 17:06] LABS: BUN/Creatinine Ratio 23.1 (8-20); EGFR African American 41.2 (>60)
[2020-02-26 17:08] LABS: INR 3.83 (0.82-1.09)
[2020-02-27] MEDS: Insulin LISPRO* 1 UNITS UNIT SUBCUT SCH ×2 (09:14→12:15)
[2020-02-27] MEDS: Furosemide TAB* 40 MG PO SCH (09:15)
[2020-02-27] MEDS: Gabapentin CAP(*) 100 MG PO SCH (09:15)
[2020-02-27] MEDS: Lisinopril TAB* 10 MG PO SCH (09:15)
[2020-02-27] MEDS: Pantoprazole TAB * 40 MG TAB PO SCH (09:15)
[2020-02-27] MEDS: Cyanocobalamin TAB* 500 MCG PO SCH (09:15)
[2020-02-27] MEDS: Atorvastatin* 80 MG TAB PO SCH (09:15)
[2020-02-27] MEDS: Metoprolol Tartrate TAB* 100 MG TAB PO SCH (09:16)
[2020-02-27] MEDS: Allopurinol TAB* 100 MG PO SCH (09:16)
[2020-02-27] MEDS: Escitalopram * 5 MG TAB PO SCH (09:17)
[2020-02-27 13:25] VITALS: BP 91/62
--- NOTE | 2020-02-27 14:00 | DS ---
CC: Dr. Torres; Dr. Rodriguez from Cardiology * DISCHARGE SUMMARY: DATE OF ADMISSION: 02/25/20 DATE OF DISCHARGE: 02/27/20 PRIMARY CARE PROVIDER: Dr. Torres. DISPOSITION AT DISCHARGE: Home. CONDITION AT DISCHARGE: Stable. DISCHARGE DIAGNOSES: 1. Chest pain with negative troponins in a patient who had a recent cardiac stress test in December 2019 which showed no ischemia. 2. Exacerbation of chronic diastolic congestive heart failure. 3. An episode of likely orthostatic near syncope during the hospital stay when the patient was sleep deprived. 4. Acute encephalopathy related likely to delirium and sleep deprivation that is resolving. SECONDARY DIAGNOSES: 1. Mild dementia. 2. Coronary artery disease. 3. Hypertension. 4. Hyperlipidemia. 5. Diabetes type 2. 6. History of cerebrovascular accident with no residual weakness. 7. Chronic atrial fibrillation. 8. Colon cancer, status post hemicolectomy. 9. Chronic kidney disease, stage 3, due to diabetes. 10. Chronic left bundle-branch block. MEDICATIONS: On discharge are unchanged from admission and includes: 1. Fosamax 70 units weekly. 2. Allopurinol 200 mg daily. 3. Lipitor 80 mg daily. 4. Vitamin B12 500 mcg daily. 5. Lexapro 5 mg daily. 6. Lasix 40 mg daily. 7. Neurontin 300 mg 3 times a day. 8. Insulin aspart 15 units subcutaneously with breakfast. 9. Insulin glargine 40 units daily. 10. Lisinopril 20 mg b.i.d. 11. Lopressor 50 mg b.i.d. 12. Multivitamin 1 tablet daily. 13. Nitroglycerin sublingually on a p.r.n. basis. 14. Omeprazole 40 mg daily. 15. Oxycodone 5 to 10 mg on a p.r.n. basis. 16. Aldactone 25 mg daily. 17. Coumadin 4.5 mg at bedtime. Please start it on 02/28/30. Next INR should be checked on 03/01/20. The patient's most recently checked INR on 02/26/20 was 3.83. LABORATORY DATA AND STUDIES PERFORMED DURING THE HOSPITAL STAY: Included white blood cell count at admission was 10.8, hemoglobin was 13.3, hematocrit was 39, and platelets of 270. INR on 02/26/20 was 3.83. Sodium was 136, potassium 3.9, chloride 106, carbon dioxide 20, BUN 34, creatinine 1.47. The patient's troponins continued to be negative throughout her hospital stay ranged from 0 to 0.01. C-reactive protein was 76. Urinalysis showed trace blood, trace rbc's, absent bacteria, no esterase, and no nitrites. Brain CT obtained on 02/26/20, impression: "No acute intracranial hemorrhage or acute tentorial type infarct. If further evaluation is clinically indicated , then MRI of the brain is recommended. Small lacunar infarcts are again visualized within the left thalamus and posterior limb of the left internal capsule that is comparing to CT from 2015. There are periventricular foci of white matter hypodensity likely representing small vessel ischemic disease in patient of this age. Mild atrophy. Dilatation of the superior ophthalmic vein is identified, right side greater than left. This is progressed comparing to the prior study of 2015. This is a nonspecific finding although can be associated with cavernous sinus pathology or increased intracranial pressure. This can be further evaluated with CTA or MRI." Portable chest x-ray obtained on admission. Impression: "Low lung volumes, pulmonary vascular congestion which may be artifactually accentuated by the phase of respiration." The patient's transthoracic echocardiogram obtained on 02/26/20 showed EF of 55 % to 60% with systolic function normal. Ventricular septum was dyssynchronous due to LBBB. There was mild to moderate tricuspid regurgitation. Systolic pressure mildly elevated of the pulmonary arteries to 44 mmHg. HOSPITALIZATION COURSE: Arline No is an 80-year-old female with a history of mild dementia who was still functioning at home rather independently, although she has family members following up with her during the daytime. She presented to the hospital from calling her emergency response button in the middle of the night for chest pain and shortness of breath. She was evaluated for admission. She really could not state why she was in the hospital. She did not sleep most of the night when she came into the ED and became more disoriented throughout her initial hospital day. She appeared to be in mild exacerbation of her chronic systolic CHF. She was given an additional dose of IV Lasix. She continued to be more disoriented and started hallucinating on the evening of her admission. Her troponins continued to be negative. On second day of her admission, she had an episode where when she stood up she "went to limp" when she was assisted by the nursing staff to the bed. Obtained systolic pressures after the patient was assisted back to bed were in the 140s. The episode was felt to be related to orthostasis. The patient underwent physical therapy evaluation that noted that the patient ambulated with a rolling walker with assistance and will need assistance at home or short-term rehabilitation. We discussed this with the patient's family members. At this point, it does not appear that the patient is safe to live alone. The patient has 5 daughters. They discussed between each other and they decided that one of the daughter is going to stay with the patient to provide care. The patient at discharge is to ambulate with assistance and a walker. Initially during the patient's hospital stay, she was mildly hypoxemic. She uses oxygen at night. By the time of discharge, she was entirely weaned off oxygen and her pulse ox on room air was approximately 98%. By the time of discharge, she still continues to be slightly disoriented. She is aware that she is in the hospital and her name and date of , but she is a very poor historian. She definitely developed encephalopathy and delirium from sleep deprivation she has underlying dementia. In regards of her cardiac workup, her echocardiogram was unchanged from prior. Her troponins were negative. She just had recently completed a cardiac stress test with Dr. Rodriguez's office, which was negative for ischemia in December 2019. No further cardiac workup is indicated. Please note that the patient's coagulation studies at admission were noted to be INR 7.09 and PTT markedly elevated. It was thought to be related to the patient received intravenous heparin at admission in the ED. Initially when she came in with chest pain and left bundle branch block, which is in this patient chronic, there was a question of ST elevation DC and she was treated as such for a few minutes until brief cardiology evaluation and the interventional physician who noted the patient has baseline left bundle. Due to that, her subsequent blood draw which was obtained from her IV line showed coags that were spuriously elevated. Repeat INR obtained a day later showed an INR of 3.83. Her Coumadin was held throughout her hospital stay and she was recommended to restart it in a couple of days and check an INR a day later. The patient is setup with visiting nurses services for physical therapy at home. She is going to be discharged under the care of her daughters. She is recommended to follow up with her primary care provider in 4 to 7 days with a blood draw for INR in approximately 2 to 3 days. Please note that there was no specific finding on the patient's CT of the brain which was obtained due to the patient's daughter noted a day prior to the patient's admission that the patient kept on dropping tea cup from the left hand. Although no true weakness was noted by the daughter, she thought that maybe "she had a stroke." Please note although the patient was delirious during the hospital stay, she did not have any focal weakness. Nevertheless with the history mentioned above, a CT of the brain was obtained which read that she had increased dilatation of the superior ophthalmic veins on the right side, and although it was nonspecific, it could be correlated with cavernous sinus pathology or increased intracranial pressure. Of note, the patient had no neurological symptoms and I do not believe that further investigation of this chronic finding is necessary. The patient continued to be observed on neuro checks throughout her hospital stay which were unremarkable. PHYSICAL EXAMINATION: At the time of discharge, blood pressure of 151/72, heart rate of 109 and irregular, respiratory rate 22, oxygen saturation 95% on room air, temperature 98.3. General: The patient is a pleasant 80-year-old female who is in no acute distress. The patient is alert and oriented to self. She knows that she is in the hospital. She knows her date of . She is a very poor historian. HEENT: Head: Atraumatic, normocephalic. Eyes: Pupils are equal, reactive to light and accommodation. Oropharynx is clear. Mucosa moist. Neck: Supple. No JVD. No bruits bilaterally. Cardiovascular: Irregularly irregular rhythm. No murmur. Respiratory: Faint crackles at bilateral bases, otherwise clear. Abdomen: Soft, nontender. Bowel sounds are present in all 4 quadrants. Extremities: Bilateral trace ankle edema. Pulses are 2+ bilaterally. There is no clubbing or cyanosis. On neuro evaluation, speech is clear. Cranial nerves II through XII are grossly intact. Motor strength is 5/5 bilaterally. Please note this is a short summary of the patient's hospitalization. Please refer to further medical records for details. TIME SPENT: Approximately 45 minutes was spent in preparation of the patient's discharge. [id number]/[facility] #: [id number] [facility]
== END 2020-02-27 12:46 | disposition home or self-care (01) ==
LOC: ED 04:49 → MEDTELE 08:56
PROVIDERS: ADMIT Internal Medicine; ATTEND Internal Medicine
DX: R07.9 Chest pain, unspecified (principal); I13.0 Hypertensive heart and chronic kidney disease with heart failure and stage 1 through stage 4 chronic kidney disease, or unspecified chronic kidney disease; I50.32 Chronic diastolic (congestive) heart failure; N18.3 Chronic kidney disease, stage 3 (moderate); E11.22 Type 2 diabetes mellitus with diabetic chronic kidney disease; Z79.4 Long term (current) use of insulin; R55 Syncope and collapse; G93.40 Encephalopathy, unspecified; F03.90 Unspecified dementia, unspecified severity, without behavioral disturbance, psychotic disturbance, mood disturbance, and anxiety; I25.2 Old myocardial infarction; R06.02 Shortness of breath; J44.9 Chronic obstructive pulmonary disease, unspecified; I48.20 Chronic atrial fibrillation, unspecified; E78.5 Hyperlipidemia, unspecified; I25.10 Atherosclerotic heart disease of native coronary artery without angina pectoris; E78.00 Pure hypercholesterolemia, unspecified; Z86.73 Personal history of transient ischemic attack (TIA), and cerebral infarction without residual deficits; I44.7 Left bundle-branch block, unspecified; Z85.038 Personal history of other malignant neoplasm of large intestine; Z79.899 Other long term (current) drug therapy; Z79.01 Long term (current) use of anticoagulants; Z95.5 Presence of coronary angioplasty implant and graft; Z88.0 Allergy status to penicillin; Z88.6 Allergy status to analgesic agent; Z79.82 Long term (current) use of aspirin; R94.31 Abnormal electrocardiogram [ECG] [EKG]
CPT/HCPCS: 36415; 70450; 71045; 80048; 80053; 81003; 81015; 82550; 82553; 83605; 83721; 83880; 84484; 85025; 85610; 85730; 86140; 87086; 93005; 93306; 96361; 96372; 96374; 96375; 99285; A9270-GY; C8929; G0378; J1644; J1940

== ENCOUNTER 2020-03-20 14:59 | Inpatient (IN) | payer MEDICARE, OTHER ==
[2020-03-20] MEDS ORDERED: Albuterol/Ipratropium NEB.SOL* (2.5/0.5 MG) 3 ML NEB.SOLN INH ONE (15:20)
--- NOTE | 2020-03-20 15:20 | ED ---
Respiratory - HPI Summary HPI Summary: 80 y/o female presented to [facility] for SOB present since between 0800 and 0900 this morning. Pt woke up with severe external CP and SOB. Pt also reports back aches. Pt reports intermittent chest heaviness for 2 days. CP is currently rated 6/10 and radiates down her left arm. Patient denies any diaphoresis, fever , chills, erythema of eyes, sore throat, cough, abdominal pain, nausea/vomiting , dysuria, hematuria, myalgia, edema, rash, or dizziness. She also denies weight gain or orthopnea. She has been too weak to get out of a chair for the past week. Hx of CAD with multiple stents noted. She seed Dr. Rodriguez. - History of Current Complaint Stated Complaint: CHEST PRESSURE PER FAMILY Time Seen by Provider: 03/20/20 15:11 Hx Obtained From: Patient Onset/Duration: Lasting Hours, Still Present Initial Severity: Severe Current Severity: Moderate Pain Intensity: 6 Sputum Amount: None Aggravating Factor(s): Nothing Alleviating Factor(s): Nothing Associated Signs and Symptoms: SOB, Chest Pain - Allergy/Home Medications Allergies/Adverse Reactions: Allergies Allergy/AdvReac Type Severity Reaction Status Date / Time cyclosporine [From Restasis] Allergy EYES Verified 04/25/18 17:48 ITCHY, SWOLLEN morphine Allergy Hives Verified 04/25/18 17:48 Penicillins Allergy Hives Verified 04/25/18 17:48 Home Medications: Home Medications Atorvastatin* [Lipitor 80 MG*] 80 mg PO DAILY 07/19/15 [History Confirmed ] Omeprazole CAP (NF) [Prilosec CAP* 20 MG] 40 mg PO DAILY 07/19/15 [History Confirmed 03/21/20] Furosemide TAB* [Lasix TAB*] 40 mg PO DAILY 01/27/16 [History Confirmed 03/21/20 ] Lisinopril TAB* [Prinivil TAB 10 MG*] 20 mg PO BID 02/02/16 [History Confirmed 03/21/20] Metoprolol Tartrate TAB* [Lopressor TAB*] 50 mg PO BID 12/27/16 [History Confirmed 03/21/20] Nitroglycerin TAB 0.4 MG* 0.4 mg SL Q5M PRN MDD 1.2 mg 12/27/16 [History Confirmed 03/21/20] Warfarin Sodium [Jantoven] 4.5 mg PO BEDTIME 04/25/18 [History Confirmed ] Alendronate Sodium [Fosamax-] 70 mg PO PADRON 12/18/18 [History Confirmed 03/21/20] Gabapentin CAP(*) [Neurontin 100 mg CAP(*)] 300 mg PO TID 12/18/18 [History Confirmed 03/21/20] Insulin Glargine,Hum.rec.anlog [Basaglar Kwikpen 100 inuts/ml 3 ml x 5 Pens] 40 units SUBCUT QAM MDD 60u 12/18/18 [History Confirmed 03/21/20] Multivitamin [Multivitamins] 1 cap PO DAILY 12/18/18 [History Confirmed 03/21/20 ] oxyCODONE TAB* [Roxycodone TAB 5 mg*] 5 - 10 mg PO Q8H PRN MDD 6 tabs 12/18/18 [ History Confirmed 03/21/20] Allopurinol TAB* [Zyloprim 100 MG TAB*] 200 mg PO DAILY 02/25/20 [History Confirmed 03/21/20] Cyanocobalamin TAB* [Vitamin B12 TAB*] 500 mcg PO DAILY 02/25/20 [History Confirmed 03/21/20] Escitalopram * [Lexapro 5 mg (NF)] 5 mg PO DAILY 02/25/20 [History Confirmed ] Insulin Aspart Prot/Insuln Asp [Novolog Mix 70-30 10 ml Vial] 15 units SUBCUT .WITH BREAKFAST MDD 65 units 02/25/20 [History Confirmed 03/21/20] Spironolactone TAB* [Aldactone TAB 25 MG*] 25 mg PO DAILY 02/25/20 [History Confirmed 03/21/20] PMH/Surg Hx/FS Hx/Imm Hx Endocrine/Hematology History: Reports: Hx Diabetes, Hx Anemia - microcytic Cardiovascular History: Reports: Hx Angina, Hx Angioplasty, Hx Atrial Fibrillation, Hx Coronary Artery Disease, Hx Hypercholesterolemia, Hx Hypertension, Hx Myocardial Infarction, Other Cardiovascular Problems/Disorders - hx cardiac stent, atherosclerosis Denies: Hx Congestive Heart Failure, Hx Pacemaker/ICD, Hx Valvular Heart Disease Respiratory History: Reports: Hx Chronic Obstructive Pulmonary Disease (COPD) - per ED H+P, Hx Sleep Apnea - 2 liters O2 at night, Other Respiratory Problems/ Disorders - 2 L at night Comment Only: Hx Asthma - occassional per pt GI History: Reports: Hx Gastroesophageal Reflux Disease, Hx Gastrointestinal Bleed, Other GI Disorders - gastritis Denies: Hx Cirrhosis, Hx Crohn's Disease, Hx Diverticulosis, Hx Gall Bladder Disease, Hx Hiatal Hernia, Hx Irritable Bowel, Hx Jaundice, Hx Obstructive Bowel , Hx Ileostomy, Hx Pyloric Stenosis, Hx Ulcer History: Reports: Hx Chronic Renal Failure - stage 3, Hx Kidney Stones Musculoskeletal History: Reports: Hx Arthritis, Hx Rheumatoid Arthritis, Hx Orthopedic Injury - right femur 2013, Other Musculoskeletal History - herniated L4-L5 Denies: Hx Scoliosis Sensory History: Reports: Hx Cataracts - removed, Hx Contacts or Glasses Denies: Hx Eye Injury, Hx Eye Prosthesis, Hx Glaucoma, Hx Legally Blind, Hx Macular Degeneration, Hx Vision Problem, Hx Deafness, Hx Hearing Aid, Hx Hearing Problem, Other Sensory Impairments Opthamlomology History: Reports: Hx Cataracts - removed, Hx Contacts or Glasses Denies: Hx Eye Injury, Hx Eye Prosthesis, Hx Glaucoma, Hx Legally Blind, Hx Macular Degeneration, Hx Vision Problem, Other Sensory Impairments Neurological History: Reports: Hx Headaches, Other Neuro Impairments/Disorders - left hand neuropathy Denies: Hx Dementia, Hx Developmental Delay, Hx Migraine, Hx Nerve Disease, Hx Seizures, Hx Spinal Cord Injury, Hx Transient Ischemic Attacks (TIA) Psychiatric History: Reports: Hx Depression Denies: Hx Panic Disorder - Cancer History Cancer Type, Location and Year: COLON CA - Surgical History Surgery Procedure, Year, and Place: RIGHT LEG AFTER FRACTURE 09/26/14. Colon resection 2013 Hx Anesthesia Reactions: No - Immunization History Date of Tetanus Vaccine: within the last ten years Date of Influenza Vaccine: October 2016 Infectious Disease History: Denies: Hx Clostridium Difficile, Hx Hepatitis, Hx Human Immunodeficiency Virus (HIV), Hx of Known/Suspected MRSA, Hx Shingles, Hx Tuberculosis, Hx Known/ Suspected VRE, Hx Known/Suspected VRSA, History Other Infectious Disease - Family History Known Family History: Positive: Hypertension - Social History Alcohol Use: None Hx Substance Use: No Substance Use Type: Reports: None Hx Tobacco Use: No Smoking Status (MU): Never Smoked Tobacco Type: Cigarettes Have You Smoked in the Last Year: No Review of Systems Constitutional: Other - negative - weight gain Negative: Fever, Chills, Skin Diaphoresis Negative: Erythema Negative: Sore Throat Positive: Chest Pain - severe external Respiratory: Other - negative - orthopnea Positive: Shortness Of Breath. Negative: Cough Negative: Abdominal Pain, Vomiting, Nausea Negative: dysuria, hematuria Positive: Myalgia - back. Negative: Edema Negative: Rash Neurological/Mental Status: Other - negative - dizziness Positive: Weakness All Other Systems Reviewed And Are Negative: Yes Physical Exam - Summary Physical Exam Summary: Constitutional: Well-developed, Well-nourished, Alert. (-) Distressed Skin: Warm, Dry HENT: Normocephalic; Atraumatic Eyes: Conjunctiva normal Neck: Musculoskeletal ROM normal neck. (-) JVD, (-) Stridor, (-) Tracheal deviation Cardio: Rhythm regular, rate normal, Heart sounds normal; Intact distal pulses; The pedal pulses are 2+ and symmetric. Radial pulses are 2+ and symmetric. (-) Murmur Pulmonary/Chest wall: Effort normal. (-) Respiratory distress, (-) Wheezes, (-) Rales, Crackles in bilat lung bases Abd: Soft, (-) tenderness, (-) Distension, (-) Guarding, (-) Rebound Musculoskeletal: (+) Trace LE edema Lymph: (-) Cervical adenopathy Neuro: Alert, Oriented x3 Psych: Mood and affect Normal Triage Information Reviewed: Yes Vital Signs Reviewed: Yes Procedures - Sedation Patient Received Moderate/Deep Sedation with Procedure: No Diagnostics - Laboratory Result Diagrams: 03/23/20 08:03 03/22/20 08:10 Lab Statement: Any lab studies that have been ordered have been reviewed, and results considered in the medical decision making process. - Radiology CXR Radiology Interpretation Completed By: Radiologist Summary of Radiographic Findings: IMPRESSION: Obscured left hemidiaphragm ( atelectasis versus infiltrate). This report was reviewed by the ED physician. Disposition - Course Course Of Treatment: 80 y/o female presented to [facility] for SOB present since between 0800 and 0900 this morning. Pt woke up with severe external CP and SOB. Pt also reports back aches. Pt reports intermittent chest heaviness for 2 days. CP is currently rated 6/10 and radiates down her left arm. Patient denies any diaphoresis, fever, chills, erythema of eyes, sore throat, cough, abdominal pain , nausea/vomiting, dysuria, hematuria, myalgia, edema, rash, or dizziness. She also denies weight gain or orthopnea. She has been too weak to get out of a chair for the past week. Hx of CAD with multiple stents noted. She seed Dr. Rodriguez. Exam showed crackles in bilat lung bases. Trace LE edema. X-ray chest showed Obscured left hemidiaphragm (atelectasis versus infiltrate). At 1733 pt case was discussed with Dr. Bustamante, who agreed to admit the pt. Pt was diagnosed with Chest pain, unspecified, CHF exacerbation, Suspected COVID-19 virus infection; and admitted to [facility] - Diagnoses Provider Diagnoses: Chest pain, unspecified, CHF exacerbation, Suspected COVID-19 virus infection - Physician Notifications Discussed Care Of Patient With: Neha Bustamante Time Discussed With Above Provider: 17:33 Instructed by Provider To: Other - At 1733 pt case was discussed with Dr. Bustamante , who agreed to admit the pt. - Critical Care Time Critical Care Statement: Critical care time is provided exclusive of any time spent performing procedures. Discharge ED - Sign-Out/Discharge Documenting (check all that apply): Patient Departure - Discharge Plan Condition: Critical Disposition: ADMITTED TO [facility] - Billing Disposition and Condition Condition: CRITICAL Disposition: Admitted to [facility] - Attestation Statements Document Initiated by Scribe: Yes Documenting Scribe: Bon Mccollum Provider For Whom Scribe is Documenting (Include Credential): Dusty Azar MD Scribe Attestation: [place], scribed for Dusty Azar MD on 03/23/20 at 1215. Scribe Documentation Reviewed: Yes Provider Attestation: The documentation as recorded by the elliotibBon redd accurately reflects the service I personally performed and the decisions made by , Dusty Azar MD Status of Scribe Document: Viewed
--- OUTSIDE RECORDS SUMMARY | 2020-03-20 15:43 | XMS REPORT | Continuity of Care Document ---
:1940 External Reference #:[id number] Author Name Carlos Enrique Torres D.O. (transmitted by agent of provider Ingris Beckett) Address [address] [place] [address] Care Team Providers Name Role Phone Darrel Baez MD - Cardiovascular Care Team Information Channel Marketing Manager Disease Alfredo Wilhelm MD - Gastroenterology Care Team Information Channel Marketing Manager [phone] HCP/LW on file Care Team Information Channel Marketing Manager Unavailable Meli Powers MD - Surgery Care Team Information Channel Marketing Manager Corbin Spencer MD - Surgery Care Team Information Channel Marketing Manager Gregorio Merida MD - Surgery Care Team Information Channel Marketing Manager [phone] Don Morton MD - Orthopaedic Care Team Information Channel Marketing Manager [phone] [facility] Care Team Information Channel Marketing Manager Gladis Vitale MD - Pulmonary Care Team Information Channel Marketing Manager [phone] Disease Problems Active Problems Provider Date Coronary arteriosclerosis John Munguia M.D. Onset: 08/10/2011 Chronic atrial fibrillation John Munguia M.D. 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 Onset: 2004 diabetes mellitus Malignant tumor of colon John Munguia M.D. [...] vulva Carlos Enrique Torres D.O. Onset: 09/14/2019 Pulmonary hypertension Carlos Enrique Torres D.O. Onset: 03/02/2020 Social History Type Date Description Comments Sex [...] Medications SIG Qnty Indications Ordering Date Provider Vitamin B 12 1 by mouth every Unknown 02/27/2020 500mcg day Tablets Spironolactone 1 tablet by mouth 90tabs Rian [...] Torres, 03/31/2019 5mm Day as Directed D.O. Sure Comfort Use 1 To 5 Times 200units Carlos Enrique Torres, 01/09/2019 1ml Daily D.O. Multivitamin Gummies daily Unknown 10/29/2018 Adult Chewtabs Omeprazole Take One Capsule 90caps R12 Silcotony, 10/09/2018 40mg By Mouth Every Day Lincoln Cronin Capsules K21.9 Novolog Mix 70/30 Inject 20 Units With 60units [facility], 05/05/2018 Breakfast. Max Of 65 Braxton Monaco (70-30)100Unit/ML Units Daily as Suspension Directed Alendronate Sodium Take With A Full 12tabs M81.0 [facility], 01/30/2018 70mg Glass Of Water (6 To Sha Monaco.O. Tablets 8 Ounces; 180 To 240 ML) And Avoid Lying Down For AT Least 30 Minutes. Take Once Weekly On Saturday. BD Pen or appropriate 60units [facility], 01/14/2018 Needle/Mini/Ultrafine/31 needles for Basaglar Braxton Monaco G X 3/16" pen. use up to 2/day, 31G X 5 mm Misc as directed, for insulin administration Basaglar Kwikpen Inject 34 Units In 45units E11.65 [facility], 12/26/2017 100Unit/ML The Morning . Braxton Monaco Solution Pen-Inject Increase By 2 Units If Morning Fasting Is Over 110 For 3 Days Max. 60 Units A Day Chair To Lift From Use as directed. M54.16 [facility], 09/17/2017 Sitting Shellie Monaco. Insulin use with novolog 200units [facility], 09/17/2017 Syringe/0.5ML/30G X 1/2" 70/30 as directed Shellie Monaco. 30G daily X 1/2" 0.5 ML Misc Onetouch Ultra Blue Use To Test 1 To 4 200units [facility], 03/21/2016 Strips Times Daily as Braxton Monaco Directed Furosemide take one tablet by 90tabs [facility], 03/20/2016 40mg Tablets mouth every day Braxton Monaco Freestyle Lite Test or appropriate 200units E11.65 [facility], 03/15/2016 Strips testing strips for Braxton Monaco patients device, test 1-4 times daily as directed Oxycodone HCL take 1-2 tablets by 180tabs M25.55 [facility], 10/04/2015 5mg Tablets mouth every 8 hours 1 Carlos Enrique, D.O. as needed for pain (maximum daily dose = 6) Lisinopril Take One Tablet By 180tabs [facility], 08/11/2015 20mg Tablets Mouth Twice A Day Shellie Monaco. Jantoven Take 4 And 1/2 360tabs Z79.01 [facility], 12/29/2014 1mg Tablets Tablets By Mouth AT Ramses MonacoORenetta Bedtime Or as Directed I48.2 Atorvastatin Calcium [...] blood pressure Nitrostat 1 every 5min as 14tabs I25.10 Carlos Enrique Torres, 08/07/2011 0.4mg needed heart pain up D.O. Tablets Sub to 3 max then call [...] CPT Code Status Date Vaccine Lot # 11580 Given 09/14/2019 Influenza Vaccine, Inactivated, Subunit, [id number] Adjuvanted, For Intrmusc 19319 Given 10/30/2018 Influenza Vaccine, Inactivated, Subunit, [id number] Adjuvanted, For Intrmusc 34260 Given 09/17/2017 Influenza Vaccine Split Virus Preservative Free [id number] Im Use (hi-dose) 81474 Given 07/27/2016 Influenza Virus Vaccine, Quadrivalent, Split, [id number] Preservative Free 42969 Given 07/28/2015 Influenza Virus Vaccine, Quadrivalent, Split, [id number] Preservative Free 48991 Given 04/08/2015 Adacel or Boostrix, TDaP [id number] 54682 Given 04/08/2015 Prevnar 13 [id number] 47970 Given 10/15/2013 Zostavax 65321 Given 09/04/2013 Flu, Split Virus 3Yrs 02915 Given 08/09/2012 Flu, Split Virus 3Yrs 88186 Given 08/10/2011 Flu, Split Virus 3Yrs [id number] 58403 Given 08/24/2010 Flu, Split Virus 3Yrs [id number] 97391 Given 12/13/2009 Flu, Split Virus 3Yrs [id number] 76244 Given 09/18/2008 Flu, Split Virus 3Yrs [id number] 76893 Given 10/02/2007 Pneumococcal Immunization [id number] 09911 Given 10/02/2007 Td Immunization [id number] 29844 Given 10/02/2007 Flu, Split Virus 3Yrs [id number] 01998 Given 09/20/2006 Flu, Split Virus 3Yrs 35181 Given 09/25/2005 Flu, Split Virus 3Yrs 49582 Given 12/18/2004 Flu, Split Virus 3Yrs Vital Signs Date Vital Result Comment 01/28/2020 3:26pm BP Systolic 132 mmHg BP Diastolic 82 mmHg 01/22/2020 3:59pm BP Systolic 136 mmHg BP Diastolic 80 mmHg Height 61 inches 5'1" Weight 243.00 lb BMI (Body Mass Index) 45.9 kg/m2 Results Test Acquired Facility Test Result H/L Range Note Date Protime W03/01/2020 [facility] 1.2 Inr(Add l Normalized V58.61) Laboratory 02/25/2020 [facility] Troponin-I 0.01 ng/mL <0.03 1 test finding [phone] (TnI) Laboratory 02/25/2020 [facility] Troponin-I 0.01 ng/mL <0.03 2 test finding [phone] (TnI) Inr/Protime 02/25/2020 [facility] Inr 7.80 Critical 0.82-1.0 3 [phone] high 9 Laboratory 02/25/2020 [facility] Partial >240.0 Critical 26.0-38. 4 test finding [phone] Thrombo Time seconds high 0 PTT CBC Auto Diff 02/25/2020 [facility] White Blood 10.8 Normal 3.5-10.8 [phone] Count 10^3/uL Red Blood Count 4.28 10^6/uL Normal 3.70-4.87 Hemoglobin 13.3 g/dL Normal 12.0-16.0 Hematocrit 39 % Normal 35-47 Mean Corpuscular Volume 91 fL Normal 80-97 Mean Corpuscular Hemoglobin 31 pg Normal 27-31 Mean Corpuscular HGB Conc 34 g/dL Normal 31-36 Red Cell Distribution Width 16 % High 10-15 Platelet Count 270 10^3/uL Normal 150-450 Mean Platelet Volume 7.9 fL Normal 7.4-10.4 Abs Neutrophils 8.9 10^3/uL High 1.5-7.7 Abs Lymphocytes 1.0 10^3/uL Normal 1.0-4.8 Abs Monocytes 0.7 10^3/uL Normal 0-0.8 Abs Eosinophils 0.1 10^3/uL Normal 0-0.6 Abs Basophils 0.1 10^3/uL Normal 0-0.2 Abs Nucleated RBC 0.0 10^3/uL Granulocyte % 82.8 % Lymphocyte % 9.0 % Monocyte % 6.2 % Eosinophil % 1.0 % Basophil % 1.0 % Nucleated Red Blood Cells % 0.1 Comp Metabolic Panel 02/25/2020 [facility] Sodium 139 mmol/L Normal 135-145 [phone] Potassium 3.8 mmol/L Normal 3.5-5.0 Chloride 109 mmol/L Normal 101-111 Co2 Carbon Dioxide 22 mmol/L Normal 22-32 Anion Gap 8 mmol/L Normal 2-11 Glucose 269 mg/dL High 70-100 Blood Urea Nitrogen 35 mg/dL High 6-24 Creatinine 1.52 mg/dL High 0.51-0.95 BUN/Creatinine Ratio 23.0 High 8-20 Calcium 9.4 mg/dL Normal 8.6-10.3 Total Protein 6.7 g/dL Normal 6.4-8.9 Albumin 3.6 g/dL Normal 3.2-5.2 Globulin 3.1 g/dL Normal 2-4 Albumin/Globulin Ratio 1.2 Normal 1-3 Total Bilirubin 0.40 mg/dL Normal 0.2-1.0 Alkaline Phosphatase 48 U/L Normal 34-104 Alt 25 U/L Normal 7-52 Ast 32 U/L Normal 13-39 Egfr Non- 32.7 >60 Egfr 39.6 >60 5 Laboratory test 02/25/2020 [facility] LDL Cholesterol Direct 62 mg/dL 6 finding [phone] Creatine Kinase(CK) 234 U/L High 10-223 Troponin-I (TnI) 0.00 ng/mL <0.03 7 CKMB 02/25/2020 [facility] CKMB ng/mL 7.9 ng/mL High 0.6-6.3 [phone] Laboratory test 02/25/2020 [facility] B-Type 174 pg/mL High <=100 finding [phone] Natriuretic Peptide BNP Lactic Acid 0.4 mmol/L Low 0.5-2.0 8 C Reactive Protein 76.99 mg/L High <8.01 Protime W/ Inr(Add 02/20/2020 [facility] 3.0 V58.61) Normalized Protime W/ Inr(Add 02/15/2020 [facility] 2.0 V58.61) Normalized Protime W/ Inr(Add 02/07/2020 [facility] #International 3.9 V58.61) Normalized Protime W/ Inr(Add 02/02/2020 [facility] #International 3.1 V58.61) Normalized Urinalysis With 01/26/2020 [facility]. Urine Color Light-Yel Yellow 9 Microscopic LABORATORY low [phone] Urine Clarity Clear Clear Urine Glucose - Dipstick >1000 mg/dL Negative Urine Bilirubin - Dipstick NEGATIVE Negative Urine Ketone NEGATIVE mg/dL Negative Urine Specific [place] 1.011 Normal 1.010-1.030 Urine Blood TRACE Negative [...] Seen Source: URINE, CLEAN CAT <SEE NOTE> 10 Protime W/ Inr(Add V58.61) 01/24/2020 [facility] #Prothrombin Time <pending > #International Normalized 3.0 Protime W/ 01/17/2020 [facility] 3.5 Inr(Add V58.61) Normalized Protime W/ 01/10/2020 [facility] 2.8 Inr(Add V58.61) Normalized Basic Metabolic 01/08/2020 [facility] Sodium 142 Normal 135-14 Panel [phone] mmol/L 5 Potassium 4.4 mmol/L Normal 3.5-5.0 Chloride 105 mmol/L Normal 101-111 Co2 Carbon Dioxide 27 mmol/L Normal 22-32 Anion Gap 10 mmol/L Normal 2-11 Calcium 10.0 mg/dL Normal 8.6-10.3 Glucose 124 mg/dL High 70-100 Blood Urea Nitrogen 21 mg/dL Normal 6-24 Creatinine 1.26 mg/dL High 0.51-0.95 BUN/Creatinine Ratio 16.7 Normal 8-20 Egfr Non- 40.8 >60 Egfr 49.3 >60 11 Protime W/ 01/03/2020 [facility]International 3.6 Inr(Add V58.61) Normalized Protime W/ 12/27/2019 [facility]International 4.5 Inr(Add V58.61) Normalized Comp Metabolic 12/25/2019 [facility] Sodium 141 Normal 135-14 Panel [phone] mmol/L 5 Potassium 3.8 mmol/L Normal 3.5-5.0 [...] Egfr Non- 43.1 >60 Egfr 52.2 >60 12 CBC Auto Diff 12/25/2019 [facility] White Blood 6.1 10^3/uL Normal 3.5-10.8 [phone] Count Red Blood Count 4.92 10^6/uL High [...] Cells % 0.0 Laboratory test finding 12/25/2019 [facility] Uric Acid 9.2 mg/dL High 2.3-6.6 [phone] Erythrocyte Sed Rate 11 mm/Hr Normal 0-29 [...] #International 1.9 V58.61) Normalized Laboratory test 11/20/2019 [facility] Uric Acid 10.8 mg/dL High 2.3- 6.6 finding [phone] Erythrocyte Sed Rate 14 mm/Hr Normal 0-29 C Reactive Protein 6.11 mg/L Normal <8.01 CBC Auto Diff 11/20/2019 [facility] White Blood 6.1 10^3/uL Normal 3.5-10.8 [phone] Count Red Blood Count 4.70 10^6/uL Normal [...] Cells % 0.0 Comp Metabolic Panel 11/20/2019 [facility] Sodium 142 mmol/L Normal 135-145 [phone] Potassium 4.0 mmol/L Normal 3.5-5.0 Chloride 104 [...] Egfr Non- 46.2 >60 Egfr 55.9 >60 13 Protime W/ Inr(Add 11/15/2019 [facility] Normalized 1.8 V58.61) Protime W/ Inr(Add 11/08/2019 In House #International Normalized 2.8 V58.61) Protime W/ Inr(Add 11/01/2019 [facility] #Prothrombin Time <pending> V58.61) #International Normalized 2.0 Protime W/ Inr(Add V58.61) 10/25/2019 [facility]International Normalized 1.7 Protime W/ Inr(Add V58.61) 10/16/2019 [facility]International Normalized 2.1 Protime W/ Inr(Add V58.61) 10/11/2019 [facility]International Normalized 2.6 Protime W/ Inr(Add V58.61) 09/27/2019 [facility]International Normalized 3.0 Protime W/ Inr(Add V58.61) 09/21/2019 [facility]International Normalized 3.4 Laboratory test finding 09/14/2019 In House Hemoglobin A1c 9.0 Protime W/ Inr(Add V58.61) 09/13/2019 [facility]International Normalized 3.2 Protime W/ Inr(Add V58.61) 09/06/2019 [facility]International Normalized 1.9 1 Troponin-I testing on Plasma Separator Tubes (PST) has a known false positive rate of 0.20-0.40%. All positive troponins reflex immediately to secondary confirmatory testing. Using the [employer] DxI 800 Access Immunoassay systems, the 99th percentile upper reference limit was demonstrated to be < 0.03 ng/mL. 2 Troponin-I testing on Plasma Separator Tubes (PST) has a known false positive rate of 0.20-0.40%. All positive troponins reflex immediately to secondary confirmatory testing. Using the [employer] DxI 800 Access Immunoassay systems, the 99th percentile upper reference limit was demonstrated to be < 0.03 ng/mL. 3 Verbal to [id number] by [id number] at 0730 on 02/25/20. Results read back accurately. Standard intensity warfarin therapeutic range: 2.0-3.0 High intensity warfarin therapeutic range: 2.5-3.5 4 Verbal to [id number] by [id number] at 0730 on 02/25/20. Results read back accurately. 5 Because ethnic data is not always [...] 5 Kidney failure <15 (or dialysis) 6 Desirable: <100 Near Optimal: 100-129 Borderline High: 130-159 High: 160-189 Very High: >189 7 Troponin-I testing on Plasma Separator Tubes (PST) has a known false positive rate of 0.20-0.40%. All positive troponins reflex immediately to secondary confirmatory testing. Using the [employer] DxI 800 Access Immunoassay systems, the 99th percentile upper reference limit was demonstrated to be < 0.03 ng/mL. 8 [facility] Severe Sepsis and Septic Shock Management Bundle Measure requires all lactic acids initially measuring >2.0 mmol/L be repeated. 9 CANNOT STAND 10 URINE, CLEAN CATCH 11 Because ethnic data is not always readily [...] 15-29 5 Kidney failure <15 (or dialysis) 12 Because ethnic data is not always readily [...] 15-29 5 Kidney failure <15 (or dialysis) 13 Because ethnic data is not always readily [...] 15-29 5 Kidney failure <15 (or dialysis) Procedures Date Code Description Status 03/01/2020 45872 Anticoagulant MGMT For Patient Taking Warfarin, Inc Completed Review & Intr 02/15/2020 39069 Anticoagulant MGMT For Patient Taking Warfarin, Inc Completed Review & Intr 02/08/2020 20455 Anticoagulant MGMT For Patient Taking Warfarin, Inc Completed Review & Intr 02/02/2020 97106 Anticoagulant MGMT For Patient Taking Warfarin, Inc Completed Review & Intr 01/25/2020 98609 Anticoagulant MGMT For Patient Taking Warfarin, Inc Completed Review & Intr 01/19/2020 26411 Anticoagulant MGMT For Patient Taking Warfarin, Inc Completed Review & Intr 01/12/2020 33550 Anticoagulant MGMT For Patient Taking Warfarin, Inc Completed Review & Intr 01/04/2020 52929 Anticoagulant MGMT For Patient Taking Warfarin, Inc Completed Review & Intr 01/01/2020 00434 Anticoagulant MGMT For Patient Taking Warfarin, Inc Completed Review & Intr 12/21/2019 74499 Anticoagulant MGMT For Patient Taking Warfarin, Inc Completed Review & Intr 12/10/2019 [id number] Diabetic Retinal Eye Exam Completed 12/08/2019 34471 Anticoagulant MGMT For Patient Taking Warfarin, Inc Completed Review & Intr 11/30/2019 52683 Anticoagulant MGMT For Patient Taking Warfarin, Inc Completed Review & Intr 11/23/2019 52209 Anticoagulant MGMT For Patient Taking Warfarin, Inc Completed Review & Intr 11/16/2019 84194 Anticoagulant MGMT For Patient Taking Warfarin, Inc Completed Review & Intr 11/02/2019 86736 Anticoagulant MGMT For Patient Taking Warfarin, Inc Completed Review & Intr 10/27/2019 78796 Anticoagulant MGMT For Patient Taking Warfarin, Inc Completed Review & Intr 10/27/2019 85768 Anticoagulant MGMT For Patient Taking Warfarin, Inc Completed Review & Intr 09/29/2019 31798 Anticoagulant MGMT For Patient Taking Warfarin, Inc Completed Review & Intr 09/21/2019 07218 Anticoagulant MGMT For Patient Taking Warfarin, Inc Completed Review & Intr 09/14/2019 15182 Anticoagulant MGMT For Patient Taking Warfarin, Inc Completed Review & Intr 09/07/2019 32817 Anticoagulant MGMT For Patient Taking Warfarin, Inc Completed Review & Intr 03/16/2019 [id number] Diabetic Foot Exam Completed Medical Devices Description No Information Available Encounters Type Date Location Provider Dx Diagnosis Office Visit 03/02/2020 Main Office Carlos Enrique Torres, E11.65 Type 2 diabetes 4:30p D.O. mellitus with hyperglycemia I10 Essential (primary) hypertension I27.20 Pulmonary hypertension, unspecified Z91.89 Oth personal risk factors, not elsewhere classified Office Visit 01/28/2020 3:00p Main Office Carlos Enrique Torres, M25.562 Pain in left D.O. knee R29.6 Repeated falls Z91.81 History of falling E11.65 Type 2 diabetes mellitus with hyperglycemia Z79.01 half-way (current) use of anticoagulants I10 Essential (primary) hypertension M48.062 Spinal stenosis, lumbar region with neurogenic claudication Office Visit 01/22/2020 4:00p Main Office Carlos Enrique Torres, E11.65 Type 2 diabetes D.O. mellitus with hyperglycemia Z79.01 half-way (current) use of anticoagulants I48.20 Chronic atrial fibrillation, unspecified M10.9 Gout, unspecified I10 Essential (primary) hypertension M48.062 Spinal stenosis, lumbar region with neurogenic claudication Z68.42 Body mass index (BMI) 45.0-49.9, adult Office Visit 12/22/2019 4:00p Main Office Carlos Enrique Torres, E11.65 Type 2 diabetes D.O. mellitus with hyperglycemia M10.9 Gout, unspecified Z79.01 half-way (current) use of anticoagulants I10 Essential (primary) hypertension M48.062 Spinal stenosis, lumbar region with neurogenic claudication Z79.4 terminal operator (current) use of insulin R19.7 Diarrhea, unspecified Z68.42 Body mass index (BMI) 45.0-49.9, adult Office Visit 11/19/2019 3:30p Main Office Carlos Enrique Torres, M10.9 Gout, unspecified D.O. Z79.01 half-way (current) use of anticoagulants I48.20 Chronic atrial [...] foot I48.20 Chronic atrial fibrillation, unspecified Z79.01 terminal operator (current) use of anticoagulants E11.65 Type 2 diabetes mellitus with hyperglycemia I10 Essential (primary) hypertension M48.062 Spinal stenosis, lumbar region with neurogenic claudication Office Visit 09/14/2019 11:00a Main Office Carlos Enrique Torres, E11.65 Type 2 diabetes D.O. mellitus with hyperglycemia N76.4 Abscess of vulva Z79.01 terminal operator (current) use of anticoagulants Z23 Encounter for immunization Assessments Date Code Description Provider 03/02/2020 E11.65 Type 2 diabetes mellitus with hyperglycemia Carlos Enrique Torres D.O. 03/02/2020 I10 Essential (primary) hypertension Carlos Enrique Torres D.ORenetta 03/02/2020 I27.20 Pulmonary hypertension, unspecified Carlos Enrique Torres D.ORenetta 03/02/2020 Z91.89 Other specified personal risk factors, not Carlos Enrique Torres D.Ana. elsewhere classified 03/01/2020 Z79.01 half-way (current) use of anticoagulants Carlos Enrique Torres D.O. 03/01/2020 I48.20 Chronic atrial fibrillation, unspecified Carlos Enrique Torres D.O. 02/15/2020 Z79.01 half-way (current) use of anticoagulants Carlos Enrique Torres D.O. 02/15/2020 I48.20 Chronic atrial fibrillation, unspecified Carlos Enrique Torres D.O. 02/08/2020 Z79.01 half-way (current) use of anticoagulants Carlos Enrique Torres D.O. 02/08/2020 I48.20 Chronic atrial fibrillation, unspecified Sopchak, Carlos Enrique, D.O. 02/02/2020 Z79.01 terminal operator (current) use of anticoagulants SopchakTrinion, D.O. 02/02/2020 I48.20 Chronic atrial fibrillation, unspecified Sopchak, Carlos Enrique, D.O. 01/28/2020 M25.562 Pain in left knee SophansakTrinion, D.O. 01/28/2020 R29.6 Repeated falls Sopchak Carlos Enrique, D.O. 01/28/2020 Z91.81 History of falling Sopchak Carlos Enrique, D.O. 01/28/2020 E11.65 Type 2 diabetes mellitus with hyperglycemia Sopchak Carlos Enrique , D.O. 01/28/2020 Z79.01 half-way (current) use of anticoagulants Sopchak, Carlos Enrique, D.O. 01/28/2020 I10 Essential (primary) hypertension Sopchak, Carlos Enrique, D.O. 01/28/2020 M48.062 Spinal stenosis, lumbar region with Sopchak, Carlos Enrique, D.O. neurogenic claudication 01/25/2020 Z79.01 terminal operator (current) use of anticoagulants Sopchak, Carlos Enrique, D.O. 01/25/2020 I48.20 Chronic atrial fibrillation, unspecified Sopchak, Carlos Enrique, D.O. 01/22/2020 E11.65 Type 2 diabetes mellitus with hyperglycemia Sopchak, Carlos Enrique , D.O. 01/22/2020 Z79.01 terminal operator (current) use of anticoagulants Sopchak, Carlos Enrique, D.O. 01/22/2020 I48.20 Chronic atrial fibrillation, unspecified Sopchak, Carlos Enrique, D.O. 01/22/2020 M10.9 Gout, unspecified Sopchak, Carlos Enrique, D.O. 01/22/2020 I10 Essential (primary) hypertension Sopchak Carlos Enrique, D.O. 01/22/2020 M48.062 Spinal stenosis, lumbar region with Sopchak, Carlos Enrique, D.O. neurogenic claudication 01/22/2020 Z68.42 Body mass index (BMI) 45.0-49.9, adult Diannachak, Carlos Enrique, D.O. 01/19/2020 Z79.01 half-way (current) use of anticoagulants SopchakTrinion, D.O. 01/19/2020 I48.20 Chronic atrial fibrillation, unspecified Sopchak, Carlos Enrique, D.O. 01/12/2020 Z79.01 terminal operator (current) use of anticoagulants Sopchak, Carlos Enrique, D.O. 01/12/2020 I48.20 Chronic atrial fibrillation, unspecified Sopchak, Carlos Enrique, D.O. 01/04/2020 Z79.01 half-way (current) use of anticoagulants Sopchak, Carlos Enrique, D.O. 01/04/2020 I48.20 Chronic atrial fibrillation, unspecified Sopchak, Carlos Enrique, D.O. 01/01/2020 Z79.01 terminal operator (current) use of anticoagulants Diannachak, Carlos Enrique, D.O. 01/01/2020 I48.20 Chronic atrial fibrillation, unspecified SopchakTrinion, D.O. 12/22/2019 E11.65 Type 2 diabetes mellitus with hyperglycemia Trini Torreson , D.O. 12/22/2019 M10.9 Gout, unspecified Sopchak, Carlos Enrique, D.O. 12/22/2019 Z79.01 terminal operator (current) use of anticoagulants Diannachak, Carlos Enrique, D.O. 12/22/2019 I10 Essential (primary) hypertension DanielakTrinion, D.O. 12/22/2019 M48.062 Spinal stenosis, lumbar region with SophansakCarlos Enrique, D.O. neurogenic claudication 12/22/2019 Z79.4 half-way (current) use of insulin Carlos Enrique Torres, D.O. 12/22/2019 R19.7 Diarrhea, unspecified Sopchak, Carlos Enrique, D.O. 12/22/2019 Z68.42 Body mass index (BMI) 45.0-49.9, adult Trini Torreson, D.O. 12/21/2019 Z79.01 half-way (current) use of anticoagulants Diannachak Carlos Enrique, D.O. 12/21/2019 I48.20 Chronic atrial fibrillation, unspecified Sopchak, Carlos Enrique, D.O. 12/21/2019 I10 Essential (primary) hypertension Trini Torreson, D.O. 12/08/2019 Z79.01 terminal operator (current) use of anticoagulants DanielakTrinion, D.O. 12/08/2019 I48.20 Chronic atrial fibrillation, unspecified SopchakTrinion, D.O. 11/30/2019 Z79.01 terminal operator (current) use of anticoagulants DiannachakTrinion, D.O. 11/30/2019 I48.20 Chronic atrial fibrillation, unspecified Sopchak, Carlos Enrique, D.O. 11/23/2019 Z79.01 terminal operator (current) use of anticoagulants DiannachakTrinion, D.O. 11/23/2019 I48.20 Chronic atrial fibrillation, unspecified SopchakTrinion, D.O. 11/19/2019 M10.9 Gout, unspecified SopchakTrinion, D.O. 11/19/2019 Z79.01 terminal operator (current) use of anticoagulants DanielakTrinion, D.O. 11/19/2019 I48.20 Chronic atrial fibrillation, unspecified Sopchak, Carlos Enrique, D.O. 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 11/19/2019 E11.65 Type 2 diabetes mellitus with hyperglycemia Trini Torreson , D.O. 11/19/2019 I10 Essential (primary) hypertension Trini Torreson, D.O. 11/19/2019 M48.062 Spinal stenosis, lumbar region with Carlos Enrique Torres, D.O. neurogenic claudication 11/19/2019 G89.4 Chronic pain syndrome DanielakTrinion, D.O. 11/19/2019 Z68.42 Body mass index (BMI) 45.0-49.9, adult DanielakTrinion, D.O. 11/16/2019 Z79.01 half-way (current) use of anticoagulants DiannachakTrinion, D.O. 11/16/2019 I48.20 Chronic atrial fibrillation, unspecified Sopchak Carlos Enrique, D.O. 11/08/2019 Z79.01 half-way (current) use of anticoagulants DanielakTrinion, D.O. 11/08/2019 I48.20 Chronic atrial fibrillation, unspecified SopchakTrinion, D.O. 11/02/2019 Z79.01 terminal operator (current) use of anticoagulants DiannachakCarlos Enrique D.O. 11/02/2019 I48.20 Chronic atrial fibrillation, unspecified Sopchak, Carlos Enrique, D.O. 10/27/2019 I48.20 Chronic atrial fibrillation, unspecified Sopchak, Carlos Enrique, D.O. 10/27/2019 Z79.01 terminal operator (current) use of anticoagulants DiannachakTrinion D.O. 10/27/2019 I48.20 Chronic atrial fibrillation, unspecified Sopchak, Carlos Enrique, D.O. 10/27/2019 Z79.01 half-way (current) use of anticoagulants DanielakTrinion, D.O. 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 10/15/2019 I48.20 Chronic atrial fibrillation, unspecified SopchakTrinion, D.O. 10/15/2019 Z79.01 half-way (current) use of anticoagulants DanielakTrinion, D.O. 10/15/2019 E11.65 Type 2 diabetes mellitus with hyperglycemia Carlos Enrique Torres D.O. 10/15/2019 I10 Essential (primary) hypertension Carlos Enrique Torres D.O. 10/15/2019 M48.062 Spinal stenosis, lumbar region with Carlos Enrique Torres D.O. neurogenic claudication 09/29/2019 I48.20 Chronic atrial fibrillation, unspecified SopchakTrinion, D.O. 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 09/21/2019 I48.20 Chronic atrial fibrillation, unspecified SopchakTrinion, D.O. 09/21/2019 Z79.01 half-way (current) use of anticoagulants DiannachakTrinion, D.O. 09/14/2019 I48.20 Chronic atrial fibrillation, unspecified SopchakTrinion, D.O. 09/14/2019 E11.65 Type 2 diabetes mellitus with hyperglycemia Carlos Enrique Torres D.O. 09/14/2019 N76.4 Abscess of vulva Carlos Enrique Torres D.O. 09/14/2019 Z79.01 half-way (current) use of anticoagulants Carlos Enrique Torres D.O. 09/14/2019 Z79.01 half-way (current) use of anticoagulants Carlos Enrique Torres D.O. 09/14/2019 Z23 Encounter for immunization Carlos Enrique Torres D.O. 09/07/2019 I48.20 Chronic atrial fibrillation, unspecified Carlos Enrique Torres D.O. 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 Plan of Treatment Future Appointment(s):03/09/2020 4:30 pm - Carlos Enrique Torres D.O. at [facility]2203/24/2020 3:45 pm - Carlos Enrique Torres D.O. at [id number]/02/2020 - Carlos Enrique Torres D.O.E11.65 Type 2 diabetes mellitus with hyperglycemiaComments: TOV 24:34Follow up:1 week recheck diabetes/glucose [id number] Essential ( primary) rpogautrykviE46.20 Pulmonary hypertension, unspecifiedReferral:Gladis Vitale MD, Pulmonary ByxuzqrjP28.89 Other specified personal risk factors, not elsewhere classified Functional Status Description No Information Available Mental Status Description No Information Available Referrals Refer to Dr Reason for Referral Status Appt Date Gladis Vitale MD Pulmonary hypertension suggested on Sent transthoracic echo. Please do sleep testing for sleep apnea. Consult and Treat [facility] [address], [address] [place] [address] [phone]
--- OUTSIDE RECORDS SUMMARY | 2020-03-20 15:43 | XMS REPORT ---
:1940 Author Organization [facility] Care Team Providers Name Role Phone Unavailable Unavailable Unavailable Problems Condition Condition Condition Status Onset Resolution Last Treating Comments Name Details Category Date Date Treatment Clinician Date Hypertensiv Hypertensiv Diagnosis Active Brie e heart and e heart and 02-24 Ingrahm chronic chronic [id number] kidney kidney disease disease with heart with heart failure and failure and stage 1 stage 1 through through stage 4 stage 4 chronic chronic kidney kidney disease, or disease, or unspecified unspecified chronic chronic kidney kidney disease disease Chronic Chronic Diagnosis Active 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 [id number] ) heart ) heart failure failure Chronic Chronic Diagnosis Active 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-24 Ingrahm disease, disease, [id number] stage 3 stage 3 (moderate) (moderate) 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 [id number] without without complicatio complicatio ns ns Chronic Chronic Diagnosis Active Brie atrial atrial 12-02 Ingrahm fibrillatio fibrillatio [id number] n, n, unspecified unspecified Unspecified Unspecified Diagnosis Active Brie dementia dementia 12-02 Ingrahm without without [id number] behavioral behavioral disturbance disturbance 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 Brie chronic chronic Ingrahm kidney kidney [id number] disease disease 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, ch block, [id number] unspecified unspecified Hyperlipide Hyperlipide Diagnosis Active Brie peña, peña, Ingrahm unspecified unspecified [id number] Obesity, Obesity, Diagnosis Active Brie unspecified unspecified Ingrahm [id number] Personal Personal Diagnosis Active Brie history of history of Ingrahm other other [id number] 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 Personal Personal Diagnosis Active Brie history of history of Ingrahm transient transient [id number] ischemic ischemic attack attack (TIA), and (TIA), and cerebral cerebral infarction infarction without without residual residual deficits deficits 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 Brie (current) (current) Ingrahm use of use of [id number] insulin insulin 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 Brie (current) (current) Ingrahm use of use of [id number] anticoagula anticoagula nts nts half-way half-way Diagnosis Active Brie (current) (current) Ingrahm use of use of [id number] opiate opiate analgesic analgesic Other long Other long Diagnosis Active Brie term term Ingrahm (current) (current) [id number] drug drug therapy therapy Body mass Body mass Diagnosis Active Brie index (BMI) index (BMI) Ingrm 40.0-44.9, 40.0-44.9, [id number] adult adult Pain frequent Pain Mgmt Resolve 2020-03-11 Juliette pain d 03-01 11:15:00 (Vidal) 10:20: [id number] Cardio edema Cardiovasc Active Juliette ular 03-01 (Vidal) 10:20: [id number] Respiratory dyspnea Respirator Resolve 2020-03-11 Juliette present y d 03-01 11:15:00 (Vidal) 10:20: [id number] Respiratory oxygen Respirator Resolve 2020-03-11 Juliette treatments y d - 11:15:00 (Vidal) in home 10:20: [id number] Endo/Niels glucose Endo/Niels Active Juliette testing 03-01 (Vidal) dependence 10:20: [id number] Endo/Niels diabetic Endo/Niels Active Juliette foot care 03-01 (Vidal) 10:20: [id number] Endo/Niels anti-coagul Endo/Niels Active Juliette ation 03-01 (Vidal) therapy 10:20: [id number] Integument skin Integument Resolve 2020-03-11 Juliette integrity d 3- 11:15:00 (Vidal) risk 10:20: [id number] Nutrition nutritional Nutrition Resolve 2020-03-11 Juliette restriction d - 11:15:00 (Vidal) s 10:20: [id number] Elimination urinary Eliminatio Resolve 2020-03-11 Juliette incontinenc n d 03-01 11:15:00 (Vidal) e 10:20: [id number] Neuro confusion Neuro/Emot Active Juliette present ion 3- (Vidal) 10:20: [id number] Neuro depressive Neuro/Emot Active Juliette feelings ion - (Vidal) present 10:20: [id number] Neuro impaired Neuro/Emot Active Juliette decision-ma ion - (Vidal) diamond 10:20: [id number] Neuro memory Neuro/Emot Active Juliette deficit ion 3- (Vidal) needing 10:20: Wallace supervision 00 [id number] Activity ADL Activity Active Juliette assistance 3- (Vidal) required 10:20: [id number] Activity self-care Activity Active Juliette deficit 3- (Vidal) 10:20: [id number] Safety fall risk Safety Resolve 2020-03-11 Juliette factor d - 11:15:00 (Vidal) present 10:20: [id number] Safety risk for Safety Resolve 2020-03-11 Juliette hospitaliza d - 11:15:00 (Vidal) tion 10:20: [id number] Safety can be left Safety Resolve 2020-03-11 Juliette alone for d 3- 11:15:00 (Vidal) only short 10:20: Wallace periods 00 [id number] Medication oral med Meds Resolve 2020-03-15 Juliette assistance d 3- 14:30:00 (Vidal) required 10:20: [id number] Medication injectable Meds Resolve 2020-03-15 Juliette med d 3-31 14:30:00 (Vidal) assistance 10:20: Wallace required 00 [id number] Musculoskel requires Musculoske Resolve 2020-03-11 Juliette etal human letal d 03-01 11:15:00 (Vidal) assist to 10:20: Madison leave home 00 [id number] Bed mobility/tr PT/OT: Bed Active Libby Mobility/Tr ansfer Mobility/T 03-01 Franco ansfer device ransfer 13:49: [id number] present 00 Bed knowledge/s PT/OT: Bed Active Libby Mobility/Tr kill Mobility/T 03-01 Franco ansfer deficit: pt ransfer 13:49: [id number] 00 Balance/End balance/change management coordinator PT/OT: Active Libby urance rdination Balance/En 03-01 Franco deficit durance 13:49: [id number] 00 Balance/End endurance PT/OT: Active Libby urance deficit Balance/En 03-01 Franco durance 13:49: [id number] 00 Balance/End knowledge/s PT/OT: Active Libby urance kill Balance/En 03-01 Franco deficit: pt durance 13:49: [id number] 00 Gait/Locomo gait PT/OT: Active Libby tion deficit Gait/Locom -31 Franco problems otion 13:49: [id number] 00 Safety risk for Safety Active Libby hospitaliza 4-13 Franco tion 11:55: [id number] 00 Safety can be left Safety Active 2019- Brie alone for 4-14 Ingrahm only short 14:30: [id number] periods 00 Allergies, Adverse Reactions, Alerts Allergy Allergy Status Severity Reaction(s) Onset Inactive Treating Comments Name Type Date Date Clinician flexeril Unknown Active Unknown Reaction 2018-05 Juliette Unknown -04 (Vidal) [place] [id number] morphine Unknown Active Unknown Reaction 2018-05 Juliette Unknown -04 (Vidal) [place] [id number] PCN Unknown Active Unknown Reaction 2018-05 Juliette Unknown -04 (Vidal) [place] [id number] Medications Ordered Filled Start Stop Current Ordering Indication Dosage Frequency Signature Comments Components Medication Medication Date Date Medication? Clinician (SIG) Name Name atorvastati atorvastati Yes Sopchak Unknown Unknown n 80 mg n 80 mg 03-01 DO,Carlos Enrique tablet tablet omeprazole omeprazole Yes Sopchak Unknown Unknown 40 mg 40 mg 03-01 DO,Carlos Enrique capsule,del capsule,del ayed ayed release release furosemide furosemide 2019- Yes Sopchak Unknown Unknown 40 mg 40 mg 03-01 DO,Carlos Enrique tablet tablet lisinopriL lisinopriL Yes Sopchak Unknown Unknown 20 mg 20 mg 03-01 DO,Carlos Enrique tablet tablet Nitrostat Nitrostat Yes Sopchak Unknown Unknown 0.4 mg 0.4 mg 03-01 DO,Carlos Enrique sublingual sublingual tablet tablet metoprolol metoprolol Yes Sopchak Unknown Unknown tartrate tartrate 03-01 DO,Carlos Enrique 100 mg 100 mg tablet tablet Jantoven 1 Jantoven 1 2019- Yes Sopchak Unknown Unknown mg tablet mg tablet 03-01 DO,Carlos Enrique Basaglar Basaglar Yes Sopchak Unknown Unknown KwikPen KwikPen 03-01 DO,Carlos Enrique U-100 U-100 Insulin 100 Insulin 100 unit/mL (3 unit/mL (3 mL) mL) subcutaneou subcutaneou s s multivitami multivitami Yes Sopchak Unknown Unknown n capsule n capsule 03-01 DO,Carlos Enrique Fosamax 70 Fosamax 70 2019- Yes Sopchak Unknown Unknown mg tablet mg tablet 03-01 DO,Carlos Enrique gabapentin gabapentin Yes Sopchak Unknown Unknown 300 mg 300 mg 03-01 DO,Carlos Enrique capsule capsule oxyCODONE 5 oxyCODONE 5 2019- Yes Sopchak Unknown Unknown mg capsule mg capsule 03-01 DO,Carlos Enrique cyanocobala cyanocobala Yes Sopchak Unknown Unknown min (vit min (vit 03-01 DO,Carlos Enrique B-12) 1,000 B-12) 1,000 mcg mcg sublingual sublingual tablet tablet allopurinoL allopurinoL 2019-0 Yes Sopchak Unknown Unknown 100 mg 100 mg 03-01 DO,Carlos Enrique tablet tablet spironolact spironolact Yes Sopchak Unknown Unknown one 25 mg one 25 mg 3-31 DO,Carlos Enrique tablet tablet escitalopra escitalopra Yes Sopchak Unknown Unknown m 5 mg m 5 mg 3-31 DO,Carlos Enrique tablet tablet NovoLOG Mix NovoLOG Mix Yes Sopchak Unknown Unknown 70-30 70-30 3-31 DO,Carlos Enrique FlexPen FlexPen U-100 U-100 Insulin 100 Insulin 100 unit/mL unit/mL subcutaneou subcutaneou s pen s pen Oxygen Oxygen Yes Sopchak Unknown Unknown 3-31 DO,Carlos Enrique Jantoven 1 Jantoven 1 Yes Sopchak Unknown Unknown mg tablet mg tablet 4-05 DO,Carlos Enrique Vital Signs Vital Name Observation Time Observation Value Comments SYSTOLIC mm[Hg] 2020-03-17 18:11:25 120 mm[Hg] mm[Hg] Method: Sit SYSTOLIC mm[Hg] 2020-03-03 18:11:11 136 mm[Hg] mm[Hg] Method: Stand DIASTOLIC mm[Hg] 2020-03-17 18:11:25 60 mm[Hg] mm[Hg] Method: Sit DIASTOLIC mm[Hg] 2020-03-03 18:11:11 76 mm[Hg] mm[Hg] Method: Stand PULSE 2020-03-17 18:11:25 64 /min /min RESP RATE 2020-03-16 18:11:24 16 /min /min TEMP 2020-03-17 18:11:25 98.4 [degF] Procedures This patient has no known procedures. Results This patient has no known results.
--- OUTSIDE RECORDS SUMMARY | 2020-03-20 15:43 | XMS REPORT ---
:1940 Author Organization [facility] Care Team Providers Name Role Phone Unavailable Unavailable Unavailable Problems Condition Condition Condition Status Onset Resolution Last Treating Comments Name Details Category Date Date Treatment Clinician Date Hypertensiv Hypertensiv Diagnosis Active Brie e heart and e heart and 02-24 Ingrahm chronic chronic [id number] kidney kidney disease disease with heart with heart failure and failure and stage 1 stage 1 through through stage 4 stage 4 chronic chronic kidney kidney disease, or disease, or unspecified unspecified chronic chronic kidney kidney disease disease Chronic Chronic Diagnosis Active 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 [id number] ) heart ) heart failure failure Chronic Chronic Diagnosis Active 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-24 Ingrahm disease, disease, [id number] stage 3 stage 3 (moderate) (moderate) 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 [id number] without without complicatio complicatio ns ns Chronic Chronic Diagnosis Active Brie atrial atrial 12-02 Ingrahm fibrillatio fibrillatio [id number] n, n, unspecified unspecified Unspecified Unspecified Diagnosis Active Brie dementia dementia 12-02 Ingrahm without without [id number] behavioral behavioral disturbance disturbance 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 [place]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 Brie chronic chronic Ingrahm kidney kidney [id number] disease disease 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, ch block, [id number] unspecified unspecified Hyperlipide Hyperlipide Diagnosis Active Brie peña, peña, Ingrahm unspecified unspecified [id number] Obesity, Obesity, Diagnosis Active Brie unspecified unspecified Ingrahm [id number] Personal Personal Diagnosis Active Brie history of history of Ingrahm other other [id number] 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 Personal Personal Diagnosis Active Brie history of history of Ingrahm transient transient [id number] ischemic ischemic attack attack (TIA), and (TIA), and cerebral cerebral infarction infarction without without residual residual deficits deficits care home roasterman Diagnosis Active Brie (current) (current) Ingrahm use of use of [id number] insulin insulin roasterman roasterman Diagnosis Active Brie (current) (current) Ingrahm use of use of [id number] anticoagula anticoagula nts nts care home care home Diagnosis Active Brie (current) (current) Ingrahm use of use of [id number] opiate opiate analgesic analgesic Other long Other long Diagnosis Active Brie term term Ingrahm (current) (current) [id number] drug drug therapy therapy Body mass Body mass Diagnosis Active Brie index (BMI) index (BMI) Ingrm 40.0-44.9, 40.0-44.9, [id number] adult adult Pain frequent Pain Mgmt Resolve 2020-03-11 Juliette pain d 03-01 11:15:00 (Vidal) 10:20: [id number] Cardio edema Cardiovasc Active Juliette ular 03-01 (Vidal) 10:20: [id number] Respiratory dyspnea Respirator Resolve 2020-03-11 Juliette present y d 03-01 11:15:00 (Vidal) 10:20: [id number] Respiratory oxygen Respirator Resolve 2020-03-11 Juliette treatments y d - 11:15:00 (Vidal) in home 10:20: [id number] Endo/Niels glucose Endo/Niels Active Juliette testing 03-01 (Vidal) dependence 10:20: [id number] Endo/Niels diabetic Endo/Niels Active Juliette foot care 03-01 (Vidal) 10:20: [id number] Endo/Niels anti-coagul Endo/Niels Active Juliette ation 03-01 (Vidal) therapy 10:20: [id number] Integument skin Integument Resolve 2020-03-11 Juliette integrity d 3- 11:15:00 (Vidal) risk 10:20: [id number] Nutrition nutritional Nutrition Resolve 2020-03-11 Juliette restriction d - 11:15:00 (Vidal) s 10:20: [id number] Elimination urinary Eliminatio Resolve 2020-03-11 Juliette incontinenc n d 03-01 11:15:00 (Vidal) e 10:20: [id number] Neuro confusion Neuro/Emot Active Juliette present ion 3- (Vidal) 10:20: [id number] Neuro depressive Neuro/Emot Active Juliette feelings ion - (Vidal) present 10:20: [id number] Neuro impaired Neuro/Emot Active Juliette decision-ma ion - (Vidal) diamond 10:20: [id number] Neuro memory Neuro/Emot Active Juliette deficit ion 3- (Vidal) needing 10:20: Wallace supervision 00 [id number] Activity ADL Activity Active Juliette assistance 3- (Vdial) required 10:20: [id number] Activity self-care Activity Active Juliette deficit 3- (Vidal) 10:20: [id number] Safety fall risk Safety Resolve 2020-03-11 Juliette factor d - 11:15:00 (Vidal) present 10:20: [id number] Safety risk for Safety Resolve 2020-03-11 Juliette hospitaliza d - 11:15:00 (Vidal) tion 10:20: [id number] Safety can be left Safety Resolve 2020-03-11 Juliette alone for d 3- 11:15:00 (Vidal) only short 10:20: Wallace periods 00 [id number] Medication oral med Meds Resolve 2020-03-15 Juliette assistance d 3- 14:30:00 (Vidal) required 10:20: [id number] Medication injectable Meds Resolve 2020-03-15 Juliette med d 3-31 14:30:00 (Vidal) assistance 10:20: Wallace required 00 [id number] Musculoskel requires Musculoske Resolve 2020-03-11 Juliette etal human letal d 03-01 11:15:00 (Vidal) assist to 10:20: Madison leave home 00 [id number] Bed mobility/tr PT/OT: Bed Active Libby Mobility/Tr ansfer Mobility/T 03-01 Franco ansfer device ransfer 13:49: [id number] present 00 Bed knowledge/s PT/OT: Bed Active Libby Mobility/Tr kill Mobility/T 03-01 Franco ansfer deficit: pt ransfer 13:49: [id number] 00 Balance/End balance/dental office coordinator PT/OT: Active Libby urance rdination Balance/En 03-01 Franco deficit durance 13:49: [id number] 00 Balance/End endurance PT/OT: Active Libby urance deficit Balance/En 03-01 Franco durance 13:49: [id number] 00 Balance/End knowledge/s PT/OT: Active Libby urance kill Balance/En 03-01 Franco deficit: pt durance 13:49: [id number] 00 Gait/Locomo gait PT/OT: Active Libby tion deficit Gait/Locom -31 Franco problems otion 13:49: [id number] 00 Safety risk for Safety Active Libby hospitaliza 4-13 Franco tion 11:55: [id number] 00 Safety can be left Safety Active 2019- Brie alone for 4-14 Ingrahm only short 14:30: [id number] periods 00 Allergies, Adverse Reactions, Alerts Allergy Allergy Status Severity Reaction(s) Onset Inactive Treating Comments Name Type Date Date Clinician flexeril Unknown Active Unknown Reaction 2018-05 Juliette Unknown -04 (Vidla) [place] [id number] morphine Unknown Active Unknown Reaction 2018-05 Juliette Unknown -04 (Vidal) [place] [id number] PCN Unknown Active Unknown Reaction 2018-05 Juliette Unknown -04 (Vidal) [place] [id number] Medications Ordered Filled Start Stop Current Ordering [...]
--- OUTSIDE RECORDS SUMMARY | 2020-03-20 15:43 | XMS REPORT | Continuity of Care Document ---
:1940 External Reference #:[id number] Author Name Carlos Enrique Torres D.O. (transmitted by agent of provider Ingris Beckett) Address [address] [place] [address] Care Team Providers Name Role Phone Darrel Baez MD - Cardiovascular Care Team Information Food And Beverage Manager [phone] Disease Alfredo Wilhelm MD - Gastroenterology Care Team Information Food And Beverage Manager [phone] HCP/LW on file Care Team Information Food And Beverage Manager Unavailable Meli Powers MD - Surgery Care Team Information Food And Beverage Manager Corbin Spencer MD - Surgery Care Team Information Food And Beverage Manager Gregorio Merida MD - Surgery Care Team Information Food And Beverage Manager [phone] Don Morton MD - Orthopaedic Care Team Information Food And Beverage Manager [facility] Care Team Information Food And Beverage Manager [phone] Gladis Vitale MD - Pulmonary Care Team Information Food And Beverage Manager Disease Problems Active Problems Provider Date Coronary [...] Medications SIG Qnty Indications Ordering Date Provider Voltaren 2 gm apply to 100gm S66.012A Carlos Enrique Torres, 03/09/2020 1% Gel affected area D.O. every day # 100gm Vitamin B 12 1 by mouth every [...] Mix 70/30 Inject 15 Units With 60units [facility], 05/05/2018 Breakfast. Max Of 65 Carlos Enrique, D.O. (70-30)100Unit/ML Units Daily as Suspension Directed Alendronate Sodium Take With A Full 12tabs M81.0 [facility], 01/30/2018 70mg Glass Of Water (6 To Carlos Enrique, D.O. Tablets 8 Ounces; 180 To 240 ML) And Avoid Lying Down For AT Least 30 Minutes. Take Once Weekly On Saturday. BD Pen or appropriate 60units [facility], 01/14/2018 Needle/Mini/Ultrafine/31 needles for Basaglar Carlos Enrique D.O. G X 3/16" pen. use up to 2/day, 31G X 5 mm Misc as directed, for insulin administration Basaglhenrry Richardsonikpen Inject 34 Units In 45units E11.65 [facility], 12/26/2017 100Unit/ML The Morning . Braxton Monaco Solution Pen-Inject Increase By 2 Units If Morning Fasting Is Over 110 For 3 Days Max. 60 Units A Day Chair To Lift From Use as directed. M54.16 [facility], 09/17/2017 Sitting Braxton Monaco Insulin use with novolog 200units [facility], 09/17/2017 Syringe/0.5ML/30G X 1/2" 70/30 as directed Braxton Monaco 30G daily X 1/2" 0.5 ML Misc Onetouch Ultra Blue Use To Test 1 To 4 200units [facility], 03/21/2016 Strips Times Daily as Braxton Monaco Directed Furosemide take one tablet by 90tabs [facility], 03/20/2016 40mg Tablets mouth every day Braxton Monaco Freestyle Lite Test or appropriate 200units E11.65 [facility], 03/15/2016 Strips testing strips for Braxton Monaco patients device, test 1-4 times daily as directed Oxycodone HCL take 1-2 tablets by 180tabs M25.55 [facility], 10/04/2015 5mg Tablets mouth every 8 hours 1 Carlos Enrique D.Cristina as needed for pain (maximum daily dose = 6) Lisinopril Take One Tablet By 180tabs [facility], 08/11/2015 20mg Tablets Mouth Twice A Day Braxton Monaco Jantoven Take 4 And 1/2 360tabs Z79.01 [facility], 12/29/2014 1mg Tablets Tablets By Mouth AT Braxton Monaco Bedtime Or as Directed I48.2 Atorvastatin Calcium Take One Tablet By 90tabs E78.0 Carlos Enrique Torres, 08/18 80mg Mouth Every Day D.O. Tablets I25.10 BD Uf II Short .5cc use as directed 100units E11.65 Carlos Enrique Torres, 2013 31G D.O. Metoprolol Tartrate take one-half tablet 90tabs [facility] by mouth twice a day D.O. 100mg Tablets for blood pressure Nitrostat 1 every 5min as 14tabs I25.10 [facility] Carlos Enrique, 08/07/2011 0.4mg needed heart pain up D.O. Tablets Sub to 3 max then call 911 if unreleaved History Medications Colcrys take 2 immediately 60tabs M10.072 Diann[facility]arles Carlos Enrique, 11/19/2019 - 0.6mg then 1 1 hour later. D.O. 12/22/2019 Tablets then next day take 1 twice a day. Stop atorvastatin while taking colcrys. Colcrys take 2 immediately 60tabs M10.072 [facility] Carlos Enrique, 10/15/2019 - 0.6mg then 1 1 hour later. D.O. 11/18/2019 Tablets then next day take 1 twice a day. Stop atorvastatin while taking colcrys. Sulfamethoxazole 1 by mouth twice a 20tabs N77.1 [facility] Carlos Enrique, 2018 - /Trimethoprim DS day [...] M.D. 12/08/2012 Injection injection, kenalog, 10 mg oJhn Munguia M.D. 03/01/2011 Injection H1N1 Swine Flu [...] CPT Code Status Date Vaccine Lot # [id number] Given 09/14/2019 Influenza Vaccine, Inactivated, Subunit, [id number] Adjuvanted, For Intrmusc 00798 Given 10/30/2018 Influenza Vaccine, Inactivated, Subunit, [id number] Adjuvanted, For Intrmusc 01937 Given 09/17/2017 Influenza Vaccine Split Virus Preservative Free [id number] Im Use (hi-dose) 11527 Given 07/27/2016 Influenza Virus Vaccine, Quadrivalent, Split, [id number] Preservative Free 73602 Given 07/28/2015 Influenza Virus Vaccine, Quadrivalent, Split, [id number] Preservative Free 74948 Given 04/08/2015 Adacel or Boostrix, TDaP [id number] 95117 Given 04/08/2015 Prevnar 13 [id number] 76878 Given 10/15/2013 Zostavax 55728 Given 09/04/2013 Flu, Split Virus 3Yrs 33952 Given 08/09/2012 Flu, Split Virus 3Yrs 94898 Given 08/10/2011 Flu, Split Virus 3Yrs [id number] 85065 Given 08/24/2010 Flu, Split Virus 3Yrs [id number] 18310 Given 12/13/2009 Flu, Split Virus 3Yrs [id number] 59863 Given 09/18/2008 Flu, Split Virus 3Yrs [id number] 07268 Given 10/02/2007 Pneumococcal Immunization [id number] 35238 Given 10/02/2007 Td Immunization [id number] 12358 Given 10/02/2007 Flu, Split Virus 3Yrs [id number] 23217 Given 09/20/2006 Flu, Split Virus 3Yrs 36696 Given 09/25/2005 Flu, Split Virus 3Yrs 25663 Given 12/18/2004 Flu, Split Virus 3Yrs Vital Signs Date Vital Result Comment 01/28/2020 3:26pm BP Systolic 132 mmHg BP Diastolic 82 mmHg 01/22/2020 3:59pm BP Systolic 136 mmHg BP Diastolic 80 mmHg Height 61 inches 5'1" Weight 243.00 lb BMI (Body Mass Index) 45.9 kg/m2 Results Test Acquired Facility Test Result H/L Range Note Date Protime W/ 03/07/2020 [facility] 2.5 Inr(Add l Normalized V58.61) Protime W/ 03/01/2020 [facility] 1.2 Inr(Add l Normalized V58.61) Laboratory 02/25/2020 [facility] Troponin-I 0.01 ng/mL <0.03 1 test finding [phone] (TnI) Laboratory 02/25/2020 [facility] Troponin-I 0.01 ng/mL <0.03 2 test finding [phone] (TnI) Inr/Protime 02/25/2020 [facility] Inr 7.80 Critical 0.82-1.0 3 [phone] high 9 Laboratory 02/25/2020 [facility] Partial >240.0 Critical 26.0-38. 4 test finding [phone] Thrombo Time seconds high 0 PTT CBC Auto Diff 02/25/2020 [facility] White Blood 10.8 Normal 3.5-10.8 [phone] Count 10^3/uL Red Blood Count 4.28 10^6/uL [...] Cells % 0.1 Comp Metabolic Panel 02/25/2020 [facility] Sodium 139 mmol/L Normal 135-145 [phone] Potassium 3.8 mmol/L Normal 3.5-5.0 Chloride 109 [...] Egfr 39.6 >60 5 Laboratory test 02/25/2020 [facility] LDL Cholesterol Direct 62 mg/dL 6 finding [phone] Creatine Kinase(CK) 234 U/L High 10-223 Troponin-I (TnI) 0.00 ng/mL <0.03 7 CKMB 02/25/2020 [facility] CKMB ng/mL 7.9 ng/mL High 0.6-6.3 [phone] Laboratory test 02/25/2020 [facility] B-Type 174 pg/mL High <=100 finding [phone] Natriuretic Peptide BNP Lactic Acid 0.4 mmol/L Low 0.5-2.0 8 C Reactive Protein 76.99 mg/L High <8.01 Protime W/ Inr(Add 02/20/2020 [facility] 3.0 V58.61) Normalized Protime W/ Inr(Add 02/15/2020 [facility] 2.0 V58.61) Normalized Protime W/ Inr(Add 02/07/2020 [facility] 3.9 V58.61) Normalized Protime W/ Inr(Add 02/02/2020 [facility] 3.1 V58.61) Normalized Urinalysis With [facility] Urine Color Light-Yel Yellow 9 Microscopic LABORATORY low [phone] Urine Clarity Clear Clear Urine Glucose - Dipstick >1000 mg/dL Negative Urine Bilirubin - Dipstick NEGATIVE Negative Urine Ketone NEGATIVE mg/dL Negative Urine Specific [place] 1.011 Normal 1.010-1.030 Urine Blood TRACE Negative [...] 2.8 Inr(Add V58.61) Normalized Basic Metabolic 01/08/2020 [facility] Sodium 142 Normal 135-14 Panel [phone] mmol/L 5 Potassium 4.4 mmol/L Normal 3.5-5.0 [...] 4.5 Inr(Add V58.61) Normalized Comp Metabolic 12/25/2019 [facility] Sodium 141 Normal 135-14 Panel [phone] mmol/L 5 Potassium 3.8 mmol/L Normal 3.5-5.0 [...] 52.2 >60 12 CBC Auto Diff 12/25/2019 [facility] White Blood 6.1 10^3/uL Normal 3.5-10.8 [phone] Count Red Blood Count 4.92 10^6/uL High [...] Cells % 0.0 Laboratory test finding 12/25/2019 [facility] Uric Acid 9.2 mg/dL High 2.3-6.6 [phone] Erythrocyte Sed Rate 11 mm/Hr Normal 0-29 [...] #International 1.9 V58.61) Normalized Laboratory test 11/20/2019 [facility] Uric Acid 10.8 mg/dL High 2.3- 6.6 finding [phone] Erythrocyte Sed Rate 14 mm/Hr Normal 0-29 C Reactive Protein 6.11 mg/L Normal <8.01 CBC Auto Diff 11/20/2019 [facility] White Blood 6.1 10^3/uL Normal 3.5-10.8 [phone] Count Red Blood Count 4.70 10^6/uL Normal [...] Cells % 0.0 Comp Metabolic Panel 11/20/2019 [facility] Sodium 142 mmol/L Normal 135-145 [phone] Potassium 4.0 mmol/L Normal 3.5-5.0 Chloride 104 [...] V58.61) 09/13/2019 [facility] Normalized 3.2 1 Troponin-I testing on Plasma Separator Tubes (PST) has a known false positive rate of 0.20-0.40%. All positive troponins reflex immediately to secondary confirmatory testing. Using the [employer] DxI 800 Access Immunoassay systems, the 99th percentile upper reference limit was demonstrated to be < 0.03 ng/mL. 2 Troponin-I testing on Plasma Separator Tubes (PST) has a known false positive rate of 0.20-0.40%. All positive troponins reflex immediately to secondary confirmatory testing. Using the [employer] DxI 800 Access Immunoassay systems, the 99th percentile upper reference limit was demonstrated to be < 0.03 ng/mL. 3 Verbal to [id number] by [id number] at 0730 on 02/25/20. Results read back accurately. Standard intensity warfarin therapeutic range: 2.0-3.0 High intensity warfarin therapeutic range: 2.5-3.5 4 Verbal to [id number] by [id number] at 0730 on 02/25/20. Results read back [...] immediately to secondary confirmatory testing. Using the [employer] DxI 800 Access Immunoassay systems, the 99th percentile upper reference limit was demonstrated to be < 0.03 ng/mL. 8 [facility] Severe Sepsis and Septic Shock [...] dialysis) Procedures Date Code Description Status 03/01/2020 36883 Anticoagulant MGMT For Patient Taking Warfarin, Inc Completed Review & Intr 02/15/2020 71445 Anticoagulant MGMT For Patient Taking Warfarin, Inc Completed Review & Intr 02/08/2020 00557 Anticoagulant MGMT For Patient Taking Warfarin, Inc Completed Review & Intr 02/02/2020 87706 Anticoagulant MGMT For Patient Taking Warfarin, Inc Completed Review & Intr 01/25/2020 74447 Anticoagulant MGMT For Patient Taking Warfarin, Inc Completed Review & Intr 01/19/2020 01069 Anticoagulant MGMT For Patient Taking Warfarin, Inc Completed Review & Intr 01/12/2020 87006 Anticoagulant MGMT For Patient Taking Warfarin, Inc Completed Review & Intr 01/04/2020 32602 Anticoagulant MGMT For Patient Taking Warfarin, Inc Completed Review & Intr 01/01/2020 67067 Anticoagulant MGMT For Patient Taking Warfarin, Inc Completed Review & Intr 12/21/2019 13594 Anticoagulant MGMT For Patient Taking Warfarin, Inc Completed Review & Intr 12/10/2019 [id number] Diabetic Retinal Eye Exam Completed 12/08/2019 58446 Anticoagulant MGMT For Patient Taking Warfarin, Inc Completed Review & Intr 11/30/2019 25054 Anticoagulant MGMT For Patient Taking Warfarin, Inc Completed Review & Intr 11/23/2019 83034 Anticoagulant MGMT For Patient Taking Warfarin, Inc Completed Review & Intr 11/16/2019 14743 Anticoagulant MGMT For Patient Taking Warfarin, Inc Completed Review & Intr 11/02/2019 01247 Anticoagulant MGMT For Patient Taking Warfarin, Inc Completed Review & Intr 10/27/2019 77782 Anticoagulant MGMT For Patient Taking Warfarin, Inc Completed Review & Intr 10/27/2019 46068 Anticoagulant MGMT For Patient Taking Warfarin, Inc Completed Review & Intr 09/29/2019 39443 Anticoagulant MGMT For Patient Taking Warfarin, Inc Completed Review & Intr 09/21/2019 04709 Anticoagulant MGMT For Patient Taking Warfarin, Inc Completed Review & Intr 09/14/2019 26599 Anticoagulant MGMT For Patient Taking Warfarin, Inc Completed Review & Intr 03/16/2019 [id number] Diabetic Foot Exam Completed Medical Devices Description No Information Available Encounters Type Date Location Provider Dx Diagnosis Office Visit 03/09/2020 Main Office Carlos Enrique Torres, S66.012A Strain long flexor 4:30p D.O. musc/fasc/tend l thm at [facility] lv, init E11.65 Type 2 diabetes mellitus with hyperglycemia I10 Essential (primary) hypertension I27.20 Pulmonary hypertension, unspecified Z79.01 predatory animal exterminator (current) use of anticoagulants I48.20 Chronic atrial fibrillation, unspecified Office Visit 03/02/2020 4:30p Main Office Carlos Enrique Torres, E11.65 Type 2 diabetes D.O. mellitus with hyperglycemia I10 Essential (primary) hypertension I27.20 Pulmonary hypertension, unspecified Z91.89 Oth personal risk factors, not elsewhere classified Office Visit 01/28/2020 3:00p Main Office Carlos Enrique Torres, M25.562 Pain in left D.O. knee R29.6 Repeated falls Z91.81 History of falling E11.65 Type 2 diabetes mellitus with hyperglycemia Z79.01 predatory animal exterminator (current) use of anticoagulants I10 Essential (primary) hypertension M48.062 Spinal stenosis, lumbar region with neurogenic claudication Office Visit 01/22/2020 4:00p Main Office Carlos Enrique Torres, E11.65 Type 2 diabetes D.O. mellitus with hyperglycemia Z79.01 predatory animal exterminator (current) use of anticoagulants I48.20 Chronic atrial fibrillation, unspecified M10.9 Gout, unspecified I10 Essential (primary) hypertension M48.062 Spinal stenosis, lumbar region with neurogenic claudication Z68.42 Body mass index (BMI) 45.0-49.9, adult Office Visit 12/22/2019 4:00p Main Office Carlos Enrique Torres, E11.65 Type 2 diabetes D.O. mellitus with hyperglycemia M10.9 Gout, unspecified Z79.01 predatory animal exterminator (current) use of anticoagulants I10 Essential (primary) hypertension M48.062 Spinal stenosis, lumbar region with neurogenic claudication Z79.4 care home (current) use of insulin R19.7 Diarrhea, unspecified Z68.42 Body mass index (BMI) 45.0-49.9, adult Office Visit 11/19/2019 3:30p Main Office Carlos Enrique Torres, M10.9 Gout, unspecified D.O. Z79.01 care home (current) use of anticoagulants I48.20 Chronic atrial [...] foot I48.20 Chronic atrial fibrillation, unspecified Z79.01 care home (current) use of anticoagulants E11.65 Type 2 diabetes mellitus with hyperglycemia I10 Essential (primary) hypertension M48.062 Spinal stenosis, lumbar region with neurogenic claudication Office Visit 09/14/2019 11:00a Main Office Carlos Enrique Torres, E11.65 Type 2 diabetes D.O. mellitus with hyperglycemia N76.4 Abscess of vulva Z79.01 predatory animal exterminator (current) use of anticoagulants Z23 Encounter for immunization Assessments Date Code Description Provider 03/09/2020 S66.012A Strain of long flexor muscle, fascia and Carlos Enrique Torres D.O. tendon of left thumb at wrist and hand level, initial encounter 03/09/2020 E11.65 Type 2 diabetes mellitus with hyperglycemia Carlos Enrique Torres D.O. 03/09/2020 I10 Essential (primary) hypertension Carlos Enrique Torres D.O. 03/09/2020 I27.20 Pulmonary hypertension, unspecified Carlos Enrique Torres D.O. 03/09/2020 Z79.01 predatory animal exterminator (current) use of anticoagulants Carlos Enrique Torres D.O. 03/09/2020 I48.20 Chronic atrial fibrillation, unspecified Trini Torreson D.O. 03/02/2020 E11.65 Type 2 diabetes mellitus with hyperglycemia Carlos Enrique Torres D.O. 03/02/2020 I10 Essential (primary) hypertension Carlos Enrique Torres D.O. 03/02/2020 I27.20 Pulmonary hypertension, unspecified Trini Torreson D.O. 03/02/2020 Z91.89 Other specified personal risk factors, not SopCarlos Enrique soto D.O. elsewhere classified 03/01/2020 Z79.01 care home (current) use of anticoagulants Carlos Enrique Torres D.O. 03/01/2020 I48.20 Chronic atrial fibrillation, unspecified Trini Torreson D.O. 03/01/2020 I10 Essential (primary) hypertension Carlos Enrique Torres D.O. 02/15/2020 Z79.01 predatory animal exterminator (current) use of anticoagulants Carlos Enrique Torres D.O. 02/15/2020 I48.20 Chronic atrial fibrillation, unspecified Trini Torreson D.O. 02/08/2020 Z79.01 predatory animal exterminator (current) use of anticoagulants Carlos Enrique Torres D.O. 02/08/2020 I48.20 Chronic atrial fibrillation, unspecified SophansakTrinion D.O. 02/02/2020 Z79.01 predatory animal exterminator (current) use of anticoagulants Carlos Enrique Torres D.O. 02/02/2020 I48.20 Chronic atrial fibrillation, unspecified SophansakTrinion D.O. 01/28/2020 M25.562 Pain in left knee Carlos Enrique Torres D.O. 01/28/2020 R29.6 Repeated falls Carlos Enrique Torres D.O. 01/28/2020 Z91.81 History of falling Carlos Enrique Torres D.O. 01/28/2020 E11.65 Type 2 diabetes mellitus with hyperglycemia Carlos Enrique Torres D.O. 01/28/2020 Z79.01 predatory animal exterminator (current) use of anticoagulants Sopchak, Carlos Enrique, D.O. 01/28/2020 I10 Essential (primary) hypertension Sopchak, Carlos Enrique, D.O. 01/28/2020 M48.062 Spinal stenosis, lumbar region with Sopchak, Carlos Enrique, D.O. neurogenic claudication 01/25/2020 Z79.01 predatory animal exterminator (current) use of anticoagulants Sopchak, Carlos Enrique, D.O. 01/25/2020 I48.20 Chronic atrial fibrillation, unspecified Sopchak, Carlos Enrique, D.O. 01/22/2020 E11.65 Type 2 diabetes mellitus with hyperglycemia Sopchak, Carlos Enrique , D.O. 01/22/2020 Z79.01 predatory animal exterminator (current) use of anticoagulants Sopchak, Carlos Enrique, D.O. 01/22/2020 I48.20 Chronic atrial fibrillation, unspecified Sopchak, Carlos Enrique, D.O. 01/22/2020 M10.9 Gout, unspecified Sopchak, Carlos Enrique, D.O. 01/22/2020 I10 Essential (primary) hypertension Sopchak, Carlos Enrique, D.O. 01/22/2020 M48.062 Spinal stenosis, lumbar region with Sopchak, Carlos Enrique, D.O. neurogenic claudication 01/22/2020 Z68.42 Body mass index (BMI) 45.0-49.9, adult Sopchak, Carlos Enrique, D.O. 01/19/2020 Z79.01 predatory animal exterminator (current) use of anticoagulants Sopchak, Carlos Enrique, D.O. 01/19/2020 I48.20 Chronic atrial fibrillation, unspecified Sopchak, Carlos Enrique, D.O. 01/12/2020 Z79.01 predatory animal exterminator (current) use of anticoagulants Sopchak, Carlos Enrique, D.O. 01/12/2020 I48.20 Chronic atrial fibrillation, unspecified Sopchak, Carlos Enrique, D.O. 01/04/2020 Z79.01 care home (current) use of anticoagulants Sopchak, Carlos Enrique, D.O. 01/04/2020 I48.20 Chronic atrial fibrillation, unspecified Sopchak, Carlos Enrique, D.O. 01/01/2020 Z79.01 predatory animal exterminator (current) use of anticoagulants Sopchak, Carlos Enrique, D.O. 01/01/2020 I48.20 Chronic atrial fibrillation, unspecified Sopchak, Carlos Enrique, D.O. 12/22/2019 E11.65 Type 2 diabetes mellitus with hyperglycemia SophansakTrinion , D.O. 12/22/2019 M10.9 Gout, unspecified Sopchak, Carlos Enrique, D.O. 12/22/2019 Z79.01 care home (current) use of anticoagulants Sopchak, Carlos Enrique, D.O. 12/22/2019 I10 Essential (primary) hypertension Sopchak, Carlos Enrique, D.O. 12/22/2019 M48.062 Spinal stenosis, lumbar region with SopchakTrinion, D.O. neurogenic claudication 12/22/2019 Z79.4 predatory animal exterminator (current) use of insulin Carlos Enrique Torres, D.O. 12/22/2019 R19.7 Diarrhea, unspecified Sopchak, Carlos Enrique, D.O. 12/22/2019 Z68.42 Body mass index (BMI) 45.0-49.9, adult Sophansak Carlos Enrique, D.O. 12/21/2019 Z79.01 predatory animal exterminator (current) use of anticoagulants Sopchak, Carlos Enrique, D.O. 12/21/2019 I48.20 Chronic atrial fibrillation, unspecified Sopchak, Carlos Enrique, D.O. 12/21/2019 I10 Essential (primary) hypertension SophansakTrinion, D.O. 12/08/2019 Z79.01 predatory animal exterminator (current) use of anticoagulants Sopchak, Carlos Enrique, D.O. 12/08/2019 I48.20 Chronic atrial fibrillation, unspecified Sopchak, Carlos Enrique, D.O. 11/30/2019 Z79.01 care home (current) use of anticoagulants Sopchak, Carlos Enrique, D.O. 11/30/2019 I48.20 Chronic atrial fibrillation, unspecified Sopchak, Carlos Enrique, D.O. 11/23/2019 Z79.01 care home (current) use of anticoagulants Sopchak, Carlos Enrique, D.O. 11/23/2019 I48.20 Chronic atrial fibrillation, unspecified Sopchak, Carlos Enrique, D.O. 11/19/2019 M10.9 Gout, unspecified Sopchak, Carlos Enrique D.O. 11/19/2019 Z79.01 care home (current) use of anticoagulants DanielakCarlos Enrique D.O. 11/19/2019 I48.20 Chronic atrial fibrillation, unspecified [...] adult Carlos Enrique Torres D.O. 11/16/2019 Z79.01 predatory animal exterminator (current) use of anticoagulants DanielakTrinion D.O. 11/16/2019 I48.20 Chronic atrial fibrillation, unspecified SopchakTrinion, D.O. 11/08/2019 Z79.01 care home (current) use of anticoagulants DanielakTrinion, D.O. 11/08/2019 I48.20 Chronic atrial fibrillation, unspecified Sopchak, Carlos Enrique, D.O. 11/02/2019 Z79.01 predatory animal exterminator (current) use of anticoagulants DanileakTrinion D.O. 11/02/2019 I48.20 Chronic atrial fibrillation, unspecified Sopchak, Carlos Enrique, D.O. 10/27/2019 I48.20 Chronic atrial fibrillation, unspecified Sopchak, Carlos Enrique, D.O. 10/27/2019 Z79.01 predatory animal exterminator (current) use of anticoagulants DiannachakTrinion, D.O. 10/27/2019 I48.20 Chronic atrial fibrillation, unspecified Sopchak, Carlos Enrique, D.O. 10/27/2019 Z79.01 care home (current) use of anticoagulants DanielakTrinion D.O. 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 10/15/2019 Z79.01 predatory animal exterminator (current) use of anticoagulants Carlos Enrique [...] unspecified Carlos Enrique Torres D.O. 09/21/2019 Z79.01 predatory animal exterminator (current) use of anticoagulants Carlos Enrique [...] Encounter for immunization Carlos Enrique Torres D.O. Plan of Treatment Future Appointment(s):03/24/2020 3:45 pm - Carlos Enrique Torres D.O. at [facility]/09/2020 - Carlos Enrique Torres D.O.S66.012A Strain of long flexor muscle, fascia and tendon of left thumb at wrist and hand level, initial encounterNew Medication:Voltaren 1 % - 2 gm apply to affected area every day # 100gmFollow up :as ohhggpxiwX56.65 Type 2 diabetes mellitus with sufilseomafwoI65 Essential ( primary) szfjyfucaeqjS56.20 Pulmonary hypertension, unspecifiedComments:TOV 20: 42Z79.01 predatory animal exterminator (current) use of ajfnoibngjaxawK09.20 Chronic atrial fibrillation, unspecified Functional Status Description No Information Available Mental Status Description No Information Available Referrals Refer to Reason for Referral Status Appt Date Gladis Vitale MD Pulmonary hypertension suggested on Closed transthoracic echo. Please do sleep testing for sleep apnea. Consult and Treat [facility] [address], [address] [place] [id number] [phone]
--- OUTSIDE RECORDS SUMMARY | 2020-03-20 15:43 | XMS REPORT | Continuity of Care Document ---
:1940 External Reference #:[id number] Author Name Marga Hays M.D. (transmitted by agent of provider Anita Lipscomb) Address [address] [place] [address] Care Team Providers Name Role Phone Carlos Enrique Torres DO - Family Care Team Information Housekeeping Supervisor Hotel [phone] Medicine Problems Active Problems Provider Date Chronic ischemic heart disease Darrel Baez M.D., [facility] Onset: 2012 Essential hypertension Darrel Baez M.D., [facility] Onset: 10/13/2013 Hyperlipidemia Darrel Baez M.D., [facility] Onset: 10/13/2013 Atrial fibrillation Darrel Baez M.D., [facility] Onset: 06/28/2014 Left bundle branch block Darrel Baez M.D., [facility] Onset: 06/28/2014 Benign essential hypertension Darrel Baez M.D., [facility] Onset: 2014 Morbid obesity Darrel Baez M.D., [facility] Onset: 12/15/2015 Paroxysmal atrial fibrillation Darrel Baez M.D., [facility] Onset: 2015 Obesity Darrel Baez M.D., [facility] Onset: 06/13/2017 Chest pain [facility] Onset: 09/03/2018 Mitral valve disorder [facility] Onset: 10/01/2018 Social History Type Date Description Comments Sex Unknown Tobacco Use Start: Unknown Never Smoked Cigarettes Smoking Status Reviewed: 04/07/20 Never Smoked Cigarettes ETOH Use Denies alcohol use Tobacco Use Start: Unknown Patient has never smoked Recreational Drug Use Denies Drug Use Exercise Type/Frequency Does not exercise Allergies, Adverse Reactions, Alerts Active Allergies Reaction Severity Comments Date Penicillin rash 10/13/2013 Morphine swelling at injection site 10/13/2013 Baclofen 12/15/2015 Medications Active Medications SIG Qnty Indications Ordering Date Provider Spironolactone 1 by mouth every 90tabs Rian Jarquin 01/01/2020 25mg day Lincoln Rodriguez, Tablets [facility], [facility] Furosemide 1 by mouth every 30tabs Darrel Baez, 02/02/2016 40mg Tablets day M.D., [facility], [facility] Lisinopril 1 by mouth twice 180tabs Darrel Baez, 08/11/2015 20mg Tablets a day M.DRenetta, [facility], [facility] Nitrostat one sl q5min up 25tabs Darrel Baez, 10/13/2013 0.4mg Tablets to 3 doses prn M.D., [facility], [facility] Allopurinol 1 by mouth every Unknown 100mg Tablets day Escitalopram Oxalate 1 by mouth every Unknown 5mg day Tablets Colcrys 1 po bid Unknown 0.6mg Tablets Gabapentin 1 tablet po three Unknown 100mg Tablets times a day [facility] [employer] 2 tablet po twice Unknown daily as needed 500-32.5mg Tablets Poly-Iron 150 take one capsule Unknown 150mg by mouth once Capsules daily Am taken before breakfast Arlen Garcia inject 40 units Carlos Enrique Torres in the morning DO Bj 100Unit/ML Solution increase by 2 Pen-Inject units if morning fasting glucose is > 110 for 3 days Vitamin B-12 2 by mouth every Unknown Gummies day Multivitamin Adults once a day Unknown 50+ Adlt 50+ Tablets Jantoven as directed Unknown 1mg Tablets Oxycodone HCL 1 po tid prn Unknown 5mg Tablets Fish Oil 1 by mouth every Unknown 1000mg Capsules day Novolog 50-65 units Ana M Munguia, 100Unit/ML MD John Solution Lantus 30 units in the 6Vials [facility], 100Unit/ML Am MD John Solution Metoprolol Tartrate one half tablet 60tabs [facility], 100mg po bid MD John Tablets Omeprazole 1 po bid 90caps [facility], 20mg Capsules MD JOSE C Lopez Aspirin Adult Low One po daily Unknown Strength 81mg Medications Administered in Office Medication SIG Qnty Indications Ordering Provider Date Inj, Regadenoson, 0.1 MG Rian Britton Rodriguez M.D., 01/01/2020 Injection FACC, FASNC Technetium TC 99M Rian Britton Rodriguez M.D., 01/01/2020 Tetrofosmin, Per Unit Dose Up FACC, FASNC To 40 Millicuries Injection Technetium TC 99M Rian Britton Rodriguez M.D., 01/01/2020 Tetrofosmin, Per Unit Dose Up FACC, FASNC To 40 Millicuries Injection Inj, Regadenoson, 0.1 MG Gregorio Clark, DO FACC 09/29/2018 Injection Aminophylline Gregorio Clark, DO FACC 09/29/2018 Injection Technetium TC 99M Gregorio Clark, DO FACC 09/29/2018 Tetrofosmin, Per Unit Dose Up To 40 Millicuries Injection Immunizations Description No Information Available Vital Signs Date Vital Result Comment 03/08/2020 10:32am Height 62 inches 5'2" Heart Rate 67 /min BP Systolic Sitting 139 mmHg BP Diastolic Sitting 80 mmHg Body Temperature 97.0 F O2 % BldC Oximetry 94 % Neck Circumference in inches 17.5 12/09/2019 1:15pm Height 62 inches 5'2" Weight 245.00 lb with shoes Heart Rate 62 /min BP Systolic Sitting 136 mmHg lue large cuff BP Diastolic Sitting 70 mmHg lue large cuff BP Systolic Standing 140 mmHg lue large cuff BP Diastolic Standing 70 mmHg lue large cuff Respiratory Rate 16 /min BMI (Body Mass Index) 44.8 kg/m2 Ejection Fraction 35-40% echo. 11/17/19 Results Test Acquired Date Facility Test Result H/L Range Note Basic Metabolic 01/08/2020 [facility] Sodium 142 mmol/L Normal 135-145 Panel [address] [place] [address] [phone] Potassium 4.4 mmol/L Normal 3.5-5.0 Chloride 105 mmol/L Normal 101-111 Co2 Carbon Dioxide 27 mmol/L Normal 22-32 Anion Gap 10 mmol/L Normal 2-11 Calcium 10.0 mg/dL Normal 8.6-10.3 Glucose 124 mg/dL High 70-100 Blood Urea Nitrogen 21 mg/dL Normal 6-24 Creatinine 1.26 mg/dL High 0.51-0.95 BUN/Creatinine Ratio 16.7 Normal 8-20 Egfr Non- 40.8 >60 Egfr 49.3 >60 1 1 Because ethnic data is not always [...] (or dialysis) Procedures Date Code Description Status 02/25/2020 07983 ECHO Transthorasic Realtime 2D W Doppler & Color Flow Hosp Completed 01/01/2020 71833 Stress Test Completed 01/01/2020 14861 Myocardial Perfusion Imaging Tomographic (Spect) Multiple Completed Studies 12/09/2019 77236 EKG Tracing & Interpretation Completed 11/17/2019 86724 ECHO Transthoracic, Real-Time 2D With Doppler And Color Completed Flow 11/17/2019 47378 ECHO Transthoracic, Real-Time 2D With Doppler And Color Completed Flow Medical Devices Description No Information Available Encounters Type Date Location Provider Dx Diagnosis Office Visit 03/08/2020 [facility] Gladis Vitale MD R06.83 Snoring 11:00a [facility] R53.83 Other fatigue [facility] R07.9 Chest pain, 11:03a del Amor M.D. unspecified Hospitalists R06.02 Shortness of breath E11.9 Type 2 diabetes mellitus without complications I48.20 Chronic atrial fibrillation, unspecified Office Visit 12/09/2019 1:30p [facility] Rian Britton R07.9 Chest pain, [facility] Lincoln Rodriguez, unspecified FACC, FASNC I48.0 Paroxysmal atrial fibrillation I42.9 Cardiomyopathy, unspecified R94.31 Abnormal electrocardiogram [ECG] [EKG] Z86.73 Prsnl hx of TIA (TIA), and cereb infrc w/o resid deficits Office Visit 10/06/2019 4:00p [facility] Sanford Robbie, K62.5 Hemorrhage of Center [facility] AT M.D. 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 (moderate) 02/26/2020 R07.9 Chest pain, unspecified Marga Hays M.D. 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 (moderate) 02/26/2020 I50.32 Chronic diastolic (congestive) heart Marga Hays M.D. 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 02/25/2020 R07.9 Chest pain, unspecified Grabiel Cervantes M.D. 02/25/2020 R07.9 Chest pain, unspecified Marga Hays M.D. 02/25/2020 R06.02 Shortness of breath Marga Hays M.D. 02/25/2020 E11.9 Type 2 diabetes mellitus without Marga Hays M.D. complications 02/25/2020 I48.20 Chronic atrial fibrillation, Marga Hays M.D. unspecified 01/01/2020 R07.9 Chest pain, unspecified Rian Rodriguez M.D., [facility], [facility] 12/09/2019 R07.9 Chest pain, unspecified Rian Rodriguez M.D., [facility], [facility] 12/09/2019 I48.0 Paroxysmal atrial fibrillation Rian Rodriguez M.D., [facility] , [facility] 12/09/2019 I42.9 Cardiomyopathy, unspecified Rian Rodriguez M.D., [facility], [facility] 12/09/2019 R94.31 Abnormal electrocardiogram [ECG] Rian Rodriguez M.D., [facility], [EKG] [facility] 12/09/2019 Z86.73 Personal history of transient Rian Rodriguez M.D., [facility] , ischemic attack (TIA), and cerebral [facility] infarction without residual deficits 11/17/2019 I34.0 Nonrheumatic mitral (valve) Rian Rodriguez M.D., [facility], insufficiency [facility] 11/17/2019 I34.0 Nonrheumatic mitral (valve) Ica ECHO Schedule insufficiency 10/06/2019 K62.5 Hemorrhage of anus and rectum Sanford Avalos M.D. 10/06/2019 D50.8 Other iron deficiency anemias Sanford Avalos M.D. 10/06/2019 Z85.038 Personal history of other malignant Sanford Avalos M.D. neoplasm of large intest Plan of Treatment 03/08/2020 - Gladis iVtale, MDR06.83 SnoringNew Orders:Home Sleep Testing, Scheduled: 03/08/20Follow up:2 zrdpnI43.83 Other fatigue Functional Status Description No Information Available Mental Status Description No Information Available Referrals Description No Information Available
--- OUTSIDE RECORDS SUMMARY | 2020-03-20 15:43 | XMS REPORT ---
:1940 Author Organization [facility] Care Team Providers Name Role Phone Unavailable Unavailable Unavailable Problems Condition Condition Condition Status Onset Resolution Last Treating Comments Name Details Category Date Date Treatment Clinician Date Hypertensiv Hypertensiv Diagnosis Active Brie e heart and e heart and 02-24 Ingrahm chronic chronic [id number] kidney kidney disease disease with heart with heart failure and failure and stage 1 stage 1 through through stage 4 stage 4 chronic chronic kidney kidney disease, or disease, or unspecified unspecified chronic chronic kidney kidney disease disease Chronic Chronic Diagnosis Active 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 [id number] ) heart ) heart failure failure Chronic Chronic Diagnosis Active 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-24 Ingrahm disease, disease, [id number] stage 3 stage 3 (moderate) (moderate) 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 [id number] without without complicatio complicatio ns ns Chronic Chronic Diagnosis Active Brie atrial atrial 12-02 Ingrahm fibrillatio fibrillatio [id number] n, n, unspecified unspecified Unspecified Unspecified Diagnosis Active Brie dementia dementia 12-02 Ingrahm without without [id number] behavioral behavioral disturbance disturbance 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 k[place] kiana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 Brie chronic chronic Ingrahm kidney kidney [id number] disease disease 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, ch block, [id number] unspecified unspecified Hyperlipide Hyperlipide Diagnosis Active Brie peña, peña, Ingrahm unspecified unspecified [id number] Obesity, Obesity, Diagnosis Active Brie unspecified unspecified Ingrahm [id number] Personal Personal Diagnosis Active Brie history of history of Ingrahm other other [id number] 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 Personal Personal Diagnosis Active Brie history of history of Ingrahm transient transient [id number] ischemic ischemic attack attack (TIA), and (TIA), and cerebral cerebral infarction infarction without without residual residual deficits deficits assisted intermediate frame tender Diagnosis Active Brie (current) (current) Ingrahm use of use of [id number] insulin insulin intermediate frame tender intermediate frame tender Diagnosis Active Brie (current) (current) Ingrahm use of use of [id number] anticoagula anticoagula nts nts assisted assisted Diagnosis Active Brie (current) (current) Ingrahm use of use of [id number] opiate opiate analgesic analgesic Other long Other long Diagnosis Active Brie term term Ingrahm (current) (current) [id number] drug drug therapy therapy Body mass Body mass Diagnosis Active Brie index (BMI) index (BMI) Ingrm 40.0-44.9, 40.0-44.9, [id number] adult adult Pain frequent Pain Mgmt Resolve 2020-03-11 Juliette pain d 03-01 11:15:00 (Vidal) 10:20: [id number] Cardio edema Cardiovasc Active Juliette ular 03-01 (Vidal) 10:20: [id number] Respiratory dyspnea Respirator Resolve 2020-03-11 Juliette present y d 03-01 11:15:00 (Vidal) 10:20: [id number] Respiratory oxygen Respirator Resolve 2020-03-11 Juliette treatments y d - 11:15:00 (Vidal) in home 10:20: [id number] Endo/Niels glucose Endo/Niels Active Juliette testing 03-01 (Vidal) dependence 10:20: [id number] Endo/Niels diabetic Endo/Niels Active Juliette foot care 03-01 (Vidal) 10:20: [id number] Endo/Niels anti-coagul Endo/Niels Active Juliette ation 03-01 (Vidal) therapy 10:20: [id number] Integument skin Integument Resolve 2020-03-11 Juliette integrity d 3- 11:15:00 (Vidal) risk 10:20: [id number] Nutrition nutritional Nutrition Resolve 2020-03-11 Juliette restriction d - 11:15:00 (Vidal) s 10:20: [id number] Elimination urinary Eliminatio Resolve 2020-03-11 Juliette incontinenc n d 03-01 11:15:00 (Vidal) e 10:20: [id number] Neuro confusion Neuro/Emot Active Juliette present ion 3- (Vidal) 10:20: [id number] Neuro depressive Neuro/Emot Active Juliette feelings ion - (Vidal) present 10:20: [id number] Neuro impaired Neuro/Emot Active Juliette decision-ma ion - (Vidal) diamond 10:20: [id number] Neuro memory Neuro/Emot Active Juliette deficit ion 3- (Vidal) needing 10:20: Wallace supervision 00 [id number] Activity ADL Activity Active Juliette assistance - (Vidal) required 10:20: [id number] Activity self-care Activity Active Juliette deficit 3- (Vidal) 10:20: [id number] Safety fall risk Safety Resolve 2020-03-11 Juliette factor d - 11:15:00 (Vidal) present 10:20: [id number] Safety risk for Safety Resolve 2020-03-11 Juliette hospitaliza d - 11:15:00 (Vidal) tion 10:20: [id number] Safety can be left Safety Resolve 2020-03-11 Juliette alone for d 3- 11:15:00 (Vidal) only short 10:20: Wallace periods 00 [id number] Medication oral med Meds Active Juliette assistance 3- (Vidal) required 10:20: [id number] Medication injectable Meds Active Juliette med 3-31 (Vidal) assistance 10:20: Wallace required 00 [id number] Musculoskel requires Musculoske Resolve 2019-2020-03-11 Juliette etal human letal d 03-01 11:15:00 (Vidal) assist to 10:20: Madison leave home [id number] Bed mobility/tr PT/OT: Bed Active 2020-0 Libby Mobility/Tr ansfer Mobility/T 3-31 Franco ansfer device ransfer 13:49: [id number] present 00 Bed knowledge/s PT/OT: Bed Active 0 Libby Mobility/Tr kill Mobility/T 3-31 Franco ansfer deficit: pt ransfer 13:49: [id number] Balance/End balance/grill cook PT/OT: Active 2019-0 Libby urance rdination Balance/En 03-01 Franco deficit durance 13:49: [id number] Balance/End endurance PT/OT: Active 2019-0 Libby urance deficit Balance/En 03-01 Franco durance 13:49: [id number] Balance/End knowledge/s PT/OT: Active 2019-0 Libby urance kill Balance/En 03-01 Franco deficit: pt durance 13:49: [id number] Gait/Locomo gait PT/OT: Active 2019-0 Libby tion deficit Gait/Locom - Franco problems otion 13:49: [id number] Safety risk for Safety Active 2019-0 Libby hospitaliza 4-13 Franco tion 11:55: [id number] 00 Allergies, Adverse Reactions, Alerts Allergy Allergy Status Severity Reaction(s) Onset Inactive Treating Comments Name Type Date Date Clinician flexeril Unknown Active Unknown Reaction 2018-05 Juliette Unknown -04 (Vidal) Madison [id number] morphine Unknown Active Unknown Reaction 2018-05 Juliette Unknown -04 (Vidal) Madison [id number] PCN Unknown Active Unknown Reaction 2018-05 Juliette Unknown -04 (Vidal) [place] [id number] Medications Ordered Filled Start Stop Current Ordering Indication Dosage Frequency Signature Comments Components Medication Medication Date Date Medication? Clinician (SIG) Name Name atorvastati atorvastati Yes S[place]ak Unknown Unknown n 80 mg n 80 mg 03-01 DO,Carlos Enrique tablet tablet omeprazole omeprazole 2020-0 Yes [place] Unknown Unknown 40 mg 40 mg - DO,Carlos Enrique capsule,del capsule,del ayed ayed release release furosemide furosemide 2019- Yes [place] Unknown Unknown 40 mg 40 mg 03-01 DO,Carlos Enrique tablet tablet lisinopriL lisinopriL Yes [place] Unknown Unknown 20 mg 20 mg 03-01 DO,Carlos Enrique tablet tablet Nitrostat Nitrostat Yes [place] Unknown Unknown 0.4 mg 0.4 mg 03-01 DO,Carlos Enrique sublingual sublingual tablet tablet metoprolol metoprolol 2019- Yes [place] Unknown Unknown tartrate tartrate 03-01 DO,Carlos Enrique 100 mg 100 mg tablet tablet Dectoven 1 Dectoven 1 2019- Yes [place] Unknown Unknown mg tablet mg tablet 03-01 DO,Carlos Enrique Basaglar Basaglar Yes [place] Unknown Unknown KwikPen KwikPen 03-01 DO,Carlos Enrique U-100 U-100 Insulin 100 Insulin 100 unit/mL (3 unit/mL (3 mL) mL) subcutaneou subcutaneou s s multivitami multivitami Yes [place] Unknown Unknown n capsule n capsule 03-01 DO,Carlos Enrique Fosamax 70 Fosamax 70 Yes [place] Unknown Unknown mg tablet mg [...] Unknown one 25 mg one 25 mg 03-01 DO,Carlos Enrique tablet tablet escitalopra escitalopra 2019-0 Yes [place] Unknown Unknown m 5 mg m 5 mg 03-01 DO,Carlos Enrique tablet tablet NovoLOG Mix NovoLOG Mix 2020-0 Yes [place] Unknown Unknown 70-30 70-30 3-31 DOCarlos Enrique FlexPen FlexPen U-100 U-100 Insulin 100 Insulin 100 unit/mL unit/mL subcutaneou subcutaneou s pen s pen Oxygen Oxygen 2019-0 Yes [place] Unknown Unknown 3-31 DOCarlos Enrique Jantoven 1 Jantoven 1 2019-0 Yes Melissa Unknown Unknown mg tablet mg tablet 4-05 DOCarlos Enrique Vital Signs Vital Name Observation Time Observation Value Comments SYSTOLIC mm[Hg] 2020-03-14 18:11:22 110 mm[Hg] mm[Hg] Method: Sit SYSTOLIC mm[Hg] 2020-03-03 18:11:11 136 mm[Hg] mm[Hg] Method: Stand DIASTOLIC mm[Hg] 2020-03-14 18:11:22 60 mm[Hg] mm[Hg] Method: Sit DIASTOLIC mm[Hg] 2020-03-03 18:11:11 76 mm[Hg] mm[Hg] Method: Stand PULSE 2020-03-14 18:11:22 64 /min /min RESP RATE 2020-03-14 18:11:22 16 /min /min TEMP 2020-03-14 18:11:22 98.3 [degF] Procedures This patient has no known procedures. Results This patient has no known results.
--- OUTSIDE RECORDS SUMMARY | 2020-03-20 15:43 | XMS REPORT | Continuity of Care Document ---
:1940 External Reference #:[id number] Author Name Carlos Enrique Torres D.O. (transmitted by agent of provider Ingris Beckett) Address [address] [place] [address] Care Team Providers Name Role Phone Darrel Baez MD - Cardiovascular Care Team Information Axle Bearing Polisher [phone] Disease Alfredo Wilhelm MD - Gastroenterology Care Team Information Axle Bearing Polisher [phone] HCP/LW on file Care Team Information Axle Bearing Polisher Unavailable Meli Powers MD - Surgery Care Team Information Axle Bearing Polisher Corbin Spencer MD - Surgery Care Team Information Axle Bearing Polisher [phone] Gregorio Merida MD - Surgery Care Team Information Axle Bearing Polisher [phone] Don Morton MD - Orthopaedic Care Team Information Axle Bearing Polisher [facility] Care Team Information Axle Bearing Polisher [phone] Gladis Vitale MD - Pulmonary Care Team Information Axle Bearing Polisher Disease Problems Active Problems Provider Date Coronary [...] Mix 70/30 Inject 15 Units With 60units Formerly [facility], 05/05/2018 Breakfast. Max Of 65 Carlos Enrique, D.O. (70-30)100Unit/ML Units Daily as Suspension Directed Alendronate Sodium Take With A Full 12tabs M81.0 Formerly [facility], [facility], 01/30/2018 70mg Glass Of Water (6 To Carlos Enrique, D.O. Tablets 8 Ounces; 180 To 240 ML) And Avoid Lying Down For AT Least 30 Minutes. Take Once Weekly On Saturday. BD Pen or appropriate 60units Formerly [facility], 01/14/2018 Needle/Mini/Ultrafine/31 needles for Basaglar Carlos Enrique D.O. G X 3/16" pen. use up to 2/day, 31G X 5 mm Misc as directed, for insulin administration Basaglhenrry Richardsonikpen Inject 34 Units In 45units E11.65 Formerly [facility], 12/26/2017 100Unit/ML The Morning . Braxton Monaco Solution Pen-Inject Increase By 2 Units If Morning Fasting Is Over 110 For 3 Days Max. 60 Units A Day Chair To Lift From Use as directed. M54.16 Formerly [facility], 09/17/2017 Sitting Braxton Monaco Insulin use with novolog 200units Formerly [facility], 09/17/2017 Syringe/0.5ML/30G X 1/2" 70/30 as directed Braxton Monaco 30G daily X 1/2" 0.5 ML Misc Onetouch Ultra Blue Use To Test 1 To 4 200units Formerly [facility], 03/21/2016 Strips Times Daily as Braxton Monaco Directed Furosemide take one tablet by 90tabs Formerly [facility], 03/20/2016 40mg Tablets mouth every day Braxton Monaco Freestyle Lite Test or appropriate 200units E11.65 Formerly [facility], 03/15/2016 Strips testing strips for Braxton Monaco patients device, test 1-4 times daily as directed Oxycodone HCL take 1-2 tablets by 180tabs M25.55 Formerly [facility], 10/04/2015 5mg Tablets mouth every 8 hours 1 Carlos Enrique D.Cristina as needed for pain (maximum daily dose = 6) Lisinopril Take One Tablet By 180tabs Formerly [facility], 08/11/2015 20mg Tablets Mouth Twice A Day Braxton Monaco Jantoven Take 4 And 1/2 360tabs Z79.01 Formerly [facility], 12/29/2014 1mg Tablets Tablets By Mouth AT Braxton Monaco Bedtime Or as Directed I48.2 Atorvastatin Calcium Take One Tablet By 90tabs E78.0 Carlos Enrique Torres, 08/18 80mg Mouth Every Day D.O. Tablets I25.10 BD Uf II Short .5cc use as directed 100units E11.65 Carlos Enrique Torres, 2013 31G D.O. Metoprolol Tartrate take one-half tablet 90tabs [facility] 2012 by mouth twice a day D.O. 100mg Tablets for blood pressure Nitrostat 1 every 5min as 14tabs I25.10 DiannaCarlos Enrique soto, 08/07/2011 0.4mg needed heart pain up D.O. [...] a day. Stop atorvastatin while taking colcrys. Medications Administered in Office Medication SIG Qnty [...] CPT Code Status Date Vaccine Lot # 36534 Given 09/14/2019 Influenza Vaccine, Inactivated, Subunit, [id number] Adjuvanted, For Intrmusc 07141 Given 10/30/2018 Influenza Vaccine, Inactivated, Subunit, [id number] Adjuvanted, For Intrmusc 19647 Given 09/17/2017 Influenza Vaccine Split Virus Preservative Free [id number] Im Use (hi-dose) 61441 Given 07/27/2016 Influenza Virus Vaccine, Quadrivalent, Split, [id number] Preservative Free 15082 Given 07/28/2015 Influenza Virus Vaccine, Quadrivalent, Split, [id number] Preservative Free 65411 Given 04/08/2015 Adacel or Boostrix, TDaP [id number] 33917 Given 04/08/2015 Prevnar 13 [id number] 78324 Given 10/15/2013 Zostavax 33947 Given 09/04/2013 Flu, Split Virus 3Yrs 39459 Given 08/09/2012 Flu, Split Virus 3Yrs 18650 Given 08/10/2011 Flu, Split Virus 3Yrs [id number] 46416 Given 08/24/2010 Flu, Split Virus 3Yrs [id number] 02996 Given 12/13/2009 Flu, Split Virus 3Yrs [id number] 51479 Given 09/18/2008 Flu, Split Virus 3Yrs [id number] 95471 Given 10/02/2007 Pneumococcal Immunization [id number] 84001 Given 10/02/2007 Td Immunization [id number] 63493 Given 10/02/2007 Flu, Split Virus 3Yrs [id number] 97739 Given 09/20/2006 Flu, Split Virus 3Yrs 40128 Given 09/25/2005 Flu, Split Virus 3Yrs 29426 Given 12/18/2004 Flu, Split Virus 3Yrs Vital Signs Date Vital Result Comment 01/28/2020 3:26pm BP Systolic 132 mmHg BP Diastolic 82 mmHg 01/22/2020 3:59pm BP Systolic 136 mmHg BP Diastolic 80 mmHg Height 61 inches 5'1" Weight 243.00 lb BMI (Body Mass Index) 45.9 kg/m2 Results Test Acquired Facility Test Result H/L Range Note Date Protime W/ 03/08/2020 [facility] 5.5 Inr(Add l Normalized V58.61) Protime W/ 03/07/2020 [facility] 2.5 Inr(Add l Normalized V58.61) Protime W/ 03/01/2020 [facility] 1.2 Inr(Add l Normalized V58.61) Laboratory 02/25/2020 [facility] Troponin-I 0.01 ng/mL <0.03 1 test finding [phone] (TnI) Laboratory 02/25/2020 [facility] Troponin-I 0.01 ng/mL <0.03 2 test finding [phone] (TnI) Inr/Protime 02/25/2020 [facility] Inr 7.80 Critical 0.82-1.0 3 [phone] high 9 Laboratory 02/25/2020 [facility] Partial >240.0 Critical 26.0-38. 4 test finding [phone] Thrombo Time seconds high 0 PTT CBC Auto Diff 02/25/2020 [facility] White Blood 10.8 Normal 3.5-10.8 [phone] Count 10^3/uL Red Blood Count 4.28 10^6/uL [...] Cells % 0.1 Comp Metabolic Panel 02/25/2020 [facility] Sodium 139 mmol/L Normal 135-145 [phone] Potassium 3.8 mmol/L Normal 3.5-5.0 Chloride 109 [...] Egfr 39.6 >60 5 Laboratory test 02/25/2020 [facility] LDL Cholesterol Direct 62 mg/dL 6 finding [phone] Creatine Kinase(CK) 234 U/L High 10-223 Troponin-I (TnI) 0.00 ng/mL <0.03 7 CKMB 02/25/2020 [facility] CKMB ng/mL 7.9 ng/mL High 0.6-6.3 [phone] Laboratory test 02/25/2020 [facility] B-Type 174 pg/mL High <=100 finding [phone] Natriuretic Peptide BNP Lactic Acid 0.4 mmol/L Low 0.5-2.0 8 C Reactive Protein 76.99 mg/L High <8.01 Protime W/ Inr(Add 02/20/2020 [facility] 3.0 V58.61) Normalized Protime W/ Inr(Add 02/15/2020 [facility] 2.0 V58.61) Normalized Protime W/ Inr(Add 02/07/2020 [facility] 3.9 V58.61) Normalized Protime W/ Inr(Add 02/02/2020 [facility] 3.1 V58.61) Normalized Urinalysis With 01/26/2020 [facility]. Urine Color Light-Yel Yellow 9 Microscopic LABORATORY low [phone] Urine Clarity Clear Clear Urine Glucose - Dipstick >1000 mg/dL Negative Urine Bilirubin - Dipstick NEGATIVE Negative Urine Ketone NEGATIVE mg/dL Negative Urine Specific [place] 1.011 Normal 1.010-1.030 Urine Blood TRACE Negative [...] 2.8 Inr(Add V58.61) Normalized Basic Metabolic 01/08/2020 [facility] Sodium 142 Normal 135-14 Panel [phone] mmol/L 5 Potassium 4.4 mmol/L Normal 3.5-5.0 [...] 4.5 Inr(Add V58.61) Normalized Comp Metabolic 12/25/2019 [facility] Sodium 141 Normal 135-14 Panel [phone] mmol/L 5 Potassium 3.8 mmol/L Normal 3.5-5.0 [...] Non- 43.1 >60 Egfr 52.2 >60 12 Laboratory test finding 12/25/2019 [facility] Uric Acid 9.2 mg/dL High 2.3-6.6 [phone] Erythrocyte Sed Rate 11 mm/Hr Normal 0-29 C Reactive Protein < 1.00 mg/L Normal <8.01 CBC Auto Diff 12/25/2019 [facility] White Blood 6.1 10^3/uL Normal 3.5-10.8 [phone] Count Red Blood Count 4.92 10^6/uL High [...] Red Blood Cells % 0.0 Laboratory test 12/22/2019 In House Hemoglobin A1c 6.5 finding Protime W/ Inr(Add 12/20/2019 [facility] 2.8 V58.61) Normalized Protime W/ Inr(Add 12/06/2019 [facility] 1.8 V58.61) Normalized Protime W/ Inr(Add 11/30/2019 [facility] 2.0 V58.61) Normalized Protime W/ Inr(Add 11/22/2019 [facility] 1.9 V58.61) Normalized Laboratory test 11/20/2019 [facility] Uric Acid 10.8 mg/dL High 2.3- 6.6 finding [phone] Erythrocyte Sed Rate 14 mm/Hr Normal 0-29 C Reactive Protein 6.11 mg/L Normal <8.01 CBC Auto Diff 11/20/2019 [facility] White Blood 6.1 10^3/uL Normal 3.5-10.8 [phone] Count Red Blood Count 4.70 10^6/uL Normal [...] Cells % 0.0 Comp Metabolic Panel 11/20/2019 [facility] Sodium 142 mmol/L Normal 135-145 [phone] Potassium 4.0 mmol/L Normal 3.5-5.0 Chloride 104 [...] V58.61) 09/21/2019 [facility] Normalized 3.4 1 Troponin-I testing on Plasma Separator Tubes (PST) has a known false positive rate of 0.20-0.40%. All positive troponins reflex immediately to secondary confirmatory testing. Using the [employer] DxI 800 Access Immunoassay systems, the 99th percentile upper reference limit was demonstrated to be < 0.03 ng/mL. 2 Troponin-I testing on Plasma Separator Tubes (PST) has a known false positive rate of 0.20-0.40%. All positive troponins reflex immediately to secondary confirmatory testing. Using the [employer] DxI 800 Access Immunoassay systems, the 99th percentile upper reference limit was demonstrated to be < 0.03 ng/mL. 3 Verbal to [id number] by [id number] at 0730 on 02/25/20. Results read back accurately. Standard intensity warfarin therapeutic range: 2.0-3.0 High intensity warfarin therapeutic range: 2.5-3.5 4 Verbal to [id number] by [id number] at 0730 on 02/25/20. Results read back [...] immediately to secondary confirmatory testing. Using the [employer] DxI 800 Access Immunoassay systems, the 99th percentile upper reference limit was demonstrated to be < 0.03 ng/mL. 8 [facility] Severe Sepsis and Septic Shock [...] (or dialysis) Procedures Date Code Description Status 03/07/2020 16093 Anticoagulant MGMT For Patient Taking Warfarin, Inc Completed Review & Intr 03/01/2020 40735 Anticoagulant MGMT For Patient Taking Warfarin, Inc Completed Review & Intr 02/15/2020 85973 Anticoagulant MGMT For Patient Taking Warfarin, Inc Completed Review & Intr 02/08/2020 15145 Anticoagulant MGMT For Patient Taking Warfarin, Inc Completed Review & Intr 02/02/2020 14543 Anticoagulant MGMT For Patient Taking Warfarin, Inc Completed Review & Intr 01/25/2020 89728 Anticoagulant MGMT For Patient Taking Warfarin, Inc Completed Review & Intr 01/19/2020 03661 Anticoagulant MGMT For Patient Taking Warfarin, Inc Completed Review & Intr 01/12/2020 82786 Anticoagulant MGMT For Patient Taking Warfarin, Inc Completed Review & Intr 01/04/2020 70898 Anticoagulant MGMT For Patient Taking Warfarin, Inc Completed Review & Intr 01/01/2020 41493 Anticoagulant MGMT For Patient Taking Warfarin, Inc Completed Review & Intr 12/21/2019 06296 Anticoagulant MGMT For Patient Taking Warfarin, Inc Completed Review & Intr 12/10/2019 [id number] Diabetic Retinal Eye Exam Completed 12/08/2019 91570 Anticoagulant MGMT For Patient Taking Warfarin, Inc Completed Review & Intr 11/30/2019 47066 Anticoagulant MGMT For Patient Taking Warfarin, Inc Completed Review & Intr 11/23/2019 70593 Anticoagulant MGMT For Patient Taking Warfarin, Inc Completed Review & Intr 11/16/2019 04818 Anticoagulant MGMT For Patient Taking Warfarin, Inc Completed Review & Intr 11/02/2019 82573 Anticoagulant MGMT For Patient Taking Warfarin, Inc Completed Review & Intr 10/27/2019 25651 Anticoagulant MGMT For Patient Taking Warfarin, Inc Completed Review & Intr 10/27/2019 88374 Anticoagulant MGMT For Patient Taking Warfarin, Inc Completed Review & Intr 09/29/2019 77618 Anticoagulant MGMT For Patient Taking Warfarin, Inc Completed Review & Intr 09/21/2019 10000 Anticoagulant MGMT For Patient Taking Warfarin, Inc Completed Review & Intr 03/16/2019 [id number] Diabetic Foot Exam Completed Medical Devices Description No Information Available Encounters Type Date Location Provider Dx Diagnosis Office Visit 03/09/2020 Main Office Carlos Enrique Torres, S66.012A Strain long flexor 4:30p D.O. 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 mellitus with hyperglycemia Z79.01 [facility]DC (current) use of anticoagulants I48.20 Chronic atrial fibrillation, unspecified M10.9 Gout, unspecified I10 Essential (primary) hypertension M48.062 Spinal stenosis, lumbar region with neurogenic claudication Z68.42 Body mass index (BMI) 45.0-49.9, adult Office Visit 12/22/2019 4:00p Main Office Carlos Enrique Torres, E11.65 Type 2 diabetes D.O. mellitus with hyperglycemia M10.9 Gout, unspecified Z79.01 exterminator helper termite (current) use of anticoagulants I10 Essential (primary) hypertension M48.062 Spinal stenosis, lumbar region with neurogenic claudication Z79.4 exterminator helper termite (current) use of insulin R19.7 Diarrhea, unspecified Z68.42 Body mass index (BMI) 45.0-49.9, adult Office Visit 11/19/2019 3:30p Main Office Carlos Enrique Torres, M10.9 Gout, unspecified D.O. Z79.01 exterminator helper termite (current) use of anticoagulants I48.20 Chronic atrial [...] foot I48.20 Chronic atrial fibrillation, unspecified Z79.01 exterminator helper termite (current) use of anticoagulants E11.65 Type 2 diabetes mellitus with hyperglycemia I10 Essential (primary) hypertension M48.062 Spinal stenosis, lumbar region with neurogenic claudication Assessments Date Code Description Provider 03/09/2020 S66.012A Strain of long flexor muscle, fascia and Carlos Enrique Torres D.Ana. tendon of left thumb at wrist and hand level, initial encounter 03/09/2020 E11.65 Type 2 diabetes mellitus with hyperglycemia Carlos Enrique Torres D.ORenetta 03/09/2020 I10 Essential (primary) hypertension Carlos Enrique Torres D.ORenetta 03/09/2020 I27.20 Pulmonary hypertension, unspecified Carlos Enrique Torres D.O. 03/09/2020 Z79.01 [facility]DC (current) use of anticoagulants Carlos Enrique Torres D.O. 03/09/2020 I48.20 Chronic atrial fibrillation, unspecified Carlos Enrique Torres D.O. 03/07/2020 Z79.01 FDC (current) use of anticoagulants Carlos Enrique Torres D.O. 03/07/2020 I48.20 Chronic atrial fibrillation, unspecified Carlos Enrique Torres D.O. 03/07/2020 I10 Essential (primary) hypertension Carlos Enrique Torres D.O. 03/02/2020 E11.65 Type 2 diabetes mellitus with hyperglycemia Trini Torreson D.O. 03/02/2020 I10 Essential (primary) hypertension Trini Torreson D.O. 03/02/2020 I27.20 Pulmonary hypertension, unspecified Trini Torreson D.O. 03/02/2020 Z91.89 Other specified personal risk factors, not Carlos Enrique Torres D.O. elsewhere classified 03/01/2020 Z79.01 exterminator helper termite (current) use of anticoagulants Trini Torreson D.O. 03/01/2020 I48.20 Chronic atrial fibrillation, unspecified Trini Torreson D.O. 03/01/2020 I10 Essential (primary) hypertension Carlos Enrique Torres D.O. 02/15/2020 Z79.01 exterminator helper termite (current) use of anticoagulants Trini Torreson D.O. 02/15/2020 I48.20 Chronic atrial fibrillation, unspecified Trini Torreson D.O. 02/08/2020 Z79.01 FDC (current) use of anticoagulants Trini Torreson D.O. 02/08/2020 I48.20 Chronic atrial fibrillation, unspecified SopTrini sotoon D.O. 02/02/2020 Z79.01 FDC (current) use of anticoagulants Carlos Enrique Torres D.O. 02/02/2020 I48.20 Chronic atrial fibrillation, unspecified Trini Torreson D.O. 01/28/2020 M25.562 Pain in left knee Carlos Enrique Torres D.O. 01/28/2020 R29.6 Repeated falls Carlos Enrique Torres D.O. 01/28/2020 Z91.81 History of falling Carlos Enrique Torres D.O. 01/28/2020 E11.65 Type 2 diabetes mellitus with hyperglycemia Carlos Enrique Torres D.O. 01/28/2020 Z79.01 exterminator helper termite (current) use of anticoagulants Trini Torreson D.O. 01/28/2020 I10 Essential (primary) hypertension Carlos Enrique Torres D.O. 01/28/2020 M48.062 Spinal stenosis, lumbar region with Sopchak, Carlos Enrique, D.O. neurogenic claudication 01/25/2020 Z79.01 exterminator helper termite (current) use of anticoagulants Sopchak, Carlos Enrique, D.O. 01/25/2020 I48.20 Chronic atrial fibrillation, unspecified Sopchak, Carlos Enrique, D.O. 01/22/2020 E11.65 Type 2 diabetes mellitus with hyperglycemia SophansakTrinion , D.O. 01/22/2020 Z79.01 exterminator helper termite (current) use of anticoagulants Sopchak, Carlos Enrique, D.O. 01/22/2020 I48.20 Chronic atrial fibrillation, unspecified Sopchak, Carlos Enrique, D.O. 01/22/2020 M10.9 Gout, unspecified Sopchak, Carlos Enrique, D.O. 01/22/2020 I10 Essential (primary) hypertension SopchakTrinion, D.O. 01/22/2020 M48.062 Spinal stenosis, lumbar region with Sopchak, Carlos Enrique, D.O. neurogenic claudication 01/22/2020 Z68.42 Body mass index (BMI) 45.0-49.9, adult Sopchak, Carlos Enrique, D.O. 01/19/2020 Z79.01 [facility]DC (current) use of anticoagulants Sopchak, Carlos Enrique, D.O. 01/19/2020 I48.20 Chronic atrial fibrillation, unspecified Sopchak, Carlos Enrique, D.O. 01/12/2020 Z79.01 exterminator helper termite (current) use of anticoagulants Sopchak, Carlos Enrique, D.O. 01/12/2020 I48.20 Chronic atrial fibrillation, unspecified Sopchak, Carlos Enrique, D.O. 01/04/2020 Z79.01 exterminator helper termite (current) use of anticoagulants Sopchak, Carlos Enrique, D.O. 01/04/2020 I48.20 Chronic atrial fibrillation, unspecified Sopchak, Carlos Enrique, D.O. 01/01/2020 Z79.01 exterminator helper termite (current) use of anticoagulants Sopchak, Carlos Enrique, D.O. 01/01/2020 I48.20 Chronic atrial fibrillation, unspecified Sopchak, Carlos Enrique, D.O. 12/22/2019 E11.65 Type 2 diabetes mellitus with hyperglycemia Carlos Enrique Torres D.O. 12/22/2019 M10.9 Gout, unspecified Sopchak, Carlos Enrique, D.O. 12/22/2019 Z79.01 FDC (current) use of anticoagulants Sopchak, Carlos Enrique, D.O. 12/22/2019 I10 Essential (primary) hypertension Sopchak Carlos Enrique, D.O. 12/22/2019 M48.062 Spinal stenosis, lumbar region with SophansakTrinion, D.O. neurogenic claudication 12/22/2019 Z79.4 FDC (current) use of insulin DanielakTrinion, D.O. 12/22/2019 R19.7 Diarrhea, unspecified Sopchak, Carlos Enrique, D.O. 12/22/2019 Z68.42 Body mass index (BMI) 45.0-49.9, adult SopchakTrinion, D.O. 12/21/2019 Z79.01 exterminator helper termite (current) use of anticoagulants Diannachak, Carlos Enrique, D.O. 12/21/2019 I48.20 Chronic atrial fibrillation, unspecified Sopchak, Carlos Ernique, D.O. 12/21/2019 I10 Essential (primary) hypertension Sophansak Carlos Enrique, D.O. 12/08/2019 Z79.01 exterminator helper termite (current) use of anticoagulants Sopchak, Carlos Enrique, D.O. 12/08/2019 I48.20 Chronic atrial fibrillation, unspecified Sopchak, Carlos Enrique, D.O. 11/30/2019 Z79.01 exterminator helper termite (current) use of anticoagulants Sopchak, Carlos Enrique, D.O. 11/30/2019 I48.20 Chronic atrial fibrillation, unspecified Sopchak, Carlos Enrique, D.O. 11/23/2019 Z79.01 exterminator helper termite (current) use of anticoagulants Sopchak, Carlos Enrique, D.O. 11/23/2019 I48.20 Chronic atrial fibrillation, unspecified Sopchak, Carlos Enrique, D.O. 11/19/2019 M10.9 Gout, unspecified Sopchak, Carlos Enrique, D.O. 11/19/2019 Z79.01 [facility]DC (current) use of anticoagulants Sopchak, Carlos Enrique, D.O. 11/19/2019 I48.20 Chronic atrial fibrillation, unspecified SophansakTrinion, D.O. 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 11/19/2019 E11.65 Type 2 diabetes mellitus with hyperglycemia SopCarlos Enrique soto , D.O. 11/19/2019 I10 Essential (primary) hypertension SophansakTrinion, D.O. 11/19/2019 M48.062 Spinal stenosis, lumbar region with SopCarlos Enrique soto, D.O. neurogenic claudication 11/19/2019 G89.4 Chronic pain syndrome SophansakTrinion, D.O. 11/19/2019 Z68.42 Body mass index (BMI) 45.0-49.9, adult Trini Torreson, D.O. 11/16/2019 Z79.01 exterminator helper termite (current) use of anticoagulants DanielakTrinion, D.O. 11/16/2019 I48.20 Chronic atrial fibrillation, unspecified SophansakTrinion, D.O. 11/08/2019 Z79.01 FDC (current) use of anticoagulants DanielakTrinion, D.O. 11/08/2019 I48.20 Chronic atrial fibrillation, unspecified Sopchak, Carlos Enrique, D.O. 11/02/2019 Z79.01 FDC (current) use of anticoagulants DiannachakTrinion, D.O. 11/02/2019 I48.20 Chronic atrial fibrillation, unspecified Sopchak, Carlos Enrique, D.O. 10/27/2019 I48.20 Chronic atrial fibrillation, unspecified Sopchak, Carlos Enrique, D.O. 10/27/2019 Z79.01 exterminator helper termite (current) use of anticoagulants DiannachakTrinion, D.O. 10/27/2019 I48.20 Chronic atrial fibrillation, unspecified Sopchak, Carlos Enrique, D.O. 10/27/2019 Z79.01 exterminator helper termite (current) use of anticoagulants Diannachak, Carlos Enrique, D.O. 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 10/15/2019 I48.20 Chronic atrial fibrillation, unspecified Sopchak, Carlos Enrique, D.O. 10/15/2019 Z79.01 exterminator helper termite (current) use of anticoagulants Carlos Enrique Torres D.O. 10/15/2019 E11.65 Type 2 diabetes mellitus with hyperglycemia Carlos Enrique Torres D.O. 10/15/2019 I10 Essential (primary) hypertension Carlos Enrique Torres D.O. 10/15/2019 M48.062 Spinal stenosis, lumbar region with Carlos Enrique Torres D.O. neurogenic claudication 09/29/2019 I48.20 Chronic atrial fibrillation, unspecified Carlos Enrique Torres D.O. 09/29/2019 Z79.01 [facility]DC (current) use of anticoagulants Carlos Enrique Torres D.O. 09/21/2019 I48.20 Chronic atrial fibrillation, unspecified Carlos Enrique Torres D.O. 09/21/2019 Z79.01 exterminator helper termite (current) use of anticoagulants Carlos Enrique Torres D.O. Plan of Treatment Future Appointment(s):03/24/2020 3:45 pm - Carlos Enrique Torres D.O. at Main Jljlxt8603/09/2020 - Carlos Enrique Torres D.O.S66.012A Strain of long flexor muscle, fascia and tendon of left thumb at wrist and hand level, initial encounterNew Medication:Voltaren 1 % - 2 gm apply to affected area every day # 100gmFollow up :as laaslvhbiF32.65 Type 2 diabetes mellitus with wfzuelgocebhdP14 Essential ( primary) lgmqqzxrqwsxF81.20 Pulmonary hypertension, unspecifiedComments:TOV 20: 42Z79.01 FDC (current) use of zfztqyceqokfftU30.20 Chronic atrial fibrillation, unspecified Functional Status Description No Information Available Mental Status Description No Information Available Referrals Refer to Reason for Referral Status Appt Date Gladis Vitale MD Pulmonary hypertension suggested on Closed transthoracic echo. Please do sleep testing for sleep apnea. Consult and Treat [facility] [address], [address] [place] [id number] [phone]
--- OUTSIDE RECORDS SUMMARY | 2020-03-20 15:43 | XMS REPORT ---
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 failure and failure and stage 1 stage 1 through through stage 4 stage 4 chronic chronic kidney kidney disease, or disease, or unspecified unspecified chronic chronic kidney kidney disease disease Chronic Chronic Diagnosis Active 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 [id number] ) heart ) heart failure failure Chronic Chronic Diagnosis Active 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-24 Ingrahm disease, disease, [id number] stage 3 stage 3 (moderate) (moderate) 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 [id number] without without complicatio complicatio ns ns Chronic Chronic Diagnosis Active Brie atrial atrial 12-02 Ingrahm fibrillatio fibrillatio [id number] n, n, unspecified unspecified Unspecified Unspecified Diagnosis Active Brie dementia dementia 12-02 Ingrahm without without [id number] behavioral behavioral disturbance disturbance 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 Brie chronic chronic Ingrahm kidney kidney [id number] disease disease 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, ch block, [id number] unspecified unspecified Hyperlipide Hyperlipide Diagnosis Active Brie peña, peña, Ingrahm unspecified unspecified [id number] Obesity, Obesity, Diagnosis Active Brie unspecified unspecified Ingrahm [id number] Personal Personal Diagnosis Active Brie history of history of Ingrahm other other [id number] 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 Personal Personal Diagnosis Active Brie history of history of Ingrahm transient transient [id number] ischemic ischemic attack attack (TIA), and (TIA), and cerebral cerebral infarction infarction without without residual residual deficits deficits 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 Brie (current) (current) Ingrahm use of use of [id number] insulin insulin nursing home nursing home Diagnosis Active Brie (current) (current) Ingrahm use of use of [id number] anticoagula anticoagula nts nts vermin exterminator vermin exterminator Diagnosis Active Brie (current) (current) Ingrahm use of use of [id number] opiate opiate analgesic analgesic Other long Other long Diagnosis Active Brie term term Ingrahm (current) (current) [id number] drug drug therapy therapy Body mass Body mass Diagnosis Active Brie index (BMI) index (BMI) Ingrm 40.0-44.9, 40.0-44.9, [id number] adult adult Pain frequent Pain Mgmt Active 2020-0 Juliette pain 3- (Vidal) 10:20: [id number] Cardio edema Cardiovasc Active 2020-0 Ujliette ular 3- (Vidal) 10:20: [id number] Respiratory dyspnea Respirator Active 2020-0 Juliette present y 3-31 (Vidal) 10:20: [id number] Respiratory oxygen Respirator Active 2020-0 Juliette treatments y 3-31 (Vidal) in home 10:20: [id number] 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 10:20: [id number] Endo/Niels diabetic Endo/Niels Active 2020-0 Juliette foot care 3- (Vidal) 10:20: [id number] Endo/Niels anti-coagul Endo/Niels Active 2020-0 Juliette ation 3-31 (Vidal) therapy 10:20: [id number] Integument skin Integument Active 2020-0 Juliette integrity 3- (Vidal) risk 10:20: [id number] Nutrition nutritional Nutrition Active 2020-0 Juliette restriction 3- (Vidal) s 10:20: [id number] Elimination urinary Eliminatio Active 2020-0 Juliette incontinenc n 03-01 (Vidal) e 10:20: [id number] Neuro confusion Neuro/Emot Active 2020-0 Juliette present ion - (Vidal) 10:20: [id number] Neuro depressive Neuro/Emot Active 2020-0 Juliette feelings ion - (Vidal) present 10:20: [id number] Neuro impaired Neuro/Emot Active 2020-0 Juliette decision-ma ion 03-01 (Vidal) diamond 10:20: [id number] Neuro memory Neuro/Emot Active 2020-0 Juliette deficit ion - (Vidal) needing 10:20: Wallace supervision [id number] Activity ADL Activity Active 2020-0 Juliette assistance 03-01 (Vidal) required 10:20: [id number] Activity self-care Activity Active 2020-0 Juliette deficit - (Vidal) 10:20: [id number] Safety fall risk Safety Active 2020-0 Juliette factor - (Vidal) present 10:20: [id number] Safety risk for Safety Active 2020-0 Juliette hospitaliza 03-01 (Vidal) tion 10:20: [id number] Safety can be left Safety Active 2020-0 Juliette alone for 03-01 (Vidal) only short 10:20: Wallace periods [id number] Medication oral med Meds Active 2020-0 Juliette assistance - (Vidal) required 10:20: [id number] Medication injectable Meds Active 2020-0 Juliette med - (Vidal) assistance 10:20: Wallace required 00 [id number] Musculoskel requires Musculoske Active 2020-0 Juliette etal human letal 03-01 (Vidal) assist to 10:20: Wallace leave home 00 [id number] Bed mobility/tr PT/OT: Bed Active 2020-0 Libby Mobility/Tr ansfer Mobility/T 03-01 Salvador ansfer device ransfer 13:49: [id number] present 00 Bed knowledge/s PT/OT: Bed Active 2020-0 Libby Mobility/Tr kill Mobility/T 03-01 Franco ansfer deficit: pt ransfer 13:49: [id number] 00 Balance/End balance/research coordinator PT/OT: Active Libby urance rdination Balance/En 03-01 Franco deficit durance 13:49: [id number] Balance/End endurance PT/OT: Active Libby urance deficit Balance/En 03-01 Franco durance 13:49: [id number] 00 Balance/End knowledge/s PT/OT: Active Libby urance kill Balance/En 03-01 Franco deficit: pt durance 13:49: [id number] 00 Gait/Locomo gait PT/OT: Active Libby tion deficit Gait/Locom 03-01 Franco problems otion 13:49: [id number] 00 Allergies, Adverse Reactions, Alerts Allergy Allergy Status Severity Reaction(s) Onset Inactive Treating Comments Name Type Date Date Clinician flexeril Unknown Active Unknown Reaction 2018-05 Juliette Unknown -04 (Vidal) [place] [id number] morphine Unknown Active Unknown Reaction 2018-05 Julitete Unknown -04 (Vidal) [place] [id number] PCN Unknown Active Unknown Reaction 2018-05 Juliette Unknown -04 (Vidal) [place] [id number] Medications Ordered Filled Start Stop Current Ordering Indication Dosage Frequency Signature Comments Components Medication Medication Date Date Medication? Clinician (SIG) Name Name atorvastati atorvastati Yes Sopchak Unknown Unknown n 80 mg n 80 mg 03-01 DO,Carlos Enrique tablet tablet omeprazole omeprazole Yes Sopchak Unknown Unknown 40 mg 40 mg 03-01 DO,Carlos Enrique capsule,del capsule,del ayed ayed release release furosemide furosemide Yes Sopchak Unknown Unknown 40 mg 40 [...] mg tablet tablet Jantoven 1 Jantoven 1 2019-0 Yes Sopchak Unknown Unknown mg tablet mg tablet 03-01 DO,Carlos Enrique Basaglar Basaglar 2019- Yes Sopchak Unknown Unknown KwikPen KwikPen 03-01 DO,Carlos Enrique U-100 U-100 Insulin 100 Insulin 100 unit/mL (3 unit/mL (3 mL) mL) subcutaneou subcutaneou s s multivitami multivitami 2019- Yes Sopchak Unknown Unknown n capsule n capsule 03-01 DO,Carlos Enrique Fosamax 70 Fosamax 70 2019-0 Yes Sopchak Unknown Unknown mg tablet mg [...] 03-01 DO,Carlos Enrique tablet tablet escitalopra escitalopra 2019- Yes Sopchak Unknown Unknown m 5 mg m 5 mg 03-01 DO,Carlos Enrique tablet tablet NovoLOG Mix NovoLOG Mix Yes Sopchak Unknown Unknown 70-30 70-30 - DO,Carlos Enrique FlexPen FlexPen U-100 U-100 Insulin 100 Insulin 100 unit/mL unit/mL subcutaneou subcutaneou s pen s pen Oxygen Oxygen Yes Sopchak Unknown Unknown 03-01 DO,Carlos Enrique Vital Signs Vital Name Observation Time Observation Value Comments SYSTOLIC mm[Hg] 2020-03-03 18:11:11 120 mm[Hg] mm[Hg] Method: Sit SYSTOLIC mm[Hg] 2020-03-03 18:11:11 136 mm[Hg] mm[Hg] Method: Stand DIASTOLIC mm[Hg] 2020-03-03 18:11:11 60 mm[Hg] mm[Hg] Method: Sit DIASTOLIC mm[Hg] 2020-03-03 18:11:11 76 mm[Hg] mm[Hg] Method: Stand PULSE 2020-03-03 18:11:11 68 /min /min RESP RATE 2020-03-03 18:11:11 16 /min /min TEMP 2020-03-03 18:11:11 97.7 [degF] Procedures This patient has no known procedures. Results This patient has no known results.
--- OUTSIDE RECORDS SUMMARY | 2020-03-20 15:43 | XMS REPORT ---
:1940 Author Organization [facility] Care Team Providers Name Role Phone Unavailable Unavailable Unavailable Problems Condition Condition Condition Status Onset Resolution Last Treating Comments Name Details Category Date Date Treatment Clinician Date Hypertensiv Hypertensiv Diagnosis Active Brie e heart and e heart and 02-24 Ingrahm chronic chronic [id number] kidney kidney disease disease with heart with heart failure and failure and stage 1 stage 1 through through stage 4 stage 4 chronic chronic kidney kidney disease, or disease, or unspecified unspecified chronic chronic kidney kidney disease disease Chronic Chronic Diagnosis Active 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 [id number] ) heart ) heart failure failure Chronic Chronic Diagnosis Active 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-24 Ingrahm disease, disease, [id number] stage 3 stage 3 (moderate) (moderate) 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 [id number] without without complicatio complicatio ns ns Chronic Chronic Diagnosis Active Brie atrial atrial 12-02 Ingrahm fibrillatio fibrillatio [id number] n, n, unspecified unspecified Unspecified Unspecified Diagnosis Active Brie dementia dementia 12-02 Ingrahm without without [id number] behavioral behavioral disturbance disturbance 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 [id number] [place]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 Brie chronic chronic Ingrahm kidney kidney [id number] disease disease 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, ch block, [id number] unspecified unspecified Hyperlipide Hyperlipide Diagnosis Active Brie peña, peña, Ingrahm unspecified unspecified [id number] Obesity, Obesity, Diagnosis Active Brie unspecified unspecified Ingrahm [id number] Personal Personal Diagnosis Active Brie history of history of Ingrahm other other [id number] 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 Personal Personal Diagnosis Active Brie history of history of Ingrahm transient transient [id number] ischemic ischemic attack attack (TIA), and (TIA), and cerebral cerebral infarction infarction without without residual residual deficits deficits senior living intermission coordinator Diagnosis Active Brie (current) (current) Ingrahm use of use of [id number] insulin insulin intermission coordinator intermission coordinator Diagnosis Active Brie (current) (current) Ingrahm use of use of [id number] anticoagula anticoagula nts nts senior living senior living Diagnosis Active Brie (current) (current) Ingrahm use of use of [id number] opiate opiate analgesic analgesic Other long Other long Diagnosis Active Brie term term Ingrahm (current) (current) [id number] drug drug therapy therapy Body mass Body mass Diagnosis Active Brie index (BMI) index (BMI) Ingrm 40.0-44.9, 40.0-44.9, [id number] adult adult Pain frequent Pain Mgmt Active 2020-0 Juliette pain 3- (Vidal) 10:20: [id number] Cardio edema Cardiovasc Active 2020-0 Juliette ular 3- (Vidal) 10:20: [id number] Respiratory dyspnea Respirator Active 2020-0 Juliette present y 3-31 (Vidal) 10:20: [id number] Respiratory oxygen Respirator Active 2020-0 Juliette treatments y 3-31 (Vidal) in home 10:20: [id number] 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 10:20: [id number] Endo/Niels diabetic Endo/Niels Active 2020-0 Juliette foot care 3- (Vidal) 10:20: [id number] Endo/Niels anti-coagul Endo/Niels Active 2020-0 Juliette ation 3-31 (Vidal) therapy 10:20: [id number] Integument skin Integument Active 2020-0 Juliette integrity 3- (Vidal) risk 10:20: [id number] Nutrition nutritional Nutrition Active 2020-0 Juliette restriction 3- (Vidal) s 10:20: [id number] Elimination urinary Eliminatio Active 2020-0 Juliette incontinenc n 03-01 (Vidal) e 10:20: [id number] Neuro confusion Neuro/Emot Active 2020-0 Juliette present ion - (Vidal) 10:20: [id number] Neuro depressive Neuro/Emot Active 2020-0 Juliette feelings ion - (Vidal) present 10:20: [id number] Neuro impaired Neuro/Emot Active 2020-0 Juliette decision-ma ion 03-01 (Vidal) diamond 10:20: [id number] Neuro memory Neuro/Emot Active 2020-0 Juliette deficit ion - (Vidal) needing 10:20: Wallace supervision [id number] Activity ADL Activity Active 2020-0 Juliette assistance 03-01 (Vidal) required 10:20: [id number] Activity self-care Activity Active 2020-0 Juliette deficit - (Vidal) 10:20: [id number] Safety fall risk Safety Active 2020-0 Juliette factor - (Vidal) present 10:20: [id number] Safety risk for Safety Active 2020-0 Juliette hospitaliza 03-01 (Vidal) tion 10:20: [id number] Safety can be left Safety Active 2020-0 Juliette alone for 03-01 (Vidal) only short 10:20: Wallace periods [id number] Medication oral med Meds Active 2020-0 Juliette assistance - (Vidal) required 10:20: [id number] Medication injectable Meds Active 2020-0 Juliette med - (Vidal) assistance 10:20: Wallace required 00 [id number] Musculoskel requires Musculoske Active 2020-0 Juliette etal human letal 03-01 (Vidal) assist to 10:20: Wallace leave home 00 [id number] Bed mobility/tr PT/OT: Bed Active 2020-0 Libby Mobility/Tr ansfer Mobility/T 03-01 Salvador ansfer device ransfer 13:49: [id number] present 00 Bed knowledge/s PT/OT: Bed Active 2020-0 Libby Mobility/Tr kill Mobility/T 03-01 Franco ansfer deficit: pt ransfer 13:49: [id number] 00 Balance/End balance/cafe cook PT/OT: Active Libby urance rdination Balance/En 03-01 Franco deficit durance 13:49: [id number] 00 Balance/End endurance PT/OT: Active Libby urance deficit Balance/En 03-01 Franco durance 13:49: [id number] 00 Balance/End knowledge/s PT/OT: Active Libby urance kill Balance/En 03-01 Franco deficit: pt durance 13:49: [id number] 00 Gait/Locomo gait PT/OT: Active Libby tion deficit Gait/Locom 03-01 Franco problems otion 13:49: [id number] 00 Allergies, Adverse Reactions, Alerts Allergy Allergy Status Severity Reaction(s) Onset Inactive Treating Comments Name Type Date Date Clinician flexeril Unknown Active Unknown Reaction 2018-05 Juliette Unknown -04 (Vidal) [place] [id number] morphine Unknown Active Unknown Reaction 2018-05 Juliette Unknown -04 (Vidal) [place] [id number] PCN Unknown Active Unknown Reaction 2018-05 Juliette Unknown -04 (Vidal) [place] [id number] Medications Ordered Filled Start Stop Current Ordering [...] pen s pen Oxygen Oxygen 2019-0 Yes Sopchak Unknown Unknown 03-01 DO,Carlos Enrique Vital Signs Vital Name Observation Time Observation Value Comments SYSTOLIC mm[Hg] 2020-03-09 18:11:17 110 mm[Hg] mm[Hg] Method: Sit SYSTOLIC mm[Hg] 2020-03-03 18:11:11 136 mm[Hg] mm[Hg] Method: Stand DIASTOLIC mm[Hg] 2020-03-09 18:11:17 60 mm[Hg] mm[Hg] Method: Sit DIASTOLIC mm[Hg] 2020-03-03 18:11:11 76 mm[Hg] mm[Hg] Method: Stand PULSE 2020-03-09 18:11:17 72 /min /min RESP RATE 2020-03-07 18:11:15 16 /min /min TEMP 2020-03-09 18:11:17 97.8 [degF] Procedures This patient has no known procedures. Results This patient has no known results.
--- OUTSIDE RECORDS SUMMARY | 2020-03-20 15:43 | XMS REPORT ---
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 and stage 1 stage 1 through through stage 4 stage 4 chronic chronic kidney kidney disease, or disease, or unspecified unspecified chronic chronic kidney kidney disease disease Chronic Chronic Diagnosis Active 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 [id number] ) heart ) heart failure failure Chronic Chronic Diagnosis Active 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-24 Ingrahm disease, disease, [id number] stage 3 stage 3 (moderate) (moderate) 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 [id number] without without complicatio complicatio ns ns Chronic Chronic Diagnosis Active Brie atrial atrial 12-02 Ingrahm fibrillatio fibrillatio [id number] n, n, unspecified unspecified Unspecified Unspecified Diagnosis Active Brie dementia dementia 12-02 Ingrahm without without [id number] behavioral behavioral disturbance disturbance 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 [id number] [place]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 Brie chronic chronic Ingrahm kidney kidney [id number] disease disease 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, ch block, [id number] unspecified unspecified Hyperlipide Hyperlipide Diagnosis Active Brie peña, epña, Ingrahm unspecified unspecified [id number] Obesity, Obesity, Diagnosis Active Brie unspecified unspecified Ingrahm [id number] Personal Personal Diagnosis Active Brie history of history of Ingrahm other other [id number] 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 Personal Personal Diagnosis Active Brie history of history of Ingrahm transient transient [id number] ischemic ischemic attack attack (TIA), and (TIA), and cerebral cerebral infarction infarction without without residual residual deficits deficits [facility] 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 Brie (current) (current) Ingrahm use of use of [id number] insulin insulin 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 Brie (current) (current) Ingrahm use of use of [id number] anticoagula anticoagula nts nts M[facility] MCC Diagnosis Active Brie (current) (current) Ingrahm use of use of [id number] opiate opiate analgesic analgesic Other long Other long Diagnosis Active Brie term term Ingrahm (current) (current) [id number] drug drug therapy therapy Body mass Body mass Diagnosis Active Brie index (BMI) index (BMI) Ingrm 40.0-44.9, 40.0-44.9, [id number] adult adult Pain frequent Pain Mgmt Resolve 2020-03-11 Juliette pain d 03-01 11:15:00 (Vidal) 10:20: [id number] Cardio edema Cardiovasc Active Juliette ular 03-01 (Vidal) 10:20: [id number] Respiratory dyspnea Respirator Resolve 2020-03-11 Juliette present y d 03-01 11:15:00 (Vidal) 10:20: [id number] Respiratory oxygen Respirator Resolve 2020-03-11 Juliette treatments y d - 11:15:00 (Vidal) in home 10:20: [id number] Endo/Niels glucose Endo/Niels Active Juliette testing 03-01 (Vidal) dependence 10:20: [id number] Endo/Niels diabetic Endo/Niels Active Juliette foot care 03-01 (Vidal) 10:20: [id number] Endo/Neils anti-coagul Endo/Niels Active Juliette ation 03-01 (Vidal) therapy 10:20: [id number] Integument skin Integument Resolve 2020-03-11 Juliette integrity d 3- 11:15:00 (Vidal) risk 10:20: [id number] Nutrition nutritional Nutrition Resolve 2020-03-11 Juliette restriction d - 11:15:00 (Vidal) s 10:20: [id number] Elimination urinary Eliminatio Resolve 2020-03-11 Juliette incontinenc n d 03-01 11:15:00 (Vidal) e 10:20: [id number] Neuro confusion Neuro/Emot Active Juliette present ion 3- (Vidal) 10:20: [id number] Neuro depressive Neuro/Emot Active Juliette feelings ion - (Vidal) present 10:20: [id number] Neuro impaired Neuro/Emot Active Juliette decision-ma ion - (Vidal) diamond 10:20: [id number] Neuro memory Neuro/Emot Active Juliette deficit ion 3- (Vidal) needing 10:20: Wallace supervision 00 [id number] Activity ADL Activity Active Juliette assistance - (Vidal) required 10:20: [id number] Activity self-care Activity Active Juliette deficit 3- (Vidal) 10:20: [id number] Safety fall risk Safety Resolve 2020-03-11 Julitete factor d - 11:15:00 (Vidal) present 10:20: [id number] Safety risk for Safety Resolve 2020-03-11 Juliette hospitaliza d - 11:15:00 (Vidal) tion 10:20: [id number] Safety can be left Safety Resolve 2020-03-11 Juliette alone for d 3- 11:15:00 (Vidal) only short 10:20: Wallace periods 00 [id number] Medication oral med Meds Active Juliette assistance 3- (Vdial) required 10:20: [id number] Medication injectable Meds Active Juliette med 3-31 (Vidal) assistance 10:20: Wallace required 00 [id number] Musculoskel requires Musculoske Resolve 2019-2020-03-11 Juliette etal human letal d 03-01 11:15:00 (Vidal) assist to 10:20: [place] leave home [id number] Bed mobility/tr PT/OT: Bed Active 2020-0 Libby Mobility/Tr ansfer Mobility/T 3-31 Franco ansfer device ransfer 13:49: [id number] present 00 Bed knowledge/s PT/OT: Bed Active 0 Libby Mobility/Tr kill Mobility/T 3-31 Franco ansfer deficit: pt ransfer 13:49: [id number] 00 Balance/End balance/campus coordinator PT/OT: Active 2019-0 Libby urance rdination Balance/En 03-01 Franco deficit durance 13:49: [id number] 00 Balance/End endurance PT/OT: Active 2019-0 Libby urance deficit Balance/En 03-01 Franco durance 13:49: [id number] 00 Balance/End knowledge/s PT/OT: Active 2019-0 Libby urance kill Balance/En 03-01 Franco deficit: pt durance 13:49: [id number] 00 Gait/Locomo gait PT/OT: Active 2019-0 Libby tion deficit Gait/Locom - Franco problems otion 13:49: [id number] 00 Safety risk for Safety Active 2019-0 Libby hospitaliza 4-13 Franco tion 11:55: [id number] 00 Allergies, Adverse Reactions, Alerts Allergy Allergy Status Severity Reaction(s) Onset Inactive Treating Comments Name Type Date Date Clinician flexeril Unknown Active Unknown Reaction 2018-05 Juliette Unknown -04 (Vidal) [place] [id number] morphine Unknown Active Unknown Reaction 2018-05 Juliette Unknown -04 (Vidal) [place] [id number] PCN Unknown Active Unknown Reaction 2018-05 Juliette Unknown -04 (Vidal) [place] [id number] Medications Ordered Filled Start Stop Current Ordering [...]
--- OUTSIDE RECORDS SUMMARY | 2020-03-20 15:43 | XMS REPORT ---
:1940 Author Organization [facility] Care Team Providers Name Role Phone Unavailable Unavailable Unavailable Problems Condition Condition Condition Status Onset Resolution Last Treating Comments Name Details Category Date Date Treatment Clinician Date Hypertensiv Hypertensiv Diagnosis Active Brie e heart and e heart and 02-24 Ingrahm chronic chronic [id number] kidney kidney disease disease with heart with heart failure and failure and stage 1 stage 1 through through stage 4 stage 4 chronic chronic kidney kidney disease, or disease, or unspecified unspecified chronic chronic kidney kidney disease disease Chronic Chronic Diagnosis Active 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 [id number] ) heart ) heart failure failure Chronic Chronic Diagnosis Active 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-24 Ingrahm disease, disease, [id number] stage 3 stage 3 (moderate) (moderate) 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 [id number] without without complicatio complicatio ns ns Chronic Chronic Diagnosis Active Brie atrial atrial 12-02 Ingrahm fibrillatio fibrillatio [id number] n, n, unspecified unspecified Unspecified Unspecified Diagnosis Active Brie dementia dementia 12-02 Ingrahm without without [id number] behavioral behavioral disturbance disturbance 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 Brie chronic chronic Ingrahm kidney kidney [id number] disease disease 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, ch block, [id number] unspecified unspecified Hyperlipide Hyperlipide Diagnosis Active Brie peña, peña, Ingrahm unspecified unspecified [id number] Obesity, Obesity, Diagnosis Active Brie unspecified unspecified Ingrahm [id number] Personal Personal Diagnosis Active Brie history of history of Ingrahm other other 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 Personal Personal Diagnosis Active Brie history of history of Ingrahm transient transient [id number] ischemic ischemic attack attack (TIA), and (TIA), and cerebral cerebral infarction infarction without without residual residual deficits deficits 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 Brie (current) (current) Ingrahm use of use of [id number] insulin insulin 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 Brie (current) (current) Ingrahm use of use of [id number] anticoagula anticoagula nts nts senior care senior care Diagnosis Active Brie (current) (current) Ingrahm use of use of [id number] opiate opiate analgesic analgesic Other long Other long Diagnosis Active Brie term term Ingrahm (current) (current) [id number] drug drug therapy therapy Body mass Body mass Diagnosis Active Brie index (BMI) index (BMI) Ingrm 40.0-44.9, 40.0-44.9, [id number] adult adult Pain frequent Pain Mgmt Resolve 2020-03-11 Juliette pain d 03-01 11:15:00 (Vidal) 10:20: [id number] Cardio edema Cardiovasc Active Juliette ular 03-01 (Vidal) 10:20: [id number] Respiratory dyspnea Respirator Resolve 2020-03-11 Juliette present y d 03-01 11:15:00 (Vidal) 10:20: [id number] Respiratory oxygen Respirator Resolve 2020-03-11 Juliette treatments y d - 11:15:00 (Vidal) in home 10:20: [id number] Endo/Niels glucose Endo/Niels Active Juliette testing 03-01 (Viadl) dependence 10:20: [id number] Endo/Niels diabetic Endo/Niels Active Juliette foot care 03-01 (Vidal) 10:20: [id number] Endo/Niels anti-coagul Endo/Niels Active Juliette ation 03-01 (Vidal) therapy 10:20: [id number] Integument skin Integument Resolve 2020-03-11 Juliette integrity d 3- 11:15:00 (Vidal) risk 10:20: [id number] Nutrition nutritional Nutrition Resolve 2020-03-11 Juliette restriction d - 11:15:00 (Vidal) s 10:20: [id number] Elimination urinary Eliminatio Resolve 2020-03-11 Juliette incontinenc n d 03-01 11:15:00 (Vidal) e 10:20: [id number] Neuro confusion Neuro/Emot Active Juliette present ion 3- (Vidal) 10:20: [id number] Neuro depressive Neuro/Emot Active Juliette feelings ion - (Vidal) present 10:20: [id number] Neuro impaired Neuro/Emot Active Juliette decision-ma ion - (Vidal) diamond 10:20: [id number] Neuro memory Neuro/Emot Active Juliette deficit ion 3- (Vidal) needing 10:20: Wallace supervision 00 [id number] Activity ADL Activity Active Juliette assistance 3- (Vidal) required 10:20: [id number] Activity self-care Activity Active Juliette deficit 3- (Vidal) 10:20: [id number] Safety fall risk Safety Resolve 2020-03-11 Juliette factor d - 11:15:00 (Vidal) present 10:20: [id number] Safety risk for Safety Resolve 2020-03-11 Juliette hospitaliza d - 11:15:00 (Vidal) tion 10:20: [id number] Safety can be left Safety Resolve 2020-03-11 Juliette alone for d 3- 11:15:00 (Vidal) only short 10:20: Wallace periods 00 [id number] Medication oral med Meds Resolve 2020-03-15 Juliette assistance d 3- 14:30:00 (Vidal) required 10:20: [id number] Medication injectable Meds Resolve 2020-03-15 Juliette med d 3-31 14:30:00 (Vidal) assistance 10:20: Wallace required 00 [id number] Musculoskel requires Musculoske Resolve 2020-03-11 Juliette etal human letal d 03-01 11:15:00 (Vidal) assist to 10:20: Madison leave home 00 [id number] Bed mobility/tr PT/OT: Bed Active Libby Mobility/Tr ansfer Mobility/T 03-01 Franco ansfer device ransfer 13:49: [id number] present 00 Bed knowledge/s PT/OT: Bed Active Libby Mobility/Tr kill Mobility/T 03-01 Franco ansfer deficit: pt ransfer 13:49: [id number] 00 Balance/End balance/clinical trial coordinator PT/OT: Active Libby urance rdination Balance/En 03-01 Franco deficit durance 13:49: [id number] 00 Balance/End endurance PT/OT: Active Libby urance deficit Balance/En 03-01 Franco durance 13:49: [id number] 00 Balance/End knowledge/s PT/OT: Active Libby urance kill Balance/En 03-01 Franco deficit: pt durance 13:49: [id number] 00 Gait/Locomo gait PT/OT: Active Libby tion deficit Gait/Locom -31 Franco problems otion 13:49: [id number] 00 Safety risk for Safety Active Libby hospitaliza 4-13 Franco tion 11:55: [id number] 00 Safety can be left Safety Active 2019- Brie alone for 4-14 Ingrahm only short 14:30: [id number] periods 00 Allergies, Adverse Reactions, Alerts Allergy Allergy Status Severity Reaction(s) Onset Inactive Treating Comments Name Type Date Date Clinician flexeril Unknown Active Unknown Reaction 2018-05 Juliette Unknown -04 (Vidal) [place] [id number] morphine Unknown Active Unknown Reaction 2018-05 Juliette Unknown -04 (Vidal) [place] [id number] PCN Unknown Active Unknown Reaction 2018-05 Juliette Unknown -04 (Vidal) [place] [id number] Medications Ordered Filled Start Stop Current Ordering [...] Observation Time Observation Value Comments SYSTOLIC mm[Hg] 2020-03-16 18:11:24 124 mm[Hg] mm[Hg] Method: Sit SYSTOLIC mm[Hg] 2020-03-03 18:11:11 136 mm[Hg] mm[Hg] Method: Stand DIASTOLIC mm[Hg] 2020-03-16 18:11:24 72 mm[Hg] mm[Hg] Method: Sit DIASTOLIC mm[Hg] 2020-03-03 18:11:11 76 mm[Hg] mm[Hg] Method: Stand PULSE 2020-03-16 18:11:24 78 /min /min RESP RATE 2020-03-16 18:11:24 16 /min /min TEMP 2020-03-16 18:11:24 97.9 [degF] Procedures This patient has no known procedures. Results This patient has no known results.
--- OUTSIDE RECORDS SUMMARY | 2020-03-20 15:43 | XMS REPORT | Continuity of Care Document ---
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 Medicine Problems Active Problems Provider Date Chronic ischemic heart disease Darrel Baez M.D., [facility], [facility] Onset: 2012 Essential hypertension Darrel Baez M.D., [facility], [facility] Onset: 10/13/2013 Hyperlipidemia Darrel Baez M.D., [facility], [facility] Onset: 10/13/2013 Atrial fibrillation Darrel Baez M.D., [facility], [facility] Onset: 06/28/2014 Left bundle branch block Darrel Baez M.D., [facility], [facility] Onset: 06/28/2014 Benign essential hypertension Darrel Baez M.D., [facility], [facility] Onset: 2014 Morbid obesity Darrel Baez M.D., [facility], [facility] Onset: 12/15/2015 Paroxysmal atrial fibrillation Darrel Baez M.D., [facility], [facility] Onset: 2015 Obesity Darrel Baez M.D., [facility], [facility] Onset: 06/13/2017 Chest pain Rian Rodriguez M.D., [facility], [facility] Onset: 09/03/2018 Mitral valve disorder Rian Rodriguez M.D., [facility] Onset: 10/01/2018 Social History Type Date Description Comments Sex Unknown Tobacco Use Start: Unknown Never Smoked Cigarettes Smoking Status Reviewed: 03/08/20 Never Smoked Cigarettes ETOH Use Denies alcohol [...] Jarquin 01/01/2020 25mg day Lincoln Rodriguez, Tablets [facility], [facility] Furosemide 1 by mouth every 30tabs Darrel Baez, 02/02/2016 40mg Tablets day M.DRenetta, [facility], [facility] Lisinopril 1 by mouth twice 180tabs Darrel Baez, 08/11/2015 20mg Tablets a day M.DRenetta, [facility], [facility] Nitrostat one sl q5min up 25tabs Darrel Baez, 10/13/2013 0.4mg Tablets to 3 doses prn M.DRenetta, [facility], [facility] Allopurinol 1 by mouth every Unknown 100mg [...] Unknown 1000mg Capsules day Novolog 50-65 units qAM 1bzhang Munguia, 100Unit/ML MD John Solution Lantus 30 units in the 6Vials [facility], 100Unit/ML Am MD John Solution Metoprolol Tartrate one half tablet 60tabs [facility], 100mg po bid MD John Tablets Omeprazole 1 po bid 90caps [facility], 20mg Capsules MD JOSE C Lopez Aspirin [...] Result H/L Range Note Basic Metabolic 01/08/2020 [facility] Sodium 142 mmol/L Normal 135-[address] [place] [address] [phone] Potassium 4.4 mmol/L Normal 3.5-5.0 Chloride 105 [...] dialysis) Procedures Date Code Description Status 02/25/2020 67574 ECHO Transthorasic Realtime 2D W Doppler & Color Flow Hosp Completed 02/25/2020 34189 EKG, Interpretation Only Completed 01/01/2020 52331 Stress Test Completed 01/01/2020 06250 Myocardial Perfusion Imaging Tomographic (Spect) Multiple Completed Studies 12/09/2019 85549 EKG Tracing & Interpretation Completed 11/17/2019 47854 ECHO Transthoracic, Real-Time 2D With Doppler And Color Completed Flow 11/17/2019 75237 ECHO Transthoracic, Real-Time 2D With Doppler And Color Completed Flow Medical Devices Description No Information Available Encounters Type Date Location Provider Dx Diagnosis Office Visit 03/08/2020 [facility] Gladis Vitale MD R06.83 Snoring 11:00a [facility] R53.83 Other fatigue Office Visit 02/25/2020 [facility] Marga Hays, R07.9 Chest pain, 11:03a [place] M.D. unspecified Hospitalists R06.02 Shortness of breath E11.9 Type 2 diabetes mellitus without complications I48.20 Chronic atrial fibrillation, unspecified Office Visit 12/09/2019 1:30p [facility] Rian Britton R07.9 Chest pain, Of [facility] Lincoln Rodriguez, unspecified FACC, FASNC I48.0 Paroxysmal atrial fibrillation I42.9 Cardiomyopathy, unspecified R94.31 Abnormal electrocardiogram [ECG] [EKG] Z86.73 Prsnl hx of TIA (TIA), and cereb infrc w/o resid deficits Office Visit 10/06/2019 4:00p [facility] Sanford Baherminia, K62.5 Hemorrhage of Center Of [facility] AT M.D. anus and rectum [place]iwether D50.8 Other iron deficiency anemias Z85.038 Personal [...] mental status, unspecified Marga Hays M.D. 02/25/2020 R94.31 Abnormal electrocardiogram [ECG] Gregorio Clark, DO [facility] [EKG] 02/25/2020 R07.9 Chest pain, unspecified Grabiel Cervantes M.D. 02/25/2020 R07.9 Chest pain, unspecified Marga Hays M.D. 02/25/2020 R06.02 Shortness of breath Marga Hays M.D. 02/25/2020 E11.9 Type 2 diabetes mellitus without Marga Hays M.D. complications 02/25/2020 I48.20 Chronic atrial fibrillation, Marga Hays M.D. unspecified 01/01/2020 R07.9 Chest pain, unspecified Rian Rodriguez M.D., [facility], [facility] 12/09/2019 R07.9 Chest pain, unspecified Rian Rodriguez M.D., [facility], [facility] 12/09/2019 I48.0 Paroxysmal atrial fibrillation Rian Rodriguez M.D., [facility] , [facility] 12/09/2019 I42.9 Cardiomyopathy, unspecified Rian Rodriguez M.D., [facility], [facility] 12/09/2019 R94.31 Abnormal electrocardiogram [ECG] Rian Rodriguez M.D., [facility], [EKG] [facility] 12/09/2019 Z86.73 Personal history of transient Rian Rodriguez M.D., [facility] , ischemic attack (TIA), and cerebral [facility] infarction without residual deficits 11/17/2019 I34.0 Nonrheumatic mitral (valve) Rian Rodriguez M.D., [facility], insufficiency [facility] 11/17/2019 I34.0 Nonrheumatic mitral (valve) Ica ECHO Schedule insufficiency 10/06/2019 K62.5 Hemorrhage of anus and rectum Sanford Avalos M.D. 10/06/2019 D50.8 Other iron deficiency anemias Sanford Avalos M.D. 10/06/2019 Z85.038 Personal history of other malignant Sanford Avalos M.D. neoplasm of large intest Plan of Treatment 03/08/2020 - Gladis Vitale, MDR06.83 SnoringNew Orders:Home Sleep Testing, Scheduled: 03/08/20Follow up:2 whvgqV71.83 Other fatigue Functional Status Description No Information Available Mental Status Description No Information Available Referrals Description No Information Available
--- OUTSIDE RECORDS SUMMARY | 2020-03-20 15:43 | XMS REPORT | Continuity of Care Document ---
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 [phone] Medicine Problems Active Problems Provider Date Chronic ischemic heart disease Darrel Baez M.D., [facility] [place] [place] Onset: 2012 Essential hypertension Darrel Baez M.D., [facility] [place] [place] Onset: 10/13/2013 Hyperlipidemia Darrel Baez M.D., [facility] [place] [place] Onset: 10/13/2013 Atrial fibrillation Darrel Baez M.D., [facility] [place] [place] Onset: 06/28/2014 Left bundle branch block Darrel Baez M.D., [facility] [place] [place] Onset: 06/28/2014 Benign essential hypertension Darrel Baez M.D., [facility] [place] [place] Onset: 2014 Morbid obesity Darrel Baez M.D., [facility] [place] [place] Onset: 12/15/2015 Paroxysmal atrial fibrillation Darrel Baez M.D., [facility] [place] [place] Onset: 2015 Obesity Darrel Baez M.D., [facility] [place] [place] Onset: 06/13/2017 Chest pain [facility] Onset: 09/03/2018 Mitral valve disorder [facility]., [facility] Onset: 10/01/2018 Social History Type Date [...] Jarquin 01/01/2020 25mg day Lincoln Rodriguez, Tablets [facility], [facility] Furosemide 1 by mouth every 30tabs Darrel Baez, 02/02/2016 40mg Tablets day M.D., [facility], [facility] Lisinopril 1 by mouth twice 180tabs Darrel Baez, 08/11/2015 20mg Tablets a day M.DRenetta, [facility], [facility] Nitrostat one sl q5min up 25tabs Darrel Baez, 10/13/2013 0.4mg Tablets to 3 doses prn M.D., [facility], [facility] Allopurinol 1 by mouth every [...] Solution Lantus 30 units in the 6Vials [facility], 100Unit/ML Am MD John Solution Metoprolol Tartrate one half tablet 60tabs [facility], 100mg po bid MD John Tablets Omeprazole 1 po bid 90caps [facility], 20mg Capsules MD JOSE C Lopez [...] Result H/L Range Note Basic Metabolic 01/08/2020 [facility] Sodium 142 mmol/L Normal 135-[address] [place] [address] [phone] Potassium 4.4 mmol/L Normal 3.5-5.0 Chloride 105 [...] dialysis) Procedures Date Code Description Status 02/25/2020 27811 ECHO Transthorasic Realtime 2D W Doppler & Color Flow Hosp Completed 01/01/2020 24629 Stress Test Completed 01/01/2020 00229 Myocardial Perfusion Imaging Tomographic (Spect) Multiple Completed Studies 12/09/2019 63263 EKG Tracing & Interpretation Completed 11/17/2019 33142 ECHO Transthoracic, Real-Time 2D With Doppler And Color Completed Flow 11/17/2019 29884 ECHO Transthoracic, Real-Time 2D With Doppler And Color Completed Flow Medical Devices Description No Information Available Encounters Type Date Location Provider Dx Diagnosis Office Visit 03/08/2020 Pulmonology And Sleep Gladis Vitale MD R06.83 Snoring 11:00a [facility] [employer] R53.83 Other fatigue Office Visit 12/09/2019 1:30p [facility] Rian Britton R07.9 Chest pain, Of [facility] Lincoln Rodriguez, unspecified FACC, FASNC I48.0 Paroxysmal atrial fibrillation I42.9 Cardiomyopathy, unspecified R94.31 Abnormal electrocardiogram [ECG] [EKG] Z86.73 Prsnl hx of TIA (TIA), and cereb infrc w/o resid deficits Office Visit 10/06/2019 4:00p [facility] Sanford Baherminia, K62.5 Hemorrhage of Center Of [facility] AT M.D. anus and rectum [place] D50.8 Other iron deficiency anemias Z85.038 Personal [...] R07.9 Chest pain, unspecified Rian Rodriguez M.D., [facility], [facility] 12/09/2019 R07.9 Chest pain, unspecified Rian Rodriguez M.D., [facility], [facility] 12/09/2019 I48.0 Paroxysmal atrial fibrillation Rian Rodriguez M.D., [facility] , [facility] 12/09/2019 I42.9 Cardiomyopathy, unspecified Rian Rodriguez M.D., [facility], [facility] 12/09/2019 R94.31 Abnormal electrocardiogram [ECG] Rian Rodriguez M.D., [facility], [EKG] [facility] 12/09/2019 Z86.73 Personal history of transient Rian Rodriguez M.D., [facility] , ischemic attack (TIA), and cerebral [facility] infarction without residual deficits 11/17/2019 I34.0 Nonrheumatic mitral (valve) Rian Rodriguez M.D., [facility], insufficiency [facility] 11/17/2019 I34.0 Nonrheumatic mitral (valve) Ica ECHO Schedule insufficiency 10/06/2019 K62.5 Hemorrhage of anus and rectum Sanford Avalos M.D. 10/06/2019 D50.8 Other iron deficiency anemias Sanford Avalos M.D. 10/06/2019 Z85.038 Personal history of other malignant Sanford Avalos M.D. neoplasm of large intest Plan of Treatment 03/08/2020 - Gladis Vitale, MDR06.83 SnoringNew Orders:Home Sleep Testing, Scheduled: 04/07/20Follow up:2 [id number] Other fatigue Functional Status Description No Information Available Mental Status Description No Information Available Referrals Description No Information Available
--- OUTSIDE RECORDS SUMMARY | 2020-03-20 15:43 | XMS REPORT ---
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 Clinician (SIG) Name Name No Known No Known No None None None Medications Medications For This For This Patient Patient Procedures This patient has no known procedures. Results This patient has no known results.
--- OUTSIDE RECORDS SUMMARY | 2020-03-20 15:43 | XMS REPORT ---
:1940 Author Organization [facility] Care Team Providers Name Role Phone Unavailable Unavailable Unavailable Problems Condition Condition Condition Status Onset Resolution Last Treating Comments Name Details Category Date Date Treatment Clinician Date Hypertensiv Hypertensiv Diagnosis Active Brie e heart and e heart and 02-24 Ingrahm chronic chronic [id number] kidney kidney disease disease with heart with heart failure and failure and stage 1 stage 1 through through stage 4 stage 4 chronic chronic kidney kidney disease, or disease, or unspecified unspecified chronic chronic kidney kidney disease disease Chronic Chronic Diagnosis Active 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 [id number] ) heart ) heart failure failure Chronic Chronic Diagnosis Active 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-24 Ingrahm disease, disease, [id number] stage 3 stage 3 (moderate) (moderate) 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 [id number] without without complicatio complicatio ns ns Chronic Chronic Diagnosis Active Brie atrial atrial 12-02 Ingrahm fibrillatio fibrillatio [id number] n, n, unspecified unspecified Unspecified Unspecified Diagnosis Active Brie dementia dementia 12-02 Ingrahm without without [id number] behavioral behavioral disturbance disturbance 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 Brie chronic chronic Ingrahm kidney kidney [id number] disease disease 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, ch block, [id number] unspecified unspecified Hyperlipide Hyperlipide Diagnosis Active Brie peña, peña, Ingrahm unspecified unspecified [id number] Obesity, Obesity, Diagnosis Active Brie unspecified unspecified Ingrahm [id number] Personal Personal Diagnosis Active Brie history of history of Ingrahm other other [id number] 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 Personal Personal Diagnosis Active Brie history of history of Ingrahm transient transient [id number] ischemic ischemic attack attack (TIA), and (TIA), and cerebral cerebral infarction infarction without without residual residual deficits deficits 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 (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) (current) Ingrahm use of use of [id number] insulin 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 Brie (current) (current) Ingrahm use of use of [id number] anticoagula anticoagula nts nts prison prison Diagnosis Active Brie (current) (current) Ingrahm use of use of [id number] opiate opiate analgesic analgesic Other long Other long Diagnosis Active Brie term term Ingrahm (current) (current) [id number] drug drug therapy therapy Body mass Body mass Diagnosis Active Brie index (BMI) index (BMI) Ingrm 40.0-44.9, 40.0-44.9, [id number] adult adult Pain frequent Pain Mgmt Active 2020-0 Juliette pain 3- (Vidal) 10:20: [id number] Cardio edema Cardiovasc Active 2020-0 Juliette ular 3- (Vidal) 10:20: [id number] Respiratory dyspnea Respirator Active 2020-0 Juliette present y 3-31 (Vidal) 10:20: [id number] Respiratory oxygen Respirator Active 2020-0 Juliette treatments y 3-31 (Vidal) in home 10:20: [id number] 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 10:20: [id number] Endo/Niels diabetic Endo/Niels Active 2020-0 Juliette foot care 3- (Vidal) 10:20: [id number] Endo/Niels anti-coagul Endo/Niels Active 2020-0 Juliette ation 3-31 (Vidal) therapy 10:20: [id number] Integument skin Integument Active 2020-0 Juliette integrity 3- (Vidal) risk 10:20: [id number] Nutrition nutritional Nutrition Active 2020-0 Juliette restriction 3- (Vidal) s 10:20: [id number] Elimination urinary Eliminatio Active 2020-0 Juliette incontinenc n 03-01 (Vidal) e 10:20: [id number] Neuro confusion Neuro/Emot Active 2020-0 Juliette present ion - (Vidal) 10:20: [id number] Neuro depressive Neuro/Emot Active 2020-0 Juliette feelings ion - (Vidal) present 10:20: [id number] Neuro impaired Neuro/Emot Active 2020-0 Juliette decision-ma ion 03-01 (Vidal) diamond 10:20: [id number] Neuro memory Neuro/Emot Active 2020-0 Julitete deficit ion - (Vidal) needing 10:20: Wallace supervision [id number] Activity ADL Activity Active 2020-0 Juliette assistance 03-01 (Vidal) required 10:20: [id number] Activity self-care Activity Active 2020-0 Juliette deficit - (Vidal) 10:20: [id number] Safety fall risk Safety Active 2020-0 Juliette factor - (Vidal) present 10:20: [id number] Safety risk for Safety Active 2020-0 Juliette hospitaliza 03-01 (Vidal) tion 10:20: [id number] Safety can be left Safety Active 2020-0 Juliette alone for 03-01 (Vidal) only short 10:20: Wallace periods [id number] Medication oral med Meds Active 2020-0 Juliette assistance - (Vidal) required 10:20: [id number] Medication injectable Meds Active 2020-0 Juliette med - (Vidal) assistance 10:20: Wallace required 00 [id number] Musculoskel requires Musculoske Active 2020-0 Juliette etal human letal 03-01 (Vidal) assist to 10:20: Wallace leave home 00 [id number] Bed mobility/tr PT/OT: Bed Active 2020-0 Libby Mobility/Tr ansfer Mobility/T 03-01 Salvador ansfer device ransfer 13:49: [id number] present 00 Bed knowledge/s PT/OT: Bed Active 2020-0 Libby Mobility/Tr kill Mobility/T 03-01 Franco ansfer deficit: pt ransfer 13:49: [id number] Balance/End balance/ranch cook PT/OT: Active Libby urance rdination Balance/En 03-01 Franco deficit durance 13:49: [id number] Balance/End endurance PT/OT: Active Libby urance deficit Balance/En 03-01 Franco durance 13:49: [id number] Balance/End knowledge/s PT/OT: Active Libby urance kill Balance/En 03-01 Franco deficit: pt durance 13:49: [id number] 00 Gait/Locomo gait PT/OT: Active Libby tion deficit Gait/Locom 03-01 Franco problems otion 13:49: [id number] 00 Allergies, Adverse Reactions, Alerts Allergy Allergy Status Severity Reaction(s) Onset Inactive Treating Comments Name Type Date Date Clinician flexeril Unknown Active Unknown Reaction 2018-05 Juliette Unknown -04 (Vidal) [place] [id number] morphine Unknown Active Unknown Reaction 2018-05 Juliette Unknown -04 (Vidal) [place] [id number] PCN Unknown Active Unknown Reaction 2018-05 Juliette Unknown -04 (Vidal) [place] [id number] Medications Ordered Filled Start Stop Current Ordering [...]
--- OUTSIDE RECORDS SUMMARY | 2020-03-20 15:43 | XMS REPORT | Continuity of Care Document ---
:1940 External Reference #:[id number] Author Name Carlos Enrique Torres D.O. (transmitted by agent of provider Ingris Beckett) Address [address] [place] [address] Care Team Providers Name Role Phone Darrel Baez MD - Cardiovascular Care Team Information Loading Unit Operator Powder Charging Disease Alfredo Wilhelm MD - Gastroenterology Care Team Information Loading Unit Operator Pow[employer] Charging HCP/LW on file Care Team Information Loading Unit Operator Powder Charging Unavailable Meli Powers MD - Surgery Care Team Information Loading Unit Operator Powder Charging Corbin Spencer MD - Surgery Care Team Information Loading Unit Operator Powder Charging Gregorio Merida MD - Surgery Care Team Information Loading Unit Operator Powder Charging [phone] Don Morton MD - Orthopaedic Care Team Information Loading Unit Operator Powder Charging [facility] Care Team Information Loading Unit Operator Powder Charging [phone] Gladis Vitale MD - Pulmonary Care Team Information Loading Unit Operator Powder Charging Disease Problems Active Problems Provider Date Coronary [...] Mix 70/30 Inject 20 Units With 60units [facility], 05/05/2018 Breakfast. Max Of 65 Braxton Monaco (70-30)100Unit/ML Units Daily as Suspension Directed Alendronate Sodium Take With A Full 12tabs M81.0 [facility], 01/30/2018 70mg Glass Of Water (6 To Sha Monaco.O. Tablets 8 Ounces; 180 To 240 ML) And Avoid Lying Down For AT Least 30 Minutes. Take Once Weekly On Saturday. BD Pen or appropriate 60units [facility], 01/14/2018 Needle/Mini/Ultrafine/31 needles for Basaglar Braxton Monaco G X 3/16" pen. use up to 2/day, 31G X 5 mm Misc as directed, for insulin administration Basaglar Kwikpen Inject 34 Units In 45units E11.65 [facility], 12/26/2017 100Unit/ML The Morning . Braxton Monaco Solution Pen-Inject Increase By 2 Units If Morning Fasting Is Over 110 For 3 Days Max. 60 Units A Day Chair To Lift From Use as directed. M54.16 [facility], 09/17/2017 Sitting Shellie Monaco. Insulin use with novolog 200units [facility], 09/17/2017 Syringe/0.5ML/30G X 1/2" 70/30 as directed Shellie Monaco. 30G daily X 1/2" 0.5 ML Misc Onetouch Ultra Blue Use To Test 1 To 4 200units [facility], 03/21/2016 Strips Times Daily as Braxton Monaco Directed [facility]2016 40mg Tablets mouth every day Braxton Monaco Freestyle Lite Test or appropriate 200units E11.65 [facility], 03/15/2016 Strips testing strips for Braxton Monaco patients device, test 1-4 times daily as directed Oxycodone HCL take 1-2 tablets by 180tabs M25.55 [facility], 10/04/2015 5mg Tablets mouth every 8 hours 1 Carlos Enrique, D.O. as needed for pain (maximum daily dose = 6) Lisinopril Take One Tablet By 180tabs [facility], 08/11/2015 20mg Tablets Mouth Twice A Day Shellie Monaco. Jantoven Take 4 And 1/2 360tabs Z79.01 [facility], 12/29/2014 1mg Tablets Tablets By Mouth [...] CPT Code Status Date Vaccine Lot # [id number] Given 09/14/2019 Influenza Vaccine, Inactivated, Subunit, [id number] Adjuvanted, For Intrmusc 42051 Given 10/30/2018 Influenza Vaccine, Inactivated, Subunit, [id number] Adjuvanted, For Intrmusc 59156 Given 09/17/2017 Influenza Vaccine Split Virus Preservative Free [id number] Im Use (hi-dose) 72401 Given 07/27/2016 Influenza Virus Vaccine, Quadrivalent, Split, [id number] Preservative Free 93799 Given 07/28/2015 Influenza Virus Vaccine, Quadrivalent, Split, [id number] Preservative Free 69350 Given 04/08/2015 Adacel or Boostrix, TDaP [id number] 47044 Given 04/08/2015 Prevnar 13 [id number] 22963 Given 10/15/2013 Zostavax 35135 Given 09/04/2013 Flu, Split Virus 3Yrs 32202 Given 08/09/2012 Flu, Split Virus 3Yrs 75590 Given 08/10/2011 Flu, Split Virus 3Yrs [id number] 87987 Given 08/24/2010 Flu, Split Virus 3Yrs [id number] 17168 Given 12/13/2009 Flu, Split Virus 3Yrs [id number] 31580 Given 09/18/2008 Flu, Split Virus 3Yrs [id number] 50843 Given 10/02/2007 Pneumococcal Immunization [id number] 69927 Given 10/02/2007 Td Immunization [id number] 65559 Given 10/02/2007 Flu, Split Virus 3Yrs [id number] 04690 Given 09/20/2006 Flu, Split Virus 3Yrs 72727 Given 09/25/2005 Flu, Split Virus 3Yrs 95870 Given 12/18/2004 Flu, Split Virus 3Yrs Vital [...] 1.2 Inr(Add l Normalized V58.61) Laboratory 02/25/2020 [facility] Troponin-I 0.01 ng/mL <0.03 1 test finding [phone] (TnI) Laboratory 02/25/2020 [facility] Troponin-I 0.01 ng/mL <0.03 2 test finding [phone] (TnI) Inr/Protime 02/25/2020 [facility] Inr 7.80 Critical 0.82-1.0 3 [phone] high 9 Laboratory 02/25/2020 [facility] Partial >240.0 Critical 26.0-38. 4 test finding [phone] Thrombo Time seconds high 0 PTT CBC Auto Diff 02/25/2020 [facility] White Blood 10.8 Normal 3.5-10.8 [phone] Count 10^3/uL Red Blood Count 4.28 10^6/uL [...] Cells % 0.1 Comp Metabolic Panel 02/25/2020 [facility] Sodium 139 mmol/L Normal 135-145 [phone] Potassium 3.8 mmol/L Normal 3.5-5.0 Chloride 109 [...] Egfr 39.6 >60 5 Laboratory test 02/25/2020 [facility] LDL Cholesterol Direct 62 mg/dL 6 finding [phone] Creatine Kinase(CK) 234 U/L High 10-223 Troponin-I (TnI) 0.00 ng/mL <0.03 7 CKMB 02/25/2020 [facility] CKMB ng/mL 7.9 ng/mL High 0.6-6.3 [phone] Laboratory test 02/25/2020 [facility] B-Type 174 pg/mL High <=100 finding [phone] Natriuretic Peptide BNP Lactic Acid 0.4 mmol/L Low 0.5-2.0 8 C Reactive Protein 76.99 mg/L High <8.01 Protime W/ Inr(Add 02/20/2020 [facility]International 3.0 V58.61) Normalized Protime W/ Inr(Add 02/15/2020 [facility]International 2.0 V58.61) Normalized Protime W/ Inr(Add 02/07/2020 [facility] #International 3.9 V58.61) Normalized Protime W/ Inr(Add 02/02/2020 [facility] #International 3.1 V58.61) Normalized Urinalysis With 01/26/2020 [facility]. Urine Color Light-Yel Yellow 9 Microscopic LABORATORY low [phone] Urine Clarity Clear Clear Urine Glucose - Dipstick >1000 mg/dL Negative Urine Bilirubin - Dipstick NEGATIVE Negative Urine Ketone NEGATIVE mg/dL Negative Urine Specific [place] 1.011 Normal 1.010-1.030 Urine Blood TRACE Negative [...] 2.8 Inr(Add V58.61) Normalized Basic Metabolic 01/08/2020 [facility] Sodium 142 Normal 135-14 Panel [phone] mmol/L 5 Potassium 4.4 mmol/L Normal 3.5-5.0 [...] 4.5 Inr(Add V58.61) Normalized Comp Metabolic 12/25/2019 [facility] Sodium 141 Normal 135-14 Panel [phone] mmol/L 5 Potassium 3.8 mmol/L Normal 3.5-5.0 [...] 52.2 >60 12 CBC Auto Diff 12/25/2019 [facility] White Blood 6.1 10^3/uL Normal 3.5-10.8 [phone] Count Red Blood Count 4.92 10^6/uL High [...] Cells % 0.0 Laboratory test finding 12/25/2019 [facility] Uric Acid 9.2 mg/dL High 2.3-6.6 [phone] Erythrocyte Sed Rate 11 mm/Hr Normal 0-29 [...] #International 1.9 V58.61) Normalized Laboratory test 11/20/2019 [facility] Uric Acid 10.8 mg/dL High 2.3- 6.6 finding [phone] Erythrocyte Sed Rate 14 mm/Hr Normal 0-29 C Reactive Protein 6.11 mg/L Normal <8.01 CBC Auto Diff 11/20/2019 [facility] White Blood 6.1 10^3/uL Normal 3.5-10.8 [phone] Count Red Blood Count 4.70 10^6/uL Normal [...] Cells % 0.0 Comp Metabolic Panel 11/20/2019 [facility] Sodium 142 mmol/L Normal 135-145 [phone] Potassium 4.0 mmol/L Normal 3.5-5.0 Chloride 104 [...] immediately to secondary confirmatory testing. Using the [employer] DxI 800 Access Immunoassay systems, the 99th percentile upper reference limit was demonstrated to be < 0.03 ng/mL. 2 Troponin-I testing on Plasma Separator Tubes (PST) has a known false positive rate of 0.20-0.40%. All positive troponins reflex immediately to secondary confirmatory testing. Using the [employer] DxI 800 Access Immunoassay systems, the 99th percentile upper reference limit was demonstrated to be < 0.03 ng/mL. 3 Verbal to [id number] by [id number] at 0730 on 02/25/20. Results read back accurately. Standard intensity warfarin therapeutic range: 2.0-3.0 High intensity warfarin therapeutic range: 2.5-3.5 4 Verbal to [id number] by [id number] at 0730 on 02/25/20. Results read back [...] immediately to secondary confirmatory testing. Using the [employer] DxI 800 Access Immunoassay systems, the 99th percentile upper reference limit was demonstrated to be < 0.03 ng/mL. 8 [facility] Severe Sepsis and Septic Shock Management Bundle [...] dialysis) Procedures Date Code Description Status 03/01/2020 32131 Anticoagulant MGMT For Patient Taking Warfarin, Inc Completed Review & Intr 02/15/2020 04701 Anticoagulant MGMT For Patient Taking Warfarin, Inc Completed Review & Intr 02/08/2020 82347 Anticoagulant MGMT For Patient Taking Warfarin, Inc Completed Review & Intr 02/02/2020 62952 Anticoagulant MGMT For Patient Taking Warfarin, Inc Completed Review & Intr 01/25/2020 15051 Anticoagulant MGMT For Patient Taking Warfarin, Inc Completed Review & Intr 01/19/2020 97317 Anticoagulant MGMT For Patient Taking Warfarin, Inc Completed Review & Intr 01/12/2020 90722 Anticoagulant MGMT For Patient Taking Warfarin, Inc Completed Review & Intr 01/04/2020 36026 Anticoagulant MGMT For Patient Taking Warfarin, Inc Completed Review & Intr 01/01/2020 77068 Anticoagulant MGMT For Patient Taking Warfarin, Inc Completed Review & Intr 12/21/2019 92313 Anticoagulant MGMT For Patient Taking Warfarin, Inc Completed Review & Intr 12/10/2019 [id number] Diabetic Retinal Eye Exam Completed 12/08/2019 22914 Anticoagulant MGMT For Patient Taking Warfarin, Inc Completed Review & Intr 11/30/2019 20455 Anticoagulant MGMT For Patient Taking Warfarin, Inc Completed Review & Intr 11/23/2019 53784 Anticoagulant MGMT For Patient Taking Warfarin, Inc Completed Review & Intr 11/16/2019 49669 Anticoagulant MGMT For Patient Taking Warfarin, Inc Completed Review & Intr 11/02/2019 96416 Anticoagulant MGMT For Patient Taking Warfarin, Inc Completed Review & Intr 10/27/2019 89935 Anticoagulant MGMT For Patient Taking Warfarin, Inc Completed Review & Intr 10/27/2019 80001 Anticoagulant MGMT For Patient Taking Warfarin, Inc Completed Review & Intr 09/29/2019 27327 Anticoagulant MGMT For Patient Taking Warfarin, Inc Completed Review & Intr 09/21/2019 81462 Anticoagulant MGMT For Patient Taking Warfarin, Inc Completed Review & Intr 09/14/2019 23881 Anticoagulant MGMT For Patient Taking Warfarin, Inc Completed Review & Intr 03/16/2019 [id number] Diabetic Foot Exam Completed Medical Devices Description [...] Type 2 diabetes mellitus with hyperglycemia Z79.01 [facility] (current) use of anticoagulants I10 Essential (primary) hypertension M48.062 Spinal stenosis, lumbar region with neurogenic claudication Office Visit 01/22/2020 4:00p Main Office Carlos Enrique Torres, E11.65 Type 2 diabetes D.O. mellitus with hyperglycemia Z79.01 [employer] (current) use of anticoagulants I48.20 Chronic atrial fibrillation, unspecified M10.9 Gout, unspecified I10 Essential (primary) hypertension M48.062 Spinal stenosis, lumbar region with neurogenic claudication Z68.42 Body mass index (BMI) 45.0-49.9, adult Office Visit 12/22/2019 4:00p Main Office Carlos Enrique Torres, E11.65 Type 2 diabetes D.O. mellitus with hyperglycemia M10.9 Gout, unspecified Z79.01 [employer] (current) use of anticoagulants I10 Essential (primary) hypertension M48.062 Spinal stenosis, lumbar region with neurogenic claudication Z79.4 [employer] (current) use of insulin R19.7 Diarrhea, unspecified Z68.42 Body mass index (BMI) 45.0-49.9, adult Office Visit 11/19/2019 3:30p Main Office Carlos Enrique Torres, M10.9 Gout, unspecified D.O. Z79.01 MCC (current) use of anticoagulants I48.20 Chronic atrial [...] foot I48.20 Chronic atrial fibrillation, unspecified Z79.01 [employer] (current) use of anticoagulants E11.65 Type 2 diabetes mellitus with hyperglycemia I10 Essential (primary) hypertension M48.062 Spinal stenosis, lumbar region with neurogenic claudication Office Visit 09/14/2019 11:00a Main Office Carlos Enrique Torres, E11.65 Type 2 diabetes D.O. mellitus with hyperglycemia N76.4 Abscess of vulva Z79.01 [employer] (current) use of anticoagulants Z23 Encounter for immunization Assessments Date Code Description Provider 03/02/2020 E11.65 Type 2 diabetes mellitus with hyperglycemia Carlos Enrique Torres D.ORenetta 03/02/2020 I10 Essential (primary) hypertension Carlos Enrique Torres D.ORenetta 03/02/2020 I27.20 Pulmonary hypertension, unspecified Carlos Enrique Torres D.O. 03/02/2020 Z91.89 Other specified personal risk factors, not Carlos Enrique Torres D.Ana. elsewhere classified 03/01/2020 Z79.01 MCC (current) use of anticoagulants Carlos Enrique Torres D.O. 03/01/2020 I48.20 Chronic atrial fibrillation, unspecified Carlos Enrique Torres D.O. 03/01/2020 I10 Essential (primary) hypertension Carlos Enrique Torres D.O. 02/15/2020 Z79.01 [employer] (current) use of anticoagulants Carlos Enrique Torres D.O. 02/15/2020 I48.20 Chronic atrial fibrillation, unspecified Carlos Enrique Torres D.O. 02/08/2020 Z79.01 MCC (current) use of anticoagulants Carlos Enrique Torres D.O. 02/08/2020 I48.20 Chronic atrial fibrillation, unspecified Sopchak, Carlos Enrique, D.O. 02/02/2020 Z79.01 MCC (current) use of anticoagulants SopchakTrinion, D.O. 02/02/2020 I48.20 Chronic atrial fibrillation, unspecified Sopchak, Carlos Enrique, D.O. 01/28/2020 M25.562 Pain in left knee SophansakTrinion, D.O. 01/28/2020 R29.6 Repeated falls Sopchak Carlos Enrique, D.O. 01/28/2020 Z91.81 History of falling SophansakTrinion, D.O. 01/28/2020 E11.65 Type 2 diabetes mellitus with hyperglycemia SophansakTrinion , D.O. 01/28/2020 Z79.01 [employer] (current) use of anticoagulants Sopchak, Carlos Enrique, D.O. 01/28/2020 I10 Essential (primary) hypertension SophansakTrinion, D.O. 01/28/2020 M48.062 Spinal stenosis, lumbar region with Sopchak, Carlos Enrique, D.O. neurogenic claudication 01/25/2020 Z79.01 MCC (current) use of anticoagulants DiannachakTrinion, D.O. 01/25/2020 I48.20 Chronic atrial fibrillation, unspecified Sopchak, Carlos Enrique, D.O. 01/22/2020 E11.65 Type 2 diabetes mellitus with hyperglycemia SophansakTrinion , D.O. 01/22/2020 Z79.01 [employer] (current) use of anticoagulants Sopchak, Carlos Enrique, D.O. 01/22/2020 I48.20 Chronic atrial fibrillation, unspecified Sopchak, Carlos Enrique, D.O. 01/22/2020 M10.9 Gout, unspecified Sopchak, Carlos Enrique, D.O. 01/22/2020 I10 Essential (primary) hypertension Sopchak, Carlos Enrique, D.O. 01/22/2020 M48.062 Spinal stenosis, lumbar region with Sopchak, Carlos Enrique, D.O. neurogenic claudication 01/22/2020 Z68.42 Body mass index (BMI) 45.0-49.9, adult Danielak, Carlos Enrique, D.O. 01/19/2020 Z79.01 MCC (current) use of anticoagulants Sopchak, Carlos Enrique, D.O. 01/19/2020 I48.20 Chronic atrial fibrillation, unspecified Sopchak, Carlos Enrique, D.O. 01/12/2020 Z79.01 MCC (current) use of anticoagulants Sopchak, Carlos Enrique, D.O. 01/12/2020 I48.20 Chronic atrial fibrillation, unspecified Sopchak, Carlos Enrique, D.O. 01/04/2020 Z79.01 MCC (current) use of anticoagulants Sopchak, Carlos Enrique, D.O. 01/04/2020 I48.20 Chronic atrial fibrillation, unspecified Sopchak, Carlos Enrique, D.O. 01/01/2020 Z79.01 MCC (current) use of anticoagulants Diannachak, Carlos Enrique, D.O. 01/01/2020 I48.20 Chronic atrial fibrillation, unspecified Sopchak, Carlos Enrique, D.O. 12/22/2019 E11.65 Type 2 diabetes mellitus with hyperglycemia DanielakTrinion , D.O. 12/22/2019 M10.9 Gout, unspecified Sopchak, Carlos Enrique, D.O. 12/22/2019 Z79.01 [employer] (current) use of anticoagulants DanielakTrinion, D.O. 12/22/2019 I10 Essential (primary) hypertension SophansakTrinion, D.O. 12/22/2019 M48.062 Spinal stenosis, lumbar region with SophansakTrinion, D.O. neurogenic claudication 12/22/2019 Z79.4 [employer] (current) use of insulin DanielakTrinion, D.O. 12/22/2019 R19.7 Diarrhea, unspecified Sopchak, Carlos Enrique, D.O. 12/22/2019 Z68.42 Body mass index (BMI) 45.0-49.9, adult DanielakTirnion, D.O. 12/21/2019 Z79.01 MCC (current) use of anticoagulants Diannachak, Carlos Enrique, D.O. 12/21/2019 I48.20 Chronic atrial fibrillation, unspecified Sopchak, Carlos Enrique, D.O. 12/21/2019 I10 Essential (primary) hypertension SophansakTrinion, D.O. 12/08/2019 Z79.01 MCC (current) use of anticoagulants DanielakTrinion, D.O. 12/08/2019 I48.20 Chronic atrial fibrillation, unspecified Sopchak, Carlos Enrique, D.O. 11/30/2019 Z79.01 [employer] (current) use of anticoagulants DiannachakTrinion, D.O. 11/30/2019 I48.20 Chronic atrial fibrillation, unspecified Sopchak, Carlos Enrique, D.O. 11/23/2019 Z79.01 MCC (current) use of anticoagulants DiannachakTrinion, D.O. 11/23/2019 I48.20 Chronic atrial fibrillation, unspecified SopchakTrinion, D.O. 11/19/2019 M10.9 Gout, unspecified SopchakTrinion, D.O. 11/19/2019 Z79.01 MCC (current) use of anticoagulants DanielakTrinion, D.O. 11/19/2019 [...] 45.0-49.9, adult Trini Torreson, D.O. 11/16/2019 Z79.01 [employer] (current) use of anticoagulants DanielakTrinion, D.O. 11/16/2019 I48.20 Chronic atrial fibrillation, unspecified Sopchak, Carlos Nerique, D.O. 11/08/2019 Z79.01 MCC (current) use of anticoagulants DanielakTrinion, D.O. 11/08/2019 I48.20 Chronic atrial fibrillation, unspecified SopchakTrinion, D.O. 11/02/2019 Z79.01 [employer] (current) use of anticoagulants DanielakCarlos Enrique D.O. 11/02/2019 I48.20 Chronic atrial fibrillation, unspecified Sopchak, Carlos Enrique, D.O. 10/27/2019 I48.20 Chronic atrial fibrillation, unspecified SopchakTrinion, D.O. 10/27/2019 Z79.01 MCC (current) use of anticoagulants DanielakTrinion D.O. 10/27/2019 I48.20 Chronic atrial fibrillation, unspecified Sopchak, Carlos Enrique, D.O. 10/27/2019 Z79.01 MCC (current) use of anticoagulants DanielakTrinion, D.O. 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 10/15/2019 I48.20 Chronic atrial fibrillation, unspecified Sopchak, Carlos Enrique, D.O. 10/15/2019 Z79.01 MCC (current) use of anticoagulants DanielakTrinion D.O. 10/15/2019 E11.65 Type 2 diabetes mellitus with hyperglycemia Carlos Enrique Torres D.O. 10/15/2019 I10 Essential (primary) hypertension Carlos Enrique Torres D.O. 10/15/2019 M48.062 Spinal stenosis, lumbar region with Carlos Enrique Torres D.O. neurogenic claudication 09/29/2019 I48.20 Chronic atrial fibrillation, unspecified SopchakTrinion, D.O. 09/29/2019 Z79.01 [employer] (current) use of anticoagulants DanielakTrinion D.O. 09/21/2019 I48.20 Chronic atrial fibrillation, unspecified SopchakTrinion, D.O. 09/21/2019 Z79.01 [employer] (current) use of anticoagulants DiannachakTrinion, D.O. 09/14/2019 I48.20 Chronic atrial fibrillation, unspecified SopchakTrinion, D.O. 09/14/2019 E11.65 Type 2 diabetes mellitus with hyperglycemia Carlos Enrique Torres D.O. 09/14/2019 N76.4 Abscess of vulva Carlos Enrique Torres D.O. 09/14/2019 Z79.01 MCC (current) use of anticoagulants Carlos Enrique Torres D.O. 09/14/2019 Z79.01 MCC (current) use of anticoagulants Carlos Enrique Torres D.O. 09/14/2019 Z23 Encounter for immunization Carlos Enrique Torres D.O. Plan of Treatment Future Appointment(s):03/09/2020 4:30 pm - Carlos Enrique Torres D.O. at Main Oybgra9803/24/2020 3:45 pm - Carlos Enrique Torres D.O. at Main Kturwj8703/02/2020 - Carlos Enrique Torres D.O.E11.65 Type 2 diabetes mellitus with hyperglycemiaComments: TOV 24:34Follow up:1 week recheck diabetes/glucose lpggmonlF30 Essential ( primary) wfbnhkpycokiP09.20 Pulmonary hypertension, unspecifiedReferral:Gladis Vitale MD, Pulmonary IhxjltusG17.89 Other specified personal risk factors, not elsewhere classified Functional Status Description No Information Available Mental Status Description No Information Available Referrals Refer to Dr Reason for Referral Status Appt Date Gladis Vitale MD Pulmonary hypertension suggested on Closed transthoracic echo. Please do sleep testing for sleep apnea. Consult and Treat [facility] [address], [address] [place] [id number] [phone]
--- OUTSIDE RECORDS SUMMARY | 2020-03-20 15:43 | XMS REPORT | Continuity of Care Document ---
:1940 External Reference #:[id number] Author Name Gladis Vitale MD Address [address], [address] [place] [address] Care Team Providers Name Role Phone Carlos Enrique Torres DO - Family Care Team Information Therapist Phys Medicine Problems Active Problems Provider Date Chronic ischemic heart disease Darrel Baez M.D., [facility], [facility] Onset: 2012 Essential hypertension Darrel Baez M.D., [facility], [facility] Onset: 10/13/2013 Hyperlipidemia Darrel Baez M.D., [facility], [facility] Onset: 10/13/2013 Atrial fibrillation Darrel Baez M.D., [facility], [facility] Onset: 06/28/2014 Left bundle branch block Darrel Baez M.D., [facility], [facility] Onset: 06/28/2014 Benign essential hypertension Darrel Baez M.D., [facility], [facility] Onset: 2014 Morbid obesity Darrel Baez M.D., [facility], [facility] Onset: 12/15/2015 Paroxysmal atrial fibrillation Darrel Baez M.D., [facility], [facility] Onset: 2015 Obesity Darrel Baez M.D., [facility], [facility] Onset: 06/13/2017 Chest pain Rian Rodriguez M.D., [facility], [facility] Onset: 09/03/2018 Mitral valve disorder Rian Rodriguez M.D., [facility], [facility] Onset: 10/01/2018 Social History Type Date Description [...] 90tabs Rian Jarquin 01/01/2020 25mg day Lincoln Rodrgiuez, Tablets [facility], [facility] Furosemide 1 by mouth every 30tabs Darrel [facility], 02/02/2016 40mg Tablets day M.D., [facility], [facility] Lisinopril 1 by mouth twice 180tabs Darrel [facility], 08/11/2015 20mg Tablets a day M.D., [facility], [facility] Nitrostat one sl q5min up 25tabs Darrel [facility], 10/13/2013 0.4mg Tablets to 3 doses prn M.D., [facility], [facility] Allopurinol 1 by mouth every Unknown 100mg [...] 1000mg Capsules day Novolog 50-65 units qAM 1bottle Nilda, 100Unit/ML MD John Solution Lantus 30 units in the 6Vials Nilda 100Unit/ML Am MD John Solution Metoprolol Tartrate one half tablet 60tabs [facility], 100mg po bid MD John Tablets Omeprazole 1 po bid 90caps [facility], 20mg Capsules MD JOSE C Lopez [...] Result H/L Range Note Basic Metabolic 01/08/2020 [facility] Sodium 142 mmol/L Normal 135-[address] [place] [address] [phone] Potassium 4.4 mmol/L Normal 3.5-5.0 Chloride 105 [...] dialysis) Procedures Date Code Description Status 02/25/2020 57529 ECHO Transthorasic Realtime 2D W Doppler & Color Flow Hosp Completed 01/01/2020 43106 Stress Test Completed 01/01/2020 08746 Myocardial Perfusion Imaging Tomographic (Spect) Multiple Completed Studies 12/09/2019 22596 EKG Tracing & Interpretation Completed 11/17/2019 33923 ECHO Transthoracic, Real-Time 2D With Doppler And Color Completed Flow 11/17/2019 52383 ECHO Transthoracic, Real-Time 2D With Doppler And Color Completed Flow Medical Devices Description No Information Available Encounters Type Date Location Provider Dx Diagnosis Office Visit 03/08/2020 [facility] Gladis Vitale MD R06.83 Snoring 11:00a [facility]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 anus and rectum [place] D50.8 Other iron deficiency anemias Z85.038 Personal [...] R07.9 Chest pain, unspecified Rian Rodriguez M.D., [facility], [facility] 12/09/2019 R07.9 Chest pain, unspecified Rian Rodriguez M.D., [facility], [facility] 12/09/2019 I48.0 Paroxysmal atrial fibrillation Rian Rodriguez M.D., [facility] , [facility] 12/09/2019 I42.9 Cardiomyopathy, unspecified Rian Rodriguez M.D., [facility], [facility] 12/09/2019 R94.31 Abnormal electrocardiogram [ECG] Rian Rodriguez M.D., [facility], [EKG] [facility] 12/09/2019 Z86.73 Personal history of transient Rian Rodriguez M.D., [facility] , ischemic attack (TIA), and cerebral [facility] infarction without residual deficits 11/17/2019 I34.0 Nonrheumatic mitral (valve) Rian Rodriguez M.D., [facility], insufficiency [facility] 11/17/2019 I34.0 Nonrheumatic mitral (valve) Ica ECHO Schedule insufficiency 10/06/2019 K62.5 Hemorrhage of anus and rectum Sanford Avalos M.D. 10/06/2019 D50.8 Other iron deficiency anemias Sanford Avalos M.D. 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
--- OUTSIDE RECORDS SUMMARY | 2020-03-20 15:43 | XMS REPORT ---
:1940 Author Organization [facility] Care Team Providers Name Role Phone Unavailable Unavailable Unavailable Problems Condition Condition Condition Status Onset Resolution Last Treating Comments Name Details Category Date Date Treatment Clinician Date Hypertensiv Hypertensiv Diagnosis Active Brie e heart and e heart and 02-24 Ingrahm chronic chronic [id number] kidney kidney disease disease with heart with heart failure and failure and stage 1 stage 1 through through stage 4 stage 4 chronic chronic kidney kidney disease, or disease, or unspecified unspecified chronic chronic kidney kidney disease disease Chronic Chronic Diagnosis Active 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 [id number] ) heart ) heart failure failure Chronic Chronic Diagnosis Active 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-24 Ingrahm disease, disease, [id number] stage 3 stage 3 (moderate) (moderate) 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 [id number] without without complicatio complicatio ns ns Chronic Chronic Diagnosis Active Brie atrial atrial 12-02 Ingrahm fibrillatio fibrillatio [id number] n, n, unspecified unspecified Unspecified Unspecified Diagnosis Active Brie dementia dementia 12-02 Ingrahm without without [id number] behavioral behavioral disturbance disturbance 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 ak chin ak chin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 Brie chronic chronic Ingrahm kidney kidney [id number] disease disease 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, ch block, [id number] unspecified unspecified Hyperlipide Hyperlipide Diagnosis Active Brie peña, peña, Ingrahm unspecified unspecified [id number] Obesity, Obesity, Diagnosis Active Brie unspecified unspecified Ingrahm [id number] Personal Personal Diagnosis Active Brie history of history of Ingrahm other other [id number] 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 Personal Personal Diagnosis Active Brie history of history of Ingrahm transient transient [id number] ischemic ischemic attack attack (TIA), and (TIA), and cerebral cerebral infarction infarction without without residual residual deficits 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 (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) (current) Ingrahm use of use of [id number] insulin insulin jail jail Diagnosis Active Brie (current) (current) Ingrahm use of use of [id number] anticoagula anticoagula nts nts 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 Brie (current) (current) Ingrahm use of use of [id number] opiate opiate analgesic analgesic Other long Other long Diagnosis Active Brie term term Ingrahm (current) (current) [id number] drug drug therapy therapy Body mass Body mass Diagnosis Active Brie index (BMI) index (BMI) Ingrm 40.0-44.9, 40.0-44.9, [id number] adult adult Pain frequent Pain Mgmt Active 2020-0 Juliette pain 3- (Vidal) 10:20: [id number] Cardio edema Cardiovasc Active 2020-0 Juliette ular 3- (Vidal) 10:20: [id number] Respiratory dyspnea Respirator Active 2020-0 Juliette present y 3-31 (Vidal) 10:20: [id number] Respiratory oxygen Respirator Active 2020-0 Juliette treatments y 3-31 (Vidal) in home 10:20: [id number] 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 10:20: [id number] Endo/Niels diabetic Endo/Niels Active 2020-0 Juliette foot care 3- (Vidal) 10:20: [id number] Endo/Niels anti-coagul Endo/Niels Active 2020-0 Juliette ation 3-31 (Vidal) therapy 10:20: [id number] Integument skin Integument Active 2020-0 Juliette integrity 3- (Vidal) risk 10:20: [id number] Nutrition nutritional Nutrition Active 2020-0 Juliette restriction 3- (Vidal) s 10:20: [id number] Elimination urinary Eliminatio Active 2020-0 Juliette incontinenc n 03-01 (Vidal) e 10:20: [id number] Neuro confusion Neuro/Emot Active 2020-0 Juliette present ion - (Vidal) 10:20: [id number] Neuro depressive Neuro/Emot Active 2020-0 Juliette feelings ion - (Vidal) present 10:20: [id number] Neuro impaired Neuro/Emot Active 2020-0 Juliette decision-ma ion 03-01 (Vidal) diamond 10:20: [id number] Neuro memory Neuro/Emot Active 2020-0 Juliette deficit ion - (Vidal) needing 10:20: Wallace supervision [id number] Activity ADL Activity Active 2020-0 Juliette assistance 03-01 (Vidal) required 10:20: [id number] Activity self-care Activity Active 2020-0 Juliette deficit - (Vidal) 10:20: MI335628 Safety fall risk Safety Active 2020-0 Juliette factor - (Vidal) present 10:20: [id number] Safety risk for Safety Active 2020-0 Juliette hospitaliza 03-01 (Vidal) tion 10:20: [id number] Safety can be left Safety Active 2020-0 Juliette alone for 03-01 (Vidal) only short 10:20: Wallace periods [id number] Medication oral med Meds Active 2020-0 Juliette assistance - (Vidal) required 10:20: [id number] Medication injectable Meds Active 2020-0 Juliette med - (Vidal) assistance 10:20: Wallace required 00 [id number] Musculoskel requires Musculoske Active 2020-0 Juliette etal human letal 03-01 (Vidal) assist to 10:20: Wallace leave home 00 [id number] Bed mobility/tr PT/OT: Bed Active 2020-0 Libby Mobility/Tr ansfer Mobility/T 03-01 Salvador ansfer device ransfer 13:49: [id number] present 00 Bed knowledge/s PT/OT: Bed Active 2020-0 Libby Mobility/Tr kill Mobility/T 03-01 Franco ansfer deficit: pt ransfer 13:49: [id number] 00 Balance/End balance/mold cooler PT/OT: Active Libby urance rdination Balance/En 03-01 Franco deficit durance 13:49: [id number] 00 Balance/End endurance PT/OT: Active Libby urance deficit Balance/En 03-01 Franco durance 13:49: [id number] 00 Balance/End knowledge/s PT/OT: Active Libby urance kill Balance/En 03-01 Franco deficit: pt durance 13:49: [id number] 00 Gait/Locomo gait PT/OT: Active Libby tion deficit Gait/Locom 03-01 Franco problems otion 13:49: [id number] 00 Allergies, Adverse Reactions, Alerts Allergy Allergy Status Severity Reaction(s) Onset Inactive Treating Comments Name Type Date Date Clinician flexeril Unknown Active Unknown Reaction 2018-05 Juliette Unknown -04 (Vidal) [place] [id number] morphine Unknown Active Unknown Reaction 2018-05 Juliette Unknown -04 (Vidal) [place] [id number] PCN Unknown Active Unknown Reaction 2018-05 Juliette Unknown -04 (Vidal) [place] [id number] Medications Ordered Filled Start Stop Current Ordering [...]
--- OUTSIDE RECORDS SUMMARY | 2020-03-20 15:43 | XMS REPORT | Continuity of Care Document ---
:1940 External Reference #:[id number] Author Name Grabiel Cervantes M.D. 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, [facility] Onset: 10/13/2013 Hyperlipidemia Darrel Baez M.D., [facility], [facility] Onset: 10/13/2013 Atrial fibrillation Darrel Baez M.D., [facility] Onset: 06/28/2014 Left bundle branch block Darrel Baez M.D., [facility] Onset: 06/28/2014 Benign essential hypertension Darrel Baez M.D., [facility] Onset: 2014 Morbid obesity Darrel Baez M.D., [facility] Onset: 12/15/2015 Paroxysmal atrial fibrillation Darrel Baez M.D., [facility] Onset: 2015 Obesity Darrel Baez M.D., [facility], [facility] Onset: 06/13/2017 Chest pain Rian Rodriguez M.D., [facility] Onset: 09/03/2018 Mitral valve disorder [facility] Onset: 10/01/2018 Social History Type Date Description Comments Sex Unknown Tobacco Use Start: Unknown Never Smoked Cigarettes Smoking Status Reviewed: 12/09/19 Never Smoked Cigarettes ETOH Use Denies alcohol [...] Jarquin 01/01/2020 25mg day Lincoln Rodriguez, Tablets [facility], [facility] Furosemide 1 by mouth every 30tabs Darrel Baez, 02/02/2016 40mg Tablets day M.DRenetta, [facility], [facility] Lisinopril 1 by mouth twice 180tabs Darrel Baez, 08/11/2015 20mg Tablets a day Lincoln, [facility], [facility] Nitrostat one sl q5min up 25tabs Darrel Baez, 10/13/2013 0.4mg Tablets to 3 doses prn M.DRenetta, [facility], [facility] Allopurinol 1 by mouth every Unknown 100mg [...] Capsules day Novolog 50-65 units Ana M 1bottle Nilda, 100Unit/ML MD John Solution Lantus 30 units in the 6Vials [facility], 100Unit/ML Am MD John Solution Metoprolol Tartrate one half tablet 60tabs [facility], 100mg po bid MD John Tablets Omeprazole 1 po bid 90caps [facility], 20mg Capsules MD JOSE C Lopez [...] Available Vital Signs Date Vital Result Comment 12/09/2019 1:15pm Height 62 inches 5'2" Weight 245.00 lb with shoes Heart Rate 62 /min BP Systolic Sitting 136 mmHg lue large cuff BP Diastolic Sitting 70 mmHg lue large cuff BP Systolic Standing 140 mmHg lue large cuff BP Diastolic Standing 70 mmHg lue large cuff Respiratory Rate 16 /min BMI (Body Mass Index) 44.8 kg/m2 Ejection Fraction 35-40% echo. 11/17/19 10/01/2018 1:20pm Height 62 inches 5'2" Weight 243.00 lb with shoes Heart Rate 54 /min BP Systolic Sitting 140 mmHg Rue lg cuff BP Diastolic Sitting 66 mmHg Rue lg cuff BP Systolic Standing 140 mmHg Rue lg cuff BP Diastolic Standing 70 mmHg Rue lg cuff Respiratory Rate 16 /min BMI (Body Mass Index) 44.4 kg/m2 Results Test Acquired Date Facility Test Result H/L Range Note Basic Metabolic 01/08/2020 [facility] Sodium 142 mmol/L Normal 135-[address] [place] [address] [phone] Potassium 4.4 mmol/L Normal 3.5-5.0 Chloride 105 [...] dialysis) Procedures Date Code Description Status 02/25/2020 84201 ECHO Transthorasic Realtime 2D W Doppler & Color Flow Hosp Completed 01/01/2020 86596 Stress Test Completed 01/01/2020 60373 Myocardial Perfusion Imaging Tomographic (Spect) Multiple Completed Studies 12/09/2019 46430 EKG Tracing & Interpretation Completed 11/17/2019 18645 ECHO Transthoracic, Real-Time 2D With Doppler And Color Completed Flow 11/17/2019 69648 ECHO Transthoracic, Real-Time 2D With Doppler And Color Completed Flow Medical Devices Description No Information Available Encounters Type Date Location Provider Dx Diagnosis Office Visit 12/09/2019 [facility] Rian Britton R07.9 Chest pain, 1:30p Of Nat Rodriguez M.D., unspecified FACC, FASNC I48.0 Paroxysmal atrial fibrillation I42.9 Cardiomyopathy, unspecified R94.31 Abnormal electrocardiogram [ECG] [EKG] Z86.73 Prsnl hx of TIA (TIA), and cereb infrc w/o resid deficits Office Visit 10/06/2019 4:00p [facility] Sanford Robbie, K62.5 Hemorrhage of Center Of [facility] AT M.D. anus and rectum [place] D50.8 Other iron deficiency anemias Z85.038 Personal history of malignant neoplasm of large intestine Assessments Date Code Description Provider 02/27/2020 R07.9 Chest pain, unspecified Marga Hays [...] N18.3 Chronic kidney disease, stage 3 Marga Hyas M.D. (moderate) 02/26/2020 R07.9 Chest pain, unspecified [...] R07.9 Chest pain, unspecified Rian Rodriguez M.D., [facility], [facility] 12/09/2019 R07.9 Chest pain, unspecified Rian Rodriguez M.D., [facility], [facility] 12/09/2019 I48.0 Paroxysmal atrial fibrillation Rian Rodriguez M.D., [facility] , [facility] 12/09/2019 I42.9 Cardiomyopathy, unspecified Rian Rodriguez M.D., [facility], [facility] 12/09/2019 R94.31 Abnormal electrocardiogram [ECG] Rian Rodriguez M.D., [facility], [EKG] [facility] 12/09/2019 Z86.73 Personal history of transient [facility]., [facility] , ischemic attack (TIA), and cerebral [facility] infarction without residual deficits 11/17/2019 I34.0 Nonrheumatic mitral (valve) Rian Rodriguez M.D., [facility], insufficiency [facility] 11/17/2019 I34.0 Nonrheumatic mitral (valve) Ica ECHO Schedule insufficiency 10/06/2019 K62.5 Hemorrhage of anus and rectum Sanford Avalos M.D. 10/06/2019 D50.8 Other iron deficiency anemias Sanford Avalos M.D. 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, ILQGWN94.9 Chest pain, unspecifiedComments:As discussed, your heart function is a little less than prior so we will check for you a cardiac chemical nuclear stress test.Follow up: after NLMI48.0 Paroxysmal atrial wxfcoxxcpqmeX59.9 Cardiomyopathy, hueiyfcqobxP83.31 Abnormal electrocardiogram [ECG] [EKG]Z86.73 Personal history of transient ischemic attack (TIA), and cerebral infarction without residualdeficits Functional Status Description No Information Available Mental Status Description No Information Available Referrals Description No Information Available
--- OUTSIDE RECORDS SUMMARY | 2020-03-20 15:44 | XMS REPORT | Continuity of Care Document ---
:1940 External Reference #:[id number] Author Name Marga Hays M.D. 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 Medicine Problems Active Problems Provider Date Chronic ischemic heart disease Darrel Baez M.D., [facility] Onset: 2012 Essential hypertension Darrel Baez M.D., [facility] Onset: 10/13/2013 Hyperlipidemia Darrel Baez M.D., [facility] Onset: 10/13/2013 Atrial fibrillation Darrel Baez M.D., [facility] Onset: 06/28/2014 Left bundle branch block Darrel Baez M.D., [facility] Onset: 06/28/2014 Benign essential hypertension Darrel Baez M.D., [facility] Onset: 2014 Morbid obesity Darrel Baez M.D., [facility] Onset: 12/15/2015 Paroxysmal atrial fibrillation Darrel Baez M.D., [facility] Onset: 2015 Obesity Darrel Baez M.D., [facility] Onset: 06/13/2017 Chest pain [facility] Onset: 09/03/2018 Mitral valve disorder [facility] Onset: 10/01/2018 Social History Type Date Description Comments Sex Unknown Tobacco Use Start: Unknown Never Smoked Cigarettes Smoking Status Reviewed: 01/08/20 Never Smoked Cigarettes ETOH Use Denies alcohol [...] Jarquin 01/01/2020 25mg day Lincoln Rodriguez, Tablets [facility], [facility] Furosemide 1 by mouth every 30tabs Darrel Baez, 02/02/2016 40mg Tablets day M.D., [facility], [facility] Lisinopril 1 by mouth twice 180tabs Darrel Baez, 08/11/2015 20mg Tablets a day M.DRenetta, [facility], [facility] Nitrostat one sl q5min up 25tabs Darrel Baez, 10/13/2013 0.4mg Tablets to 3 doses prn M.D., [facility], [facility] Allopurinol 1 by mouth every Unknown 100mg [...] Result H/L Range Note Basic Metabolic 01/08/2020 [facility] Sodium 142 mmol/L Normal 135-[address] [place] [address] [phone] Potassium 4.4 mmol/L Normal 3.5-5.0 Chloride 105 [...] dialysis) Procedures Date Code Description Status 02/25/2020 63374 ECHO Transthorasic Realtime 2D W Doppler & Color Flow Hosp Completed 01/01/2020 06263 Stress Test Completed 01/01/2020 49936 Myocardial Perfusion Imaging Tomographic (Spect) Multiple Completed Studies 12/09/2019 34929 EKG Tracing & Interpretation Completed 11/17/2019 91583 ECHO Transthoracic, Real-Time 2D With Doppler And Color Completed Flow 11/17/2019 52051 ECHO Transthoracic, Real-Time 2D With Doppler And Color Completed Flow Medical Devices Description No Information Available Encounters Type Date Location Provider Dx Diagnosis Office Visit 12/09/2019 [facility] Rianlaura Jarquin R07.9 Chest pain, 1:30p Of Nat Rodriguez M.D., unspecified FACC, FASNC I48.0 Paroxysmal atrial fibrillation I42.9 Cardiomyopathy, unspecified R94.31 Abnormal electrocardiogram [ECG] [EKG] Z86.73 Prsnl hx of TIA (TIA), and cereb infrc w/o resid deficits Office Visit 10/06/2019 4:00p [facility] Sanford Baherminia, K62.5 Hemorrhage of [facility] M.D. anus and rectum [place] D50.8 Other iron deficiency anemias Z85.038 [...] (congestive) heart Marga Hays M.D. failure 02/27/2020 N18.3 Chronic kidney disease, stage 3 Marga Hays M.D. 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 02/25/2020 R07.9 Chest pain, unspecified Marga Hays M.D. 02/25/2020 R06.02 Shortness of breath Marga Hays M.D. 02/25/2020 E11.9 Type 2 diabetes mellitus without Marga Hays M.D. complications 02/25/2020 I48.20 Chronic atrial fibrillation, Marga Hays M.D. unspecified 01/01/2020 R07.9 Chest pain, unspecified Rian Rodriguez M.D., [facility], [facility] 12/09/2019 R07.9 Chest pain, unspecified Rian Rodriguez M.D., [facility], [facility] 12/09/2019 I48.0 Paroxysmal atrial fibrillation Rian Rodriguez M.D., [facility] , [facility] 12/09/2019 I42.9 Cardiomyopathy, unspecified Rian Rodriguez M.D., [facility], [facility] 12/09/2019 R94.31 Abnormal electrocardiogram [ECG] Rian Rodriguez M.D., [facility], [EKG] [facility] 12/09/2019 Z86.73 Personal history of transient Rian Rodriguez M.D., [facility] , ischemic attack (TIA), and cerebral [facility] infarction without residual deficits 11/17/2019 I34.0 Nonrheumatic mitral (valve) Rian Rodriguez M.D., [facility], insufficiency [facility] 11/17/2019 I34.0 Nonrheumatic mitral (valve) [facility] ECHO Schedule insufficiency 10/06/2019 K62.5 Hemorrhage of anus and rectum Sanford Avalos M.D. 10/06/2019 D50.8 Other iron deficiency anemias [facility] Avalos M.D. 10/06/2019 Z85.038 Personal history of other malignant San[facility] Avalos M.D. neoplasm of large intest Plan of Treatment 12/09/2019 - Rian Rodriguez M.D., [facility], OEKUGY63.9 Chest pain, unspecifiedComments:As discussed, your heart function is a little less than prior so we will check for you a cardiac chemical nuclear stress test.Follow up: after NLMI48.0 Paroxysmal atrial bcblcxhtfqcvV53.9 Cardiomyopathy, sfdfwwchhidR09.31 Abnormal electrocardiogram [ECG] [EKG]Z86.73 Personal history of transient ischemic attack (TIA), and cerebral infarction without residualdeficits Functional Status Description No Information Available Mental Status Description No Information Available Referrals Description No Information Available
--- OUTSIDE RECORDS SUMMARY | 2020-03-20 15:44 | XMS REPORT ---
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 (congestive (congestive [id number] ) heart ) heart failure failure Allergies, Adverse Reactions, Alerts Allergy Allergy Status Severity Reaction(s) Onset Inactive Treating Comments Name Type Date Date Clinician flexeril Unknown Active Unknown Reaction 2018-05 Juliette Unknown -04 (Vidal) [place] [id number] morphine Unknown Active Unknown Reaction 2018-05 Juliette Unknown -04 (Vidal) [place] [id number] PCN Unknown Active Unknown Reaction 2018-05 Juliette Unknown -04 (Vidal) [place] [id number] Medications Ordered Filled Start Stop Current Ordering Indication Dosage Frequency Signature Comments Components Medication Medication Date Date Medication? Clinician (SIG) Name Name atorvastati atorvastati Yes Sopchak Unknown Unknown n 80 mg n 80 mg 3-31 DO,Carlos Enrique tablet tablet omeprazole omeprazole 2019-0 Yes S[place]ak Unknown Unknown 40 mg 40 mg 3-31 DO,Carlos Enrique capsule,del capsule,del ayed ayed release release furosemide furosemide 2019-0 Yes S[place]ak Unknown Unknown 40 mg 40 mg 3-31 DO,Carlos Enrique tablet tablet lisinopriL lisinopriL 2019-0 Yes [place]ak Unknown Unknown 20 mg 20 mg 3-31 DO,Carlos Enrique tablet tablet Nitrostat Nitrostat 2019-0 Yes S[place]ak Unknown Unknown 0.4 mg 0.4 mg 3-31 DO,Carlos Enrique sublingual sublingual tablet tablet metoprolol metoprolol 2019-0 Yes S[place]ak Unknown Unknown tartrate tartrate 3-31 DO,Carlos Enrique 100 mg 100 mg tablet tablet Jantoven 1 Dectoven 1 Yes [place]ak Unknown Unknown mg tablet mg tablet 03-01 DO,Carlos Enrique Basaglar Basaglar 2019-0 Yes [place] Unknown Unknown KwikPen KwikPen 03-01 DO,Carlos Enrique U-100 U-100 Insulin 100 Insulin 100 unit/mL (3 unit/mL (3 mL) mL) subcutaneou subcutaneou s s multivitami multivitami 2019- Yes [place]ak Unknown Unknown n capsule n capsule 03-01,Carlos Enrique Fosamax 70 Fosamax 70 2019- Yes [place] Unknown Unknown mg tablet mg tablet 03-01,Carlos Enrique gabapentin gabapentin Yes [place]ak Unknown Unknown 300 mg 300 mg 03-01 DO,Carlos Enrique capsule capsule oxyCODONE 5 oxyCODONE 5 2019- Yes [place]ak Unknown Unknown mg capsule mg capsule 03-01 DO,Carlos Enrique cyanocobala cyanocobala 2019- Yes [place] Unknown Unknown min (vit min (vit 03-01 DO,Carlos Enrique B-12) 1,000 B-12) 1,000 mcg mcg sublingual sublingual tablet tablet allopurinoL allopurinoL Yes S[place]ak Unknown Unknown 100 mg 100 mg 03-01 DO,Carlos Enrique tablet tablet Vital Signs Vital Name Observation Time Observation Value Comments SYSTOLIC mm[Hg] 2020-03-01 18:11:09 110 mm[Hg] mm[Hg] Method: Sit DIASTOLIC mm[Hg] 2020-03-01 18:11:09 60 mm[Hg] mm[Hg] Method: Sit PULSE 2020-03-01 18:11:09 72 /min /min TEMP 2020-03-01 18:11:09 97.7 [degF] Procedures This patient has no known procedures. Results This patient has no known results.
--- OUTSIDE RECORDS SUMMARY | 2020-03-20 15:44 | XMS REPORT ---
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 (congestive (congestive [id number] ) heart ) heart failure failure Allergies, Adverse Reactions, Alerts Allergy Allergy Status Severity Reaction(s) Onset Inactive Treating Comments Name Type Date Date Clinician flexeril Unknown Active Unknown Reaction 2018-05 Juliette Unknown -04 (Vidal) [place] [id number] morphine Unknown Active Unknown Reaction 2018-05 Juliette Unknown -04 (Vidal) [place] [id number] PCN Unknown Active Unknown Reaction 2018-05 Juliette Unknown -04 (Vidal) [place] [id number] Medications Ordered Filled Start Stop Current Ordering [...] Unknown 0.4 mg 0.4 mg 3-31 DO,Carlos Enriuqe sublingual sublingual tablet tablet metoprolol metoprolol 2019-0 Yes S[place]chak Unknown Unknown tartrate tartrate 3-31 DO,Carlos Enrique 100 mg 100 mg tablet tablet Jantoven 1 Dectoven 1 2020-0 Yes Sopchak Unknown Unknown mg tablet mg tablet 03-01 DO,Carlos Enrique Basaglar Basaglar 2019-0 Yes S[place]chak Unknown Unknown KwikPen KwikPen 03-01 DO,Carlos Enrique U-100 U-100 Insulin 100 Insulin 100 unit/mL (3 unit/mL (3 mL) mL) subcutaneou subcutaneou s s multivitami multivitami 2020-0 Yes Sopchak Unknown Unknown n capsule n capsule 03-01 DO,Carlos Enrique Fosamax 70 Fosamax 70 2019-0 Yes [place] Unknown Unknown mg tablet mg tablet 03-01 DO,Carlos Enrique gabapentin gabapentin 2019-0 Yes S[place]ak Unknown Unknown 300 mg 300 mg 03-01 DO,Carlos Enrique capsule capsule oxyCODONE 5 oxyCODONE 5 2019- Yes S[place]chak Unknown Unknown mg capsule mg capsule 03-01 DO,Carlos Enrique cyanocobala cyanocobala 2019- Yes S[place]ak Unknown Unknown min (vit min (vit 03-01 DO,Carlo Senrique B-12) 1,000 B-12) 1,000 mcg mcg sublingual sublingual tablet tablet allopurinoL allopurinoL 2019-0 Yes S[place]chak Unknown Unknown 100 mg 100 mg 03-01 DO,Carlos Enrique tablet tablet spironolact spironolact 2019-0 Yes S[place]ak Unknown Unknown one 25 mg one 25 mg 03-01 DO,Carlos Enrique tablet tablet escitalopra escitalopra 2019- Yes Sopchak Unknown Unknown m 5 mg m 5 mg 03-01 DO,Carlos Enrique tablet tablet NovoLOG Mix NovoLOG Mix 2019-0 Yes S[place]ak Unknown Unknown 70-30 70-30 - DO,Carlos Enrique FlexPen FlexPen U-100 U-100 Insulin 100 Insulin 100 unit/mL unit/mL subcutaneou subcutaneou s pen s pen Vital Signs Vital Name Observation Time Observation Value Comments SYSTOLIC mm[Hg] 2020-03-01 18:11:09 110 mm[Hg] mm[Hg] Method: Sit DIASTOLIC mm[Hg] 2020-03-01 18:11:09 60 mm[Hg] mm[Hg] Method: Sit PULSE 2020-03-01 18:11:09 72 /min /min TEMP 2020-03-01 18:11:09 97.7 [degF] Procedures This patient has no known procedures. Results This patient has no known results.
--- OUTSIDE RECORDS SUMMARY | 2020-03-20 15:44 | XMS REPORT ---
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 (congestive (congestive [id number] ) heart ) heart failure failure Allergies, Adverse Reactions, Alerts Allergy Allergy Status Severity Reaction(s) Onset Inactive Treating Comments Name Type Date Date Clinician flexeril Unknown Active Unknown Reaction 2018-05 Juliette Unknown -04 (Vidal) [place] [id number] morphine Unknown Active Unknown Reaction 2018-05 Juliette Unknown -04 (Vidal) [place] [id number] PCN Unknown Active Unknown Reaction 2018-05 Juliette Unknown -04 (Vidal) [place] [id number] Medications Ordered Filled Start Stop Current Ordering Indication Dosage Frequency Signature Comments Components Medication Medication Date Date Medication? Clinician (SIG) Name Name No Known No Known No None None None Medications Medications For This For This Patient Patient Procedures This patient has no known procedures. Results This patient has no known results.
--- OUTSIDE RECORDS SUMMARY | 2020-03-20 15:44 | XMS REPORT ---
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 (congestive (congestive [id number] ) heart ) heart failure failure Pain frequent Pain Mgmt Active 2020-0 Juliette pain 3- (Vidal) 10:20: [id number] Cardio edema Cardiovasc Active 2020-0 Juliette ular 3- (Vidal) 10:20: [id number] Respiratory dyspnea Respirator Active 2020-0 Juliette present y 3- (Vidal) 10:20: [id number] Respiratory oxygen Respirator Active 2020-0 Juliette treatments y 3- (Vidal) in home 10:20: [id number] 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 10:20: [id number] Endo/Niels diabetic Endo/Niels Active 2020-0 Juliette foot care 3- (Vidal) 10:20: [id number] Endo/Niels anti-coagul Endo/Niels Active 2020-0 Juliette ation 3- (Vidal) therapy 10:20: [id number] Integument skin Integument Active 2020-0 Juliette integrity 3- (Vidal) risk 10:20: [id number] Nutrition nutritional Nutrition Active 2020-0 Juliette restriction 3- (Vidal) s 10:20: Wallace [id number] Elimination urinary Eliminatio Active 2020-0 Juliette incontinenc n 3- (Vidal) e 10:20: Wallace [id number] Neuro confusion Neuro/Emot Active 2020-0 Juliette present ion - (Vidal) 10:20: [id number] Neuro depressive Neuro/Emot Active 2020-0 Juliette feelings ion 03-01 (Vidal) present 10:20: [id number] Neuro impaired Neuro/Emot Active 2020-0 Juliette decision-ma ion 03-01 (Vidal) diamond 10:20: [id number] Neuro memory Neuro/Emot Active 2020-0 Juliette deficit ion 03-01 (Vidal) needing 10:20: Wallace supervision [id number] Activity ADL Activity Active 2020-0 Juliette assistance 03-01 (Vidal) required 10:20: [id number] Activity self-care Activity Active 2019-0 Juliette deficit 03-01 (Vidal) 10:20: [id number] Safety fall risk Safety Active 2020-0 Juliette factor 03-01 (Vidal) present 10:20: [id number] Safety risk for Safety Active 2019-0 Juliette hospitaliza 03-01 (Vidal) tion 10:20: [id number] Safety can be left Safety Active 2020-0 Juliette alone for 03-01 (Vidal) only short 10:20: Wallace periods [id number] Medication oral med Meds Active 2020-0 Juliette assistance 03-01 (Vidal) required 10:20: [id number] Medication injectable Meds Active 2020-0 Juliette med 03-01 (Vidal) assistance 10:20: Wallace required 00 [id number] Musculoskel requires Musculoske Active 2019-0 Juliette etal human letal 03-01 (Vidal) assist to 10:20: Wallace leave home 00 [id number] Bed mobility/tr PT/OT: Bed Active 2020-0 Libby Mobility/Tr ansfer Mobility/T 03-01 Franco ansfer device ransfer 13:49: [id number] present 00 Bed knowledge/s PT/OT: Bed Active 2020-0 Libby Mobility/Tr kill Mobility/T 03-01 Franco ansfer deficit: pt ransfer 13:49: [id number] Balance/End balance/human resources operations coordinator PT/OT: Active 2020-0 Libby urance rdination Balance/En 03-01 Franco deficit durance 13:49: [id number] Balance/End endurance PT/OT: Active Libby urance deficit Balance/En 03-01 Franco durance 13:49: [id number] Balance/End knowledge/s PT/OT: Active Libby urance kill Balance/En 03-01 Franco deficit: pt durance 13:49: [id number] 00 Gait/Locomo gait PT/OT: Active Libby tion deficit Gait/Locom 03-01 Franco problems otion 13:49: [id number] 00 Allergies, Adverse Reactions, Alerts Allergy Allergy Status Severity Reaction(s) Onset Inactive Treating Comments Name Type Date Date Clinician dede Unknown Active Unknown Reaction 2018-05 Juliette Unknown -04 (Vidal) [place] [id number] morphine Unknown Active Unknown Reaction 2018-05 Juliette Unknown -04 (Vidal) [place] [id number] PCN Unknown Active Unknown Reaction 2018-05 Julietet Unknown -04 (Vidal) [place] [id number] Medications Ordered Filled Start Stop Current Ordering [...] mL) subcutaneou subcutaneou s s multivitami multivitami 2019-0 Yes [place] Unknown Unknown n capsule n capsule - DO,Carlos Enrique Fosamax 70 Fosamax 70 2019-0 Yes [place] Unknown Unknown mg tablet mg tablet 03-01 DO,Carlos Enrique gabapentin gabapentin 2019-0 Yes [place] Unknown Unknown 300 mg 300 mg 03-01 DO,Carlos Enrique capsule capsule oxyCODONE 5 oxyCODONE 5 2019-0 Yes [place] Unknown Unknown mg capsule mg capsule 03-01 DO,Carlos Enrique cyanocobala cyanocobala 0 Yes [place] Unknown Unknown min (vit min (vit - DO,Carlos Enrique B-12) 1,000 B-12) 1,000 mcg mcg sublingual sublingual tablet tablet allopurinoL allopurinoL Yes [place] Unknown Unknown 100 mg 100 mg 03-01 DO,Carlos Enrique tablet tablet spironolact spironolact Yes [place] Unknown Unknown one 25 mg one 25 mg - DO,Carlos Enrique tablet tablet escitalopra escitalopra 2019-0 [...]
--- OUTSIDE RECORDS SUMMARY | 2020-03-20 15:44 | XMS REPORT | Continuity of Care Document ---
:1940 External Reference #:[id number] Author Name Carlos Enrique Torres D.O. (transmitted by agent of provider Myranda Diaz) Address [address] [place] [address] Care Team Providers Name Role Phone Darrel Baez MD - Cardiovascular Care Team Information Interior Design Project Manager Disease Alfredo Wilhelm MD - Gastroenterology Care Team Information Interior Design Project Manager [phone] HCP/LW on file Care Team Information Interior Design Project Manager Unavailable Meli Powers MD - Surgery Care Team Information Interior Design Project Manager Corbin Spencer MD - Surgery Care Team Information Interior Design Project Manager Gregorio Merida MD - Surgery Care Team Information Interior Design Project Manager [phone] Don Morton MD - Orthopaedic Care Team Information Interior Design Project Manager [facility] Care Team Information Interior Design Project Manager Problems Active Problems Provider Date Coronary arteriosclerosis [...] Tablets Spironolactone 1 tablet by mouth 90tabs iRan Rodriguez MD 01/01/2020 25mg daily Tablets Escitalopram [...] Mix 70/30 Inject 20 Units With 60units [facility], 05/05/2018 Breakfast. Max Of 63 Carlos Enrique D.Cristina (70-30)100Unit/ML Units Daily as Suspension Directed Alendronate Sodium Take With A Full 12tabs M81.0 [facility], 01/30/2018 70mg Glass Of Water (6 To Carlos Enrique D.O. Tablets 8 Ounces; 180 To 240 ML) And Avoid Lying Down For AT Least 30 Minutes. Take Once Weekly On Saturday. BD Pen or appropriate 60units [facility], 01/14/2018 Needle/Mini/Ultrafine/31 needles for Basaglar Shellie Monaco. G X 3/16" pen. use up to 2/day, 31G X 5 mm Misc as directed, for insulin administration Basaglar Kwikpen Inject 34 Units In 45units E11.65 [facility], 12/26/2017 100Unit/ML The Morning . Braxton Monaco Solution Pen-Inject Increase By 2 Units If Morning Fasting Is Over 110 For 3 Days Max. 60 Units A Day Chair To Lift From Use as directed. M54.16 [facility], 09/17/2017 Sitting Braxton Monaco Insulin use with novolog 200units [facility], 09/17/2017 Syringe/0.5ML/30G X 1/2" 70/30 as directed Braxton Monaco 30G daily X 1/2" 0.5 ML Misc Onetouch Ultra Blue Use To Test 1 [facility] Strips Times Daily as Braxton Monaco Directed Furosemide take one tablet by 90tabs Melissa, 03/20/2016 40mg Tablets mouth every day Braxton Monaco Freestyle Lite Test or appropriate 200units E11.65 [facility]2016 Strips testing strips for Braxton Monaco patients device, test 1-4 times daily as directed Oxycodone HCL take 1-2 tablets by 180tabs M25.55 [facility], 10/04/2015 5mg Tablets mouth every 8 hours 1 Ramses MonacoORenetta as needed for pain (maximum daily dose = 6) Lisinopril Take One Tablet By 180tabs [facility], 08/11/2015 20mg Tablets Mouth Twice A Day Braxton Monaco Jantoven Take 4 And 1/2 360tabs Z79.01 [facility], 12/29/2014 1mg Tablets Tablets By Mouth AT [...] colcrys. Colcrys take 2 immediately 60tabs M10.072 Melissa Carlos Enrique, 10/15/2019 - 0.6mg then 1 [...] CPT Code Status Date Vaccine Lot # [id number] Given 09/14/2019 Influenza Vaccine, Inactivated, Subunit, [id number] Adjuvanted, [place] [facility] Given 10/30/2018 Influenza Vaccine, Inactivated, Subunit, [id number] Adjuvanted, For [facility] 30227 Given 09/17/2017 Influenza Vaccine Split Virus Preservative Free [id number] Im Use (hi-dose) 44104 Given 07/27/2016 Influenza Virus Vaccine, Quadrivalent, Split, [id number] Preservative Free 63889 Given 07/28/2015 Influenza Virus Vaccine, Quadrivalent, Split, [id number] Preservative Free 22584 Given 04/08/2015 Adacel or Boostrix, TDaP [id number] 98015 Given 04/08/2015 Prevnar 13 [id number] 52328 Given 10/15/2013 Zostavax 18215 Given 09/04/2013 Flu, Split Virus 3Yrs 99465 Given 08/09/2012 Flu, Split Virus 3Yrs 28336 Given 08/10/2011 Flu, Split Virus 3Yrs [id number] 85531 Given 08/24/2010 Flu, Split Virus 3Yrs [id number] 00291 Given 12/13/2009 Flu, Split Virus 3Yrs [id number] 34665 Given 09/18/2008 Flu, Split Virus 3Yrs [id number] 56181 Given 10/02/2007 Pneumococcal Immunization [id number] 43146 Given 10/02/2007 Td Immunization [id number] 55947 Given 10/02/2007 Flu, Split Virus 3Yrs [id number] 82081 Given 09/20/2006 Flu, Split Virus 3Yrs 36813 Given 09/25/2005 Flu, Split Virus 3Yrs 98957 Given 12/18/2004 Flu, Split Virus 3Yrs Vital Signs Date Vital Result Comment 01/28/2020 3:26pm BP Systolic 132 mmHg BP Diastolic 82 mmHg 01/22/2020 3:59pm BP Systolic 136 mmHg BP Diastolic 80 mmHg Height 61 inches 5'1" Weight 243.00 lb BMI (Body Mass Index) 45.9 kg/m2 Results Test Acquired Facility Test Result H/L Range Note Date Protime W/ 03/01/2020 In House [facility] 1.2 Inr(Add l Normalized V58.61) Laboratory 02/25/2020 [facility] Troponin-I 0.01 ng/mL <0.03 1 test finding [phone] (TnI) Laboratory 02/25/2020 [facility] Troponin-I 0.01 ng/mL <0.03 2 test finding [phone] (TnI) Inr/Protime 02/25/2020 [facility] Inr 7.80 Critical 0.82-1.0 3 [phone] high 9 Laboratory 02/25/2020 [facility] Partial >240.0 Critical 26.0-38. 4 test finding [phone] Thrombo Time seconds high 0 PTT CBC Auto Diff 02/25/2020 [facility] White Blood 10.8 Normal 3.5-10.8 [phone] Count 10^3/uL Red Blood Count 4.28 10^6/uL [...] Cells % 0.1 Comp Metabolic Panel 02/25/2020 [facility] Sodium 139 mmol/L Normal 135-145 [phone] Potassium 3.8 mmol/L Normal 3.5-5.0 Chloride 109 [...] Egfr 39.6 >60 5 Laboratory test 02/25/2020 [facility] LDL Cholesterol Direct 62 mg/dL 6 finding [phone] Creatine Kinase(CK) 234 U/L High 10-223 Troponin-I (TnI) 0.00 ng/mL <0.03 7 CKMB 02/25/2020 [facility] CKMB ng/mL 7.9 ng/mL High 0.6-6.3 [phone] Laboratory test 02/25/2020 [facility] B-Type 174 pg/mL High <=100 finding [phone] Natriuretic Peptide BNP Lactic Acid 0.4 mmol/L [...] Color Light-Yel Yellow 9 Microscopic LABORATORY low [phone] Urine Clarity Clear Clear Urine Glucose - Dipstick >1000 mg/dL Negative Urine Bilirubin - Dipstick NEGATIVE Negative Urine Ketone NEGATIVE mg/dL Negative Urine Specific [place] 1.011 Normal 1.010-1.030 Urine Blood TRACE Negative [...] 2.8 Inr(Add V58.61) Normalized Basic Metabolic 01/08/2020 [facility] Sodium 142 Normal 135-14 Panel [phone] mmol/L 5 Potassium 4.4 mmol/L Normal 3.5-5.0 [...] 4.5 Inr(Add V58.61) Normalized Comp Metabolic 12/25/2019 [facility] Sodium 141 Normal 135-14 Panel [phone] mmol/L 5 Potassium 3.8 mmol/L Normal 3.5-5.0 [...] 52.2 >60 12 CBC Auto Diff 12/25/2019 [facility] White Blood 6.1 10^3/uL Normal 3.5-10.8 [phone] Count Red Blood Count 4.92 10^6/uL High [...] Cells % 0.0 Laboratory test finding 12/25/2019 [facility] Uric Acid 9.2 mg/dL High 2.3-6.6 [phone] Erythrocyte Sed Rate 11 mm/Hr Normal 0-29 [...] #International 1.9 V58.61) Normalized Laboratory test 11/20/2019 [facility] Uric Acid 10.8 mg/dL High 2.3- 6.6 finding [phone] Erythrocyte Sed Rate 14 mm/Hr Normal 0-29 C Reactive Protein 6.11 mg/L Normal <8.01 CBC Auto Diff 11/20/2019 [facility] White Blood 6.1 10^3/uL Normal 3.5-10.8 [phone] Count Red Blood Count 4.70 10^6/uL Normal [...] Cells % 0.0 Comp Metabolic Panel 11/20/2019 [facility] Sodium 142 mmol/L Normal 135-145 [phone] Potassium 4.0 mmol/L Normal 3.5-5.0 Chloride 104 [...] immediately to secondary confirmatory testing. Using the [facility] DxI 800 Access Immunoassay systems, the 99th percentile upper reference limit was demonstrated to be < 0.03 ng/mL. 2 Troponin-I testing on Plasma Separator Tubes (PST) has a known false positive rate of 0.20-0.40%. All positive troponins reflex immediately to secondary confirmatory testing. Using the [facility] DxI 800 Access Immunoassay systems, the 99th percentile upper reference limit was demonstrated to be < 0.03 ng/mL. 3 Verbal to [id number] by [email or web address] at 0730 on 02/25/20. Results read back accurately. Standard intensity warfarin therapeutic range: 2.0-3.0 High intensity warfarin therapeutic range: 2.5-3.5 4 Verbal to [id number] by [id number] at 0730 on 02/25/20. Results read back [...] immediately to secondary confirmatory testing. Using the [facility] DxI 800 Access Immunoassay systems, the 99th percentile upper reference limit was demonstrated to be < 0.03 ng/mL. 8 [facility] Severe Sepsis and Septic Shock Management Bundle [...] (or dialysis) Procedures Date Code Description Status 02/15/2020 81191 Anticoagulant MGMT For Patient Taking Warfarin, Inc Completed Review & Intr 02/08/2020 40453 Anticoagulant MGMT For Patient Taking Warfarin, Inc Completed Review & Intr 02/02/2020 64114 Anticoagulant MGMT For Patient Taking Warfarin, Inc Completed Review & Intr 01/25/2020 66527 Anticoagulant MGMT For Patient Taking Warfarin, Inc Completed Review & Intr 01/19/2020 79769 Anticoagulant MGMT For Patient Taking Warfarin, Inc Completed Review & Intr 01/12/2020 69596 Anticoagulant MGMT For Patient Taking Warfarin, Inc Completed Review & Intr 01/04/2020 27286 Anticoagulant MGMT For Patient Taking Warfarin, Inc Completed Review & Intr 01/01/2020 92947 Anticoagulant MGMT For Patient Taking Warfarin, Inc Completed Review & Intr 12/21/2019 35263 Anticoagulant MGMT For Patient Taking Warfarin, Inc Completed Review & Intr 12/10/2019 [id number] Diabetic Retinal Eye Exam Completed 12/08/2019 08655 Anticoagulant MGMT For Patient Taking Warfarin, Inc Completed Review & Intr 11/30/2019 39953 Anticoagulant MGMT For Patient Taking Warfarin, Inc Completed Review & Intr 11/23/2019 25610 Anticoagulant MGMT For Patient Taking Warfarin, Inc Completed Review & Intr 11/16/2019 15606 Anticoagulant MGMT For Patient Taking Warfarin, Inc Completed Review & Intr 11/02/2019 81979 Anticoagulant MGMT For Patient Taking Warfarin, Inc Completed Review & Intr 10/27/2019 89199 Anticoagulant MGMT For Patient Taking Warfarin, Inc Completed Review & Intr 10/27/2019 31697 Anticoagulant MGMT For Patient Taking Warfarin, Inc Completed Review & Intr 09/29/2019 06594 Anticoagulant MGMT For Patient Taking Warfarin, Inc Completed Review & Intr 09/21/2019 26015 Anticoagulant MGMT For Patient Taking Warfarin, Inc Completed Review & Intr 09/14/2019 48162 Anticoagulant MGMT For Patient Taking Warfarin, Inc Completed Review & Intr 09/07/2019 91005 Anticoagulant MGMT For Patient Taking Warfarin, Inc Completed Review & Intr 03/16/2019 [id number] Diabetic Foot Exam Completed Medical Devices Description No Information Available Encounters Type Date Location Provider Dx Diagnosis Office Visit 03/02/2020 Main Office Carlos Enrique Torres, E11.65 Type 2 diabetes 4:30p D.O. mellitus with hyperglycemia I10 Essential (primary) hypertension I27.20 Pulmonary hypertension, unspecified Office Visit 01/28/2020 3:00p Main Office Carlos Enrique Torres, M25.562 Pain in left D.O. knee R29.6 Repeated falls Z91.81 History of falling E11.65 Type 2 diabetes mellitus with hyperglycemia Z79.01 keno terminal operator (current) use of anticoagulants I10 Essential (primary) hypertension M48.062 Spinal stenosis, lumbar region with neurogenic claudication Office Visit 01/22/2020 4:00p Main Office Carlos Enrique Torres, E11.65 Type 2 diabetes D.O. mellitus with hyperglycemia Z79.01 keno terminal operator (current) use of anticoagulants I48.20 Chronic atrial fibrillation, unspecified M10.9 Gout, unspecified I10 Essential (primary) hypertension M48.062 Spinal stenosis, lumbar region with neurogenic claudication Z68.42 Body mass index (BMI) 45.0-49.9, adult Office Visit 12/22/2019 4:00p Main Office Carlos Enrique Torres, E11.65 Type 2 diabetes D.O. mellitus with hyperglycemia M10.9 Gout, unspecified Z79.01 keno terminal operator (current) use of anticoagulants I10 Essential (primary) hypertension M48.062 Spinal stenosis, lumbar region with neurogenic claudication Z79.4 keno terminal operator (current) use of insulin R19.7 [...] 03/02/2020 I10 Essential (primary) hypertension Carlos Enrique Torres, D.O. 03/02/2020 I27.20 Pulmonary hypertension, unspecified Carlos Enrique Torres, D.O. 03/01/2020 Z79.01 care home (current) use of anticoagulants Carlos Enrique Torres D.O. 03/01/2020 I48.20 Chronic atrial fibrillation, unspecified SopchakTrinion D.O. 02/15/2020 Z79.01 care home (current) use of anticoagulants Carlos Enrique Torres D.O. 02/15/2020 I48.20 Chronic atrial fibrillation, unspecified Sopchak, Carlos Enrique, D.O. 02/08/2020 Z79.01 care home (current) use of anticoagulants Carlos Enrique Torres D.O. 02/08/2020 I48.20 Chronic atrial fibrillation, unspecified SophansakTrinion, D.O. 02/02/2020 Z79.01 keno terminal operator (current) use of anticoagulants Trini Torreson D.O. 02/02/2020 I48.20 Chronic atrial fibrillation, unspecified SopCarlos Enrique soto D.O. 01/28/2020 M25.562 Pain in left knee SophansakTrinion, D.O. 01/28/2020 R29.6 Repeated falls SopTrini sotoon, D.O. 01/28/2020 Z91.81 History of falling SopTrini sotoon, D.O. 01/28/2020 E11.65 Type 2 diabetes mellitus with hyperglycemia Sopchak Carlos Enrique , D.O. 01/28/2020 Z79.01 keno terminal operator (current) use of anticoagulants Diannachak Carlos Enrique, D.O. 01/28/2020 I10 Essential (primary) hypertension S[place]chak Carlos Enrique, D.O. 01/28/2020 M48.062 Spinal stenosis, lumbar region with SopchakTrinion, D.O. neurogenic claudication 01/25/2020 Z79.01 care home (current) use of anticoagulants DiannachakTrinion, D.O. 01/25/2020 I48.20 Chronic atrial fibrillation, unspecified Sopchak, Carlos Enrique, D.O. 01/22/2020 E11.65 Type 2 diabetes mellitus with hyperglycemia Sophansak Carlos Enrique , D.O. 01/22/2020 Z79.01 care home (current) use of anticoagulants Sopchak Carlos Enrique, D.O. 01/22/2020 I48.20 Chronic atrial fibrillation, unspecified Sopchak, Carlos Enrique, D.O. 01/22/2020 M10.9 Gout, unspecified Sopchak, Carlos Enrique, D.O. 01/22/2020 I10 Essential (primary) hypertension SophansakTrinion, D.O. 01/22/2020 M48.062 Spinal stenosis, lumbar region with Sopchak, Carlos Enrique, D.O. neurogenic claudication 01/22/2020 Z68.42 Body mass index (BMI) 45.0-49.9, adult Diannachak Carlos Enrique, D.O. 01/19/2020 Z79.01 care home (current) use of anticoagulants Sopchak Carlos Enrique, D.O. 01/19/2020 I48.20 Chronic atrial fibrillation, unspecified Sopchak, Carlos Enrique, D.O. 01/12/2020 Z79.01 care home (current) use of anticoagulants Sopchak, Carlos Enrique, D.O. 01/12/2020 I48.20 Chronic atrial fibrillation, unspecified Sopchak, Carlos Enrique, D.O. 01/04/2020 Z79.01 care home (current) use of anticoagulants SopchakTrinion, D.O. 01/04/2020 I48.20 Chronic atrial fibrillation, unspecified Sopchak, Carlos Enrique, D.O. 01/01/2020 Z79.01 keno terminal operator (current) use of anticoagulants Sopchak, Carlos Enrique, D.O. 01/01/2020 I48.20 Chronic atrial fibrillation, unspecified Sopchak, Carlos Enrique, D.O. 12/22/2019 E11.65 Type 2 diabetes mellitus with hyperglycemia SopchakTrinion , D.O. 12/22/2019 M10.9 Gout, unspecified Sopchak, [...] 45.0-49.9, adult Trini Torreson, D.O. 12/21/2019 Z79.01 care home (current) use of anticoagulants Sophansak, Carlos Enrique, D.O. 12/21/2019 I48.20 Chronic atrial fibrillation, unspecified Sopchak, Carlos Enrique, D.O. 12/21/2019 I10 Essential (primary) hypertension DanielakTrinion, D.O. 12/08/2019 Z79.01 care home (current) use of anticoagulants Diannachak Carlos Enrique, D.O. 12/08/2019 I48.20 Chronic atrial fibrillation, unspecified Sopchak, Carlos Enrique, D.O. 11/30/2019 Z79.01 keno terminal operator (current) use of anticoagulants DanielakTrinion, D.O. 11/30/2019 I48.20 Chronic atrial fibrillation, unspecified SopchakTrinion, D.O. 11/23/2019 Z79.01 care home (current) use of anticoagulants DanielakTrinion D.O. 11/23/2019 I48.20 Chronic atrial fibrillation, unspecified SopchakTrinion, D.O. 11/19/2019 M10.9 Gout, unspecified SophansakTrinion, D.O. 11/19/2019 Z79.01 care home (current) use of anticoagulants DiannachakTrinion, D.O. 11/19/2019 [...] adult Carlos Enrique Torres, D.O. 11/16/2019 Z79.01 keno terminal operator (current) use of anticoagulants DanielakCarlos Enrique D.O. 11/16/2019 I48.20 Chronic atrial fibrillation, unspecified Sopchak, Carlos Enrique, D.O. 11/08/2019 Z79.01 keno terminal operator (current) use of anticoagulants DanielakTrinion, D.O. 11/08/2019 I48.20 Chronic atrial fibrillation, unspecified SopchakTrinion, D.O. 11/02/2019 Z79.01 care home (current) use of anticoagulants DiannachakTrinion, D.O. 11/02/2019 I48.20 Chronic atrial fibrillation, unspecified SopchakTrinion, D.O. 10/27/2019 I48.20 Chronic atrial fibrillation, unspecified SophansakTrinion D.O. 10/27/2019 Z79.01 care home (current) use of anticoagulants DanielakTrinion D.O. 10/27/2019 I48.20 Chronic atrial fibrillation, unspecified Sopchak, Carlos Enrique, D.O. 10/27/2019 Z79.01 keno terminal operator (current) use of anticoagulants DanielakTrinion D.O. 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 10/15/2019 I48.20 Chronic atrial fibrillation, unspecified SopchakTrinion, D.O. 10/15/2019 Z79.01 keno terminal operator (current) use of anticoagulants DanielakCarlos Enrique D.O. 10/15/2019 E11.65 Type 2 diabetes mellitus with hyperglycemia Carlos Enrique Torres D.O. 10/15/2019 I10 Essential (primary) hypertension Carlos Enrique Torres D.O. 10/15/2019 M48.062 Spinal stenosis, lumbar region with Carlos Enrique Torres D.O. neurogenic claudication 09/29/2019 I48.20 Chronic atrial fibrillation, unspecified SophansakTrinion D.O. 09/29/2019 Z79.01 care home (current) use of anticoagulants Carlos Enrique Torres D.O. 09/21/2019 I48.20 Chronic atrial fibrillation, unspecified SopchakTrinion D.O. 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 09/14/2019 I48.20 Chronic atrial fibrillation, unspecified Sopchak, Carlos Enrique D.O. 09/14/2019 E11.65 Type 2 diabetes [...] - Carlos Enrique Torres D.O. at Main Ifxphv5003/24/2020 3:45 pm - Carlos Enrique Torres D.O. at Main Wuarpr5503/02/2020 - Carlos Enrique Torres D.O.E11.65 Type 2 diabetes mellitus with hyperglycemiaComments: TOV 24:34Follow up:1 week recheck diabetes/glucose [id number] Essential ( primary) uonwajbkmhhaK04.20 Pulmonary hypertension, unspecifiedReferral:Gladis Vitale MD, Pulmonary Medicine Functional Status Description No Information Available Mental Status Description No Information Available Referrals Refer to Dr Reason for Referral Status Appt Date Gladis Vitale MD Pulmonary hypertension suggested on Created transthoracic echo. Please do sleep testing for sleep apnea. [facility] [address], [address] [place] [address] [phone]
[2020-03-20] MEDS ORDERED: Nitroglycerin TAB 0.4 MG* 0.4 MG TAB SL ONE (15:47)
[2020-03-20] MEDS ORDERED: Aspirin 81 mg CHEW TAB* 81 MG TAB.CHEW PO ONE (15:47)
[2020-03-20] MEDS ORDERED: Nitroglycerin 0.4 MG/HR PATCH* (10 MG) TRANSDERM ONE (16:48)
[2020-03-20 19:40] LABS: ABS Basophils 0.1 10^3/ul (0-0.2); ABS Lymphocytes 1.3 10^3/ul (1.0-4.8); ABS Monocytes 0.9 10^3/ul (0-0.8); Eosinophil % 0.2 %; Hematocrit 39 % (35-47); Hemoglobin 12.7 g/dL (12.0-16.0); Lymphocyte % 12.4 %; Mean Corpuscular HGB Conc 33 g/dL (31-36); Mean Corpuscular Hemoglobin 30 pg (27-31); Mean Corpuscular Volume 92 fL (80-97); Mean Platelet Volume 8.4 fL (7.4-10.4); Nucleated Red Blood Cells % 0.1; Platelet Count 381 10^3/uL (150-450); Red Blood Count 4.21 10^6 /uL (3.70-4.87); Red Cell Distribution Width 16 % (10-15); White Blood Count 10.3 10^3/uL (3.5-10.8)
[2020-03-20 20:04] LABS: ALT 10 U/L (7-52); Albumin 3.4 g/dL (3.2-5.2); Albumin/Globulin Ratio 0.9 (1-3); Alkaline Phosphatase 47 U/L (34-104); BUN/Creatinine Ratio 17.2 (8-20); Blood Urea Nitrogen 20 mg/dL (6-24); CO2 Carbon Dioxide 30 mmol/L (22-32); Calcium 9.6 mg/dL (8.6-10.3); Chloride 99 mmol/L (101-111); EGFR African American 54.1 (>60); EGFR Non-African American 44.7 (>60); Globulin 3.6 g/dL (2-4); Glucose 268 mg/dL (70-100); Sodium 136 mmol/L (135-145)
[2020-03-20 20:06] LABS: Troponin I 0.01 ng/mL (<0.03)
[2020-03-20 20:10] LABS: Anion Gap 7 mmol/L (2-11)
[2020-03-20] MEDS ORDERED: Ondansetron INJ* 2 MG/ML VIAL IV PRN (21:37)
[2020-03-20] MEDS ORDERED: Acetaminophen TAB* 325 MG PO PRN (21:37)
[2020-03-20 21:47] LABS: INR 1.98 (0.82-1.09)
[2020-03-20] MEDS ORDERED: Insulin ISOPH/REG 70/30 (*) 1 UNITS UNIT SUBCUT SCH ×2 (22:00→22:24)
[2020-03-20] MEDS: Albuterol/Ipratropium NEB.SOL* (2.5/0.5 MG) 3 ML NEB.SOLN INH SCH (22:54)
[2020-03-20] MEDS: oxyCODONE TAB* 5 MG TAB PO PRN (23:20)
--- NOTE | 2020-03-21 00:44 | HP ---
CC: Dr. Torres; Dr. Rodriguez* ADMISSION HISTORY AND PHYSICAL: DATE OF ADMISSION: 03/20/20 PRIMARY CARE PROVIDER: Dr. Torres. POLICY INTERN: Dr. Rodriguez. HEALTHCARE PROXY: Oldest daughter, Sabina Pepper. CODE STATUS: Indicated as DNR. The patient indicates she has discussed previously with her healthcare proxy. I sent a MOLST on her behalf, which I indicated that they would do in the room. SOURCE OF INFORMATION: History obtained from interview with the patient, review of past medical records. RELIABILITY: Poor. CHIEF COMPLAINT: Chest pain. HISTORY OF PRESENT ILLNESS: This is an 80-year-old female with a past medical history of CAD, status post PCI, as well as type 2 diabetes, hypertension, and suspected at least mild dementia, recent hospital stay from 02/25/20 to after presenting with chest pain and shortness of breath, found to have negative troponins at that time. Of note, she has had a recent cardiac stress test in December 2019, which was low risk, no evidence of ischemia. The patient reports at home today, she was having pain on her upper abdomen that was described as a pressure-like an elephant, while she was watching TV and she came to the hospital because her daughters made her. She denied any shortness of breath, nausea, vomiting, lightheadedness or diaphoresis, although she is a very poor historian. She does not remember when the last time she came to the hospital was even though it was approximately 3 weeks earlier nor why she came. She indicated she came because they thought she might be crazy. Had significant difficulty obtaining a history involving her on who helps her with her medication at home. She indicates the daughter helps with her medication. When I asked how? she would mention a different person and how they come and help bathe her or feed her. Therefore, this history surrounding her presenting symptoms are similarly viewed with some element skepticism. In the emergency room, she was comfortable. She did not have any additional pain while resting. PAST MEDICAL HISTORY: Includes: 1. CAD, last stent in 2010 to LAD. She had a repeat stent in 2014 with no obstructive coronary artery disease, however, moderate stenosis in the left PDA. No stenosis at that point. Cardiac stress on 01/01/20, negative for ischemia, unchanged from 2018. 2. Hypertension. 3. Hyperlipidemia. 4. Insulin-dependent type 2 diabetes. 5. CVA in 2013. 6. Paroxysmal atrial fibrillation. 7. Colon cancer status post hemicolectomy. 8. CKD thought in the setting of diabetes. 9. History of right leg surgery and ankle repair. 10. Tubal ligation. 11. History of left bundle branch block. HOME MEDICATIONS: Reviewed from discharge summary in January. MEDENT does not indicate any interval PCP visits, although that may not be apparent here. 1. Insulin glargine 40 units daily. 2. Nitroglycerin sublingual p.r.n. as needed. 3. Metoprolol tartrate 50 mg twice daily. 4. Coumadin 4.5 mg at bedtime. 5. Lipitor 80 mg in the evening. 6. Oxycodone 5 to 10 mg every 8 hours as needed for pain. 7. Lisinopril 20 mg twice daily. 8. Lasix 40 mg daily. 9. NovoLog 15 units with breakfast. 10. Fosamax 70 mg on Saturday. 11. Omeprazole 40 mg daily. 12. Multivitamin 1 tab daily. 13. Vitamin B12 500 mcg daily. 14. Gabapentin 300 mg 3 times a day. 15. Allopurinol 200 mg daily. 16. Aldactone 25 mg started recently in December. 17. Lexapro 5 mg daily. ALLERGIES: CYCLOSPORINE, MORPHINE, PENICILLIN, although the patient is noted to take oxycodone at home. FAMILY HISTORY: Father with CAD, CHF. Mother 77 secondary to stomach cancer. SOCIAL HISTORY: No alcohol, drugs or tobacco. 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 Daughters, Sabina and Marie, do stop in and help her. She does have VNS to come in and help her periodically at home per her report. REVIEW OF SYSTEMS: Negative except for this abdominal pain described as an elephant, however, again unreliable based on the patient's history of dementia. PHYSICAL EXAMINATION GENERAL: Appears stated age, sitting 45 degrees up in the bed, interactive, talking in full sentences, in no apparent distress. VITALS SIGNS: In the emergency room, T-max 96.9, blood pressure between 114 and 171/76 to 109. Heart rate is recorded at 88 to 103, respiratory rate is 20. She is 96% on room air. HEENT: Oropharynx is clear. She has dry mucous membranes. Sclerae are anicteric. NECK: She has non-elevated JVP. LUNGS: Her lungs are clear. I did not hear any rales, rhonchi or wheezes. HEART: Irregularly irregular, no murmurs, rubs or gallops. ABDOMEN: Soft. She does have tenderness to palpation, mid epigastric region. No rebound or guarding. EXTREMITIES: Warm and well perfused. She has trace lower extremity pitting edema bilaterally. No clubbing, cyanosis. Less than 2 seconds cap refill. NEUROLOGIC: She is alert and oriented x3, however, short-term memory is poor as is long-term as indicated in the body of H and P. She has difficulty remembering who is the oldest daughter, why she has been here in the past, when that was, etc. She has no apparent anxiety, agitation or depression. DIAGNOSTIC STUDIES/LAB DATA: Pertinent labs reviewed. INR is 1.98, glucose 268, lactic acid 0.6. Troponin I 0.01 on 2 consecutive checks. BNP is 161. Creatinine is 1.16, which is the best it has been since November 2019. White blood cell count is 10.3, platelets 381, hemoglobin 12.7. Data reviewed. Chest x-ray obscuration of left hemidiaphragm, atelectasis versus infiltrate. EKG: Atrial fibrillation, ventricular rate of 104, normal limit axis, left bundle branch block. ASSESSMENT AND PLAN: This is an 80-year-old female with a history of coronary artery disease, hypertension, hyperlipidemia, presenting with recurrent chest pain. 1. Chest pain. No evidence of ischemia by troponin. EKG is difficult to interpret with a left bundle branch block. The patient has had a most recent stress test at the end of December, the beginning of January that was negative for suspicious ischemia. On examination, the patient's pain was more predominantly epigastric than chest pain. I have a low suspicion for coronary ischemia at this time, although I do think she will benefit from inpatient monitoring in the hospital overnight. If her pain continues and/or worsen, she may benefit from a CAT scan of her abdomen, however, she has had associated nausea or vomiting. The pain is intermittent only with palpation. She tolerates a diet and has no need for pain medications. I would defer CAT scan at this time. It is hard to query her bowel habits at this time. Additionally , I am trying to minimize imaging. If it is not urgent, we will change interventions as she is currently contact as a person under investigation for COVID-19. Continue her home medications for coronary artery disease. 2. Atrial fibrillation. Telemetry reads artifact as about 150. It is not reflected in computer. EKG shows it about 104 or less. Continue her home medications without any interventions at this time. I do not think she is in decompensated heart failure at this time. Continue Coumadin. 3. Chest x-ray findings of atelectasis versus infiltrate. The patient has not had any reported symptoms consistent with infection. She is not coughing during the exam. She has no fever, no white count. I will not start her on any antibiotics at this time. 4. Dementia. Last hospital stay complicated by delirium. All attempts to minimize the duration of her hospital stay should be made. 5. COVID-19. The patient tested in the emergency room, is now a person under investigation. She lives alone. If no further interventions are needed in the hospital, she may be able to be discharged home. At the time of her last discharge, I was concerned about her ability to care for herself at home. It was indicated that the daughter would be moving into care for her. It seems that this has not happened and I still for her by checking in on her. I agree with the previous assessment that she may need placement in a different setting for more close monitoring and assistance. 6. Type 2 diabetes. Continue home regimen. 7. DVT prophylaxis: Coumadin. 8. Code status: DNR. [id number]/CPS #: [id number] MTDD
[2020-03-21] MEDS ORDERED: Insulin ISOPH/REG 70/30 (*) 1 UNITS UNIT SUBCUT SCH (08:30)
[2020-03-21] MEDS: Spironolactone TAB* 25 MG PO SCH (08:56)
[2020-03-21] MEDS: Insulin GLARGINE(*) 1 UNITS UNIT SUBCUT SCH (08:56)
[2020-03-21] MEDS: Allopurinol TAB* 100 MG PO SCH (08:56)
[2020-03-21] MEDS: Furosemide TAB* 40 MG PO SCH (08:56)
[2020-03-21] MEDS: Pantoprazole TAB * 40 MG TAB PO SCH (08:57)
[2020-03-21] MEDS: Atorvastatin* 80 MG TAB PO SCH (08:58)
[2020-03-21] MEDS: Escitalopram * 5 MG TAB PO SCH (08:58)
[2020-03-21] MEDS: Gabapentin CAP(*) 300 MG PO SCH ×3 (08:58→21:29)
[2020-03-21] MEDS: Lisinopril TAB* 10 MG PO SCH ×2 (08:58→21:30)
[2020-03-21] MEDS ORDERED: Metoprolol Tartrate TAB* 50 mg PO SCH (09:00)
[2020-03-21] MEDS: oxyCODONE TAB* 5 MG TAB PO PRN ×2 (09:35→21:28)
[2020-03-21] MEDS: Warfarin TAB(*) 1 MG PO SCH (16:43)
--- NOTE | 2020-03-21 17:30 | PN ---
Subjective Date of Service: 03/21/20 Interval History: Patient is a poor historian. She points to her anterior neck and tells me she has pain. This is not reproducible. When asked if she has a sore throat she says "it isn't sore" and ultimately she tells me "it feels like there's something stuck in there." Her daughter, Marie, tells me that she frequently c/o sensation of something in her throat. Objective Active Medications: Acetaminophen (Tylenol Tab*) 650 mg PO Q4H PRN PRN Reason: MILD PAIN or TEMP > 100.4 Allopurinol (Zyloprim Tab*) 100 mg PO DAILY [facility] Last Admin: 03/21/20 08:56 Dose: 100 mg Atorvastatin Calcium (Lipitor*) 80 mg PO DAILY [facility] Last Admin: 03/21/20 08:58 Dose: 80 mg Escitalopram Oxalate (Lexapro *) 5 mg PO DAILY [facility] Last Admin: 03/21/20 08:58 Dose: 5 mg Furosemide (Lasix Tab*) 40 mg PO DAILY [facility] Last Admin: 03/21/20 08:56 Dose: 40 mg Gabapentin (Neurontin Cap(*)) 300 mg PO TID [facility] Last Admin: 03/21/20 14:46 Dose: 300 mg Insulin Glargine (Lantus(*)) 40 units SUBCUT Q24H [facility] Last Admin: 03/21/20 08:56 Dose: 40 units Insulin Human Isoph/Insulin Regular (Humulin 70/30 (*)) 12 units SUBCUT AC@ 0830 [facility] Last Admin: 03/21/20 09:35 Dose: 12 units Lisinopril (Prinivil Tab*) 20 mg PO BID [facility] Last Admin: 03/21/20 08:58 Dose: 20 mg Metoprolol Tartrate (Lopressor Tab*) 50 mg PO BID [facility] Last Admin: 03/21/20 08:56 Dose: 50 mg Ondansetron HCl (Zofran Inj*) 4 mg IV Q4H PRN PRN Reason: NAUSEA/VOMITING Oxycodone HCl (Roxycodone Tab*) 10 mg PO Q8H PRN PRN Reason: PAIN - SEVERE Last Admin: 03/21/20 09:35 Dose: 10 mg Pantoprazole Sodium (Protonix Tab*) 40 mg PO DAILY [facility] Last Admin: 03/21/20 08:57 Dose: 40 mg Spironolactone (Aldactone Tab*) 25 mg PO DAILY [facility] Last Admin: 03/21/20 08:56 Dose: 25 mg Warfarin Sodium (Coumadin Tab(*)) 4.5 mg PO DAILY@1700 [facility]; Protocol Last Admin: 03/21/20 16:43 Dose: 4.5 mg Vital Signs - 8 hr 03/21/20 03/21/20 03/21/20 09:35 12:08 12:22 Temperature 97.1 F Pulse Rate 82 Respiratory 16 14 18 Rate Blood Pressure 95/61 (mmHg) O2 Sat by Pulse 95 Oximetry 03/21/20 03/21/20 14:46 14:51 Temperature 96.8 F Pulse Rate 88 Respiratory 18 16 Rate Blood Pressure 140/71 (mmHg) O2 Sat by Pulse 96 Oximetry Oxygen Devices in Use Now: Nasal Cannula Appearance: Obese, elderly white female, sitting in chair, appearing comfortable and in NAD Eyes: No Scleral Icterus, - - PERRL Ears/Nose/Mouth/Throat: Mucous Membranes Moist Neck: NL Appearance and Movements; NL JVP, Trachea Midline, - - no tenderness to palpation anteriorly; one enlarged anterior cervical lymph node which is not tender to palp Respiratory: Symmetrical Chest Expansion and Respiratory Effort, Clear to Auscultation Cardiovascular: NL Sounds; No Murmurs; No JVD, RRR, - - tenderness to palpation along sternal border at 4th-5th intercostal space Abdominal: - - abd soft/nontender/nondistended; no epigastric tenderness Lymphatic: No Cervical Adenopathy Result Diagrams: 03/20/20 19:25 03/20/20 19:25 Assess/Plan/Problems-Billing Assessment: 80 yo female with PMHx CAD s/p PCI, DMT2, HTN, dementia, afib (on coumadin), CVA presents with chest pain. - Patient Problems (1) Chest pain Current Visit: No Status: Acute Code(s): R07.9 - CHEST PAIN, UNSPECIFIED SNOMED Code(s): 02697133 Comment: - Trops negative - EKG with afib and wihtout ischemic changes, LBBB is chronic - Low risk stress test less than 4 weeks ago and TTE wnl 4 weeks ago; I see no reason to repeat these this hospitalization - Reproducible on exam, seems more likely musculoskeletal - Tells me it hurts more when she is walking with her walker which supports further suspicion for likely costochondritis; she has been having difficulty ambulating at home and perhaps she has injured herself by putting significant weight on walker - Will start ibuprofen and discussed risk of bleeding with daughter Marie (2) SOB (shortness of breath) Current Visit: No Status: Acute Code(s): R06.02 - SHORTNESS OF BREATH SNOMED Code(s): 438457979 Comment: - I believe this is related to a likely costochondritis, making the patient feel unable to take a deep breath - CXR appears clear on my reading, in fact improved from recent hospitalization with decompensated HF - patient is not hypoxic today - patient's daughter tells me she uses prn O2 at home, but it appears she does not have a prescription for this and wouldn't have a diagnosis for it either. She is using her 's concentrator (3) Generalized weakness Current Visit: Yes Status: Acute Code(s): R53.1 - WEAKNESS SNOMED Code(s) : 87787959 Comment: -patient's daugther tells me that she has been progressively getting weaker at home since last hospitalization -RN Rosendo tells me patient has difficulty getting to commode and difficulty with ADLs -awaiting PT/OT evaluation -will order UA as patient is poor historian (4) Afib Current Visit: No Status: Chronic Priority: Medium Code(s): I48.91 - UNSPECIFIED ATRIAL FIBRILLATION SNOMED Code(s): 70881587 Comment: - chronic, rate controlled - Continue Metoprolol and warfarin - INR subtherapeutic at admission, will trend (5) Type 2 diabetes mellitus Current Visit: No Status: Acute Comment: -continue lantus, and morning regular insulin (6) CAD (coronary artery disease) Current Visit: No Status: Chronic Priority: Medium Code(s): I25.10 - ATHSCL HEART DISEASE OF [place] CORONARY ARTERY W/O ANG PCTRS SNOMED Code(s): 40054092 Comment: - Hx of stent to LAD - Continue statin, metoprolol, lisinopril. (7) HTN (hypertension) Current Visit: No Status: Chronic Priority: Medium Code(s): I10 - ESSENTIAL (PRIMARY) HYPERTENSION SNOMED Code(s): 84855800 Comment: - Overall normotensive - Continue metoprolol and lisinopril (8) DVT prophylaxis Current Visit: No Status: Acute Priority: Medium Code(s): OIN5698 - SNOMED Code(s): 622953553 Comment: - continue warfarin (9) DNR (do not resuscitate) Current Visit: Yes Status: Acute Status and Disposition: pending PT/OT eval, may need MURIEL
[2020-03-21] MEDS ORDERED: Ibuprofen TAB* 800 MG PO PRN (17:44)
[2020-03-21] MEDS ORDERED: Metoprolol Tartrate IV* 1 MG/ML 5 ML VIAL IV ONE (19:18)
[2020-03-21] MEDS: Metoprolol Tartrate TAB* 50 mg PO SCH (21:27)
[2020-03-21] MEDS: guaiFENesin ER TAB 600 MG PO SCH (21:29)
[2020-03-22 03:02] LABS: Urine Appearance Turbid; Urine Bilirubin Negative (Negative); Urine Blood Negative (Negative); Urine Color Amber; Urine Glucose Negative (Negative); Urine Ketones Negative (Negative); Urine Nitrite Negative (Negative); Urine Protein 2+(100 mg/dL) (Negative); Urine Specific Gravity 1.017 (1.010-1.030); Urine Urobilinogen Positive (Negative)
[2020-03-22 03:12] LABS: Urine Bacteria 1+ (Absent); Urine Red Blood Cell 2+(6-10/hpf) (Absent); Urine Squamous Epithelial Cell Present (Absent); Urine White Blood Cell 2+(11-20/hpf) (Absent)
[2020-03-22 08:30] LABS: INR 1.86 (0.82-1.09)
[2020-03-22 08:42] LABS: BUN/Creatinine Ratio 15.4 (8-20); Calcium 9.5 mg/dL (8.6-10.3); EGFR African American 32.2 (>60); EGFR Non-African American 26.6 (>60); Potassium 3.8 mmol/L (3.5-5.0)
[2020-03-22] MEDS: Insulin ISOPH/REG 70/30 (*) 1 UNITS UNIT SUBCUT SCH (09:35)
[2020-03-22] MEDS: Insulin GLARGINE(*) 1 UNITS UNIT SUBCUT SCH (09:36)
[2020-03-22] MEDS: Spironolactone TAB* 25 MG PO SCH (09:37)
[2020-03-22] MEDS: Metoprolol Tartrate TAB* 50 mg PO SCH ×2 (09:37→20:07)
[2020-03-22] MEDS: Pantoprazole TAB * 40 MG TAB PO SCH (09:37)
[2020-03-22] MEDS: Lisinopril TAB* 10 MG PO SCH (09:37)
[2020-03-22] MEDS: Atorvastatin* 80 MG TAB PO SCH (09:37)
[2020-03-22] MEDS: guaiFENesin ER TAB 600 MG PO SCH ×2 (09:38→20:07)
[2020-03-22] MEDS: Furosemide TAB* 40 MG PO SCH (09:38)
[2020-03-22] MEDS: Allopurinol TAB* 100 MG PO SCH (09:38)
[2020-03-22] MEDS: Escitalopram * 5 MG TAB PO SCH (09:38)
[2020-03-22] MEDS: Gabapentin CAP(*) 300 MG PO SCH ×3 (09:38→20:06)
[2020-03-22] MEDS: oxyCODONE TAB* 5 MG TAB PO PRN ×2 (09:48→20:06)
--- NOTE | 2020-03-22 11:51 | PN ---
Subjective Date of Service: 03/22/20 Interval History: Patient feels short of breath at times and is unable to specify the quality of this. She seems to agree that it is difficult to take a deep breath due to the pain in her chest when she does so. She denies fever/chills. She feels her chest tenderness is improved today. Nursing reporting poor urine output. Patient having urgency to urinate and then not able to urinate. Was retaining 490 cc urine. Straight cath performed. Objective Active Medications: Acetaminophen (Tylenol Tab*) 650 mg PO Q4H PRN PRN Reason: MILD PAIN or TEMP > 100.4 Allopurinol (Zyloprim Tab*) 100 mg PO DAILY [facility] Last Admin: 03/22/20 09:38 Dose: 100 mg Atorvastatin Calcium (Lipitor*) 80 mg PO DAILY [facility] Last Admin: 03/22/20 09:37 Dose: 80 mg Enoxaparin Sodium (Lovenox(*)) 40 mg SUBCUT Q24H [facility] Escitalopram Oxalate (Lexapro *) 5 mg PO DAILY [facility] Last Admin: 03/22/20 09:38 Dose: 5 mg Gabapentin (Neurontin Cap(*)) 300 mg PO TID [facility] Last Admin: 03/22/20 09:38 Dose: 300 mg Guaifenesin (Mucinex*) 1,200 mg PO BID [facility] Last Admin: 03/22/20 09:38 Dose: 1,200 mg Sodium Chloride (Ns 0.9% 1000 Ml) 1,000 mls @ 100 mls/hr IV PER RATE [facility] Ibuprofen (Motrin Tab*) 800 mg PO Q8H PRN PRN Reason: PAIN - MODERATE Insulin Glargine (Lantus(*)) 40 units SUBCUT Q24H [facility] Last Admin: 03/22/20 09:36 Dose: 40 units Insulin Human Isoph/Insulin Regular (Humulin 70/30 (*)) 12 units SUBCUT DAILY [facility] Last Admin: 03/22/20 09:35 Dose: 12 units Metoprolol Tartrate (Lopressor Tab*) 75 mg PO BID [facility] Last Admin: 03/22/20 09:37 Dose: 75 mg Ondansetron HCl (Zofran Inj*) 4 mg IV Q4H PRN PRN Reason: NAUSEA/VOMITING Oxycodone HCl (Roxycodone Tab*) 10 mg PO Q8H PRN PRN Reason: PAIN - SEVERE Last Admin: 03/22/20 09:48 Dose: 10 mg Pantoprazole Sodium (Protonix Tab*) 40 mg PO DAILY [facility] Last Admin: 03/22/20 09:37 Dose: 40 mg Warfarin Sodium (Coumadin Tab(*)) 4.5 mg PO DAILY@1700 [facility]; Protocol Last Admin: 03/21/20 16:43 Dose: 4.5 mg Warfarin Sodium (Coumadin Tab(*)) 2 mg PO ONCE@1700 [facility]; Protocol Stop: 03/22/20 23:59 Vital Signs - 8 hr 03/22/20 03/22/20 03/22/20 07:59 09:38 09:48 Temperature 97.1 F Pulse Rate 72 Respiratory 20 20 20 Rate Blood Pressure 117/65 (mmHg) O2 Sat by Pulse 98 Oximetry 03/22/20 03/22/20 03/22/20 09:55 09:59 11:45 Temperature 96.8 F Pulse Rate 87 Respiratory 20 Rate Blood Pressure 102/55 (mmHg) O2 Sat by Pulse 95 90 93 Oximetry Oxygen Devices in Use Now: None Appearance: Obese, elderly white female, sitting in recliner, appearing comfortable and in NAD Eyes: No Scleral Icterus, - - PERRL Ears/Nose/Mouth/Throat: Mucous Membranes Moist Neck: NL Appearance and Movements; NL JVP, Trachea Midline Respiratory: Symmetrical Chest Expansion and Respiratory Effort, Clear to Auscultation Cardiovascular: NL Sounds; No Murmurs; No JVD, RRR, - - tender to palpation in left chest, same as day prior Abdominal: - - suprapubic tenderness; abdomen soft/nondistended Extremities: No Edema, No Clubbing, Cyanosis Skin: No Rash or Ulcers Neurological: - - alert and oriented to self and location Result Diagrams: 03/20/20 19:25 03/22/20 08:10 Assess/Plan/Problems-Billing Assessment: 80 yo female with PMHx CAD s/p PCI, DMT2, HTN, dementia, afib (on coumadin), CVA presents with chest pain. - Patient Problems (1) Acute kidney injury Current Visit: No Status: Acute Code(s): N17.9 - ACUTE KIDNEY FAILURE, UNSPECIFIED SNOMED Code(s): 00030754 Comment: -significant increase in BUN/Creatinine -patient with urinary retention today -I question if this may be pre-renal due to UTI as her UA appears abnormal, awaiting urine culture; urinary retention may also be explained by UTI -renal/bladder US with normal kidneys and no hydronephrosis; demonstrates bladder wall thickening -starting IVF and ceftriaxone -urine electrolytes pending to calculate FeNa -patient afebrile -d/c ibuprofen; holding spironolactone, furosemide, lisinopril (2) Decreased urine output Current Visit: Yes Status: Acute Code(s): R34 - ANURIA AND OLIGURIA SNOMED Code(s): 493645168 Comment: -may be dehydrating related to UTI, though her BUN:Cr ratio does not appear dehydrated -hopeful for improvement with IVF (3) Chest pain Current Visit: No Status: Acute Code(s): R07.9 - CHEST PAIN, UNSPECIFIED SNOMED Code(s): 90488433 Comment: - Trops negative - EKG with afib and wihtout ischemic changes, LBBB is chronic - Low risk stress test less than 4 weeks ago and TTE wnl 4 weeks ago; I see no reason to repeat these this hospitalization - Reproducible on exam, seems more likely musculoskeletal - Tells me it hurts more when she is walking with her walker which supports further suspicion for likely costochondritis; she has been having difficulty ambulating at home and perhaps she has injured herself by putting significant weight on walker - No longer using NSAIDs due to [place] (4) SOB (shortness of breath) Current Visit: No Status: Acute Code(s): R06.02 - SHORTNESS OF BREATH SNOMED Code(s): 476413158 Comment: - I believe this is related to a likely costochondritis, making the patient feel unable to take a deep breath - CXR appears clear on my reading, in fact improved from recent hospitalization with decompensated HF - patient is not hypoxic today during the day - patient's daughter tells me she uses prn O2 at home, but it appears she does not have a prescription for this and wouldn't have a diagnosis for it either. She is using her 's concentrator - COVID-19 test pending (5) Generalized weakness Current Visit: Yes Status: Acute Code(s): R53.1 - WEAKNESS SNOMED Code(s) : 20969864 Comment: -patient's daugther tells me that she has been progressively getting weaker at home since last hospitalization -patient obviously having difficulty ambulating and performing ADLs -PT/OT recommending MURIEL or if patient's family insists about d/c home, recommend 24/7 monitoring (6) Afib Current Visit: No Status: Chronic Priority: Medium Code(s): I48.91 - UNSPECIFIED ATRIAL FIBRILLATION SNOMED Code(s): 17993811 Comment: - chronic, rate controlled - Continue Metoprolol and warfarin - INR subtherapeutic, giving additional warfarin (7) Type 2 diabetes mellitus Current Visit: No Status: Acute Comment: -continue lantus, and morning regular insulin (8) CAD (coronary artery disease) Current Visit: No Status: Chronic Priority: Medium Code(s): I25.10 - ATHSCL HEART DISEASE OF [place] CORONARY ARTERY W/O ANG PCTRS SNOMED Code(s): 22724152 Comment: - Hx of stent to LAD - Continue statin, metoprolol (9) HTN (hypertension) Current Visit: No Status: Chronic Priority: Medium Code(s): I10 - ESSENTIAL (PRIMARY) HYPERTENSION SNOMED Code(s): 06217712 Comment: - Overall normotensive - Continue metoprolol - Holding lisinopril (10) DVT prophylaxis Current Visit: No Status: Acute Priority: Medium Code(s): IPG0840 - SNOMED Code(s): 757641541 Comment: - continue warfarin (11) DNR (do not resuscitate) Current Visit: Yes Status: Acute Status and Disposition: pending medical improvement, MURIEL is likely
[2020-03-22] MEDS: NS 0.9% 1000 ML** 1,000 ML IV SCH (12:10)
[2020-03-22 13:15] LABS: Urine Creatinine Concentration 131.78 mg/dL
[2020-03-22] MEDS ORDERED: diPHENhydraMINE IV* 50 MG/ML 1 ml VIAL (BENADRYL) IV PRN (13:24)
[2020-03-22] MEDS: Enoxaparin(*) 40 MG/0.4 ML SYR SUBCUT SCH (14:00)
[2020-03-22] MEDS: cefTRIAXone(*) 1 GM in NS 0.9% 50 ML* 50 ML IVPB SCH ×2 (14:00→17:58)
[2020-03-22] MEDS ORDERED: Warfarin TAB(*) 2 MG PO NR (17:00)
[2020-03-22] MEDS: Warfarin TAB(*) 1 MG PO SCH (18:19)
[2020-03-23 00:49] LABS: Urine Appearance Cloudy; Urine Bilirubin Negative (Negative); Urine Blood 3+ (Negative); Urine Color Yellow; Urine Glucose Negative (Negative); Urine Ketones Negative (Negative); Urine Nitrite Negative (Negative); Urine Protein 1+(30 mg/dL) (Negative); Urine Specific Gravity 1.014 (1.010-1.030); Urine Urobilinogen Negative (Negative)
[2020-03-23 00:55] LABS: Urine Bacteria 1+ (Absent); Urine Red Blood Cell 3+(>10/hpf) (Absent); Urine Squamous Epithelial Cell Present (Absent); Urine White Blood Cell Trace(0-5/hpf) (Absent)
[2020-03-23] MEDS: NS 0.9% 1000 ML** 1,000 ML IV SCH (04:24)
[2020-03-23 08:33] LABS: ABS Basophils 0.1 10^3/ul (0-0.2); ABS Eosinophils 0.2 10^3/ul (0-0.6); ABS Lymphocytes 1.7 10^3/ul (1.0-4.8); ABS Monocytes 0.9 10^3/ul (0-0.8); ABS Neutrophils 4.8 10^3/ul (1.5-7.7); Eosinophil % 2.5 %; Hematocrit 32 % (35-47); Hemoglobin 10.9 g/dL (12.0-16.0); Lymphocyte % 22.5 %; Mean Corpuscular HGB Conc 34 g/dL (31-36); Mean Corpuscular Hemoglobin 30 pg (27-31); Mean Corpuscular Volume 88 fL (80-97); Mean Platelet Volume 10.3 fL (7.4-10.4); Platelet Count 184 10^3/uL (150-450); Red Blood Count 3.64 10^6 /uL (3.70-4.87); Red Cell Distribution Width 14 % (10-15); White Blood Count 7.7 10^3/uL (3.5-10.8)
[2020-03-23] MEDS: Atorvastatin* 80 MG TAB PO SCH (09:22)
[2020-03-23] MEDS: Escitalopram * 5 MG TAB PO SCH (09:22)
[2020-03-23] MEDS: Metoprolol Tartrate TAB* 50 mg PO SCH ×2 (09:22→21:48)
[2020-03-23] MEDS: Allopurinol TAB* 100 MG PO SCH (09:22)
[2020-03-23] MEDS: Gabapentin CAP(*) 300 MG PO SCH ×3 (09:23→21:49)
[2020-03-23] MEDS: Pantoprazole TAB * 40 MG TAB PO SCH (09:23)
[2020-03-23] MEDS: guaiFENesin ER TAB 600 MG PO SCH ×2 (09:23→21:49)
[2020-03-23] MEDS: Insulin GLARGINE(*) 1 UNITS UNIT SUBCUT SCH (09:24)
[2020-03-23] MEDS: Insulin ISOPH/REG 70/30 (*) 1 UNITS UNIT SUBCUT SCH (09:24)
[2020-03-23] MEDS: oxyCODONE TAB* 5 MG TAB PO PRN (09:38)
[2020-03-23] MEDS ORDERED: NS 0.9% 500 ML* 500 ML IV ONE (12:00)
[2020-03-23] MEDS: Enoxaparin(*) 40 MG/0.4 ML SYR SUBCUT SCH (14:03)
[2020-03-23] MEDS: cefTRIAXone(*) 1 GM in NS 0.9% 50 ML* 50 ML IVPB SCH (15:35)
[2020-03-23] MEDS ORDERED: NS 0.9% 1000 ML** 1,000 ML IV SCH (15:53)
[2020-03-23] MEDS: Warfarin TAB(*) 1 MG PO SCH (16:42)
--- NOTE | 2020-03-23 18:30 | PN ---
Subjective Date of Service: 03/23/20 Interval History: Ms. No states she continues to feel weakness in b/l LE and fatigue. She reports that she has dyspnea. At home she uses her 's concentrator. She reports she needs O2 for asthma and has a history of second hand tobacco smoke exposure throughout her life. She denies cough, fever. She denies CP recently, and reports that last episode of CP was last , but later recants and states that she is unsure when she had CP last. She has no other complaints today. Objective Active Medications: Acetaminophen (Tylenol Tab*) 650 mg PO Q4H PRN PRN Reason: MILD PAIN or TEMP > 100.4 Allopurinol (Zyloprim Tab*) 100 mg PO DAILY [facility] Last Admin: 03/23/20 09:22 Dose: 100 mg Atorvastatin Calcium (Lipitor*) 80 mg PO DAILY [facility] Last Admin: 03/23/20 09:22 Dose: 80 mg Enoxaparin Sodium (Lovenox(*)) 40 mg SUBCUT Q24H [facility] Last Admin: 03/23/20 14:03 Dose: 40 mg Escitalopram Oxalate (Lexapro *) 5 mg PO DAILY [facility] Last Admin: 03/23/20 09:22 Dose: 5 mg Gabapentin (Neurontin Cap(*)) 300 mg PO TID [facility] Last Admin: 03/23/20 14:05 Dose: 300 mg Guaifenesin (Mucinex*) 1,200 mg PO BID [facility] Last Admin: 03/23/20 09:23 Dose: 1,200 mg Ceftriaxone Sodium 1 gm/ (Sodium Chloride) 50 mls @ 100 mls/hr IVPB Q24H [facility] Last Admin: 03/23/20 15:35 Dose: 100 mls/hr Sodium Chloride (Ns 0.9% 1000 Ml) 1,000 mls @ 125 mls/hr IV PER RATE [facility] Stop: 03/24/20 23:52 Last Admin: 03/23/20 16:03 Dose: 125 mls/hr Insulin Glargine (Lantus(*)) 40 units SUBCUT Q24H [facility] Last Admin: 03/23/20 09:24 Dose: 40 units Insulin Human Isoph/Insulin Regular (Humulin 70/30 (*)) 12 units SUBCUT DAILY [facility] Last Admin: 03/23/20 09:24 Dose: 12 units Metoprolol Tartrate (Lopressor Tab*) 75 mg PO BID [facility] Last Admin: 03/23/20 09:22 Dose: 75 mg Ondansetron HCl (Zofran Inj*) 4 mg IV Q4H PRN PRN Reason: NAUSEA/VOMITING Oxycodone HCl (Roxycodone Tab*) 10 mg PO Q8H PRN PRN Reason: PAIN - SEVERE Last Admin: 03/23/20 09:38 Dose: 10 mg Pantoprazole Sodium (Protonix Tab*) 40 mg PO DAILY [facility] Last Admin: 03/23/20 09:23 Dose: 40 mg Warfarin Sodium (Coumadin Tab(*)) 4.5 mg PO DAILY@1700 [facility]; Protocol Last Admin: 03/23/20 16:42 Dose: 4.5 mg Vital Signs: Temp Pulse Resp BP Pulse Ox 99.1 F 93 20 91/72 93 03/23/20 15:15 03/23/20 15:15 03/23/20 15:15 03/23/20 15:15 03/23/20 15:15 Oxygen Devices in Use Now: Nasal Cannula Appearance: Ms. No is an elderly white woman who is sitting up in bed. She appears tired and dozes off frequently, but wakes easily. She appears older than stated age; in NAD Eyes: No Scleral Icterus, PERRLA Ears/Nose/Mouth/Throat: NL Teeth, Lips, Gums, Clear Oropharnyx, Mucous Membranes Moist Neck: NL Appearance and Movements; NL JVP, Trachea Midline Respiratory: Symmetrical Chest Expansion and Respiratory Effort, - - diminished breath sounds throughout without wheeze, rales, rhonchi Cardiovascular: NL Sounds; No Murmurs; No JVD, RRR, No Edema Abdominal: NL Sounds; No Tenderness; No Distention, No Hepatosplenomegaly Extremities: No Edema, No Clubbing, Cyanosis Neurological: - - CN II-XII grossly intact Result Diagrams: 03/23/20 08:03 03/22/20 08:10 Microbiology and Other Data: Microbiology 03/22/20 02:15 Urine Culture - Final Urine Assess/Plan/Problems-Billing Assessment: 80 yo female with PMHx CAD s/p PCI, DMT2, HTN, dementia, afib (on coumadin), CVA presents with chest pain. - Patient Problems (1) Acute kidney injury Comment: -significant increase in BUN/Creatinine 03/22 -UC without siginificant grown -renal/bladder US with normal kidneys and no hydronephrosis; demonstrates bladder wall thickening -d/c ceftriaxone -FeNA suggests pre-renal cause -continue to hydrate patient and monitor for improvement -d/c ibuprofen; holding spironolactone, furosemide, lisinopril (2) Decreased urine output Comment: -may be dehydrating related to UTI, though her BUN:Cr ratio does not appear dehydrated -improved with IVF -continue to monitor (3) Chest pain Comment: -Trops negative -EKG with afib and without ischemic changes, LBBB is chronic -low risk stress test December, TTE WNL 4 weeks ago; I see no reason to repeat these this hospitalization -reproducible on exam, seems more likely musculoskeletal -tells me it hurts more when she is walking with her walker which supports further suspicion for likely costochondritis; she has been having difficulty ambulating at home and perhaps she has injured herself by putting significant weight on walker -no longer using NSAIDs due to MARIETTA (4) SOB (shortness of breath) Comment: -likely related to a likely costochondritis, making patient feel unable to take a deep breath - CXR appears clear on my reading, in fact improved from recent hospitalization with decompensated HF -pt intermittently hypoxic; lowes sat was 90% with ambulation without supplemental O2 - patient's daughter tells me she uses prn O2 at home, but it appears she does not have a prescription or diagnosis for it; she is using her ' s concentrator - COVID-19 test negative -V/Q scan low risk (5) Generalized weakness Comment: -patient's daugther tells me that she has been progressively getting weaker at home since last hospitalization -patient obviously having difficulty ambulating and performing ADLs -PT/OT recommending [facility], but family declines; if patient's family insists about d/c home, recommend 24/7 monitoring (6) Afib Comment: -chronic, rate controlled -continue Metoprolol and warfarin -INR subtherapeutic; recheck in a.m. (7) DM w/o complication type II Comment: -BG 80-180's -continue lantus, 70/30 daily, as at home (8) HTN (hypertension) Comment: -SBP 80-110's -continue metoprolol -lisinopril on hold d/t MARIETTA (9) CAD (coronary artery disease) Comment: - Hx of stent to LAD - Continue statin, metoprolol (10) DNR (do not resuscitate) Status and Disposition: Inpatient. Discharge when stable. Rehab is recommended, although patient and family continue to decline [facility].
[2020-03-24 09:08] LABS: ABS Basophils 0.1 10^3/ul (0-0.2); ABS Eosinophils 0.1 10^3/ul (0-0.6); ABS Lymphocytes 1.3 10^3/ul (1.0-4.8); ABS Monocytes 0.9 10^3/ul (0-0.8); ABS Neutrophils 7.4 10^3/ul (1.5-7.7); Eosinophil % 0.8 %; Hematocrit 37 % (35-47); Hemoglobin 12.3 g/dL (12.0-16.0); Lymphocyte % 13.5 %; Mean Corpuscular HGB Conc 33 g/dL (31-36); Mean Corpuscular Hemoglobin 30 pg (27-31); Mean Corpuscular Volume 91 fL (80-97); Mean Platelet Volume 7.8 fL (7.4-10.4); Nucleated Red Blood Cells % 0.1; Platelet Count 440 10^3/uL (150-450); Red Blood Count 4.11 10^6 /uL (3.70-4.87); Red Cell Distribution Width 15 % (10-15); White Blood Count 9.9 10^3/uL (3.5-10.8)
[2020-03-24 09:26] LABS: BUN/Creatinine Ratio 21.8 (8-20); EGFR African American 50.1 (>60); EGFR Non-African American 41.4 (>60); Potassium 3.8 mmol/L (3.5-5.0)
[2020-03-24] MEDS: Insulin GLARGINE(*) 1 UNITS UNIT SUBCUT SCH (09:54)
[2020-03-24] MEDS: Insulin ISOPH/REG 70/30 (*) 1 UNITS UNIT SUBCUT SCH (09:55)
[2020-03-24 09:59] LABS: INR 4.96 (0.82-1.09)
[2020-03-24] MEDS: Gabapentin CAP(*) 300 MG PO SCH (09:59)
[2020-03-24] MEDS: guaiFENesin ER TAB 600 MG PO SCH (09:59)
[2020-03-24] MEDS: Atorvastatin* 80 MG TAB PO SCH (09:59)
[2020-03-24] MEDS: Allopurinol TAB* 100 MG PO SCH (10:00)
[2020-03-24] MEDS: Metoprolol Tartrate TAB* 50 mg PO SCH (10:00)
[2020-03-24] MEDS: Pantoprazole TAB * 40 MG TAB PO SCH (10:01)
[2020-03-24] MEDS: Escitalopram * 5 MG TAB PO SCH (10:31)
[2020-03-24 15:08] VITALS: BP 139/87
--- NOTE | 2020-03-24 21:58 | DS ---
CC: Dr. Torres; Dr. Rodriguez; Dr. Hays* DISCHARGE SUMMARY: DATE OF ADMISSION: 03/20/20 DATE OF DISCHARGE: 03/24/20 PRIMARY CARE PROVIDER: Dr. Torres. HIGHWAY PAINTER HELPER: Dr. Rodriguez. ATTENDING PHYSICIAN: Dr. Hays* (dictated by BHUPENDRA Mcginnis). PRIMARY DIAGNOSES: 1. Acute kidney injury, prerenal. 2. Chest pain, likely costochondritis. 3. Dyspnea, multifactorial including decompensated heart failure, perceived dyspnea due to costochondritis, reliance on home O2. 4. Generalized weakness. 5. Elevated INR. 6. Acute urinary retention, resolved. SECONDARY DIAGNOSES: 1. Hypertension. 2. Hyperlipidemia. 3. Coronary artery disease. 4. LAD stent 2010, repeat stent 2014 with no obstructive coronary artery disease, moderate stenosis in left PDA. 5. Diabetes mellitus type 2. 6. Paroxysmal atrial fibrillation. 7. History of cerebrovascular accident 2013. 8. Chronic kidney disease. 9. History of left bundle-branch block. 10. Colon cancer, status post hemicolectomy. STUDIES WHILE IN THE HOSPITAL: 1. Chest x-ray, impression: Obscured left hemidiaphragm (atelectasis versus infiltrate). 2. Ultrasound renal bladder, impression: Urinary retention with mild diffuse bladder wall thickening. Wall thickening can be seen with chronic infection and chronic outflow obstruction. Normal kidneys. 3. Chest x-ray, 2 view, impression: Hypoinflated lungs with bibasilar airspace opacification. Moderate left and small right pleural effusions. Cardiomegaly. 4. Nuclear medicine V/Q scan, impression: Perfusion defect of the left lung base corresponding to the location of pleural effusion and the cardiomegaly depicted on the same day chest x-ray. Low probability. DISCHARGE MEDICATIONS: Home medications: 1. Alendronate 70 mg p.o. Saturday. 2. Allopurinol 200 mg p.o. daily. 3. Atorvastatin 80 mg p.o. daily. 4. Cyanocobalamin 500 mcg p.o. daily. 5. Escitalopram 5 mg p.o. daily. 6. Furosemide 40 mg p.o. daily. 7. Gabapentin 300 mg p.o. t.i.d. 8. Insulin 70/30, 50 units subcu with breakfast. 9. Glargine 40 units subcu q.a.m. 10. Multivitamin/minerals 1 tab p.o. daily. 11. Nitroglycerin 0.4 mg sublingual q.5 minutes p.r.n., MDD 1.2 mg. 12. Omeprazole 40 mg p.o. daily. 13. Oxycodone 5 to 10 mg p.o. q.8 hours p.r.n., MDD 6 tabs. 14. Warfarin 4.5 mg p.o. at bedtime, please hold today, tomorrow. New home medications: 1. Lisinopril decreased to 5 mg p.o. b.i.d. 2. Metoprolol tartrate 75 mg p.o. daily. HISTORY OF PRESENT ILLNESS/HOSPITAL COURSE: Ms. No is an 80-year-old female with past medical history of CAD, status post stenting; diabetes mellitus type 2, insulin dependent; hypertension; hyperlipidemia, who presented to the ER on 02/18/20 with complaints of chest pain, shortness of breath. The patient was admitted to the hospital for further workup. The patient also reports that her chest pain has worsened when she is supporting herself and using a walker. Her pain is reproducible with palpation , and therefore, she is suspected to have mild costochondritis. By the time of discharge, the patient denies chest pain and her exam is benign. She does continue to have dyspnea, which is likely multifactorial including her decompensated heart failure and perceived shortness of breath due to costochondritis. She also uses oxygen at home; she uses her 's old concentrator because she feels she is dyspneic at home. I believe that this is also contributing to her dyspnea. At discharge, she is satting at 98% on 1 L of oxygen. The patient's primary complaint at admission was chest pain and shortness of breath. Upon arrival, the patient's troponins were trended and were negative. An EKG was obtained and revealed atrial fibrillation without any apparent ST changes. There was a T-wave inversion in V5, V6, which is unchanged from her baseline. She also had a left bundle-branch block, also unchanged from baseline (the patient has a known left bundle-branch block). Her chest pain was pleuritic in nature, and she had associated dyspnea. Therefore, there was some concern for pulmonary embolism. A V/Q scan was obtained and the patient resulted as a low risk. The patient had a nuclear medicine stress test in December, which showed no evidence of ischemia or infarct. An echocardiogram was done approximately 1 month ago and showed EF of 55% to 60%, indeterminate LV function. The patient's chest pain and shortness of breath were likely from decompensated heart failure, and therefore the patient was treated with IV Lasix during her hospital stay. By the time she was discharged, she was transitioned to her oral dose of furosemide. She will follow with her primary care provider. The patient was noted to have worsening renal function with the use of NSAIDs. It is likely that the patient had an MARIETTA due to prerenal. She was given a small amount of fluids, which improved her kidney function, and she is back to her baseline chronic kidney disease. The patient also had an episode of urinary retention, which required Blank catheterization. On the day of discharge, her Blank was removed and a trial of voiding was done. The patient voided prior to discharge. Therefore, she will be discharged to home with resolved urinary retention. The patient reports generalized weakness. In getting history from the patient and her daughter, the patient has slowly deconditioned over a month. Her weakness does not appear to be new or changed from her baseline. She continues to have difficulty with ambulation and ADLs. PT and OT both recommended for, but both the patient and her family insist that she go home. Her daughter Marie will live with her 24x7, and they will have visiting nursing followup. Again, they continue to decline the subacute rehab. Upon discharge, the patient's INR was elevated to 4.96. She was recommended to hold her Coumadin tonight and tomorrow, and recheck her INR level on Saturday. She will then follow up with her primary care provider for further recommendations. Ms. No is stable for discharge home. PHYSICAL EXAMINATION: Vital Signs: Temperature 98.6 temporal, heart rate 89, respiratory rate 20, oxygen saturation 97% on 1 L of oxygen, blood pressure 139/ 87. General: Ms. No is a well-developed, well-nourished, elderly white woman, who is sitting up in her chair. She appears older than her stated age. She is in no acute distress. She is in no respiratory distress, although she is on 1 L of oxygen. HEENT: PERRL, EOMI. Nonicteric sclerae. Hearing is grossly intact. Oral mucous membranes are moist. There are no lesions. The pharynx is clear. Tongue is at midline. Palate elevates symmetrically. Cardiovascular: Regular rate and rhythm with S1 and S2 present without murmurs , rubs, clicks, or gallops. There is no JVD or peripheral edema. Pulmonary: Symmetrical chest expansion without uses of accessory muscles. Breath sounds diminished throughout. Abdomen: Bowel sounds in all quadrants, soft, nontender to palpation. Neuro: The patient is awake. She is alert and oriented x3. Cranial nerves II through XII are grossly intact. She is able to move all of her extremities. Her motor strength is 5/5 bilaterally in upper and lower extremities. DISCHARGE PLAN: Ms. No will be discharged to home. CONDITION: Fair. DIET: 1. Heart healthy. 2. Diabetic/ADA. ACTIVITY: As tolerated. MEDICATIONS: 1. Stop lisinopril 20 mg and start 5 mg b.i.d. 2. Stop metoprolol tartrate 50 mg b.i.d. and start metoprolol tartrate 75 mg b.i.d. 3. Stop spironolactone. 4. Continue furosemide. EDUCATION: 1. Hold Coumadin 03/24/20, 03/25/20, and recheck INR on 03/25/20. 2. Follow up with primary care provider for further recommendations. 3. Monitor blood pressure at least once daily. Write down results and bring to next primary care appointment. 4. Follow up with primary care provider on 03/25/20 at 1600. This is a telemedicine appointment. 5. Return to the ER or the nearest hospital if you experience any return or worsening of symptoms, chest pain or discomfort, shortness of breath, high fever , chills, night sweats, dizziness, lightheadedness, loss of consciousness, or any other worrisome signs or symptoms. This is a summarized report of a complex medical history and hospital stay. For further details, please see the entire medical record. TIME SPENT: Approximately 30 minutes was spent on this discharge, greater than half that time was spent [id number] with the patient discussing discharge plans and instructions. BHUPENDRA HARRY [id number]/[facility] #: [id number] MTDD
== END 2020-03-24 15:00 | disposition home health service (06) | DRG 206 ==
LOC: ED 14:59 → MED 22:51 → OBSVTOIN 03-21 16:00 → MEDTELE 03-23 09:11
PROVIDERS: ADMIT Internal Medicine; ATTEND Internal Medicine
DX: M94.0 Chondrocostal junction syndrome [Tietze] (principal); I13.0 Hypertensive heart and chronic kidney disease with heart failure and stage 1 through stage 4 chronic kidney disease, or unspecified chronic kidney disease; N17.9 Acute kidney failure, unspecified; E78.5 Hyperlipidemia, unspecified; I48.0 Paroxysmal atrial fibrillation; E11.22 Type 2 diabetes mellitus with diabetic chronic kidney disease; I44.7 Left bundle-branch block, unspecified; F03.90 Unspecified dementia, unspecified severity, without behavioral disturbance, psychotic disturbance, mood disturbance, and anxiety; Z66 Do not resuscitate; E78.00 Pure hypercholesterolemia, unspecified; J44.9 Chronic obstructive pulmonary disease, unspecified; G47.30 Sleep apnea, unspecified; K21.9 Gastro-esophageal reflux disease without esophagitis; M19.90 Unspecified osteoarthritis, unspecified site; M06.9 Rheumatoid arthritis, unspecified; N18.3 Chronic kidney disease, stage 3 (moderate); F32.9 Major depressive disorder, single episode, unspecified; E11.42 Type 2 diabetes mellitus with diabetic polyneuropathy; R33.9 Retention of urine, unspecified; R34 Anuria and oliguria; I50.9 Heart failure, unspecified; I25.10 Atherosclerotic heart disease of native coronary artery without angina pectoris; Z95.5 Presence of coronary angioplasty implant and graft; Z86.73 Personal history of transient ischemic attack (TIA), and cerebral infarction without residual deficits; Z85.038 Personal history of other malignant neoplasm of large intestine; Z90.49 Acquired absence of other specified parts of digestive tract; Z88.5 Allergy status to narcotic agent; Z88.1 Allergy status to other antibiotic agents; Z88.0 Allergy status to penicillin; Z79.4 Long term (current) use of insulin; Z79.899 Other long term (current) drug therapy; Z79.01 Long term (current) use of anticoagulants; I25.2 Old myocardial infarction; Z99.81 Dependence on supplemental oxygen; Z87.442 Personal history of urinary calculi
CPT/HCPCS: 36415; 71045; 71046; 76770; 78580; 80048; 80053; 81003; 81015; 82570; 83605; 83880; 84300; 84484; 85025; 85610; 87086; 87635; 93005; 99284; A9270-GY; A9540; J0696; J1650; J1815; J3490; J7620

== ENCOUNTER 2022-04-18 12:42 | Inpatient (IN) ==
[2022-04-18 16:13] LABS: ABS Basophils 0.1 10^3/ul (0-0.2); ABS Eosinophils 0.1 10^3/ul (0-0.6); ABS Lymphocytes 1.7 10^3/ul (1.0-4.8); ABS Monocytes 0.6 10^3/ul (0-0.8); ABS Neutrophils 7.1 10^3/ul (1.5-7.7); Eosinophil % 0.8 %; Hematocrit 38 % (35-47); Hemoglobin 11.9 g/dL (12.0-16.0); Lymphocyte % 17.5 %; Mean Corpuscular HGB Conc 31 g/dL (31-36); Mean Corpuscular Hemoglobin 26 pg (27-31); Mean Corpuscular Volume 83 fL (80-97); Mean Platelet Volume 7.3 fL (7.4-10.4); Platelet Count 499 10^3/uL (150-450); Red Cell Distribution Width 19 % (10-15); White Blood Count 9.6 10^3/uL (3.5-10.8)
[2022-04-18] MEDS ORDERED: Al Hydrox/Mg Hydrox/Simet LIQ 30 ML UDC PO ONE (16:24)
[2022-04-18 16:59] LABS: ALT 8 U/L (7-52); Albumin 3.4 g/dL (3.2-5.2); Alkaline Phosphatase 81 U/L (35-149); Blood Urea Nitrogen 12 mg/dL (6-24); CO2 Carbon Dioxide 33 mmol/L (22-32); Calcium 10.1 mg/dL (8.6-10.3); Chloride 97 mmol/L (101-111); Globulin 3.5 g/dL (2-4); Glucose 182 mg/dL (70-100); Lipase 12 U/L (11.0-82.0); Sodium 136 mmol/L (135-145); Total Protein 6.9 g/dL (6.4-8.9)
[2022-04-18 17:06] LABS: Anion Gap 6 mmol/L (2-11)
[2022-04-18 18:04] LABS: Urine Appearance Cloudy; Urine Bilirubin Negative (Negative); Urine Blood Negative (Negative); Urine Color Yellow; Urine Glucose Negative (Negative); Urine Ketones Negative (Negative); Urine Nitrite Positive (Negative); Urine Protein 2+(100 mg/dL) (Negative); Urine Specific Gravity 1.012 (1.002-1.030); Urine Urobilinogen Negative (Negative)
[2022-04-18 18:47] LABS: Urine Bacteria 1+ (Absent); Urine Red Blood Cell Absent (Absent); Urine Squamous Epithelial Cell Present (Absent); Urine White Blood Cell 2+(11-20/hpf) (Absent)
[2022-04-18] MEDS ORDERED: ceFAZolin 1 GM ADVAN 1 GM in NS 0.9% 50 ML 50 ML IVPB ONE (19:04)
[2022-04-18 20:47] LABS: Potassium Redraw 3.7 mmol/L (3.5-5.0)
[2022-04-18] MEDS ORDERED: Al Hydrox/Mg Hydrox/Simet LIQ 30 ML UDC PO PRN (20:48)
[2022-04-18] MEDS ORDERED: Acetaminophen IV 1 GM/100ML 100 ML IV PRN (20:54)
[2022-04-18] MEDS ORDERED: Enoxaparin 40 MG/0.4 ML SYR SUBCUT SCH (21:00)
[2022-04-18] MEDS ORDERED: Insulin GLARGINE 100 un/ml 10 ml VIAL SUBCUT SCH (23:00)
[2022-04-18] MEDS ORDERED: Ondansetron ODT 4 mg TAB 4 MG TAB SL PRN (23:23)
[2022-04-18] MEDS ORDERED: Dextrose 50% Syringe 50 ml 25 GM/50 ML SYRINGE IV PUSH PRN (23:59)
[2022-04-19 00:24] LABS: Activated Partial Thrombo Time 44.2 seconds (26.0-38.0); INR 3.13 (0.86-1.15)
[2022-04-19 00:35] LABS: Total Iron Binding Capacity 337 mcg/dL (250-450); Transferrin 241 mg/dL (203-362)
[2022-04-19 00:55] LABS: Ferritin 90.7 ng/mL (11-307)
[2022-04-19] MEDS ORDERED: Phytonadione Oral Solution 5 MG/25 ML UDC PO ONE (01:56)
[2022-04-19] MEDS: cefTRIAXone 1 gm/50 mL D5W 1 GM/50 ML BAG IV SCH (05:59)
[2022-04-19 06:16] LABS: INR 2.83 (0.86-1.15)
[2022-04-19 06:38] LABS: CO2 Carbon Dioxide 31 mmol/L (22-32); Calcium 9.4 mg/dL (8.6-10.3); Chloride 103 mmol/L (101-111); Magnesium 1.9 mg/dL (1.9-2.7); Sodium 139 mmol/L (135-145)
[2022-04-19 06:44] LABS: Blood Urea Nitrogen 11 mg/dL (6-24); Glucose 61 mg/dL (70-100); eGFR CKD-EPI 67.5 (>60)
[2022-04-19 06:46] LABS: Anion Gap 5 mmol/L (2-11)
[2022-04-19] MEDS ORDERED: D5W 1/2 NS 1000 ml BAG 1,000 ML IV SCH (09:00)
[2022-04-19] MEDS: Aspirin EC 81 mg TAB.EC (enteric coated) PO SCH ×2 (11:22→13:06)
[2022-04-19] MEDS: Ammonium Lactate 12% 1 APPLIC TUBE TOPICAL SCH ×3 (11:22→21:02)
[2022-04-19] MEDS: Cholecalciferol (VIT D3) 1,000 unit TAB PO SCH ×2 (11:22→13:06)
[2022-04-19] MEDS: Pantoprazole VIAL 40 MG VIAL IV SCH ×2 (11:30→21:03)
[2022-04-19] MEDS: oxyCODONE 5 mg/5 ml ORAL.SOLN UDC PO PRN (13:25)
[2022-04-20] MEDS: cefTRIAXone 1 gm/50 mL D5W 1 GM/50 ML BAG IV SCH (05:04)
[2022-04-20 07:40] LABS: ABS Basophils 0.1 10^3/ul (0-0.2); ABS Eosinophils 0.2 10^3/ul (0-0.6); ABS Lymphocytes 1.6 10^3/ul (1.0-4.8); ABS Monocytes 0.6 10^3/ul (0-0.8); ABS Neutrophils 4.5 10^3/ul (1.5-7.7); Hematocrit 33 % (35-47); Hemoglobin 10.4 g/dL (12.0-16.0); Lymphocyte % 22.9 %; Mean Corpuscular HGB Conc 32 g/dL (31-36); Mean Corpuscular Hemoglobin 26 pg (27-31); Mean Corpuscular Volume 83 fL (80-97); Mean Platelet Volume 7.4 fL (7.4-10.4); Platelet Count 422 10^3/uL (150-450); Red Blood Count 3.96 10^6 /uL (3.70-4.87); Red Cell Distribution Width 19 % (10-15)
[2022-04-20 07:56] LABS: Calcium 9.9 mg/dL (8.6-10.3); Magnesium 1.8 mg/dL (1.9-2.7); Potassium 3.7 mmol/L (3.5-5.0); eGFR CKD-EPI 73.7 (>60)
[2022-04-20 07:59] LABS: INR 1.69 (0.86-1.15)
[2022-04-20] MEDS ORDERED: Magnesium Sulfate 2 gm BAG 2 GM/50 ML BAG IVPB ONE (09:17)
[2022-04-20] MEDS ORDERED: Potassium Chlor 20 meq TAB.ER PO ONE (09:18)
[2022-04-20] MEDS: Pantoprazole VIAL 40 MG VIAL IV SCH ×2 (09:48→22:34)
[2022-04-20] MEDS: Ammonium Lactate 12% 1 APPLIC TUBE TOPICAL SCH ×2 (09:50→22:34)
[2022-04-20] MEDS: Cholecalciferol (VIT D3) 1,000 unit TAB PO SCH (09:54)
[2022-04-20] MEDS: Aspirin EC 81 mg TAB.EC (enteric coated) PO SCH (09:55)
[2022-04-20] MEDS ORDERED: Midazolam 10 mg/10 ml VIAL 1 mg/ml 10 ml VIAL (10 mg) ONE (13:07)
[2022-04-20] MEDS ORDERED: fentaNYL 100 mcg/2 ml 50 MCG/ML VIAL ONE (13:07)
[2022-04-20] MEDS ORDERED: Warfarin per PHARMACY **NOTE FOLLOW UP SCH (20:00)
[2022-04-20] MEDS: Enoxaparin 100 MG/ML SYR SUBCUT SCH (22:37)
[2022-04-21] MEDS: cefTRIAXone 1 gm/50 mL D5W 1 GM/50 ML BAG IV SCH (06:33)
[2022-04-21 06:44] LABS: INR 1.48 (0.86-1.15)
[2022-04-21 06:46] LABS: ABS Basophils 0.1 10^3/ul (0-0.2); ABS Eosinophils 0.2 10^3/ul (0-0.6); ABS Lymphocytes 1.8 10^3/ul (1.0-4.8); ABS Monocytes 0.7 10^3/ul (0-0.8); ABS Neutrophils 3.8 10^3/ul (1.5-7.7); Eosinophil % 3.2 %; Hematocrit 34 % (35-47); Hemoglobin 10.8 g/dL (12.0-16.0); Lymphocyte % 26.9 %; Mean Corpuscular HGB Conc 32 g/dL (31-36); Mean Corpuscular Hemoglobin 26 pg (27-31); Mean Corpuscular Volume 82 fL (80-97); Mean Platelet Volume 7.5 fL (7.4-10.4); Nucleated Red Blood Cells % 0.1; Platelet Count 448 10^3/uL (150-450); Red Blood Count 4.16 10^6 /uL (3.70-4.87); Red Cell Distribution Width 20 % (10-15); White Blood Count 6.6 10^3/uL (3.5-10.8)
[2022-04-21 07:02] LABS: Calcium 9.7 mg/dL (8.6-10.3); Magnesium 1.9 mg/dL (1.9-2.7); Potassium 3.8 mmol/L (3.5-5.0); eGFR CKD-EPI 73.7 (>60)
[2022-04-21] MEDS: Pantoprazole VIAL 40 MG VIAL IV SCH (08:32)
[2022-04-21] MEDS: Cholecalciferol (VIT D3) 1,000 unit TAB PO SCH (08:34)
[2022-04-21] MEDS: Enoxaparin 100 MG/ML SYR SUBCUT SCH ×2 (08:35→21:20)
[2022-04-21] MEDS: Aspirin EC 81 mg TAB.EC (enteric coated) PO SCH (08:38)
[2022-04-21] MEDS: Ammonium Lactate 12% 1 APPLIC TUBE TOPICAL SCH ×2 (08:38→21:22)
[2022-04-21] MEDS: oxyCODONE 5 mg/5 ml ORAL.SOLN UDC PO PRN ×2 (08:50→21:19)
[2022-04-21] MEDS ORDERED: Polyethylene Glycol 3350 17 GM PACKET PO PRN (11:09)
[2022-04-21] MEDS: Senna TAB 8.6 mg TAB PO SCH ×2 (12:36→21:13)
[2022-04-21 16:08] LABS: TSH Ultra Thyroid Stim Horm 2.4 mcIU/mL (0.34-5.60)
[2022-04-21 16:20] LABS: Folate 17.66 ng/mL (5.90-24.80)
[2022-04-21] MEDS: Iron Sucrose 200 MG in NS 0.9% 100 ml BAG 100 ML IVPB SCH (17:05)
[2022-04-21] MEDS: Warfarin DAILY REMINDER **NOTE FOLLOW UP SCH (17:08)
[2022-04-22] MEDS: cefTRIAXone 1 gm/50 mL D5W 1 GM/50 ML BAG IV SCH (06:30)
[2022-04-22 09:25] LABS: Hematocrit 35 % (35-47)
[2022-04-22 09:51] LABS: Potassium 3.7 mmol/L (3.5-5.0); eGFR CKD-EPI 73.7 (>60)
[2022-04-22 09:54] LABS: INR 1.98 (0.86-1.15)
[2022-04-22 10:33] LABS: Calcium 9.5 mg/dL (8.6-10.3)
[2022-04-22] MEDS: Cholecalciferol (VIT D3) 1,000 unit TAB PO SCH (10:53)
[2022-04-22] MEDS: Aspirin EC 81 mg TAB.EC (enteric coated) PO SCH (10:53)
[2022-04-22] MEDS: Enoxaparin 100 MG/ML SYR SUBCUT SCH ×2 (10:54→22:04)
[2022-04-22] MEDS: Senna TAB 8.6 mg TAB PO SCH ×2 (10:54→21:59)
[2022-04-22] MEDS: Ammonium Lactate 12% 1 APPLIC TUBE TOPICAL SCH ×2 (10:55→22:04)
[2022-04-22] MEDS: oxyCODONE 5 mg/5 ml ORAL.SOLN UDC PO PRN ×2 (14:10→21:56)
[2022-04-22] MEDS: Iron Sucrose 200 MG in NS 0.9% 100 ml BAG 100 ML IVPB SCH (14:11)
[2022-04-22] MEDS: Warfarin DAILY REMINDER **NOTE FOLLOW UP SCH (17:42)
[2022-04-23] MEDS: oxyCODONE 5 mg/5 ml ORAL.SOLN UDC PO PRN (05:36)
[2022-04-23] MEDS: cefTRIAXone 1 gm/50 mL D5W 1 GM/50 ML BAG IV SCH (05:37)
[2022-04-23 05:57] LABS: Hematocrit 36 % (35-47); Mean Corpuscular HGB Conc 31 g/dL (31-36); Mean Corpuscular Hemoglobin 26 pg (27-31); Mean Corpuscular Volume 84 fL (80-97); Mean Platelet Volume 7.7 fL (7.4-10.4); Platelet Count 408 10^3/uL (150-450); Red Blood Count 4.25 10^6 /uL (3.70-4.87); Red Cell Distribution Width 20 % (10-15); White Blood Count 6.5 10^3/uL (3.5-10.8)
[2022-04-23 06:03] LABS: INR 2.83 (0.86-1.15)
[2022-04-23 06:37] LABS: Calcium 9.7 mg/dL (8.6-10.3); Magnesium 1.6 mg/dL (1.9-2.7); Potassium 3.7 mmol/L (3.5-5.0)
[2022-04-23 06:43] LABS: eGFR CKD-EPI 70.5 (>60)
[2022-04-23] MEDS ORDERED: Magnesium Sulfate IV 3 GM in NS 0.9% 100 ml BAG 100 ML IVPB ONE (08:09)
[2022-04-23] MEDS: Cholecalciferol (VIT D3) 1,000 unit TAB PO SCH (08:56)
[2022-04-23] MEDS: Enoxaparin 100 MG/ML SYR SUBCUT SCH (08:56)
[2022-04-23] MEDS: Senna TAB 8.6 mg TAB PO SCH ×2 (08:56→19:47)
[2022-04-23] MEDS: Aspirin EC 81 mg TAB.EC (enteric coated) PO SCH (08:56)
[2022-04-23] MEDS: Ammonium Lactate 12% 1 APPLIC TUBE TOPICAL SCH ×2 (08:57→19:48)
[2022-04-23] MEDS ORDERED: Potassium Chlor 20 meq TAB.ER PO ONE (09:00)
[2022-04-23] MEDS ORDERED: Magnesium Sulfate 2 GM IV (Premix) IVPB ONE (09:00)
[2022-04-23] MEDS ORDERED: Magnesium Sulfate 1 GM IV 1 GM/100 ML BAG IV ONE (10:00)
[2022-04-23] MEDS: Iron Sucrose 200 MG in NS 0.9% 100 ml BAG 100 ML IVPB SCH (15:43)
[2022-04-24 05:44] LABS: Hematocrit 35 % (35-47); Hemoglobin 10.8 g/dL (12.0-16.0); Mean Corpuscular HGB Conc 31 g/dL (31-36); Mean Corpuscular Hemoglobin 26 pg (27-31); Mean Corpuscular Volume 83 fL (80-97); Mean Platelet Volume 7.4 fL (7.4-10.4); Platelet Count 420 10^3/uL (150-450); Red Blood Count 4.16 10^6 /uL (3.70-4.87); Red Cell Distribution Width 20 % (10-15); White Blood Count 7.1 10^3/uL (3.5-10.8)
[2022-04-24 05:52] LABS: INR 3.29 (0.86-1.15)
[2022-04-24 06:19] LABS: Calcium 9.6 mg/dL (8.6-10.3); Magnesium 1.9 mg/dL (1.9-2.7); eGFR CKD-EPI 74.8 (>60)
[2022-04-24] MEDS ORDERED: Magnesium Sulfate 2 gm BAG 2 GM/50 ML BAG IVPB ONE (06:21)
[2022-04-24] MEDS: Senna TAB 8.6 mg TAB PO SCH ×2 (09:29→21:56)
[2022-04-24] MEDS: Cholecalciferol (VIT D3) 1,000 unit TAB PO SCH (09:29)
[2022-04-24] MEDS: Ammonium Lactate 12% 1 APPLIC TUBE TOPICAL SCH ×2 (09:29→21:55)
[2022-04-24] MEDS: Aspirin EC 81 mg TAB.EC (enteric coated) PO SCH (09:29)
[2022-04-24 12:41] LABS: Albumin 2.9 g/dL (3.2-5.2); Direct Bilirubin 0.2 mg/dL (0.03-0.18); Globulin 2.8 g/dL (2-4); Indirect Bilirubin 1.1 mg/dL (0.3-1.0); Total Bilirubin 1.3 mg/dL (0.2-1.0); Total Protein 5.7 g/dL (6.4-8.9)
[2022-04-24] MEDS ORDERED: Insulin GLARGINE 100 un/ml 10 ml VIAL SUBCUT ONE (14:09)
[2022-04-24] MEDS: Iron Sucrose 200 MG in NS 0.9% 100 ml BAG 100 ML IVPB SCH (14:33)
[2022-04-25 05:23] LABS: Hematocrit 34 % (35-47); Hemoglobin 10.5 g/dL (12.0-16.0); Mean Corpuscular HGB Conc 31 g/dL (31-36); Mean Corpuscular Hemoglobin 25 pg (27-31); Mean Corpuscular Volume 83 fL (80-97); Mean Platelet Volume 7.3 fL (7.4-10.4); Platelet Count 402 10^3/uL (150-450); Red Blood Count 4.13 10^6 /uL (3.70-4.87); Red Cell Distribution Width 20 % (10-15); White Blood Count 6.1 10^3/uL (3.5-10.8)
[2022-04-25 05:30] LABS: INR 3.35 (0.86-1.15)
[2022-04-25 05:49] LABS: Calcium 9.7 mg/dL (8.6-10.3); Magnesium 1.9 mg/dL (1.9-2.7); Potassium 3.4 mmol/L (3.5-5.0); eGFR CKD-EPI 71.5 (>60)
[2022-04-25] MEDS ORDERED: Magnesium Sulfate IV 3 GM in NS 0.9% 100 ml BAG 100 ML IVPB ONE (06:28)
[2022-04-25] MEDS ORDERED: Potassium Chlor 20 meq TAB.ER PO ONE (06:31)
[2022-04-25] MEDS ORDERED: Magnesium Sulfate 1 GM IV 1 GM/100 ML BAG IV ONE (06:45)
[2022-04-25] MEDS ORDERED: Magnesium Sulfate 2 GM IV (Premix) IVPB ONE (07:15)
[2022-04-25 08:11] LABS: Albumin 2.9 g/dL (3.2-5.2); Albumin/Globulin Ratio 1.1 (1-3); Direct Bilirubin 0.2 mg/dL (0.03-0.18); Globulin 2.7 g/dL (2-4); Indirect Bilirubin 1.1 mg/dL (0.3-1.0); Total Bilirubin 1.3 mg/dL (0.2-1.0); Total Protein 5.6 g/dL (6.4-8.9)
[2022-04-25] MEDS: Aspirin EC 81 mg TAB.EC (enteric coated) PO SCH (08:24)
[2022-04-25] MEDS: Cholecalciferol (VIT D3) 1,000 unit TAB PO SCH (08:24)
[2022-04-25] MEDS: Senna TAB 8.6 mg TAB PO SCH ×2 (08:25→22:16)
[2022-04-25] MEDS: Insulin GLARGINE 100 un/ml 10 ml VIAL SUBCUT SCH (08:25)
[2022-04-25] MEDS: Ammonium Lactate 12% 1 APPLIC TUBE TOPICAL SCH ×2 (08:26→22:16)
[2022-04-25] MEDS: Iron Sucrose 200 MG in NS 0.9% 100 ml BAG 100 ML IVPB SCH (17:10)
[2022-04-26 06:19] LABS: INR 2.33 (0.86-1.15)
[2022-04-26 06:32] LABS: Calcium 9.5 mg/dL (8.6-10.3); Potassium 3.6 mmol/L (3.5-5.0); eGFR CKD-EPI 63.9 (>60)
[2022-04-26 06:44] LABS: Hematocrit 37 % (35-47); Hemoglobin 11.5 g/dL (12.0-16.0); Mean Corpuscular HGB Conc 31 g/dL (31-36); Mean Corpuscular Hemoglobin 26 pg (27-31); Mean Corpuscular Volume 84 fL (80-97); Mean Platelet Volume 7.4 fL (7.4-10.4); Platelet Count 407 10^3/uL (150-450); Red Blood Count 4.39 10^6 /uL (3.70-4.87); Red Cell Distribution Width 20 % (10-15)
[2022-04-26] MEDS: Insulin GLARGINE 100 un/ml 10 ml VIAL SUBCUT SCH (09:55)
[2022-04-26] MEDS: Aspirin EC 81 mg TAB.EC (enteric coated) PO SCH (11:14)
[2022-04-26] MEDS: Senna TAB 8.6 mg TAB PO SCH ×2 (11:14→20:54)
[2022-04-26] MEDS: Cholecalciferol (VIT D3) 1,000 unit TAB PO SCH (11:14)
[2022-04-26] MEDS: Ammonium Lactate 12% 1 APPLIC TUBE TOPICAL SCH ×2 (12:17→20:29)
[2022-04-27 07:43] LABS: Hematocrit 35 % (35-47); Hemoglobin 10.9 g/dL (12.0-16.0); Mean Corpuscular HGB Conc 31 g/dL (31-36); Mean Corpuscular Hemoglobin 26 pg (27-31); Mean Corpuscular Volume 85 fL (80-97); Mean Platelet Volume 7.4 fL (7.4-10.4); Platelet Count 410 10^3/uL (150-450); Red Blood Count 4.13 10^6 /uL (3.70-4.87); Red Cell Distribution Width 20 % (10-15); White Blood Count 6.6 10^3/uL (3.5-10.8)
[2022-04-27 07:49] LABS: INR 1.58 (0.86-1.15)
[2022-04-27 08:27] LABS: Calcium 9.6 mg/dL (8.6-10.3); Magnesium 1.6 mg/dL (1.9-2.7); Potassium 3.6 mmol/L (3.5-5.0); eGFR CKD-EPI 68.5 (>60)
[2022-04-27] MEDS ORDERED: Heparin 5000 UNITS/ML 1 mL VIAL IV SCH (09:00)
[2022-04-27] MEDS: Ammonium Lactate 12% 1 APPLIC TUBE TOPICAL SCH ×2 (10:13→21:39)
[2022-04-27] MEDS: Senna TAB 8.6 mg TAB PO SCH ×2 (10:18→21:33)
[2022-04-27] MEDS: Insulin GLARGINE 100 un/ml 10 ml VIAL SUBCUT SCH (10:18)
[2022-04-27] MEDS: Cholecalciferol (VIT D3) 1,000 unit TAB PO SCH (10:18)
[2022-04-27] MEDS: Aspirin EC 81 mg TAB.EC (enteric coated) PO SCH (10:18)
[2022-04-27 10:46] LABS: Activated Partial Thrombo Time 34.2 seconds (26.0-38.0)
[2022-04-27] MEDS: Heparin DRIP 25,000 UNITS BAG 25,000 UNITS/500 ML BAG IV SCH (11:48)
[2022-04-27] MEDS ORDERED: fentaNYL 100 mcg/2 ml 50 MCG/ML VIAL ONE (15:39)
[2022-04-27] MEDS ORDERED: Warfarin per PHARMACY **NOTE FOLLOW UP SCH (18:00)
[2022-04-27] MEDS ORDERED: HYDROmorphone 1 MG/1 ML SYRINGE IV SLOW PU PRN (20:20)
[2022-04-27] MEDS: HYDROmorphone 0.5 MG/0.5 ML SYRINGE IV SLOW PU PRN (21:35)
[2022-04-28 08:13] LABS: ABS Basophils 0.2 10^3/ul (0-0.2); ABS Eosinophils 0.1 10^3/ul (0-0.6); ABS Lymphocytes 1.5 10^3/ul (1.0-4.8); ABS Monocytes 0.7 10^3/ul (0-0.8); ABS Neutrophils 3.5 10^3/ul (1.5-7.7); Eosinophil % 2.3 %; Hematocrit 34 % (35-47); Hemoglobin 10.5 g/dL (12.0-16.0); Lymphocyte % 24.8 %; Mean Corpuscular HGB Conc 31 g/dL (31-36); Mean Corpuscular Hemoglobin 26 pg (27-31); Mean Corpuscular Volume 83 fL (80-97); Mean Platelet Volume 7.3 fL (7.4-10.4); Nucleated Red Blood Cells % 0.1; Platelet Count 381 10^3/uL (150-450); Red Blood Count 4.04 10^6 /uL (3.70-4.87); Red Cell Distribution Width 21 % (10-15)
[2022-04-28 08:26] LABS: Activated Partial Thrombo Time 77.9 seconds (26.0-38.0); INR 1.45 (0.86-1.15)
[2022-04-28] MEDS: Insulin GLARGINE 100 un/ml 10 ml VIAL SUBCUT SCH (08:30)
[2022-04-28 08:48] LABS: Calcium 9.4 mg/dL (8.6-10.3); Potassium 3.5 mmol/L (3.5-5.0); eGFR CKD-EPI 78.5 (>60)
[2022-04-28] MEDS: Cholecalciferol (VIT D3) 1,000 unit TAB PO SCH (11:46)
[2022-04-28] MEDS: Aspirin EC 81 mg TAB.EC (enteric coated) PO SCH (11:46)
[2022-04-28] MEDS: Senna TAB 8.6 mg TAB PO SCH (11:47)
[2022-04-28] MEDS: Ammonium Lactate 12% 1 APPLIC TUBE TOPICAL SCH ×2 (12:04→20:37)
[2022-04-28] MEDS ORDERED: Senna TAB 8.6 mg TAB PO PRN (12:48)
[2022-04-28] MEDS ORDERED: Magnesium Hydroxide LIQ 30 ML UDC PO PRN (12:48)
[2022-04-28] MEDS: Heparin DRIP 25,000 UNITS BAG 25,000 UNITS/500 ML BAG IV SCH (14:57)
[2022-04-28] MEDS: HYDROmorphone 0.5 MG/0.5 ML SYRINGE IV SLOW PU PRN (20:46)
[2022-04-29 02:46] LABS: Hematocrit 33 % (35-47); Hemoglobin 10.5 g/dL (12.0-16.0); Mean Corpuscular HGB Conc 32 g/dL (31-36); Mean Corpuscular Hemoglobin 27 pg (27-31); Mean Corpuscular Volume 84 fL (80-97); Mean Platelet Volume 7.4 fL (7.4-10.4); Platelet Count 370 10^3/uL (150-450); Red Blood Count 3.96 10^6 /uL (3.70-4.87); Red Cell Distribution Width 21 % (10-15); White Blood Count 5.1 10^3/uL (3.5-10.8)
[2022-04-29] MEDS: Heparin DRIP 25,000 UNITS BAG 25,000 UNITS/500 ML BAG IV SCH (03:03)
[2022-04-29 03:10] LABS: INR 1.65 (0.86-1.15)
[2022-04-29] MEDS: Insulin GLARGINE 100 un/ml 10 ml VIAL SUBCUT SCH (10:47)
[2022-04-29] MEDS: Cholecalciferol (VIT D3) 1,000 unit TAB PO SCH (10:49)
[2022-04-29] MEDS: Aspirin EC 81 mg TAB.EC (enteric coated) PO SCH (10:50)
[2022-04-29] MEDS: Ammonium Lactate 12% 1 APPLIC TUBE TOPICAL SCH ×2 (11:02→20:19)
[2022-04-29] MEDS: HYDROmorphone 0.5 MG/0.5 ML SYRINGE IV SLOW PU PRN (20:28)
[2022-04-30 03:11] LABS: Activated Partial Thrombo Time 54.2 seconds (26.0-38.0); INR 1.99 (0.86-1.15)
[2022-04-30] MEDS: Insulin GLARGINE 100 un/ml 10 ml VIAL SUBCUT SCH (09:58)
[2022-04-30] MEDS: Ammonium Lactate 12% 1 APPLIC TUBE TOPICAL SCH ×2 (09:59→21:29)
[2022-04-30] MEDS: Cholecalciferol (VIT D3) 1,000 unit TAB PO SCH (09:59)
[2022-04-30] MEDS: Aspirin EC 81 mg TAB.EC (enteric coated) PO SCH (09:59)
[2022-04-30] MEDS: HYDROmorphone 0.5 MG/0.5 ML SYRINGE IV SLOW PU PRN (11:48)
[2022-04-30] MEDS: Warfarin DAILY REMINDER **NOTE FOLLOW UP SCH (17:55)
[2022-04-30] MEDS: Heparin DRIP 25,000 UNITS BAG 25,000 UNITS/500 ML BAG IV SCH (22:38)
[2022-05-01 06:55] LABS: INR 2.42 (0.86-1.15)
[2022-05-01] MEDS: Insulin GLARGINE 100 un/ml 10 ml VIAL SUBCUT SCH (08:42)
[2022-05-01] MEDS: Ammonium Lactate 12% 1 APPLIC TUBE TOPICAL SCH ×2 (08:43→19:58)
[2022-05-01] MEDS: Cholecalciferol (VIT D3) 1,000 unit TAB PO SCH (08:43)
[2022-05-01] MEDS: Aspirin EC 81 mg TAB.EC (enteric coated) PO SCH (08:43)
[2022-05-01 11:44] LABS: ABS Basophils 0.1 10^3/ul (0-0.2); ABS Eosinophils 0.2 10^3/ul (0-0.6); ABS Lymphocytes 1.5 10^3/ul (1.0-4.8); ABS Monocytes 0.5 10^3/ul (0-0.8); ABS Neutrophils 3.1 10^3/ul (1.5-7.7); Eosinophil % 3.3 %; Hematocrit 35 % (35-47); Hemoglobin 11.3 g/dL (12.0-16.0); Lymphocyte % 28.3 %; Mean Corpuscular HGB Conc 32 g/dL (31-36); Mean Corpuscular Hemoglobin 28 pg (27-31); Mean Corpuscular Volume 85 fL (80-97); Mean Platelet Volume 8.2 fL (7.4-10.4); Nucleated Red Blood Cells % 0.2; Platelet Count 381 10^3/uL (150-450); Red Blood Count 4.08 10^6 /uL (3.70-4.87); Red Cell Distribution Width 21 % (10-15); White Blood Count 5.3 10^3/uL (3.5-10.8)
[2022-05-01] MEDS ORDERED: NS 0.9% 1000 ml BAG 1,000 ML IV ONE (11:50)
[2022-05-01 11:54] LABS: Albumin 2.9 g/dL (3.2-5.2); Calcium 9.5 mg/dL (8.6-10.3); Globulin 2.9 g/dL (2-4); Magnesium 1.3 mg/dL (1.9-2.7); Potassium 3.4 mmol/L (3.5-5.0); Total Bilirubin 1.2 mg/dL (0.2-1.0); Total Protein 5.8 g/dL (6.4-8.9)
[2022-05-01] MEDS ORDERED: Magnesium Sulf 4 GM/100 ML IV 4,000 MG/100 ML BAG IVPB ONE (11:54)
[2022-05-01] MEDS ORDERED: Potassium Chlor 20 meq TAB.ER PO ONE (11:55)
[2022-05-01] MEDS ORDERED: KCL 20 MEQ/100 ML IVPREMIX 20 MEQ/100 ML BAG IV SCH (16:00)
[2022-05-01] MEDS: Warfarin DAILY REMINDER **NOTE FOLLOW UP SCH (16:17)
[2022-05-02] MEDS ORDERED: NS 0.9% 1000 ml BAG 1,000 ML IV SCH (00:01)
[2022-05-02 05:53] LABS: INR 2.64 (0.86-1.15)
[2022-05-02 06:02] LABS: Calcium 8.9 mg/dL (8.6-10.3); Potassium 3.8 mmol/L (3.5-5.0); eGFR CKD-EPI 71.5 (>60)
[2022-05-02] MEDS: Insulin GLARGINE 100 un/ml 10 ml VIAL SUBCUT SCH (07:56)
[2022-05-02] MEDS: Ammonium Lactate 12% 1 APPLIC TUBE TOPICAL SCH ×2 (08:57→21:58)
[2022-05-02] MEDS: Aspirin EC 81 mg TAB.EC (enteric coated) PO SCH (08:57)
[2022-05-02] MEDS: Cholecalciferol (VIT D3) 1,000 unit TAB PO SCH (08:57)
[2022-05-02] MEDS: Warfarin DAILY REMINDER **NOTE FOLLOW UP SCH (17:24)
[2022-05-03 06:31] LABS: INR 3.51 (0.86-1.15)
[2022-05-03 07:07] LABS: Calcium 8.8 mg/dL (8.6-10.3); Magnesium 1.5 mg/dL (1.9-2.7); Potassium 3.3 mmol/L (3.5-5.0); eGFR CKD-EPI 70.5 (>60)
[2022-05-03] MEDS ORDERED: Magnesium Sulfate IV 3 GM in NS 0.9% 100 ml BAG 100 ML IVPB ONE (07:27)
[2022-05-03] MEDS ORDERED: Magnesium Sulfate 2 GM IV (Premix) IVPB ONE (08:00)
[2022-05-03] MEDS ORDERED: Magnesium Sulfate 1 GM IV 1 GM/100 ML BAG IV ONE (09:00)
[2022-05-03] MEDS: Insulin GLARGINE 100 un/ml 10 ml VIAL SUBCUT SCH (09:15)
[2022-05-03] MEDS: Aspirin EC 81 mg TAB.EC (enteric coated) PO SCH (09:15)
[2022-05-03] MEDS: Ammonium Lactate 12% 1 APPLIC TUBE TOPICAL SCH (09:16)
[2022-05-03] MEDS: Cholecalciferol (VIT D3) 1,000 unit TAB PO SCH (09:16)
[2022-05-03 15:05] VITALS: BP 129/83
[2022-05-03] MEDS ORDERED: Warfarin - No Order Today **NOTE FOLLOW UP ONE (17:00)
== END 2022-05-03 16:15 | disposition home health service (06) | DRG 391 ==
LOC: EDHOLD 12:42 → ED 12:42 → SUATTDRO 20:48 → MED 23:05 → SUATTDRO 04-19 17:00
PROVIDERS: ADMIT Internal Medicine; ATTEND Internal Medicine